=== PATIENT | female | born 1935 | race Caucasian/White ===

== ENCOUNTER 2022-09-05 03:58 | Emergency (ER) | payer MEDICARE, OTHER, SELFPAY ==
[2022-09-05] VITALS (35 sets, daily range): BP systolic 107–164; BP diastolic 49–96; PULSE 86–158; RESP 20–40; TEMP 36.9–37.4; O2SAT 91–99; BMI 35.4
--- NOTE | 2022-09-05 04:20 | ED_ITS ---
HPI - Weakness General Chief complaint: Weakness Stated complaint: WEAKNESS/FALL Time Seen by Provider: 09/05/22 04:11 Source: patient Source comment: EMS and patient Mode of arrival: ambulance Limitations: no limitations History of Present Illness HPI Narrative: patient presents from home complaining of weakness. Tonight she fell to the floor onto her buttocks getting out of bed to go to the Bathroom . Her was helping her but could not keep her up and she fell/was lowered to the floor. also does not feel she was hurt from the fall. She denies injury from the fall but not able to get up. Complains of pain with urination. Denies fever or nausea. Ill for 3 days MD Complaint: Reports generalized weakness Onset (ago): day(s) Related Data Home Medications Medication Instructions Recorded Confirmed amlodipine 5 mg tablet 5 mg PO DAILY 09/05/22 09/05/22 benzoin compound 1 applic topical DAILY 09/05/22 09/05/22 conjugated estrogens 0.9 mg tablet 0.9 mg PO DAILY 09/05/22 09/05/22 (Premarin) lisinopril 20 mg tablet 20 mg PO DAILY 09/05/22 09/05/22 metoprolol tartrate 100 mg tablet 100 mg PO Q12H 09/05/22 09/05/22 potassium chloride 10 mEq 10 meq PO DAILY 09/05/22 09/05/22 tablet,extended release rabeprazole 20 mg tablet,delayed 20 mg PO Q24H 09/05/22 09/05/22 release Allergies Allergy/AdvReac Type Severity Reaction Status Date / Time alevera Allergy Rash Uncoded 09/05/22 04:06 Review of Systems ROS Status of ROS 10 or more systems reviewed and unremarkable except as noted in history and below [facility] Social History Smoking status: Former smoker Exam Constitutional Vital Signs, click to edit/add: Last Vital Signs Temp 98.5 F 09/05/22 04:00 Pulse 104 H 09/05/22 04:00 Resp 20 09/05/22 04:00 BP 164/57 H 09/05/22 04:00 Pulse Ox 93 L 09/05/22 04:00 O2 Del Method Room Air 09/05/22 04:00 Common normals: oriented x3 and alert General appearance: ill appearing Other: appears weak Eye Common normals: PERRL, EOMs intact bilaterally and conjunctivae normal Respiratory Common normals: normal respiratory effort, no retractions, no use of accessory muscles and clear to auscultation bilaterally Cardio Rate: tachycardic Rhythm: abnormal rhythm GI Common normals: Normal to inspection, nondistended, normoactive bowel sounds present, soft to palpation and non-tender Extremity Common normals: normal to inspection and full ROM Neuro Common normals: CN's II-XII intact bilaterally, moves all extremities, no focal motor deficits and no sensory deficits noted Course Vital Signs Vital signs: Vital Signs Temperature 98.5 F 09/05/22 04:00 Pulse Rate 104 H 09/05/22 04:00 Respiratory Rate 09/05/22 04:00 Blood Pressure 164/57 H 09/05/22 04:00 Pulse Oximetry 93 L 09/05/22 04:00 Oxygen Delivery Method Room Air 09/05/22 04:00 Temperature 98.5 F 09/05/22 04:00 Pulse Rate 104 H 09/05/22 04:00 Respiratory Rate 09/05/22 04:00 Blood Pressure 164/57 H 09/05/22 04:00 Pulse Oximetry 93 L 09/05/22 04:00 Oxygen Delivery Method Room Air 09/05/22 04:00 MDM - Weakness MDM Narrative Medical decision making narrative: patient presents with complaint of gen. weakness Presents with A.fib with RVR. Also found to have acute renal insufficiency and leukocytosis. Mild elevation of Troponin. clear cxray . Patient afebrile. Started on diltiazem to control heart rate. d-dimer elevated but GRF prevents CTA chest. Patient given dose of heparin and started on heparin drip. Discussed with Hospitalist at [facility] and patient accepted for admission/transfer Lab Data Labs: Lab Results 09/05/22 Range/Units 04:15 WBC 29.1 H (4.0-11.0) 10^3/uL RBC 4.15 L (4.20-5.40) 10^6/uL Hgb 11.7 L (12.0-16.0) g/dL Hct 34.2 L (36.0-48.0) % MCV 82.4 (81.0-99.0) fL MCH 28.2 (26.7-34.0) pg MCHC 34.2 (29.9-35.2) g/dL RDW 13.5 (11.0-15.0) % Plt Count 190 (150-450) 10^3/uL MPV 12.2 (9.5-13.5) fL Seg Neuts % (Manual) 95.0 Lymphocytes % (Manual) 0.0 L (20.5-60.0) % Atypical Lymphs % (Man) 2.0 % Monocytes % (Manual) 3.0 (1.7-12.0) % Eosinophils % (Manual) 0.0 L (0.9-7.0) % Basophils % (Manual) 0.0 L (0.2-2.0) % Neutrophils # (Manual) 27.64 H (1.4-6.5) 10^3/uL Lymphocytes # (Manual) 0.00 L (1.20-3.80) 10^3/uL Monocytes # (Manual) 0.87 H (0.30-0.80) 10^3/uL Eosinophils # (Manual) 0.00 (0.00-0.70) 10^3/uL Basophils # (Manual) 0.00 (0.00-0.10) 10^3/uL D-Dimer 4.58 H* (<=0.59) mg/L FEU Sodium 125 L (136-145) mmol/L Potassium 3.7 (3.5-5.1) mmol/L Chloride 90 L (98-107) mmol/L Carbon Dioxide 20.4 L (21.0-32.0) mmol/L Anion Gap 18.3 BUN 43.0 H (7.0-18.0) mg/dL Creatinine 2.91 H (0.55-1.02) mg/dL Est GFR ( Amer) 19 L (>=60) Est GFR (Non-Af Amer) 15 L (>=60) BUN/Creatinine Ratio 14.8 Glucose 170 H (74-106) mg/dL Lactate 2.3 H* (0.4-2.0) mmol/L Calcium 8.4 L (8.5-10.1) mg/dL Troponin I High Sens 72.1 H* (4.0-51.3) pg/mL NT-Pro-B Natriuret Pep 2638.0 H* (<=1800.0) pg/mL Discharge Plan Discharge Chief Complaint: Weakness Clinical Impression: Acute renal failure, Generalized weakness, Elevated troponin, Atrial fibrillation with RVR Patient Disposition: Xfer Acute Care Hospital Discharge Location: The [facility]
--- NOTE | 2022-09-05 04:23 | ECG_ITS ---
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
--- NOTE | 2022-09-05 04:23 | XR_ITS ---
The [address] [id number] Patient Name: RA LINK MRN: [id number] date: 1935 Sex: F Assigned Patient Location: ER Current Patient Location: ED.MAIN Accession/Order Number: [id number] Exam Date: 09/05/2022 04:45 Report Date: 09/05/2022 05:02 At the request of: WISAM DUMONT Procedure: XR chest 1V EXAM: XR chest 1V HISTORY: weakness COMPARISON: None. TECHNIQUE: One view of the chest was obtained. FINDINGS: The cardiac silhouette is mildly enlarged. Aortic atherosclerotic disease is seen. The lungs are clear. There is no significant pneumothorax or pleural effusion. No acute osseous abnormality is seen. XR/XR chest 1V IMPRESSION: 1. No acute cardiopulmonary abnormality. Electronically authenticated by: Jarvis LIMA Date: 09/05/2022 05:02
[2022-09-05 04:30] LABS: Hematocrit 34.2 % (36.0-48.0); Hemoglobin 11.7 g/dL (12.0-16.0); Mean Corpuscular HGB Conc 34.2 g/dL (29.9-35.2); Mean Corpuscular Hemoglobin 28.2 pg (26.7-34.0); Mean Corpuscular Volume 82.4 fL (81.0-99.0); Mean Platelet Volume 12.2 fL (9.5-13.5); Platelet Count 190 10^3/uL (150-450); Red Blood Count 4.15 10^6/uL (4.20-5.40); Red Cell Distribution Width 13.5 % (11.0-15.0); White Blood Count 29.1 10^3/uL (4.0-11.0)
[2022-09-05] MEDS: dilTIAZem HCL 125 MG in 0.9 % SODIUM CHLORIDE 100 ML 10 MG IV (04:35)
[2022-09-05] MEDS: DILTIAZEM HCL 25 MG/5 ML VIAL 10 MG IV (04:36)
[2022-09-05] MEDS: 0.9 % SODIUM CHLORIDE 1,000 ML 999 ML IV (04:37)
[2022-09-05 04:48] LABS: Anion Gap 18.3; BUN Creatinine Ratio 14.8; Calcium 8.4 mg/dL (8.5-10.1); Carbon Dioxide 20.4 mmol/L (21.0-32.0); Chloride 90 mmol/L (98-107); Estimated GFR (African America 19 (>=60); Estimated GFR (Non-African Ame 15 (>=60); Glucose 170 mg/dL (74-106); Potassium 3.7 mmol/L (3.5-5.1); Sodium 125 mmol/L (136-145)
[2022-09-05 04:52] LABS: D Dimer 4.58 mg/L FEU (<=0.59)
[2022-09-05 04:53] LABS: Lactate/Lactic Acid 2.3 mmol/L (0.4-2.0); Troponin I High Sensitivity 72.1 pg/mL (4.0-51.3)
--- NOTE | 2022-09-05 04:54 | PC.NURSE ---
Dr aware of labs of Trop 72.1, BNP 2638, Lactate 2.3 and D-dimmer 4.58
[2022-09-05 05:04] LABS: Monocytes Absolute Manual 0.87 10^3/uL (0.30-0.80); Segmented Neut Absolute Manual 27.64 10^3/uL (1.4-6.5)
--- NOTE | 2022-09-05 07:03 | ECG_ITS ---
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
[2022-09-05] MEDS: HEPARIN SODIUM (PORCINE) 5,000 UNIT/ML VIAL 4000 UNIT IV (07:22)
[2022-09-05] MEDS: HEPARIN SODIUM,PORCINE/D5W 25,000 UNIT/500 ML IV.SOLN 16.248 UNIT IV (07:24)
[2022-09-05 08:09] LABS: Bilirubin Urine NEGATIVE (NEGATIVE); Blood Urine MODERATE (NEGATIVE); Color Urine YELLOW (YELLOW); Glucose Urine UA NEGATIVE (NEGATIVE); Ketones Urine NEGATIVE (NEGATIVE); Leukocyte Esterase Urine MODERATE (NEGATIVE); Nitrite Urine NEGATIVE (NEGATIVE); Protein Urine >=300 mg/dL (NEG/TRACE)
--- NOTE | 2022-09-05 08:19 | ECG_ITS ---
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
[2022-09-05] MEDS: ONDANSETRON PF 4 MG/2 ML VIAL IV (08:22)
[2022-09-05 08:31] LABS: Clarity Urine SLIGHTLY CLOUDY (CLEAR); Urine Microscopic Indicated YES
[2022-09-05] MEDS: PIPERACILLIN SODIUM/TAZOBACTAM 3.375 GM in 0.9 % SODIUM CHLORIDE 50 ML IV (08:32)
[2022-09-05 08:33] LABS: Bacteria Urine LARGE #/HPF (NONE SEEN); WBC Urine >100 #/HPF (NONE SEEN)
[2022-09-05 08:34] LABS: Mucus Urine NONE SEEN (NONE SEEN); Squamous Epithelial Cell Urine FEW #/LPF (NONE/RARE); Urine Culture Indicated YES
== END 2022-09-05 09:33 | disposition short-term general hospital (02) ==
PROVIDERS: Emergency Provider Internal Medicine; PCP Family Medicine
DX: I48.91 Unspecified atrial fibrillation (principal); N17.9 Acute kidney failure, unspecified; R77.8 Other specified abnormalities of plasma proteins; R53.1 Weakness; Z79.899 Other long term (current) drug therapy; Z87.891 Personal history of nicotine dependence
CPT/HCPCS: 36415; 71045; 80048; 81003; 81015; 83605; 83880; 84484; 85007; 85025; 85378; 87086; 87150; 87186; 93005; 96365; 96375; 99285

== ENCOUNTER 2022-09-22 13:59 | Outpatient (OUT) | payer MEDICARE, OTHER, SELFPAY ==
[2022-09-22 14:18] LABS: Basophils Percent Auto 0.5 % (0.2-2.0); Eosinophils Absolute Auto 0.2 10^3/uL (0.0-0.7); Eosinophils Percent Auto 3.5 % (0.9-7.0); Hematocrit 27.5 % (36.0-48.0); Hemoglobin 8.7 g/dL (12.0-16.0); Immature Granulocytes Abs Auto 0.04 10^3/uL (0.00-0.03); Immature Granulocytes Pct Auto 0.7 % (0.0-0.5); Lymphocytes Absolute Auto 1.1 10^3/uL (1.2-3.8); Lymphocytes Percent Auto 17.5 % (20.5-60.0); Mean Corpuscular HGB Conc 31.6 g/dL (29.9-35.2); Mean Corpuscular Hemoglobin 27.8 pg (26.7-34.0); Mean Corpuscular Volume 87.9 fL (81.0-99.0); Mean Platelet Volume 11.1 fL (9.5-13.5); Monocytes Percent Auto 15.9 % (1.7-12.0); Neutrophils Absolute Auto 3.8 10^3/uL (1.4-6.5); Neutrophils Percent Auto 61.9 % (43.0-75.0); Platelet Count 371 10^3/uL (150-450); Red Blood Count 3.13 10^6/uL (4.20-5.40); White Blood Count 6.1 10^3/uL (4.0-11.0)
[2022-09-22 14:59] LABS: Alanine Aminotransferase 61 U/L (14-59); Albumin Globulin Ratio 0.6; Albumin Level 3.3 g/dL (3.4-5.0); Alkaline Phosphatase 64 U/L (46-116); Anion Gap 14.9; Aspartate Amino Transferase 39 U/L (15-37); BUN Creatinine Ratio 12.7; Bilirubin Total 0.4 mg/dL (0.2-1.0); Calcium 9.4 mg/dL (8.5-10.1); Carbon Dioxide 26.3 mmol/L (21.0-32.0); Chloride 99 mmol/L (98-107); Estimated GFR (African America 43 (>=60); Estimated GFR (Non-African Ame 35 (>=60); Globulin 5.6 g/dL; Glucose 93 mg/dL (74-106); Potassium 4.2 mmol/L (3.5-5.1); Sodium 136 mmol/L (136-145); Total Protein 8.9 g/dL (6.4-8.2)
== END 2022-09-22 14:00 | disposition home or self-care (01) ==
LOC: LAB 14:02
PROVIDERS: PCP Internal Medicine; Visit Provider Nurse Practitioner
DX: I10 Essential (primary) hypertension (principal); R78.81 Bacteremia; B96.20 Unspecified Escherichia coli [E. coli] as the cause of diseases classified elsewhere
CPT/HCPCS: 36415; 80053; 85025

== ENCOUNTER 2022-09-28 23:15 | Emergency (ER) | payer MEDICARE, OTHER, SELFPAY ==
[2022-09-28 23:27] VITALS: BP 145/79; PULSE 74; RESP 16; TEMP 36.6; O2SAT 97; BMI 35.4
--- NOTE | 2022-09-29 00:22 | ED.FEMALEGU1 ---
HPI - Female Genitourinary General Chief complaint: Urogenital-Female Stated complaint: UTI Time Seen by Provider: 09/28/22 23:57 Source: patient Mode of arrival: Wheelchair Limitations: physical limitation History of Present Illness HPI Narrative: presents complaining of UTI symptoms. states burning with urination for a couple of days. Some nausea tonight. No fever or chills. Denies feeling weak MD elicited complaint: Reports dysuria Related Data Home Medications Medication Instructions Recorded Confirmed amlodipine 5 mg tablet 5 mg PO DAILY 09/05/22 09/05/22 benzoin compound 1 applic topical DAILY 09/05/22 09/05/22 conjugated estrogens 0.9 mg tablet 0.9 mg PO DAILY 09/05/22 09/05/22 (Premarin) lisinopril 20 mg tablet 20 mg PO DAILY 09/05/22 09/05/22 metoprolol tartrate 100 mg tablet 100 mg PO Q12H 09/05/22 09/05/22 potassium chloride 10 mEq 10 meq PO DAILY 09/05/22 09/05/22 tablet,extended release rabeprazole 20 mg tablet,delayed 20 mg PO Q24H 09/05/22 09/05/22 release Allergies Allergy/AdvReac Type Severity Reaction Status Date / Time aspirin Allergy Unknown Verified 09/05/22 08:47 ciprofloxacin [From Cipro] Allergy Unknown Verified 09/05/22 08:47 egg Allergy Unknown Verified 09/05/22 08:47 eucalyptus Allergy Unknown Verified 09/05/22 08:47 Penicillins Allergy Unknown Verified 09/05/22 08:47 aloe vera Allergy Rash Verified 09/05/22 06:46 Review of Systems ROS Status of ROS 10 or more systems reviewed and unremarkable except as noted in history and below [facility] Medical History (Updated 09/29/22 @ 01:21 by David Lr MD) Surgical History (Updated 09/05/22 @ 08:52 by Homer Javier) Social History Smoking status: Never smoker Exam Constitutional Vital Signs, click to edit/add: Last Vital Signs Temp 97.9 F 09/28/22 23:27 Pulse 74 09/28/22 23:27 Resp 16 09/28/22 23:27 BP 145/79 H 09/28/22 23:27 Pulse Ox 97 09/28/22 23:27 O2 Del Method Room Air 09/28/22 23:27 Common normals: no apparent distress, average body habitus, oriented x3, no limitations, healthy appearing and alert Eye Common normals: PERRL, EOMs intact bilaterally and conjunctivae normal Respiratory Common normals: normal respiratory effort, no retractions and no use of accessory muscles Cardio Common normals: regular rate, regular rhythm, S1 normal heart sound and S2 normal heart sound GI Common normals: Normal to inspection, nondistended, normoactive bowel sounds present, soft to palpation and non-tender Extremity Common normals: normal to inspection and full ROM Neuro Common normals: oriented x3, CN's II-XII intact bilaterally, moves all extremities and no focal motor deficits Psych Appearance: grossly normal Course Vital Signs Vital signs: Vital Signs Temperature 97.9 F 09/28/22 23:27 Pulse Rate 74 09/28/22 23:27 Respiratory Rate 16 09/28/22 23:27 Blood Pressure 145/79 H 09/28/22 23:27 Pulse Oximetry 97 09/28/22 23:27 Oxygen Delivery Method Room Air 09/28/22 23:27 Temperature 97.9 F 09/28/22 23:27 Pulse Rate 74 09/28/22 23:27 Respiratory Rate 16 09/28/22 23:27 Blood Pressure 145/79 H 09/28/22 23:27 Pulse Oximetry 97 09/28/22 23:27 Oxygen Delivery Method Room Air 09/28/22 23:27 MDM - Female Genitourinary MDM Narrative Medical decision making narrative: past history of UTI. Presents with 2 day history of dysuria and urgency. no fever. UA positive. WBC normal. Patient and her informed of the diagnosis and patient discharged home with a prescription of Bactrim ds Lab Data Labs: Lab Results 09/29/22 09/29/22 Range/Units 00:03 00:36 WBC 8.0 (4.0-11.0) 10^3/uL RBC 3.54 L (4.20-5.40) 10^6/uL Hgb 9.8 L (12.0-16.0) g/dL Hct 30.2 L (36.0-48.0) % MCV 85.3 (81.0-99.0) fL MCH 27.7 (26.7-34.0) pg MCHC 32.5 (29.9-35.2) g/dL RDW 13.9 (11.0-15.0) % Plt Count 261 (150-450) 10^3/uL MPV 11.6 (9.5-13.5) fL Neut % (Auto) 59.1 (43.0-75.0) % Lymph % (Auto) 19.7 L (20.5-60.0) % [place] % (Auto) 12.9 H (1.7-12.0) % Eos % (Auto) 7.5 H (0.9-7.0) % Baso % (Auto) 0.4 (0.2-2.0) % Neut # (Auto) 4.7 (1.4-6.5) 10^3/uL Lymph # (Auto) 1.6 (1.2-3.8) 10^3/uL [place] # (Auto) 1.0 H (0.3-0.8) 10^3/uL Eos # (Auto) 0.6 (0.0-0.7) 10^3/uL Baso # (Auto) 0.0 (0.0-0.1) 10^3/uL Abs Immat Gran (auto) 0.03 (0.00-0.03) 10^3/uL Imm/Tot Granulo (auto) 0.4 (0.0-0.5) % Sodium 133 L (136-145) mmol/L Potassium 4.2 (3.5-5.1) mmol/L Chloride 97 L (98-107) mmol/L Carbon Dioxide 23.5 (21.0-32.0) mmol/L Anion Gap 16.7 BUN 18.0 (7.0-18.0) mg/dL Creatinine 1.44 H (0.55-1.02) mg/dL Est GFR ( Amer) 42 L (>=60) Est GFR (Non-Af Amer) 35 L (>=60) BUN/Creatinine Ratio 12.5 Glucose 109 H (74-106) mg/dL Calcium 9.5 (8.5-10.1) mg/dL Urine Color Yellow (YELLOW) Urine Clarity Clear (CLEAR) Urine pH 7.0 (5.0-9.0) Ur Specific [place] 1.010 (1.005-1.025) Urine Protein 30 A (NEG/TRACE) mg/dL Urine Glucose (UA) Negative (NEGATIVE) mg/dL Urine Ketones Negative (NEGATIVE) mg/dL Urine Occult Blood Moderate A (NEGATIVE) Urine Nitrite Positive A (NEGATIVE) Urine Bilirubin Negative (NEGATIVE) Urine Urobilinogen 0.2 (0.2-1.0) EU/dL Ur Leukocyte Esterase Large A (NEGATIVE) Urine RBC 0-2 (0-2) #/HPF Urine WBC >100 A (NONE SEEN) #/HPF Ur Squamous Epith Cells Few A (NONE/RARE) #/LPF Urine Crystals None seen (None Seen) #/HPF Urine Bacteria Large A (NONE SEEN) #/HPF Urine Casts None seen (NONE SEEN) #/LPF Urine Mucus Moderate A (NONE SEEN) Ur Culture Indicated? Yes Discharge Plan Discharge Chief Complaint: Urogenital-Female Clinical Impression: Urinary tract infection Patient Disposition: Home, Self-Care Prescriptions / Home Meds: No Action amlodipine 5 mg tablet 5 mg PO DAILY lisinopril 20 mg tablet 20 mg PO DAILY metoprolol tartrate 100 mg tablet 100 mg PO Q12H potassium chloride 10 mEq tablet extended release 10 meq PO DAILY rabeprazole 20 mg tablet,delayed release (DR/EC) 20 mg PO Q24H Premarin 0.9 mg tablet 0.9 mg PO DAILY benzoin compound Tincture 1 applic topical DAILY Rx Instructions: To left knee Instructions: Urinary Tract Infection in Older Adults (ED) Additional Instructions: drink plenty of fluids and follow up with your doctor in 2-3 days Stand Alone Forms: Portal Instructions Referrals: Shaikh Piña MD [Primary Care Provider] - 1 week
[2022-09-29 00:30] LABS: Bilirubin Urine NEGATIVE (NEGATIVE); Blood Urine MODERATE (NEGATIVE); Clarity Urine CLEAR (CLEAR); Color Urine YELLOW (YELLOW); Glucose Urine UA NEGATIVE (NEGATIVE); Ketones Urine NEGATIVE (NEGATIVE); Leukocyte Esterase Urine LARGE (NEGATIVE); Nitrite Urine POSITIVE (NEGATIVE); Protein Urine 30 mg/dL (NEG/TRACE); Urobilinogen Urine 0.2 EU/dL (0.2-1.0)
[2022-09-29 00:31] LABS: Urine Microscopic Indicated YES
[2022-09-29 00:37] LABS: Bacteria Urine LARGE #/HPF (NONE SEEN); Cast Seen? NONE SEEN #/LPF (NONE SEEN); Crystals Seen? None Seen #/HPF (None Seen); Mucus Urine MODERATE (NONE SEEN); RBC Urine 0-2 #/HPF (0-2); Squamous Epithelial Cell Urine FEW #/LPF (NONE/RARE); Urine Culture Indicated YES; WBC Urine >100 #/HPF (NONE SEEN)
[2022-09-29] MEDS: 0.9 % SODIUM CHLORIDE 1,000 ML 999 ML IV (00:41)
[2022-09-29 00:47] LABS: Basophils Percent Auto 0.4 % (0.2-2.0); Eosinophils Absolute Auto 0.6 10^3/uL (0.0-0.7); Eosinophils Percent Auto 7.5 % (0.9-7.0); Hematocrit 30.2 % (36.0-48.0); Hemoglobin 9.8 g/dL (12.0-16.0); Immature Granulocytes Abs Auto 0.03 10^3/uL (0.00-0.03); Immature Granulocytes Pct Auto 0.4 % (0.0-0.5); Lymphocytes Absolute Auto 1.6 10^3/uL (1.2-3.8); Lymphocytes Percent Auto 19.7 % (20.5-60.0); Mean Corpuscular HGB Conc 32.5 g/dL (29.9-35.2); Mean Corpuscular Hemoglobin 27.7 pg (26.7-34.0); Mean Corpuscular Volume 85.3 fL (81.0-99.0); Mean Platelet Volume 11.6 fL (9.5-13.5); Monocytes Percent Auto 12.9 % (1.7-12.0); Neutrophils Absolute Auto 4.7 10^3/uL (1.4-6.5); Neutrophils Percent Auto 59.1 % (43.0-75.0); Platelet Count 261 10^3/uL (150-450); Red Blood Count 3.54 10^6/uL (4.20-5.40); Red Cell Distribution Width 13.9 % (11.0-15.0)
[2022-09-29 00:57] LABS: Anion Gap 16.7; BUN Creatinine Ratio 12.5; Calcium 9.5 mg/dL (8.5-10.1); Carbon Dioxide 23.5 mmol/L (21.0-32.0); Chloride 97 mmol/L (98-107); Estimated GFR (African America 42 (>=60); Estimated GFR (Non-African Ame 35 (>=60); Glucose 109 mg/dL (74-106); Potassium 4.2 mmol/L (3.5-5.1); Sodium 133 mmol/L (136-145)
[2022-09-29] MEDS: SULFAMETHOXAZOLE/TRIMETHOPRIM 800-160 MG TABLET 1 TAB PO (01:28)
== END 2022-09-29 01:43 | disposition home or self-care (01) ==
PROVIDERS: Emergency Provider Internal Medicine; PCP Internal Medicine
DX: N39.0 Urinary tract infection, site not specified (principal); Z79.899 Other long term (current) drug therapy; Z87.440 Personal history of urinary (tract) infections
CPT/HCPCS: 36415; 80048; 81001; 85025; 87086; 87150; 87186; 99284

== ENCOUNTER 2022-11-04 13:21 | Outpatient (REF) | payer MEDICARE, OTHER, SELFPAY | END 2022-11-04 13:22 | disposition home or self-care (01) | LOC: LAB 13:21 | PROVIDERS: PCP Internal Medicine; Visit Provider Internal Medicine | DX: N39.0 Urinary tract infection, site not specified (principal) | CPT/HCPCS: 87086; 87150; 87186 ==

== ENCOUNTER 2022-12-22 09:42 | Outpatient (OUT) | payer MEDICARE, OTHER, SELFPAY ==
[2022-12-22 10:03] LABS: Basophils Absolute Auto 0.1 10^3/uL (0.0-0.1); Basophils Percent Auto 0.7 % (0.2-2.0); Eosinophils Absolute Auto 0.7 10^3/uL (0.0-0.7); Hematocrit 34.5 % (36.0-48.0); Hemoglobin 10.8 g/dL (12.0-16.0); Immature Granulocytes Abs Auto 0.02 10^3/uL (0.00-0.03); Immature Granulocytes Pct Auto 0.2 % (0.0-0.5); Lymphocytes Absolute Auto 2.3 10^3/uL (1.2-3.8); Lymphocytes Percent Auto 28.2 % (20.5-60.0); Mean Corpuscular HGB Conc 31.3 g/dL (29.9-35.2); Mean Corpuscular Hemoglobin 28.6 pg (26.7-34.0); Mean Corpuscular Volume 91.5 fL (81.0-99.0); Mean Platelet Volume 11.3 fL (9.5-13.5); Monocytes Percent Auto 12.5 % (1.7-12.0); Neutrophils Absolute Auto 4.2 10^3/uL (1.4-6.5); Neutrophils Percent Auto 50.4 % (43.0-75.0); Platelet Count 268 10^3/uL (150-450); Red Blood Count 3.77 10^6/uL (4.20-5.40); Red Cell Distribution Width 14.8 % (11.0-15.0); White Blood Count 8.3 10^3/uL (4.0-11.0)
[2022-12-22 10:23] LABS: Alanine Aminotransferase 23 U/L (14-59); Albumin Globulin Ratio 0.8; Albumin Level 4.2 g/dL (3.4-5.0); Alkaline Phosphatase 67 U/L (46-116); Anion Gap 10.8; Aspartate Amino Transferase 24 U/L (15-37); BUN Creatinine Ratio 17.7; Bilirubin Total 0.4 mg/dL (0.2-1.0); Calcium 9.8 mg/dL (8.5-10.1); Carbon Dioxide 27.1 mmol/L (21.0-32.0); Chloride 102 mmol/L (98-107); Estimated GFR (African America 43 (>=60); Estimated GFR (Non-African Ame 35 (>=60); Globulin 5.2 g/dL; Glucose 91 mg/dL (74-106); Potassium 3.9 mmol/L (3.5-5.1); Sodium 136 mmol/L (136-145); Total Protein 9.4 g/dL (6.4-8.2)
== END 2022-12-22 09:43 | disposition home or self-care (01) ==
LOC: LAB 09:43
PROVIDERS: PCP Internal Medicine; Visit Provider Internal Medicine
DX: I10 Essential (primary) hypertension (principal)
CPT/HCPCS: 36415; 80053; 85025

== ENCOUNTER 2023-05-09 11:48 | Outpatient (OUT) | payer MEDICARE, OTHER, SELFPAY ==
[2023-05-09 13:09] LABS: Basophils Absolute Auto 0.1 10^3/uL (0.0-0.1); Basophils Percent Auto 0.6 % (0.2-2.0); Eosinophils Absolute Auto 0.5 10^3/uL (0.0-0.7); Eosinophils Percent Auto 6.1 % (0.9-7.0); Hemoglobin 10.6 g/dL (12.0-16.0); Immature Granulocytes Abs Auto 0.02 10^3/uL (0.00-0.03); Immature Granulocytes Pct Auto 0.2 % (0.0-0.5); Lymphocytes Absolute Auto 2.2 10^3/uL (1.2-3.8); Lymphocytes Percent Auto 25.7 % (20.5-60.0); Mean Corpuscular HGB Conc 32.1 g/dL (29.9-35.2); Mean Corpuscular Hemoglobin 28.9 pg (26.7-34.0); Mean Corpuscular Volume 89.9 fL (81.0-99.0); Mean Platelet Volume 12.3 fL (9.5-13.5); Monocytes Absolute Auto 1.4 10^3/uL (0.3-0.8); Monocytes Percent Auto 15.9 % (1.7-12.0); Neutrophils Absolute Auto 4.4 10^3/uL (1.4-6.5); Neutrophils Percent Auto 51.5 % (43.0-75.0); Platelet Count 264 10^3/uL (150-450); Red Blood Count 3.67 10^6/uL (4.20-5.40); Red Cell Distribution Width 13.8 % (11.0-15.0); White Blood Count 8.5 10^3/uL (4.0-11.0)
[2023-05-09 15:20] LABS: Anion Gap 14.7; BUN Creatinine Ratio 15.4; Calcium 9.4 mg/dL (8.5-10.1); Carbon Dioxide 27.5 mmol/L (21.0-32.0); Chloride 102 mmol/L (98-107); Estimated GFR (African America 47 (>=60); Estimated GFR (Non-African Ame 39 (>=60); Glucose 95 mg/dL (74-106); Potassium 4.2 mmol/L (3.5-5.1); Sodium 140 mmol/L (136-145)
== END 2023-05-09 11:49 | disposition home or self-care (01) ==
LOC: LAB 11:49
PROVIDERS: PCP Internal Medicine; Visit Provider Internal Medicine
DX: I10 Essential (primary) hypertension (principal)
CPT/HCPCS: 36415; 80048; 85025

== ENCOUNTER 2023-07-20 16:03 | Outpatient (OUT) | payer MEDICARE, OTHER, SELFPAY ==
[2023-07-20 16:50] LABS: Bilirubin Urine NEGATIVE (NEGATIVE); Blood Urine NEGATIVE (NEGATIVE); Clarity Urine CLEAR (CLEAR); Color Urine YELLOW (YELLOW); Glucose Urine UA NEGATIVE (NEGATIVE); Ketones Urine NEGATIVE (NEGATIVE); Leukocyte Esterase Urine LARGE (NEGATIVE); Nitrite Urine POSITIVE (NEGATIVE); Protein Urine NEGATIVE (NEG/TRACE); pH Urine 6.5 (5.0-9.0)
[2023-07-20 16:59] LABS: Bacteria Urine LARGE #/HPF (NONE SEEN); Cast Seen? NONE SEEN #/LPF (NONE SEEN); Crystals Seen? None Seen #/HPF (None Seen); Mucus Urine NONE SEEN (NONE SEEN); Squamous Epithelial Cell Urine FEW #/LPF (NONE/RARE); Urine Culture Indicated ALREADY ORDERED; WBC Urine 75-100 #/HPF (NONE SEEN)
== END 2023-07-20 16:04 | disposition home or self-care (01) ==
LOC: LAB 16:06
PROVIDERS: PCP Internal Medicine; Visit Provider Internal Medicine
DX: N30.90 Cystitis, unspecified without hematuria (principal)
CPT/HCPCS: 81001; 87086; 87150; 87186

== ENCOUNTER 2023-08-04 10:58 | Outpatient (OUT) | payer MEDICARE, OTHER, SELFPAY ==
[2023-08-04 11:30] LABS: Bilirubin Urine NEGATIVE (NEGATIVE); Blood Urine NEGATIVE (NEGATIVE); Clarity Urine CLEAR (CLEAR); Color Urine LT. YELLOW (YELLOW); Glucose Urine UA NEGATIVE (NEGATIVE); Ketones Urine NEGATIVE (NEGATIVE); Leukocyte Esterase Urine MODERATE (NEGATIVE); Nitrite Urine NEGATIVE (NEGATIVE); Protein Urine NEGATIVE (NEG/TRACE); Specific Gravity Urine <=1.005 (1.005-1.025); Urobilinogen Urine 0.2 EU/dL (0.2-1.0)
[2023-08-04 11:46] LABS: Basophils Absolute Auto 0.1 10^3/uL (0.0-0.1); Basophils Percent Auto 0.6 % (0.2-2.0); Eosinophils Absolute Auto 0.3 10^3/uL (0.0-0.7); Eosinophils Percent Auto 3.1 % (0.9-7.0); Hematocrit 34.7 % (36.0-48.0); Hemoglobin 11.2 g/dL (12.0-16.0); Immature Granulocytes Abs Auto 0.05 10^3/uL (0.00-0.03); Immature Granulocytes Pct Auto 0.5 % (0.0-0.5); Lymphocytes Absolute Auto 2.3 10^3/uL (1.2-3.8); Lymphocytes Percent Auto 22.4 % (20.5-60.0); Mean Corpuscular HGB Conc 32.3 g/dL (29.9-35.2); Mean Corpuscular Hemoglobin 27.9 pg (26.7-34.0); Mean Corpuscular Volume 86.5 fL (81.0-99.0); Mean Platelet Volume 11.3 fL (9.5-13.5); Monocytes Absolute Auto 1.3 10^3/uL (0.3-0.8); Monocytes Percent Auto 12.8 % (1.7-12.0); Neutrophils Absolute Auto 6.2 10^3/uL (1.4-6.5); Neutrophils Percent Auto 60.6 % (43.0-75.0); Platelet Count 291 10^3/uL (150-450); Red Blood Count 4.01 10^6/uL (4.20-5.40); Red Cell Distribution Width 13.5 % (11.0-15.0); White Blood Count 10.2 10^3/uL (4.0-11.0)
[2023-08-04 11:56] LABS: Creatinine Urine Random 53.43 mg/dL (20.00-300.00); Total Protein Urine Random 10.9 mg/dL (<=11.9)
[2023-08-04 12:12] LABS: Urine Microscopic Indicated NO
[2023-08-04 12:12] LABS: Alanine Aminotransferase 23 U/L (14-59); Albumin Globulin Ratio 0.9; Albumin Level 4.1 g/dL (3.4-5.0); Alkaline Phosphatase 80 U/L (46-116); Anion Gap 13.2; Aspartate Amino Transferase 21 U/L (15-37); BUN Creatinine Ratio 13.2; Bilirubin Total 0.5 mg/dL (0.2-1.0); Calcium 9.2 mg/dL (8.5-10.1); Carbon Dioxide 30.1 mmol/L (21.0-32.0); Chloride 96 mmol/L (98-107); Estimated GFR (African America 60 (>=60); Estimated GFR (Non-African Ame 49 (>=60); Globulin 4.7 g/dL; Glucose 73 mg/dL (74-106); Potassium 4.3 mmol/L (3.5-5.1); Sodium 135 mmol/L (136-145); Total Protein 8.8 g/dL (6.4-8.2)
== END 2023-08-04 10:59 | disposition home or self-care (01) ==
LOC: LAB 10:59
PROVIDERS: PCP Internal Medicine; Visit Provider Internal Medicine
DX: R30.0 Dysuria (principal); I10 Essential (primary) hypertension
CPT/HCPCS: 36415; 80053; 81003; 82570; 84156; 85025

== ENCOUNTER 2023-09-19 21:53 | Outpatient (REF) | payer MEDICARE, OTHER, SELFPAY ==
--- OUTSIDE RECORDS SUMMARY | 2023-09-19 21:58 | XMS_ITS | CCD ---
Author Organization [facility] Care Team Providers Care Family Development Extension Specialist Name Role Phone JACQUI STODDARD Unavailable Unavailable JACQUI STODDARD Unavailable Unavailable MARQUES, MCKENZIE Unavailable Unavailable MARQUES, MCKENZIE Unavailable Unavailable Tor Garg Unavailable Zaria King Attending Unavailable HOY ., DR CURTIS Admitting Unavailable HOY ., DR CURTIS Primary Care Unavailable HOY ., DR CURTIS Attending Unavailable HOY ., DR CURTIS Consulting Unavailable MISC, DR MONTERO Admitting Unavailable HOY ., DR CURTIS Consulting Unavailable HOY ., DR CURTIS Primary Care Unavailable MISC, DR MONTERO Attending Unavailable HOY ., DR CURTIS Primary Care Unavailable HOY ., DR CURTIS Admitting Unavailable HOY ., DR CURTIS Attending Unavailable HOY ., DR CURTIS Consulting Unavailable HOY ., DR CURTIS Admitting Unavailable HOY ., DR CURTIS Attending Unavailable HOY ., DR CURTIS Consulting Unavailable HOY ., DR CURTIS Primary Care Unavailable ZIEBER, DR BRANDO Rdz Consulting Unavailable HOY ., DR CURTIS Admitting Unavailable HOY ., DR CURTIS Attending Unavailable HOY ., DR CURTIS Consulting Unavailable HOY ., DR CURTIS Primary Care Unavailable HOY ., DR CURTIS Primary Care Unavailable DYERSBURG, DR PAMELLA Bowers Consulting Unavailable LULU SOTO Admitting Unavailable LULU SOTO Attending Unavailable LULU SOTO Consulting Unavailable HOY ., DR CURTIS Primary Care Unavailable LULU SOTO Attending Unavailable CHARLES, LULU Admitting Unavailable TIMWISAM Admitting Unavailable HOY ., DR CURTIS Primary Care Unavailable TIM, WISAM Attending Unavailable DENAE DUMONTYL Consulting Unavailable MARISOL SCHAEFFER Attending Unavailable WISAM DUMONT Referring Unavailable MECHELLE MCCARTNEY Attending Unavailable JHONATAN HAINES Admitting Unavailable SHERRILL, MECHELLE Referring Unavailable USHA GARZA Referring Unavailabl e KAYLA, USHA M Referring Unavailabl e KAYLA, USHA M Referring Unavailabl e KAYLA, USHA M Referring Unavailabl e KAYLA, USHA M Referring Unavailabl e MD Ever Byrd Primary Care Provider [phone] MD Mckenzie Shepherd II Attending Provider MD Trice Piña Primary Care Provider SHAIKH PIÑA Attending Unavailable JAMES NARAYANAN Attending Unavailable SHAIKH PIÑA Referring Unavailable MARISELA BUSBY Attending Unavailable SHAIKH PIÑA Attending Unavailable SHAIKH PIÑA Attending Unavailable JUHI CHAVEZ Attending Unavailable SHAIKH PIÑA Attending Unavailable Mckenzie Shepherd II Admitting UnavailMckenzie Valle II Attending Santy e Shaikh Piña Primary Care Unavailable Mckenzie Shepherd II Admitting Unavailabl e Mckenzie Shepherd II Attending UnavailEver Sanchez Primary Care Unavailable Allergies Allergy Classification Reported Allergen(s) Allergy Type Date of Onset Reaction(s) Facility (7 sources) aspirin; Translations: [aspirin] Drug Allergy 2 pain [facility] Repository (4 sources) Penicillins; Translations: [penicillins] Drug allergy (disorder) 2 [facility] Repository (1 source) chicken derived Drug allergy (disorder) 2 [facility] Repository (4 sources) Penicillin G Drug Allergy 4 [facility] (1 source) Aspir-81 Drug allergy Unknown RF Controls Other (2 sources) Ciprofloxacin; Translations: [ciprofloxacin] Drug Allergy 3 [facility] Repository (1 source) Eucalyptus extract; Translations: [eucalyptus topical] Drug Allergy [facility] Repository (1 source) Mold Extract; Translations: [Mold] Drug Allergy [facility] Repository (1 source) Milk Products; Translations: [Milk Products] Food allergy (disorder) [facility] Repository (2 sources) aloe vera; Translations: [aloe vera] Propensity to adverse reactions (disorder) 3 [facility] Repository (1 source) Chicken; Translations: [Chicken] Food allergy (disorder) [facility] Repository (4 sources) Aloe Extract Drug Allergy 5 itch [facility] Repository (1 source) Ciprofloxacin Drug Allergy 5 [facility] Repository (2 sources) egg extract; Translations: [EGG] Drug Allergy 5 [facility] Repository (2 sources) Eucalyptus extract; Translations: [EUCALYPTUS] Drug Allergy 3 [facility] Repository (1 source) Quinolones (Antibiotic); Translations: [QUINOLONES] Propensity to adverse reactions to drug (disorder) 3 [facility] Repository (1 source) Aloe Extract Drug Allergy 4 [facility] Repository (1 source) Aspirin Drug Allergy 4 [facility] Repository (1 source) Penicillin Drug Allergy 4 [facility] Repository Medications Current Medications Medication Drug Class(es) Dates Sig (Normalized) Sig (Original) amLODIPine (4 sources) Dihydropyridine Calcium Channel Fer Start: 09-14-2023 Amlodipine Active MG PO September 14, 2023 12:00am take 1 tablet by heather th every twenty-four hours amLODIPine Besylate 5 MG 1 tablet Orally Once a day Active Calcium (1 source) Phosphate Binder, Calcium Calcium Active estrogens, conjugated (care home) 0.625 mg oral tablet (1 source) Estrogen take 1 tablet by mouth every twenty-four hours Premarin 0.625 MG 1 tablet Orally Once a day Active fluconazole 150 mg oral tablet (3 sources) Azole Antifungal Start: 09-14-19 Fluconazole Active MG PO September 14, 2023 12:00am ibuprofen 800 mg oral tablet (1 source) Nonsteroidal Anti-inflammatory Drug take 1 tablet by mouth every eight hours Ibuprofen 800 MG 1 tablet Orally Three times a day PRN only Active levoFLOXacin 500 mg oral tablet (3 sources) Quinolone Antimicrobial Start: 09-14-19 Levofloxacin Active MG PO September 14, 2023 12:00am lisinopril 20 mg oral tablet (1 source) Angiotensin Converting Enzyme Inhibitor take 1 tablet by mouth every twenty-four hours Lisinopril 20 MG 1 tab(s) Orally Once a day Active metoprolol tartrate 100 mg oral tablet (4 sources) beta-Adrenergic Fer Start: 09-14-19 Metoprolol Tartrate Active MG PO September 14, 2023 12:00am take 1 tablet by heather th every twelve hours Metoprolol Tartrate 100 MG 1 tablet Oral ly Twice a day Active [facility] - (1 source) Move [facility] - as directed Orally Active Multivitamin preparation (1 source) take 1 tablet by mouth once daily Multivitamin - 1 tablet Orally Once a day Active RABEprazole sodium 20 mg delayed release oral tablet (4 sources) Proton Pump Inhibitor Start: Rabeprazole Active MG PO September 14, 2023 12:00am RABEprazole Sodi um 20MG TAKE 1 TABLET DAILY Active 0.25 mg, 0.5 mg dose 1.5 ml semaglutide 1.34 mg/ml pen injector (1 source) Start: 08-20-2021 Ozempic (0.25 or 0.5 MG/DOSE) 2 MG/1.5ML 0.25 mg for one month and then increase to 0.5 mg dose Subcutaneous weekly for 30 days Aug, Active Problems Active Problems Problem Classification Problem Date Documented Date Episodic/Chronic Acute and unspecified renal failure (2 sources) Acute kidney failure, unspecified; Translations: [Acute kidney failure, unspecified] Onset: 09-05-2022 Episodic Bacterial infection; unspecified site (4 sources) Bacteremia; Translations: [Unspecified Escherichia coli [E. coli] as the cause of diseases classified elsewhere] Onset: 09-22-2022 Episodic Cardiac dysrhythmias (2 sources) Unspecified atrial fibrillation; Translations: [Unspecified atrial fibrillation] Onset: 09-05-2022 Chronic Esophageal disorders (2 sources) Gastroesophageal reflux disease; Translations: [Gastro-esophageal reflux disease without esophagitis] Onset: 08-20-2021 Resolved: 08-20-2021 Chronic Essential hypertension (6 sources) Hypertensive disorder; Translations: [Essential (primary) hypertension] Onset: 08-20-2021 Resolved: 08-20-2021 Chronic Genitourinary symptoms and ill-defined conditions (8 sources) Other symptoms and signs involving the genitourinary system; Translations: [Unspecified symptoms and signs involving the genitourinary system] Onset: 03-06-2022 Episodic Malaise and fatigue (2 sources) Weakness; Translations: [Weakness] Onset: 09-05-2022 Episodic Osteoarthritis (6 sources) Osteoarthritis of knee; Translations: [Osteoarthritis of knee, unspecified] Onset: 08-20-2021 Resolved: 08-20-2021 Chronic Osteoporosis (4 sources) Senile osteoporosis; Translations: [Age-related osteoporosis without current pathological fracture] Onset: 09-14-2023 09-14-2023 Chronic Other aftercare (2 sources) Other group home (current) drug therapy; Translations: [OTH HALFWAY CURRENT DRUG THERAPY] Onset: 10-05-2021 Episodic Other aftercare (3 sources) Long-term current use of drug therapy; Translations: [Other long term care phlebotomist (current) drug therapy] 09-14-2023 Episodic Other non-traumatic joint disorders (4 sources) Pain in left knee; Translations: [Left knee pain] Onset: 09-14-2023 09-13-2023 Episodic Other nutritional; endocrine; and metabolic disorders (1 source) Obesity; Translations: [Obesity, unspecified] Chronic Other nutritional; endocrine; and metabolic disorders (1 source) Obesity, unspecified Onset: 08-20-2021 Resolved: 08-20-2021 Chronic Other screening for suspected conditions (not mental disorders or infectious disease) (4 sources) Encounter for screening mammogram for malignant neoplasm of breast; Translations: [ENC SCR MAMMO MALIG NEOPLASM BREAST] Onset: 04-30-2022 Episodic Residual codes; unclassified (1 source) Family history of malignant neoplasm of breast; Translations: [FAMILY HX MALIG NEOPLASM OF BREAST] Onset: 05-08-2022 Episodic Residual codes; unclassified (1 source) Family history of malignant neoplasm of trachea, bronchus and lung; Translations: [FAM HX MALIG NEOPLSM TRACH BRON LNG] Onset: 05-08-2022 Episodic Residual codes; unclassified (1 source) Family history of malignant neoplasm of digestive organs; Translations: [FAM HX MALIG NEOPLASM DIGESTIV ORGN] Onset: 05-08-2022 Episodic Residual codes; unclassified (1 source) Family history of malignant neoplasm of other organs or systems; Translations: [FAM HX MALIG NEOPLASM OTH ORGN/SYS] Onset: 05-08-2022 Episodic Urinary tract infections (10 sources) Urinary tract infection, site not specified; Translations: [Acute cystitis without hematuria] Onset: 04-13-2022 Episodic Past or Other Problems Problem Classification Problem Date Documented Da te Episodic/Chronic Diabetes mellitus without complication (1 source) Other abnormal glucose Onset: 08-20-2021 Resolved: 08-20-2021 Episodic Other aftercare (2 sources) Other orthopedic aftercare; Translations: [ORTHOPEDIC AFTERCARE NEC] Onset: 01-13-2012 Episodic Other connective tissue disease (1 source) Arthrodesis status; Translations: [ARTHRODESIS STATUS] Onset: 10-05-2021 Episodic Other nutritional; endocrine; and metabolic disorders (1 source) Abnormal weight gain Onset: 08-20-2021 Resolved: 08-20-2021 Episodic Residual codes; unclassified (1 source) Acquired absence of both cervix and uterus; Translations: [ACQUIRED ABSENCE BOTH CERVIX AND UTERUS] Onset: 10-05-2021 Episodic Screening and history of mental health and substance abuse codes (1 source) Personal history of nicotine dependence; Translations: [PERSONAL HISTORY OF NICOTINE DEPEND] Onset: 10-05-2021 Episodic Unclassified (1 source) ORTHOPEDIC AFTERCARE NEC; Translations: [ORTHOPEDIC AFTERCARE NEC] Onset: 01-13-2012 Results Test Name Value Interpretation Reference Range Facility A1C with Estimated Average G luo 09-14-2023 Glucose [Mass/Vol] 111 mg/dL Normal [facility] Comment on above: Result Comment: PERF ORMED BY: [place] [address] PATHOLOGIST MARBLE MACHINE TENDER KELLY PEREA M.D. Performed By: #### H GB, ALB, CUMRSA, [id number], A1C WTH eA #### [address] Albumin Levelon 09-14-2023 Albumin [Mass/Vol] 4.7 g/dL Normal 3.5-5.7 [facility] Comment on above: Performed By: #### H GB, ALB, CUMRSA, [id number], A1C WTH eA #### [facility] [address] [id number] [place] Albumin [Mass/volume] in Ser um or Plasma by Bromocresol green (BCG) dye binding methoOrdered By: Mckenzie Shepherd on 09-14-2023 Albumin BCG dye [Mass/Vol] 4.7 g/dL 3.5-5.7 [facility] Glucose mean value [Mass/vol ume] in Blood Estimated from glycated hemoglobinOrdered By: Mckenzie Shepherd on 09-14-2023 Average glucose Estimated from glycated hemoglobin (Bld) [Mass/Vol] 111 mg/dL [facility] Hemoglobin A1c percentageOrd ered By: Mckenzie Shepherd on 09-14-2023 HbA1c (Bld) [Mass fraction] 5.5 % Normal 4.3-5.6 [facility] Comment on above: Increased risk for d iabetes: 5.7 - 6.4diabetes: >6.4glycemic control for adults with diabetes: <7.0 Result Comment: Incr eased risk for diabetes: 5.7 - 6.4 diabetes: >6.4 glycemic control for adults with diabetes: <7.0 Performed By: #### H GB, ALB, CUMRSA, [id number], A1C WTH eA #### [place] [id number] [place] Hemoglobin [Mass/volume] in BloodOrdered By: Mckenzie Shepherd on 09-14-2023 Hemoglobin (Bld) [Mass/Vol] 11.7 g/dL Low 11.8-15.4 [facility] Comment on above: Result Comment: PERF ORMED BY: [place] [address] PATHOLOGIST MARBLE MACHINE TENDER KELLY PEREA M.D. Performed By: #### H GB, ALB, CUMRSA, [id number], A1C WTH eA #### [place] [id number] [place] MRSA Cultureon 09-14-2023 MRSA Culture MRSA Culture Results No MRSA Isolated 2 Days PERFORMED BY: [address] [place] [address] PATHOLOGIST MARBLE MACHINE TENDER KELLY PEREA M.D. Normal [facility] Comment on above: Performed By: #### H GB, ALB, CUMRSA, [id number], A1C WTH eA #### [address] [address] [place] Vitamin D 25 Hydroxy Totalon 09-14-2023 Vitamin D 25 Hydroxy Total 50.3 ng/mL Normal 30-100 [facility] Comment on above: Result Comment: YOANNA MIN D STATUS 25([place])VITAMIN D RANGE (ng/mL) Deficient <20 Insufficient 20 to <30 Sufficient 30 to 100 Reference: Ronn Cardona, Orquidea WHITE et al. Evaluation,treatment, and prevention of vitamin D deficiency; an Endocrine Society clinical practice guideline. JCEM. 2010; 96(7):191-. PERFORMED BY: [address] [address] PATHOLOGIST MARBLE MACHINE TENDER KELLY PEREA M.D. Performed By: #### H GB, ALB, CUMRSA, [id number], A1C WT eA #### [address] [address] [place] Vitamin D+Metabolites [Mass/ volume] in Serum or PlasmaOrdered By: Mckenzie Shepherd on 09-14-2023 Vitamin D+Metabolites [Mass/Vol] 50.3 ng/mL 30-100 [facility] Comment on above: VITAMIN D STATUS 25( [place])VITAMIN D RANGE (ng/mL) Deficient <20 Insufficient 20 to <30Sufficient 30 to 100Reference: Ronn Cardona, Orquidea WHITE, et al. Evaluation,treatment, and prevention of vitamin D deficiency; an Endocrine Society clinical practice guideline. JCEM. 2010; 96(7):1911-. XR knee LT 4V*on 09-14-2023 XR knee LT 4V* [facility] [address] [place] [address] XRay Report Signed Patient: Ra Garcia MR#: [id number] : 1935 Acct:[id number] Age/Sex: 87 / F ADM Date: 09/14/23 Loc: [facility] Room: Type: [facility] Attending Dr: Mckenzie Shepherd II, MD Copies to: Mckenzie Shepherd MD Ordering Provider: Mckenzie Shepherd MD Date of Service: 09/14/23 XR/XR pelvis 1-2V: M25.562 - Pain in left knee ([id number]) XR/XR knee LT 4V*: M25.562 - Pain in left knee AP PELVIS: , Left knee 4 views CLINICAL HISTORY: Left knee pain since May after fall onto knee. COMPARISON: None Pelvis: Mild degenerative changes of the hips without acute bony process. Left knee: Moderate degenerative changes with medial weightbearing joint space narrowing. Minimal joint effusion. Vascular calcifications. XR/XR pelvis 1-2V IMPRESSION: MILD DEGENERATIVE CHANGES OF THE HIPS. MODERATE DEGENERATIVE CHANGES OF THE LEFT KNEE. NO ACUTE BONY PROCESS. Impression dictated by: Ermias Darling Jr., DMathieu09/14/2023 2:53 PM Dictation Location: [place] [address] Transcribed By: [facility] 09/14/23 1453 Dictated By: Ermias Darling Jr, DO 09/14/23 1452 Signed By: 09/14/23 1453 [facility] Office Visiton 09-22-2022 Follow-up visit [id number] [place] 1935 F Date Provider Department Center 09/22/2022 MARISOL PALOMO CARD [facility] No family history on file Level of Service:59933 [place] OFFICE/OUTPATIENT ESTABLISHED MOD MDM 30-39 MIN Reason for Visit and Comments: Follow-up [571697] - Pt was in hospital [facility] 30on 09-12-2022 30 The patient is Moderately Stable - Low risk of patient condition declining or worsening The patient's goals for the shift include comfort The clinical goals for the shift include VSS Over the shift, the patient did not make progress toward the following goals. Barriers to progression include elevated bp. Recommendations to address these barriers include bp medication. Problem: Pain - Adult Goal: Verbalizes/displays adequate comfort level or baseline comfort level Outcome: Progressing Flowsheets (Taken 09/10/20222041 by Barbie Asif, TAMARA) Verbalizes/displays adequate comfort level or baseline comfort level: Encourage patient to monitor pain and request assistance Assess pain using appropriate pain scale Administer analgesics based on type and severity of pain and evaluate response Implement non-pharmacological measures as appropriate and evaluate response Problem: Safety - Adult Goal: Free from fall injury Outcome: Progressing Flowsheets (Taken 09/11/2022 1000 by Raisa Johnson RN) Free from fall injury: Consider OT/PT consult to assist with strengthening/mobilit y Modify environment to reduce risk of injury Instruct patient to call for assistance with activity based on assessment Identify cognitive and physical deficits and behaviors that affect risk of falls Assess patient frequently for physical needs Problem: Discharge Planning Goal: Discharge to home or other facility with appropriate resources Outcome: Progressing Flowsheets (Taken 09/10/20222099 by Barbie Asif RN) Discharge to home or other facility with appropriate resources: Identify barriers to discharge with patient and caregiver Arrange for needed discharge resources and transportation as appropriate Identify discharge learning needs (meds, wound care, etc) Problem: Chronic Conditions and Co-morbidities Goal: Patient's chronic conditions and co-morbidity symptoms are monitored and maintained or improved Outcome: Progressing Flowsheets (Taken 09/10/20222099 by Barbie Asif, TAMARA) Care Plan - Patient's Chronic Conditions and Co-Morbidity Symptoms are Monitored and Maintained or Improved: Monitor and assess patient's chronic conditions and comorbid symptoms for stability, deterioration, or improvement Collaborate with multidisciplinary team to address chronic and comorbid conditions and prevent exacerbation or deterioration Update acute care plan with appropriate goals if chronic or comorbid symptoms are exacerbated and prevent overall improvement and discharge Normal [facility] BASIC METABOLIC PANELon 07-3 Anion gap [Moles/Vol] 12 mmol/L Normal 7-20 [facility] Comment on above: Performed By: #### L AB15 ####[facility] ([facility])[address] [place] [address] Calcium [Mass/Vol] 8.9 mg/dL Normal 8.6-10.3 [facility] Comment on above: Performed By: #### L AB15 ####[facility] ([facility])[address] [place] [address] Chloride [Moles/Vol] 102 mmol/L Normal 98-107 [facility] Comment on above: Performed By: #### L AB15 ####[facility] ([facility])[address] [place] [address] CO2 [Moles/Vol] 24 mmol/L Normal 21-31 [facility] Comment on above: Performed By: #### L AB15 ####[facility] ([facility] [place] [address] Creatinine [Mass/Vol] 3.00 mg/dL High 0.60-1.20 [facility] Comment on above: Performed By: #### L AB15 ####[facility] ([facility])[address] [place] [address] GLOMERULAR FILTRATION RATE ML/MIN/1.73 SQ M.PREDICTED 14.9 mL/min/1.73m*2 Low >60.0 [facility] Comment on above: Result Comment: The [facility]???s estimated glomerular filtration rate (eGFR) will no longer include consideration of race in its calculation. The National Kidney Foundation???s eGFR Task Force developed new recommendations for the estimation of the glomerular filtration rate in the [place] They recommend immediate implementation of the new equation refit without the race variable in all laboratories because the calculation does not include race. In addition to not including race in the calculation and reporting, it included diversity in its development, and has acceptable performance characteristics and potential consequences that do not disproportionately affect any one group of individuals. Performed By: #### L AB15 ####[facility] ([facility] [place] [address] Glucose [Mass/Vol] 114 mg/dL High 70-100 [facility] Comment on above: Performed By: #### L AB15 ####[facility] ([facility] [place] [address] Potassium [Moles/Vol] 3.3 mmol/L Low 3.5-5.1 [facility] Comment on above: Performed By: #### L AB15 ####[facility] ([facility])[address] [place] [address] Sodium [Moles/Vol] 135 mmol/L Low 136-145 [facility] Comment on above: Performed By: #### L AB15 ####[facility] ([facility])[address] [place] [address] Urea nitrogen [Mass/Vol] 62 mg/dL High 7-25 [facility] Comment on above: Performed By: #### L AB15 ####[facility] ([facility])[address] [place] [address] UREA NITROGEN/CREATININE (MASS RATIO) IN SER/PLAS 20.7 Normal [facility] Comment on above: Performed By: #### L AB15 ####[facility] ([facility])[address] [place] [address] CBCon 09-12-2022 Erythrocyte distribution width (RBC) [Ratio] 14.6 % Normal 11.5-15.0 [facility] Comment on above: Performed By: #### L [id number] ####[facility] ([facility])[address] [place] [address] ERYTHROCYTE MEAN CORPUSCULAR HEMOGLOBIN CONCENTRATION (G/DL) BY AUTOMATED 34.5 g/dL Normal 32.0-35.0 [facility] Comment on above: Performed By: #### L [id number] ####[facility] ([facility])[address] [place] [address] Hematocrit (Bld) [Volume fraction] 26.7 % Low 36.0-48.0 [facility] Comment on above: Performed By: #### L [id number] ####[facility] ([facility])[address] [place] [address] Hemoglobin (Bld) [Mass/Vol] 9.2 g/dL Low 12.0-15.0 [facility] Comment on above: Performed By: #### L [id number] ####[facility] ([facility])[address] [place] [address] MCH (RBC) [Entitic mass] 28.3 pg Normal 27.0-33.0 [facility] Comment on above: Performed By: #### L [id number] ####[facility] ([facility] [place] [address] MCV (RBC) [Entitic vol] 82.2 fL Normal 82.0-98.0 [facility] Comment on above: Performed By: #### L [id number] ####[facility] ([facility])[address] [place] [address] PLATELETS (10*3/UL) IN BLOOD AUTOMATED COUNT 356 10*3/uL Normal 150-400 [facility] Comment on above: Performed By: #### L [id number] ####[facility] ([facility])[address] [place] [address] RBC (Bld) [#/Vol] 3.25 10*6/uL Low 3.80-5.00 [facility] Comment on above: Performed By: #### L [id number] ####[facility] ([facility])[address] [place] [address] WBC (Bld) [#/Vol] 26.13 10*3/uL High 4.00-10.60 [facility] [facility] Comment on above: Performed By: #### L [id number] ####[facility] ([facility])[address] [place] [address] 30on 09-11-2022 30 Daily Case Managemen t Update Multidisciplinary rounds have been completed. Barriers to Discharge: Pending medical optimization. DC on hold per Nephrology, watching patient overnight and rechecking Creatinine level. Possible DC home tomorrow with [facility]. Diet: Dietary Orders (From admission, onward) Start Ordered 09/11/22 1004 Special Kitchen Request Once Comments: Patient would like one cup of cranberry juice and wheat toast with butter. Thanks! 09/11/22 1004 09/08/22 0818 Special Kitchen Request Once Comments: Pt would like 2 cups of decaf coffee with 4 creamers and a blueberry muffin. Pt states she just gets an upset stomach when she eats real eggs, but is able to eat them cooked in things with no problem. Thanks 09/08/22 0818 09/07/22 0921 Special Kitchen Request Once Comments: Pt would like an egg substitute omelet with peppers, onions, and ham. Hash browns and decaf coffee with 2 creamers. Thanks 09/07/22 0922 09/05/22 1203 Regular Diet Diet effective now Question: Room Service? Answer: Yes 09/05/22 1212 Physician Expected Discharge Date: 09/11/2022 Discharge Delays: PT Six Click Score: 17 OT Six Click Score: 17 PT Recommendations: (pt still wants to go home but is not independent with all of her functional mobility .) OT Recommendations: Home OT Does patient understand post acute plan of care? Yes Is expected discharge disposition appropriate for patient?: Yes New Consults: Ancillary Consults (From admission, onward) Start Ordered 09/05/22 1204 Inpatient Consult to Social Work Once Provider: (Not yet assigned) Question Answer Comment Select all services needed for the patient [facility] (30 day convalescent stay) Please indicate your approval for this care by adding your name here: JHONATAN HAINES 09/05/22 1212 Therapy Orders (From admission, onward) Start Ordered 09/05/22 1204 PT eval and treat Until therapy completed Question: Reason for PT? Answer: falls 09/05/22 1212 09/05/22 1204 OT eval and treat Until therapy completed Question: Reason for OT? Answer: falls 09/05/22 1212 Normal [facility] 30 The patient is Moderately Stable - Low risk of patient condition declining or worsening The patient's goals for the shift include Comfort The clinical goals for the shift include VSS Normal [facility] 30 The patient is Moderately Unstable - Medium risk of patient condition declining or worsening The patient's goals for the shift include Comfort The clinical goals for the shift include VSS Normal [facility] BASIC METABOLIC PANELon 07- Anion gap [Moles/Vol] 14 mmol/L Normal 7-20 [facility] Comment on above: Performed By: #### L [id number] #### [facility] ([facility]) [address] [place] [address] Calcium [Mass/Vol] 9.0 mg/dL Normal 8.6-10.3 [facility] Comment on above: Performed By: #### L [id number] #### [facility] ([facility]) [address], [place] [address] Chloride [Moles/Vol] 102 mmol/L Normal 98-107 [facility] Comment on above: Performed By: #### L [id number] #### [facility] ([facility]) [address], [place] [address] CO2 [Moles/Vol] 22 mmol/L Normal 21-31 [facility] Comment on above: Performed By: #### L [id number] #### [facility] ([facility]) [address], [place] [address] Creatinine [Mass/Vol] 3.69 mg/dL High 0.60-1.20 [facility] Comment on above: Performed By: #### L [id number] #### [facility] ([facility]) [address] [place] [address] GLOMERULAR FILTRATION RATE ML/MIN/1.73 SQ M.PREDICTED 11.6 mL/min/1.73m*2 Low >60.0 [facility] Comment on above: Result Comment: The [facility]???s estimated glomerular filtration rate (eGFR) will no longer include consideration of race in its calculation. The National Kidney Foundation???s eGFR Task Force developed new recommendations for the estimation of the glomerular filtration rate in the [place] They recommend immediate implementation of the new equation refit without the race variable in all laboratories because the calculation does not include race. In addition to not including race in the calculation and reporting, it included diversity in its development, and has acceptable performance characteristics and potential consequences that do not disproportionately affect any one group of individuals. Performed By: #### L [id number] #### [facility] ([facility]) [address] [place] [address] Glucose [Mass/Vol] 105 mg/dL High 70-100 [facility] Comment on above: Performed By: #### L [id number] #### [facility] ([facility]) [address] [place] [address] Potassium [Moles/Vol] 3.9 mmol/L Normal 3.5-5.1 [facility] Comment on above: Performed By: #### L [id number] #### [facility] ([facility]) [address] [place] [address] Sodium [Moles/Vol] 134 mmol/L Low 136-145 [facility] Comment on above: Performed By: #### L [id number] #### [facility] ([facility] [address] [place] [address] Urea nitrogen [Mass/Vol] 73 mg/dL High 7-25 [facility] Comment on above: Performed By: #### L [id number] #### [facility] ([facility]) [address] [place] [address] UREA NITROGEN/CREATININE (MASS RATIO) IN SER/PLAS 19.8 Normal [facility] Comment on above: Performed By: #### L [id number] #### [facility] ([facility]) [address] [place] [address] 30on 09-10-2022 30 Daily Case Managemen t Update Multidisciplinary rounds have been completed. Barriers to Discharge: Trending renal function: creatinine is stable at 4.1 ID planning to change to po Augmentin on discharge. Cardiology not planning further workup as IP. Diet: Dietary Orders (From admission, onward) Start Ordered 09/08/22817 Special Kitchen Request Once Comments: Pt would like 2 cups of decaf coffee with 4 creamers and a blueberry muffin. Pt states she just gets an upset stomach when she eats real eggs, but is able to eat them cooked in things with no problem. Thanks 09/08/22 0818 09/07/22 0921 Special Kitchen Request Once Comments: Pt would like an egg substitute omelet with peppers, onions, and ham. Hash browns and decaf coffee with 2 creamers. Thanks 09/07/22 0922 09/05/22 1203 Regular Diet Diet effective now Question: Room Service? Answer: Yes 09/05/22 1212 Physician Expected Discharge Date: 09/10/2022 Discharge Delays: PT Six Click Score: 16 OT Six Click Score: 17 PT Recommendations: Home PT (pt states she is going home per her conversation with social service with home health services and P.T.) OT Recommendations: Home OT New Consults: Ancillary Consults (From admission, onward) Start Ordered 09/05/22 1204 Inpatient Consult to Social Work Once Provider: (Not yet assigned) Question Answer Comment Select all services needed for the patient [facility] (30 day convalescent stay) Please indicate your approval for this care by adding your name here: JHONATAN HAINES 09/05/22 1212 Therapy Orders (From admission, onward) Start Ordered 09/05/22 1204 PT eval and treat Until therapy completed Question: Reason for PT? Answer: falls 09/05/22 1212 09/05/22 1204 OT eval and treat Until therapy completed Question: Reason for OT? Answer: falls 09/05/22 1212 [facility] 30 Rolling walker script, face sheet and face to face faxed to [facility]. 16:45 Verified with Curt at [facility] that clinical for walker was received and that they were able to supply pt with a walker on discharge. [facility] 30 Problem: Pain - Adul t Goal: Verbalizes/displays adequate comfort level or baseline comfort level Outcome: Progressing Flowsheets (Taken 09/10/2022731) Verbalizes/displays adequate comfort level or baseline comfort level: Assess pain using appropriate pain scale Administer analgesics based on type and severity of pain and evaluate response Problem: Safety - Adult Goal: Free from fall injury Outcome: Progressing Flowsheets (Taken 09/10/2022731) Free from fall injury: Identify cognitive and physical deficits and behaviors that affect risk of falls [place] fall precautions as indicated by assessment Problem: Discharge Planning Goal: Discharge to home or other facility with appropriate resources Outcome: Progressing Flowsheets (Taken 09/10/2022731) Discharge to home or other facility with appropriate resources: Arrange for needed discharge resources and transportation as appropriate Identify discharge learning needs (meds, wound care, etc) Problem: Chronic Conditions and Co-morbidities Goal: Patient's chronic conditions and co-morbidity symptoms are monitored and maintained or improved Outcome: Progressing Flowsheets (Taken 09/10/2022 0732) Care Plan - Patient's Chronic Conditions and Co-Morbidity Symptoms are Monitored and Maintained or Improved: Collaborate with multidisciplinary team to address chronic and comorbid conditions and prevent exacerbation or deterioration Update acute care plan with appropriate goals if chronic or comorbid symptoms are exacerbated and prevent overall improvement and discharge The patient is Moderately Unstable - Medium risk of patient condition declining or worsening The patient's goals for the shift include Comfort/rest The clinical goals for the shift include VSS Normal [facility] BASIC METABOLIC PANELon 07-2 Anion gap [Moles/Vol] 15 mmol/L Normal - [facility] Comment on above: Performed By: #### L [id number] ####[facility] ([facility])[address] [place] [address] Calcium [Mass/Vol] 8.9 mg/dL Normal 8.6-10.3 [facility] Comment on above: Performed By: #### L [id number] ####[facility] ([facility])[address] [facility] [address] Chloride [Moles/Vol] 99 mmol/L Normal 98-107 [facility] Comment on above: Performed By: #### L [id number] ####[facility] ([facility])[address] [place] [address] CO2 [Moles/Vol] 21 mmol/L Normal 21-31 [facility] Comment on above: Performed By: #### L [id number] ####[facility] ([facility])[address] [facility] [address] Creatinine [Mass/Vol] 4.10 mg/dL High 0.60-1.20 [facility] Comment on above: Performed By: #### L [id number] ####[facility] ([facility])[address] [place] [address] GLOMERULAR FILTRATION RATE ML/MIN/1.73 SQ M.PREDICTED 10.2 mL/min/1.73m*2 Low >60.0 [facility] Comment on above: Result Comment: The [facility]???s estimated glomerular filtration rate (eGFR) will no longer include consideration of race in its calculation. The National Kidney Foundation???s eGFR Task Force developed new recommendations for the estimation of the glomerular filtration rate in the [place] They recommend immediate implementation of the new equation refit without the race variable in all laboratories because the calculation does not include race. In addition to not including race in the calculation and reporting, it included diversity in its development, and has acceptable performance characteristics and potential consequences that do not disproportionately affect any one group of individuals. Performed By: #### L [id number] ####[facility] ([facility])[address] [place] [address] Glucose [Mass/Vol] 145 mg/dL High 70-100 [facility] Comment on above: Performed By: #### L [id number] ####[facility] ([facility])[address] [place] [address] Potassium [Moles/Vol] 3.5 mmol/L Normal 3.5-5.1 [facility] Comment on above: Performed By: #### L [id number] ####[facility] ([facility])[address] [place] [address] Sodium [Moles/Vol] 131 mmol/L Low 136-145 [facility] Comment on above: Performed By: #### L [id number] ####[facility] ([facility])[address] [place] [address] Urea nitrogen [Mass/Vol] 72 mg/dL High 7-25 [facility] Comment on above: Performed By: #### L [id number] ####[facility] ([facility])[address] [place] [address] UREA NITROGEN/CREATININE (MASS RATIO) IN SER/PLAS 17.6 Normal [facility] Comment on above: Performed By: #### L [id number] ####[facility] ([facility])[address] [place] [address] CBCon 09-10-2022 Erythrocyte distribution width (RBC) [Ratio] 14.6 % Normal 11.5-15.0 [facility] Comment on above: Performed By: #### L [id number] ####[facility] ([facility])[address] [place] [address] ERYTHROCYTE MEAN CORPUSCULAR HEMOGLOBIN CONCENTRATION (G/DL) BY AUTOMATED 33.9 g/dL Normal 32.0-35.0 [facility] Comment on above: Performed By: #### L [id number] ####[facility] ([facility])[address] [address] Hematocrit (Bld) [Volume fraction] 28.6 % Low 36.0-48.0 [facility] Comment on above: Performed By: #### L [id number] ####[facility] ([facility])[address] [place] [address] Hemoglobin (Bld) [Mass/Vol] 9.7 g/dL Low 12.0-15.0 [facility] Comment on above: Performed By: #### L [id number] ####[facility] ([facility])[address] [place] [address] MCH (RBC) [Entitic mass] 27.7 pg Normal 27.0-33.0 [facility] Comment on above: Performed By: #### L [id number] ####[facility] ([facility])[address] [address] MCV (RBC) [Entitic vol] 81.7 fL Low 82.0-98.0 [facility] Comment on above: Performed By: #### L [id number] ####[facility] ([facility])[address] [place] [address] PLATELETS (10*3/UL) IN BLOOD AUTOMATED COUNT 312 10*3/uL Normal 150-400 [facility] Comment on above: Performed By: #### L [id number] ####[facility] ([facility])[address] [place] [address] RBC (Bld) [#/Vol] 3.50 10*6/uL Low 3.80-5.00 [facility] Comment on above: Performed By: #### L [id number] ####[facility] ([facility])[address] [place] [address] WBC (Bld) [#/Vol] 27.87 10*3/uL High 4.00-10.60 [facility] Comment on above: Performed By: #### L [id number] ####[facility] ([facility])[address] [place] [address] NURSNOTEon 09-10-2022 NURSNOTE Pt. Refusing her noo n medications and her vital signs to be taken. notified. Pharmacy stated that as long as patient was given the iv antibiotic Safety Maintained. [facility] NURSNOTE Pt. In bathroom calling for help to get back to bed. [employer] encouraged patient to wipe herself as her wishes were to go home with home health. Pt. Becomes upset and insists it is writers job to wipe her. [employer] encouraged patient to try on her own because there will not be someone at her house all the time that will be able to help. PT OT strongly recommended that the patient consider inpatient rehab. Patient is refusing to go anywhere but home. Patient is extremely upset with rewriter for encouraging her to do things on her own. Patient states please leave my room and leave me alone. [employer] attempted to place patient back on monitor and patient refuses at this time. Physician messaged. Safety Maintained. [facility] 30on 09-09-2022 30 The patient is Moderately Stable - Low risk of patient condition declining or worsening The patient's goals for the shift include Comfort/rest The clinical goals for the shift include VSS Over the shift, the patient did make progress toward the following goals. [facility] 30 Daily Case Managemen t Update Multidisciplinary rounds have been completed. Barriers to Discharge: pending improvement of hyponatremia & kidney functions. Sodium today is 132. Replacing potassium. Patient is refusing SNF placement but is agreeable to [facility]; [facility] is accepting. Therapy recommended a rolling walker; script signed and given to lead nurse. Diet: Dietary Orders (From admission, onward) Start Ordered 09/08/22 0818 Special Kitchen Request Once Comments: Pt would like 2 cups of decaf coffee with 4 creamers and a blueberry muffin. Pt states she just gets an upset stomach when she eats real eggs, but is able to eat them cooked in things with no problem. Thanks 09/08/22 0818 09/07/22 0921 Special Kitchen Request Once Comments: Pt would like an egg substitute omelet with peppers, onions, and ham. Hash browns and decaf coffee with 2 creamers. Thanks 09/07/22 0922 09/05/22 1203 Regular Diet Diet effective now Question: Room Service? Answer: Yes 09/05/22 1212 Physician Expected Discharge Date: 09/10/2022 Discharge Delays: PT Six Click Score: 16 OT Six Click Score: 19 PT Recommendations: Home PT (pt states she is going home per her conversation with social service with home health services and P.T.) OT Recommendations: Home New Consults: Ancillary Consults (From admission, onward) Start Ordered 09/05/22 1204 Inpatient Consult to Social Work Once Provider: (Not yet assigned) Question Answer Comment Select all services needed for the patient [facility] (30 day convalescent stay) Please indicate your approval for this care by adding your name here: JHONATAN HAINES 09/05/22 1212 Therapy Orders (From admission, onward) Start Ordered 09/05/22 1204 PT eval and treat Until therapy completed Question: Reason for PT? Answer: falls 09/05/22 1212 09/05/22 1204 OT eval and treat Until therapy completed Question: Reason for OT? Answer: falls 09/05/22 1212 Normal [facility] 30 The patient is Moderately Stable - Low risk of patient condition declining or worsening The patient's goals for the shift include Rest/sleep The clinical goals for the shift include VSS, comfort Over the shift, the patient did not make progress toward the following goals. Barriers to progression include . Recommendations to address these barriers include . Normal [facility] BASIC METABOLIC PANELon 08-15 Anion gap [Moles/Vol] 14 mmol/L Normal 09-02 [facility] Comment on above: Performed By: #### L [id number] ####[facility] ([facility])[address] [place] [address] Calcium [Mass/Vol] 8.5 mg/dL Low 8.6-10.3 [facility] Comment on above: Performed By: #### L [id number] ####[facility] ([facility])[address] [place] [address] Chloride [Moles/Vol] 100 mmol/L Normal 98-107 [facility] Comment on above: Performed By: #### L [id number] ####[facility] ([facility])[address] [place] [address] CO2 [Moles/Vol] 21 mmol/L Normal 21-31 [facility] Comment on above: Performed By: #### L [id number] ####[facility] ([facility])[address] [place] [address] Creatinine [Mass/Vol] 4.48 mg/dL High 0.60-1.20 [facility] Comment on above: Performed By: #### L [id number] ####[facility] ([facility])[address] [place] [address] GLOMERULAR FILTRATION RATE ML/MIN/1.73 SQ M.PREDICTED 9.2 mL/min/1.73m*2 Low >60.0 [facility] Comment on above: Result Comment: The [facility]???s estimated glomerular filtration rate (eGFR) will no longer include consideration of race in its calculation. The National Kidney Foundation???s eGFR Task Force developed new recommendations for the estimation of the glomerular filtration rate in the [place] They recommend immediate implementation of the new equation refit without the race variable in all laboratories because the calculation does not include race. In addition to not including race in the calculation and reporting, it included diversity in its development, and has acceptable performance characteristics and potential consequences that do not disproportionately affect any one group of individuals. Performed By: #### L [id number] ####[facility] ([facility])[address] [place] [address] Glucose [Mass/Vol] 110 mg/dL High 70-100 [facility] Comment on above: Performed By: #### L [id number] ####[facility] ([facility])[address] [place] [address] Potassium [Moles/Vol] 3.1 mmol/L Low 3.5-5.1 [facility] Comment on above: Performed By: #### L [id number] ####[facility] ([facility])[address] [place] [address] Sodium [Moles/Vol] 132 mmol/L Low 136-145 [facility] Comment on above: Performed By: #### L [id number] ####[facility] ([facility])[address] [place] [address] Urea nitrogen [Mass/Vol] 74 mg/dL High 7-25 [facility] Comment on above: Performed By: #### L [id number] ####[facility] ([facility])[address] [place] [address] UREA NITROGEN/CREATININE (MASS RATIO) IN SER/PLAS 16.5 Normal [facility] Comment on above: Performed By: #### L [id number] ####[facility] ([facility])[address] [place] [address] CBC WITH AUTO DIFFERENTIALon 09-09-2022 Erythrocyte distribution width (RBC) [Ratio] 14.3 % Normal 11.5-15.0 [facility] Comment on above: Performed By: #### L [id number] #### [facility] ([facility]) [address] [place] [address] ERYTHROCYTE MEAN CORPUSCULAR HEMOGLOBIN CONCENTRATION (G/DL) BY AUTOMATED 34.6 g/dL Normal 32.0-35.0 [facility] Comment on above: Performed By: #### L [id number] #### [facility] ([facility]) [address] [place] [address] Hematocrit (Bld) [Volume fraction] 28.0 % Low 36.0-48.0 [facility] Comment on above: Performed By: #### L [id number] #### [facility] ([facility]ER) [address] [place] [address] Hemoglobin (Bld) [Mass/Vol] 9.7 g/dL Low 12.0-15.0 [facility] Comment on above: Performed By: #### L [id number] #### [facility] ([facility]) [address] [place] [address] MCH (RBC) [Entitic mass] 28.0 pg Normal 27.0-33.0 [facility] Comment on above: Performed By: #### L [id number] #### [facility] ([facility]) [address] [place] [address] MCV (RBC) [Entitic vol] 80.9 fL Low 82.0-98.0 [facility] Comment on above: Performed By: #### L [id number] #### [facility] [facility] [address] [place] [address] NRBC (PER 100 WBCS) BY AUTOMATED COUNT 0.0 % Normal 0 [facility] Comment on above: Performed By: #### L [id number] #### [facility] ([facility]) [address] [place] [address] PLATELETS (10*3/UL) IN BLOOD AUTOMATED COUNT 279 10*3/uL Normal 150-400 [facility] Comment on above: Performed By: #### L [id number] #### [facility] ([facility]) [address] [place] [address] RBC (Bld) [#/Vol] 3.46 10*6/uL Low 3.80-5.00 [facility] Comment on above: Performed By: #### L [id number] #### [facility] ([facility]) [address], [place] [address] WBC (Bld) [#/Vol] 31.87 10*3/uL High 4.00-10.60 [facility] Comment on above: Performed By: #### L [id number] #### [facility] ([facility]) [address] [place] [address] HEMOGLOBIN A1Con 09-09-2022 Glucose [Mass/Vol] 117 mg/dL Normal [facility] Comment on above: Performed By: #### L [id number] #### [facility] ([facility]) [address] [place] [address] HbA1c (Bld) [Mass fraction] 5.7 % Normal 4.0-6.0 [facility] Comment on above: Performed By: #### L [id number] #### [facility] ([facility]) [address] [place] [address] MANUAL DIFFERENTIALon 2022 BASOPHILS (10*3/UL) IN BLOOD BY CALCULATION 0.00 10*3/uL Normal 0.00-0.20 [facility] Comment on above: Performed By: #### L [id number] ####[facility] ([facility])[address] [place] [address] BASOPHILS/100 LEUKOCYTES IN BLOOD BY AUTOMATED COUNT 0.0 % Normal 0.0-1.0 [facility] Comment on above: Performed By: #### L [id number] ####[facility] ([facility])[address] [place] [address] EOSINOPHILS (10*3/UL) IN BLOOD BY CALCULATION 0.32 10*3/uL Normal 0.00-0.50 [facility] Comment on above: Performed By: #### L [id number] ####[facility] ([facility])[address] [place] [address] EOSINOPHILS/100 LEUKOCYTES IN BLOOD BY AUTOMATED COUNT 1.0 % Normal 0.0-6.0 [facility] Comment on above: Performed By: #### L [id number] ####[facility] ([facility])[address] [place] [address] IMMATURE GRANULOCYTES (10*3/UL) IN BLOOD BY CALCULATION 2.20 10*3/uL High 0.00-0.20 [facility] Comment on above: Performed By: #### L [id number] ####[facility] ([facility])[address] [place] [address] LYMPHOCYTES (10*3/UL) IN BLOOD BY CALCULATION 0.64 10*3/uL Low 1.20-4.00 [facility] Comment on above: Performed By: #### L [id number] ####[facility] ([facility])[address] [place] [address] LYMPHOCYTES/100 LEUKOCYTES IN BLOOD BY AUTOMATED COUNT 2.0 % Low 20.0-45.0 [facility] Comment on above: Performed By: #### L [id number] ####[facility] ([facility])[address] [place] [address] MONOCYTES (10*3/UL) IN BLOOD BY CALCUATION 1.91 10*3/uL High 0.10-1.00 [facility] Comment on above: Performed By: #### L [id number] ####[facility] ([facility])[address] [place] [address] MONOCYTES/100 LEUKOCYTES IN BLOOD BY AUTOMATED COUNT 6.0 % Normal 5.0-12.0 [facility] Comment on above: Performed By: #### L [id number] ####[facility] ([facility])[address] [place] [address] NEUTROPHILS (10*3/UL) IN BLOOD BY CALCULATION 29.0 10*3/uL High 1.6-7.6 [facility] Comment on above: Performed By: #### L [id number] ####[facility] ([facility])[address] [place] [address] NEUTROPHILS/100 LEUKOCYTES IN BLOOD BY AUTOMATED COUNT 91.0 % High 40.0-72.0 [facility] Comment on above: Performed By: #### L [id number] ####[facility] ([facility])[address] [place] [address] PLASMA CELLS/100 LEUKOCYTES IN BLOOD 0 % Normal 0 [facility] Comment on above: Performed By: #### L [id number] ####[facility] ([facility] [place] [address] PLATELETS GIANT PRESENCE IN BLOOD BY LIGHT MICROSCOPY Present Normal [facility] Comment on above: Performed By: #### L [id number] ####[facility] ([facility])[address] [place] [address] VARIANT LYMPHOCYTES (10*3/UL) IN BLOOD BY CALCULATION 0.00 10*3/uL Normal 0.00 [facility] Comment on above: Performed By: #### L [id number] ####[facility] ([facility])[address] [place] [address] VARIANT LYMPHOCYTES/100 LEUKOCYTES IN BLOOD CELLAVISION 0.0 % Normal 0.0-0.0 [facility] Comment on above: Performed By: #### L [id number] ####[facility] ([facility])[address] [place] [address] 30on 09-08-2022 30 The patient is Moderately Stable - Low risk of patient condition declining or worsening The patient's goals for the shift include Rest/sleep The clinical goals for the shift include VSS, comfort Over the shift, the patient did make progress toward the following goals. Normal [facility] 30 Daily Case Managemen t Update Multidisciplinary rounds have been completed. Barriers to Discharge: WBC elevated at 34, ID consulted and recommends to continue ceftriaxone. Blood and urine cultures from 09/05 were positive for E. Coli, repeat blood cultures pending. Replacing potassium with re-check ordered for tomorrow morning. Treviño in place. On 2L nasal cannula. Diet: Dietary Orders (From admission, onward) Start Ordered 09/08/22817 Special Kitchen Request Once Comments: Pt would like 2 cups of decaf coffee with 4 creamers and a blueberry muffin. Pt states she just gets an upset stomach when she eats real eggs, but is able to eat them cooked in things with no problem. Thanks 09/08/22 0818 09/07/22 0921 Special Kitchen Request Once Comments: Pt would like an egg substitute omelet with peppers, onions, and ham. Hash browns and decaf coffee with 2 creamers. Thanks 09/07/22 0922 09/05/22 1203 Regular Diet Diet effective now Question: Room Service? Answer: Yes 09/05/22 1212 Physician Expected Discharge Date: 09/10/2022 Discharge Delays: PT Six Click Score: 15 OT Six Click Score: 19 PT Recommendations: Home PT, Other (Comment) (Patient is borderline Home with Home PT versus SNF. Will update as needed) OT Recommendations: Home New Consults: Ancillary Consults (From admission, onward) Start Ordered 09/05/22 1204 Inpatient Consult to Social Work Once Provider: (Not yet assigned) Question Answer Comment Select all services needed for the patient [facility] (30 day convalescent stay) Please indicate your approval for this care by adding your name here: JHONATAN HAINES 09/05/22 1212 Therapy Orders (From admission, onward) Start Ordered 09/05/22 1204 PT eval and treat Until therapy completed Question: Reason for PT? Answer: falls 09/05/22 1212 09/05/22 1204 OT eval and treat Until therapy completed Question: Reason for OT? Answer: falls 09/05/22 1212 Normal [facility] 30 The patient is Moderately Stable - Low risk of patient condition declining or worsening The patient's goals for the shift include rest comfort The clinical goals for the shift include stable vitals Problem: Safety - Adult Goal: Free from fall injury Outcome: Progressing Problem: Discharge Planning Goal: Discharge to home or other facility with appropriate resources Outcome: Progressing Problem: Chronic Conditions and Co-morbidities Goal: Patient's chronic conditions and co-morbidity symptoms are monitored and maintained or improved Outcome: Progressing Problem: Respiratory - Adult Goal: Achieves optimal ventilation and oxygenation Outcome: Progressing Problem: Cardiovascular - Adult Goal: Absence of cardiac dysrhythmias or at baseline Outcome: Progressing Problem: Genitourinary - Adult Goal: Absence of urinary retention Outcome: Progressing Problem: Metabolic/Fluid and Electrolytes - Adult Goal: Electrolytes maintained within normal limits Outcome: Progressing Normal [facility] ANAon 09-08-2022 RAMÍREZ TITER <1:40 Normal <=1:40 [facility] Comment on above: Result Comment: Test performed using BOO IFA RAMÍREZ Hep-2 Test, a pre-standardized assay designed for the qualitative and semi-quantitative detection of antinuclear antibodies. Performed By: #### L [id number] ####[facility] (BEAKER)[address] [place] [address] ANCA-ASSOCIATED VASCULITIS P ROFILEon 09-08-2022 ANCA IFA PATTERN Not detected Normal None Detected [facility] Comment on above: Result Comment: INTE RPRETIVE INFORMATION: ANCA IFA Pattern Neutrophil Cytoplasmic Antibodies (C-ANCA = granular cytoplasmic staining, P-ANCA = perinuclear staining) are found in the serum of over 90 percent of patients with certain necrotizing systemic vasculitides, and usually in less than 5 percent of patients with collagen vascular disease or arthritis. Performed By: [employer] [address] [place] [id number] Manager Publishing: Cheo Braun MD, PhD Performed By: #### L [id number] #### [facility] ([facility]) [address] [place] [id number] ANCA IFA TITER <1:20 Normal <1:20 [facility] Comment on above: Performed By: #### L [id number] #### [facility] ([facility]) [address] [place] [address] MYELOPEROXIDASE (MPO) AB, IGG 0 AU/mL Normal 0-19 [facility] Comment on above: Result Comment: INTE RPRETIVE INFORMATION: Myeloperoxidase Abs, IgG 19 AU/mL or Less ......... Negative 20-25 AU/mL .............. Equivocal 26 AU/mL or Greater ...... Positive Approximately 90% of patients with a P-ANCA pattern by IFA have antibodies specific for MPO. Performed By: #### L [id number] #### [facility] ([facility]) [address] [place] [id number] SERINE PROTEINASE 3 (PR3) AB, IGG 1 AU/mL Normal 0-19 [facility] Comment on above: Result Comment: INTE RPRETIVE INFORMATION: Serine Proteinase 3, IgG 19 AU/mL or Less ........ Negative 20-25 AU/mL ............. Equivocal 26 AU/mL or Greater ..... Positive Approximately 85% of patients with a C-ANCA pattern by IFA have antibodies specific for PR3. Performed By: #### L [id number] #### [facility] ([employer]) [address] [place] [address] BASIC METABOLIC PANELon 07-2 Anion gap [Moles/Vol] 16 mmol/L Normal 7-20 [facility] Comment on above: Performed By: #### L [id number] #### [facility] (BEAKER) [address] [place] [address] Calcium [Mass/Vol] 8.4 mg/dL Low 8.6-10.3 [facility] Comment on above: Performed By: #### L [id number] #### [facility] (BEAKER) [address] [place] [address] Chloride [Moles/Vol] 96 mmol/L Low 98-107 [facility] Comment on above: Performed By: #### L [id number] #### [facility] (BEAKER) [address] [place] [address] CO2 [Moles/Vol] 20 mmol/L Low 21-31 [facility] Comment on above: Performed By: #### L [id number] #### [facility] (BEAKER) [address] [place] [address] Creatinine [Mass/Vol] 4.55 mg/dL High 0.60-1.20 [facility] Comment on above: Performed By: #### L [id number] #### [facility] (BEAKER) [address] [place] [address] GLOMERULAR FILTRATION RATE ML/MIN/1.73 SQ M.PREDICTED 9.0 mL/min/1.73m*2 Low >60.0 [facility] Comment on above: Result Comment: The [facility]???s estimated glomerular filtration rate (eGFR) will no longer include consideration of race in its calculation. The National Kidney Foundation???s eGFR Task Force developed new recommendations for the estimation of the glomerular filtration rate in the [place] They recommend immediate implementation of the new equation refit without the race variable in all laboratories because the calculation does not include race. In addition to not including race in the calculation and reporting, it included diversity in its development, and has acceptable performance characteristics and potential consequences that do not disproportionately affect any one group of individuals. Performed By: #### L [id number] #### [facility] (BEAKER) [address] [place] [address] Glucose [Mass/Vol] 107 mg/dL High 70-100 [facility] Comment on above: Performed By: #### L [id number] #### [facility] (BEAKER) [address] [place] [address] Potassium [Moles/Vol] 3.2 mmol/L Low 3.5-5.1 [facility] Comment on above: Performed By: #### L [id number] #### [facility] ([facility]AKER) [address] [place] [address] Sodium [Moles/Vol] 129 mmol/L Low 136-145 [facility] Comment on above: Performed By: #### L [id number] #### [facility] (BEAKER) [address] [place] [address] Urea nitrogen [Mass/Vol] 70 mg/dL High 7-25 [facility] Comment on above: Performed By: #### L [id number] #### [facility] ([employer]) [address] [place] [address] UREA NITROGEN/CREATININE (MASS RATIO) IN SER/PLAS 15.4 Normal [facility] Comment on above: Performed By: #### L [id number] #### [facility] (BEAKER) [address] [place] [address] BLOOD CULTUREon 09-08-2022 Bacteria identified Cx Nom (Bld) No growth at 5 days Normal [facility] Comment on above: Order Comment: From a different site than #1. Performed By: #### L [id number] ####[facility] (BEAKER)[address] [place] [address] Performed By: #### L [id number] #### [facility] ([facility]ER) [address] [place] [address] C3 COMPLEMENTon 09-08-2022 Magnesium [Mass/Vol] 114.00 mg/dL Normal 79.00-152.00 [facility] Comment on above: Performed By: #### L [id number] #### [facility] (BEAKER) [address] [place] [address] C4 COMPLEMENTon 09-08-2022 Magnesium [Mass/Vol] 30.7 mg/dL Normal 16-38 [facility] Comment on above: Performed By: #### L [id number] #### [facility] (BE[facility]ER) [address] [place] [address] CBCon 09-08-2022 Erythrocyte distribution width (RBC) [Ratio] 14.1 % Normal 11.5-15.0 [facility] Comment on above: Performed By: #### L [id number] #### [facility] (BEAKER) [address] [place] [address] ERYTHROCYTE MEAN CORPUSCULAR HEMOGLOBIN CONCENTRATION (G/DL) BY AUTOMATED 32.6 g/dL Normal 32.0-35.0 [facility] Comment on above: Performed By: #### L [id number] #### [facility] (BEAKER) [address] [place] [address] Hematocrit (Bld) [Volume fraction] 32.8 % Low 36.0-48.0 [facility] Comment on above: Performed By: #### L [id number] #### [facility] (BEAKER) [address] [place] [address] Hemoglobin (Bld) [Mass/Vol] 10.7 g/dL Low 12.0-15.0 [facility] Comment on above: Performed By: #### L [id number] #### [facility] (BEAKER) [address] [place] [address] MCH (RBC) [Entitic mass] 27.1 pg Normal 27.0-33.0 [facility] Comment on above: Performed By: #### L [id number] #### [facility] ([facility]AKER) [address] [place] [address] MCV (RBC) [Entitic vol] 83.0 fL Normal 82.0-98.0 [facility] Comment on above: Performed By: #### L [id number] #### [facility] ([facility]AKER) [address] [place] [address] PLATELETS (10*3/UL) IN BLOOD AUTOMATED COUNT 231 10*3/uL Normal 150-400 [facility] Comment on above: Performed By: #### L [id number] #### [facility] (BEAKER) [address] [place] [address] RBC (Bld) [#/Vol] 3.95 10*6/uL Normal 3.80-5.00 [facility] Comment on above: Performed By: #### L [id number] #### [facility] (BEAKER) [address] [place] [address] WBC (Bld) [#/Vol] 34.23 10*3/uL High 4.00-10.60 [facility] Comment on above: Performed By: #### L [id number] #### [facility] (BEAKER) [address] [place] [address] CONSULTon 09-08-2022 CONSULT - Attestation signed by Chika Orellana MD at 09/08/2022 3:35 PM I personally saw and examined the patient on the same date of service as resident/fellow MD Agustín. I discussed the findings and therapeutic plan with the resident/fellow MD Agustín. I agree with the documentation, except for any edits/updates below. Teaching Physician's Revisions: AGREE with above Suspected alcoholic liver disease Suspicion for renal abscess But will not do CT W contrast Due to acute renal failure Thank you for allowing me to see the patient Please call for any questions or concerns, Chika Orellana MD [place] Infectious diseases P:[phone] Infectious Diseases - Initial Consult Note - Patient name: Ra Garcia Patient Today's Date and Time: 09/08/2022, 1:35 PM Admission Date: 09/05/2022 Impression: Pansusceptible Escherichia coli bacteremia secondary to bilateral pyelonephritis in the setting of bilateral nonobstructive renal stones; no concerns for Sepsis Micro: Blood cx 09/05: 2/2 pansusceptible Escherichia coli Urine cx 09/05: >100,000 CFU/Ml pansusceptible Escherichia coli Blood cx 09/08: In process Recommendations: Continue Ceftriaxone, 2 g, intravenous q24h T[employer] Auto WBC Plan discussed with Dr. Orellana Subjective Reason for consultation / Chief complaint: Referring Provider: Mechelle Mccartney MD History of Present Illness Ra Garcia is a 86 y.o.-year-old female who was initially admitted on 09/05/2022. The patient came from home with past medical history of hypertension presented to [facility] as a direct admission from [facility]. Patient came to ER after a fall at home secondary to generalized weakness. There was no injuries reported. Patient was going to the bathroom, felt weak and her helped her to the ground. Patient reports feeling weak for the last 3 days, intermittent fevers and chills. She also complains of lower abdominal pain, burning with urination and flank pain. She has some nausea but no vomiting. No chest pain. She has increased shortness of breath with exertion. No headaches. Just not feeling well in general. Upon work-up in ER, patient was found to have elevated troponin, BNP and D-dimer. Patient's creatinine was also elevated at 2.9. She does not have a history of CKD. Her WBCs were 29. Unfortunately, they did not run a urine on her or started her on antibiotics. Patient's sodium was at 125. Patient's EKG also showed A-fib with RVR and she was started on Cardizem. Patient's chest x-ray was normal. The only persistent symptom the patient endorses since admission is generalized tenderness in the abdomen and pelvis. She denies fever, chills, dysuria, hematuria, constipation. Her bowel movements have been soft in consistency which she says is normal for her. She has a history of being treated for multiple Urinary Tract Infections in the past. As far as she knows she does not have a past medical history of kidney disease, renal calculi. She has remained afebrile and vitals are stable. She is on 2 liters of supplemental oxygen via nasal cannula. There are no concerns for sepsis. Past Medical History: Past Medical History: Diagnosis Date A-fib (CMS/HCC) Dysuria Hypertension Past Surgical History: History reviewed. No pertinent surgical history. Medications: Scheduled: amLODIPine, 5 mg, oral, Daily cefTRIAXone, 2 g, intravenous, q24h famotidine, 20 mg, oral, Daily fluticasone, 1 spray, Each Nostril, q24h heparin (porcine), 5,000 Units, subcutaneous, BID iohexol, 100 mL, intravenous, Once in imaging metoprolol tartrate, 100 mg, oral, BID multivitamin with folic acid, 1 tablet, oral, Daily sodium bicarbonate, 650 mg, oral, BID Infusions: Oxygen Therapy, Social History: Social History Socioeconomic History Marital status: Spouse name: None Number of children: None Years of education: None Highest education level: None Occupational History None Tobacco Use Smoking status: None Smokeless tobacco: None Substance and Sexual Activity Alcohol use: None Drug use: None Sexual activity: None Other Topics Concern None Social History Narrative None Social Determinants of Health Financial Resource Strain: Low Risk (09/05/2022) Overall Financial Resource Strain (CARDIA) Difficulty of Paying Living Expenses: Not very hard Food Insecurity: Unknown (09/05/2022) Hunger Vital Sign Worried About Running Out of Food in the Last Year: Never true Ran Out of Food in the Last Year: Not on file Transportation Needs: Unknown (09/05/2022) PRAPARE - Transportation Lack of Transportation (Medical): No Lack of Transportation (Non-Medical): Not on file Physical Activity: Not on file Stress: Not on file Social Connections: Not (more content not included)... Normal [facility] CREATININE, URINE, RANDOMon 09-08-2022 Creatinine (U) [Mass/Vol] 56.0 mg/dL Normal 26-299 [facility] Comment on above: Performed By: #### L [id number] ####[facility] (BEAKER)[address] [place] [address] HEPATITIS B SURFACE ANTIGENo n 09-08-2022 HEPATITIS B VIRUS SURFACE AG PRESENCE IN SERUM Non-Reactive Normal Nonreactive [facility] Comment on above: Performed By: #### L [id number] #### [facility] ([employer]) [address] [place] [address] HEPATITIS C ANTIBODYon 09-08 HEPATITIS C VIRUS AB PRESENCE IN SERUM Non-Reactive Normal Nonreactive [facility] Comment on above: Performed By: #### L [id number] ####[facility] ([employer])[address] [place] [address] PROCALCITONIN TESTon 023 PROCALCITONIN IN BLOOD 3.32 ng/mL Critically high 0.00-0.10 [facility] Comment on above: Result Comment: Susp ected Lower Respiratory Tract Infection: 0.1-0.25 ng/mL - Low likelihood for bacterial infection;Antibiotics discouraged.* >0.25 ng/mL - Increased likelihood bacterial infection;Antibiotics encouraged. Suspected Sepsis: Strongly consider initiating antibiotics in all unstable patients. 0.1-0.5 ng/mL - Low likelihood for sepsis; Antibiotics discouraged.* >0.5 ng/mL - Increased likelihood sepsis; Antibiotics encouraged. >2.0 ng/mL - High risk of sepsis/septic shock; Antibiotics strongly encouraged. *Recommend retesting PCT within 6-12 hours if clinically indicated and initial PCT<0.5ng/mL Performed By: #### L [id number] #### [facility] ([employer]) [address] [place] [address] PROTEIN ELECTROPHORESIS, SER UMon 09-08-2022 Protein [Mass/Vol] 6.1 g/dL Normal 6.0-8.3 [facility] Comment on above: Performed By: #### L [id number] ####[facility] (BEAKER)[address] [facility] [place] [address] PROTEIN FRACTION (INTERPRETATION) IN SER/PLAS BY ELECTROPHORESIS Please see attached report. [facility] Comment on above: Performed By: #### L [id number] ####[facility] (BEAKER)[address] [facility] [address] PROTEIN ELECTROPHORESIS, URI NE, RANDOMon 09-08-2022 Protein (U) [Mass/Vol] 109.0 mg/dL Normal [facility] Comment on above: Result Comment: Ther e are no established reference values for random urine specimens. Performed By: #### P ROTEIN ELECTROPHORESIS, URINE, RANDOM ####[facility] [facility] ([facility]ER[facility] [place] [address] UPEP INTERPRETATION Please see attached report. [facility] Comment on above: Performed By: #### P ROTEIN ELECTROPHORESIS, URINE, RANDOM ####[facility] (BEAKER)[address] [place] [address] 30on 09-07-2022 30 The patient is Moderately Stable - Low risk of patient condition declining or worsening The patient's goals for the shift include rest comfort The clinical goals for the shift include stable vitals Normal [facility] 30 Daily Case Managemen t Update Multidisciplinary rounds have been completed. Barriers to Discharge: Blood and urine cultures positive. Sodium is 128 & creatinine is worse today; nephrology consulted and started patient on half NS with 75 mEq of sodium bicarb to correct hyponatremia and metabolic acidosis. Diet: Dietary Orders (From admission, onward) Start Ordered 09/07/22920 Special Kitchen Request Once Comments: Pt would like an egg substitute omelet with peppers, onions, and ham. Hash browns and decaf coffee with 2 creamers. Thanks 09/07/22 0922 09/05/22 1203 Regular Diet Diet effective now Question: Room Service? Answer: Yes 09/05/22 1212 Physician Expected Discharge Date: 09/10/2022 Discharge Delays: PT Six Click Score: 16 OT Six Click Score: 19 PT Recommendations: Home PT, Other (Comment) (Patient is borderline Home with Home PT versus SNF. Will update as needed) OT Recommendations: Home New Consults: Ancillary Consults (From admission, onward) Start Ordered 09/05/22 1204 Inpatient Consult to Social Work Once Provider: (Not yet assigned) Question Answer Comment Select all services needed for the patient [facility] (30 day convalescent stay) Please indicate your approval for this care by adding your name here: JHONATAN HAINES 09/05/22 1212 Therapy Orders (From admission, onward) Start Ordered 09/05/22 1204 PT eval and treat Until therapy completed Question: Reason for PT? Answer: falls 09/05/22 1212 09/05/22 1204 OT eval and treat Until therapy completed Question: Reason for OT? Answer: falls 09/05/22 1212 Normal [facility] 30 The patient is Moderately Stable - Low risk of patient condition declining or worsening The patient's goals for the shift include Rest and Comfort The clinical goals for the shift include Monitor vitals/Pain control Problem: Safety - Adult Goal: Free from fall injury Outcome: Progressing Problem: Discharge Planning Goal: Discharge to home or other facility with appropriate resources Outcome: Progressing Problem: Respiratory - Adult Goal: Achieves optimal ventilation and oxygenation Outcome: Progressing Problem: Genitourinary - Adult Goal: Absence of urinary retention Outcome: Progressing Problem: Metabolic/Fluid and Electrolytes - Adult Goal: Electrolytes maintained within normal limits Outcome: Progressing Normal [facility] 30 The patient is Moderately Unstable - Medium risk of patient condition declining or worsening The patient's goals for the shift include Rest and Comfort The clinical goals for the shift include Monitor vitals/Pain control Normal [facility] BASIC METABOLIC PANELon 07-2 Anion gap [Moles/Vol] 17 mmol/L Normal - [facility] Comment on above: Performed By: #### L [id number] #### [facility] (RUBEN) [address] [place] [address] Calcium [Mass/Vol] 8.0 mg/dL Low 8.6-10.3 [facility] Comment on above: Performed By: #### L [id number] #### [facility] ([facility] [address] [place] [address] Chloride [Moles/Vol] 97 mmol/L Low 98-107 [facility] Comment on above: Performed By: #### L [id number] #### [facility] ([facility] [address] [place] [address] CO2 [Moles/Vol] 18 mmol/L Low 21-31 [facility] Comment on above: Performed By: #### L [id number] #### [facility] ([facility]) [address] [place] [address] Creatinine [Mass/Vol] 4.56 mg/dL High 0.60-1.20 [facility] Comment on above: Performed By: #### L [id number] #### [facility] ([facility]) [address] [place] [address] GLOMERULAR FILTRATION RATE ML/MIN/1.73 SQ M.PREDICTED 9.0 mL/min/1.73m*2 Low >60.0 [facility] Comment on above: Result Comment: The [facility]???s estimated glomerular filtration rate (eGFR) will no longer include consideration of race in its calculation. The National Kidney Foundation???s eGFR Task Force developed new recommendations for the estimation of the glomerular filtration rate in the [place] They recommend immediate implementation of the new equation refit without the race variable in all laboratories because the calculation does not include race. In addition to not including race in the calculation and reporting, it included diversity in its development, and has acceptable performance characteristics and potential consequences that do not disproportionately affect any one group of individuals. Performed By: #### L [id number] #### [facility] ([facility]) [address] [place] [address] Glucose [Mass/Vol] 88 mg/dL Normal 70-100 [facility] Comment on above: Performed By: #### L [id number] #### [facility] ([facility]) [address] [place] [address] Potassium [Moles/Vol] 3.6 mmol/L Normal 3.5-5.1 [facility] Comment on above: Performed By: #### L [id number] #### [facility] (BEAKER) [address] [place] [address] Sodium [Moles/Vol] 128 mmol/L Low 136-145 [facility] Comment on above: Performed By: #### L [id number] #### [facility] (BEAKER) [address] [place] [address] Urea nitrogen [Mass/Vol] 65 mg/dL High - [facility] Comment on above: Performed By: #### L [id number] #### [facility] (BEAKER) [address] [place] [address] UREA NITROGEN/CREATININE (MASS RATIO) IN SER/PLAS 14.3 Normal [facility] Comment on above: Performed By: #### L [id number] #### [facility] (BEAKER) [address] [place] [address] CBCon 09-07-2022 Erythrocyte distribution width (RBC) [Ratio] 14.2 % Normal 11.5-15.0 [facility] Comment on above: Performed By: #### L [id number] #### [facility] ([employer]) [address] [place] [address] ERYTHROCYTE MEAN CORPUSCULAR HEMOGLOBIN CONCENTRATION (G/DL) BY AUTOMATED 33.4 g/dL Normal 32.0-35.0 [facility] Comment on above: Performed By: #### L [id number] #### [facility] ([employer]) [address] [place] [address] Hematocrit (Bld) [Volume fraction] 30.2 % Low 36.0-48.0 [facility] Comment on above: Performed By: #### L [id number] #### [facility] ([employer]) [address] [place] [address] Hemoglobin (Bld) [Mass/Vol] 10.1 g/dL Low 12.0-15.0 [facility] Comment on above: Performed By: #### L [id number] #### [facility] (BEAKER) [address] [place] [address] MCH (RBC) [Entitic mass] 28.2 pg Normal 27.0-33.0 [facility] Comment on above: Performed By: #### L [id number] #### [facility] (BEAKER) [address] [place] [address] MCV (RBC) [Entitic vol] 84.4 fL Normal 82.0-98.0 [facility] Comment on above: Performed By: #### L [id number] #### [facility] (BEAKER) [address] [place] [address] PLATELETS (10*3/UL) IN BLOOD AUTOMATED COUNT 173 10*3/uL Normal 150-400 [facility] Comment on above: Performed By: #### L [id number] #### [facility] ([facility]) [address] [place] [address] RBC (Bld) [#/Vol] 3.58 10*6/uL Low 3.80-5.00 [facility] Comment on above: Performed By: #### L [id number] #### [facility] (BEAKER) [address] [place] [address] WBC (Bld) [#/Vol] 28.16 10*3/uL High 4.00-10.60 [facility] Comment on above: Performed By: #### L [id number] #### [facility] (BEAKER) [address] [place] [address] CHLORIDE, URINE, RANDOMon Chloride (U) [Moles/Vol] 21.0 mmol/L Low 110-250 [facility] Comment on above: Performed By: #### L [id number] #### [facility] (BEAKER) [address] [place] [address] CONSULTon 09-07-2022 CONSULT - Attestation signed by Dillon Cutler MD at 09/07/2022 6:43 PM By using the attestations below, the signing clinician agrees that I have read and verify that the documentation has been personally reviewed by me and ensure that the documentation accurately reflects the encounter. GC: I personally saw this patient with Dr. Abraham Cherry at 0845 hours on the day of the encounter, performed the mendiola portion(s) of the service and participated in the management and confirm the resident's documentation. Please note there may be an additional personal documentation from me. This patient is transferred to [facility]. Patient has acute kidney injury as noted. It is unclear if the patient does have chronic kidney disease. Patient had been on nonsteroidal anti-inflammatory drugs in the past however currently has not been on this. She is on angiotensin receptor fer. Patient notes that she does follow with urology in her hometown. The renal ultrasound is okay. The patient may have acute kidney injury related to sepsis. The patient's sodium is on the low side and she does have probable metabolic acidosis. Agree with IV fluids of half-normal saline with bicarbonate. Would hold the ARB at this time I called [facility] they do not have previous creatinines prior to the recent hospitalization. Dillon Cutler MD, PhD Nephrology Consult Note Patient : Ra Garcia; 86 y.o. Location: 3107/3107-01 Attending: Bob Dela Cruz MD Admit Date: 09/05/2022 Hospital Day: 2 Reason for Consult: KADI associated with hyponatremia History of Present Illness: Ra Garcia is a 86 y.o. female who came from home with past medical history of hypertension presented to [facility] as a direct admission from [facility] ER. Patient came to ER after a fall at home secondary to generalized weakness. There was no injuries reported. Patient was going to the bathroom, felt weak and her helped her to the ground. Patient reports feeling weak for the last 3 days, intermittent fevers and chills. She also complains of lower abdominal pain, burning with urination and flank pain. She has some nausea but no vomiting. No chest pain. She has increased shortness of breath with exertion. No headaches. Just not feeling well in general. Upon work-up in ER, patient was found to have elevated troponin, BNP and D-dimer. Patient's creatinine was also elevated at 2.9. She does not have a history of CKD. Her WBCs were 29. Unfortunately, they did not run a urine on her or started her on antibiotics. Patient's sodium was at 125. Patient's EKG also showed A-fib with RVR and she was started on Cardizem. Patient's chest x-ray was normal. Review of Systems: Review of Systems Constitutional: Negative for activity change, appetite change, fatigue and unexpected weight change. HENT: Negative for congestion, facial swelling and trouble swallowing. Eyes: Negative for photophobia and visual disturbance. Respiratory: Negative for cough and shortness of breath. Cardiovascular: Negative for chest pain, palpitations and leg swelling. Gastrointestinal: Negative for abdominal distention, abdominal pain, constipation, diarrhea, nausea and vomiting. Endocrine: Positive for polyuria. Negative for polydipsia and polyphagia. Genitourinary: Positive for dysuria and flank pain. Negative for decreased urine volume, difficulty urinating, frequency, hematuria and urgency. Musculoskeletal: Negative for arthralgias, joint swelling and myalgias. Skin: Negative for color change, rash and wound. Allergic/Immunologic: Negative for immunocompromised state. Neurological: Negative for dizziness, tremors, speech difficulty and headaches. Hematological: Negative for adenopathy. Does not bruise/bleed easily. Psychiatric/Behaviora l: Negative for dysphoric mood and sleep disturbance. The patient is not nervous/anxious. Input/Output: I/O last 3 completed shifts: In: 3413.2 (35 mL/kg) [P.O.:1080; I.V.:2283.2 (23.4 mL/kg); IV Piggyback:50] Out: 1300 (13.3 mL/kg) [Urine:1300 (0.4 mL/kg/hr)] Weight: 97.5 kg Vital Signs: Temperature: Temp: 36.9 ???C (98.4 ???F) TMax: Temp (24hrs), Av.9 ???C (98.4 ???F), Min:36.9 ???C (98.4 ???F), Max:36.9 ???C (98.4 ???F) Respirations: Resp: (!) 30 Pulse: Heart Rate: 92 BP: BP: 151/72 BP Range: Systolic (24hrs), Av , Min:123 , Max:151 Diastolic (24hrs), Av, Min:55, Max:90 Wt Readings from Last 3 Encounters: 09/07/22 97.5 kg (214 lb 15.2 oz) Physical Examination: Physical Exam Constitutional: General: She is not in acute distress. HENT: Head: Normocephalic and atraumatic. Eyes: General: No scleral icterus. Cardiovascular: Rate and Rhythm: Normal rate and regular rhythm. Heart sounds: No gallop. (more content not included)... Normal [facility] CREATININE, URINE, RANDOMon 09-07-2022 Creatinine (U) [Mass/Vol] 71.0 mg/dL Normal 26-299 [facility] Comment on above: Performed By: #### L [id number] ####[facility] (BEAKER)[address] [place] [address] OSMOLALITY, URINEon 09-08-19 23 OSMOLALITY URINE 259 mOsm/kg Normal 50-1400 [facility] Comment on above: Performed By: #### L [id number] #### [facility] (BEAKER) [address] [place] [address] POTASSIUM, URINE, RANDOMon 0 09-07-2022 Potassium (U) [Moles/Vol] 19 mmol/L Normal [facility] Comment on above: Performed By: #### L [id number] #### [facility] (BEAKER) [address] [place] [address] PROTEIN, URINE, RANDOMon 07- 25-2023 Protein (U) [Mass/Vol] 192.6 mg/dL Normal [facility] Comment on above: Result Comment: Ther e are no established reference values for random urine specimens. Performed By: #### L [id number] ####[facility] (BEAKER)[address] [place] [address] SODIUM, URINE, RANDOMon 08-15 Sodium (U) [Moles/Vol] 30 mmol/L Normal [facility] Comment on above: Performed By: #### L [id number] #### [facility] (BEAKER) [address] [place] [address] 30on 09-06-2022 30 The patient is Moderately Stable - Low risk of patient condition declining or worsening The patient's goals for the shift include Rest and comfort The clinical goals for the shift include monitor vitals, control pain and heart rate Problem: Pain - Adult Goal: Verbalizes/displays adequate comfort level or baseline comfort level Outcome: Progressing Flowsheets (Taken 09/06/2022799) Verbalizes/displays adequate comfort level or baseline comfort level: Encourage patient to monitor pain and request assistance Assess pain using appropriate pain scale Administer analgesics based on type and severity of pain and evaluate response Problem: Safety - Adult Goal: Free from fall injury Outcome: Progressing Problem: Discharge Planning Goal: Discharge to home or other facility with appropriate resources Outcome: Progressing Flowsheets (Taken 09/06/2022799) Discharge to home or other facility with appropriate resources: Identify barriers to discharge with patient and caregiver Arrange for needed discharge resources and transportation as appropriate Identify discharge learning needs (meds, wound care, etc) Problem: Chronic Conditions and Co-morbidities Goal: Patient's chronic conditions and co-morbidity symptoms are monitored and maintained or improved Outcome: Progressing Flowsheets (Taken 09/06/2022799) Care Plan - Patient's Chronic Conditions and Co-Morbidity Symptoms are Monitored and Maintained or Improved: Monitor and assess patient's chronic conditions and comorbid symptoms for stability, deterioration, or improvement Collaborate with multidisciplinary team to address chronic and comorbid conditions and prevent exacerbation or deterioration Update acute care plan with appropriate goals if chronic or comorbid symptoms are exacerbated and prevent overall improvement and discharge Problem: Respiratory - Adult Goal: Achieves optimal ventilation and oxygenation Outcome: Progressing Flowsheets (Taken 09/06/2022799) Achieves optimal ventilation and oxygenation: Assess for changes in respiratory status Assess for changes in mentation and behavior Position to facilitate oxygenation and minimize respiratory effort Oxygen supplementation based on oxygen saturation or arterial blood gases Encourage broncho-pulmonary hygiene including cough, deep breathe, incentive spirometry Assess and instruct to report shortness of breath or any respiratory difficulty Respiratory therapy support as indicated Problem: Cardiovascular - Adult Goal: Maintains optimal cardiac output and hemodynamic stability Outcome: Progressing Flowsheets (Taken 09/06/2022799) Maintains optimal cardiac output and hemodynamic stability: Monitor blood pressure and heart rate Monitor urine output and notify Licensed Independent Practitioner for values outside of normal range Assess for signs of decreased cardiac output Goal: Absence of cardiac dysrhythmias or at baseline Outcome: Progressing Flowsheets (Taken 09/06/2022799) Absence of cardiac dysrhythmias or at baseline: Monitor cardiac rate and rhythm Assess for signs of decreased cardiac output Administer antiarrhythmia medication and electrolyte replacement as ordered Problem: Musculoskeletal - Adult Goal: Return mobility to safest level of function Outcome: Progressing Flowsheets (Taken 09/06/2022799) Return mobility to safest level of function: Assess patient stability and activity tolerance for standing, transferring and ambulating with or without assistive devices Assist with transfers and ambulation using safe patient handling equipment as needed Problem: Gastrointestinal - Adult Goal: Maintains or returns to baseline bowel function Outcome: Progressing Flowsheets (Taken 09/06/2022799) Maintains or returns to baseline bowel function: Assess bowel function Administer IV fluids as ordered to ensure adequate hydration Encourage mobilization and activity Nutrition consult to assist patient with appropriate food choices Goal: Maintains adequate nutritional intake Outcome: Progressing Flowsheets (Taken 09/06/2022799) Maintains adequate nutritional intake: Monitor percentage of each meal consumed Assist with meals as needed Monitor intake and output, weight and lab values Problem: Genitourinary - Adult Goal: Absence of urinary retention Outcome: Progressing Flowsheets (Taken 09/06/2022799) Absence of urinary retention: Assess patient???s ability to void and empty bladder Monitor intake/output and perform bladder scan as needed Place urinary catheter per Licensed Independent Practitioner order if needed Goal: Urinary catheter remains patent Outcome: Progressing Flowsheets (Taken 09/06/2022799) Urinary catheter remains patent: Assess patency of urinary catheter Problem: Metabolic/Fluid and Electrolytes - Adult Goal: Electrolytes maintained within normal limits Outcome: Progressing Flowsheets (Taken (more content not included)... Normal [facility] 30 Daily Case Managemen t Update Multidisciplinary rounds have been completed. Barriers to Discharge: Being treated for sepsis, KADI and hyponatremia (125). IV fluids ordered, Urine culture pending, Continue Rocephin, US kidneys unremarkable. Trops were elevated; Echo done, EF 55%, heparin drip discontinued. Diet: Dietary Orders (From admission, onward) Start Ordered 09/05/22 1203 Regular Diet Diet effective now Question: Room Service? Answer: Yes 09/05/22 1212 Physician Expected Discharge Date: 09/10/2022 Discharge Delays: PT Six Click Score: 16 OT Six Click Score: 19 PT Recommendations: Home PT, Other (Comment) (Patient is borderline Home with Home PT versus SNF. Will update as needed) OT Recommendations: Home New Consults: Ancillary Consults (From admission, onward) Start Ordered 09/05/22 1204 Inpatient Consult to Social Work Once Provider: (Not yet assigned) Question Answer Comment Select all services needed for the patient [facility] (30 day convalescent stay) Please indicate your approval for this care by adding your name here: JHONATAN HAINES 09/05/22 1212 Therapy Orders (From admission, onward) Start Ordered 09/05/22 1204 PT eval and treat Until therapy completed Question: Reason for PT? Answer: falls 09/05/22 1212 09/05/22 1204 OT eval and treat Until therapy completed Question: Reason for OT? Answer: falls 09/05/22 1212 Normal [facility] 30 The patient is Moderately Stable - Low risk of patient condition declining or worsening The patient's goals for the shift include Comfort/sleep The clinical goals for the shift include Monitor Vitals Over the shift, the patient did make progress toward the following goals. Normal [facility] APTTon 09-06-2022 ACTIVATED PARTIAL THROMBOPLASTIN TIME IN PPP BY COAGULATION ASSAY 70.2 Seconds High 25.0-35.0 [facility] Comment on above: Order Comment: Check aPTT every 6 hours while on heparin infusion, or per protocol. Result Comment: Clin ical significance of the APTT is questionable in the presence of heparin. Performed By: #### L [id number] ####[facility] (BEAKER)[address] [place] [address] ACTIVATED PARTIAL THROMBOPLASTIN TIME IN PPP BY COAGULATION ASSAY 59.6 Seconds High 25.0-35.0 [facility] Comment on above: Order Comment: Check aPTT every 6 hours while on heparin infusion, or per protocol. Result Comment: Clin ical significance of the APTT is questionable in the presence of heparin. Performed By: #### L [id number] #### [facility] ([facility]) [address] [place] [address] ACTIVATED PARTIAL THROMBOPLASTIN TIME IN PPP BY COAGULATION ASSAY 65.0 Seconds High 25.0-35.0 [facility] Comment on above: Order Comment: Check aPTT every 6 hours while on heparin infusion, or per protocol. Result Comment: Clin ical significance of the APTT is questionable in the presence of heparin. Performed By: #### L [id number] ####[facility] ([employer])[address] [place] [address] CBCon 09-06-2022 Erythrocyte distribution width (RBC) [Ratio] 13.9 % Normal 11.5-15.0 [facility] Comment on above: Performed By: #### L [id number] #### [facility] ([facility]) [address] [place] [address] ERYTHROCYTE MEAN CORPUSCULAR HEMOGLOBIN CONCENTRATION (G/DL) BY AUTOMATED 33.1 g/dL Normal 32.0-35.0 [facility] Comment on above: Performed By: #### L [id number] #### [facility] ([facility]) [address] [place] [address] Hematocrit (Bld) [Volume fraction] 32.0 % Low 36.0-48.0 [facility] Comment on above: Performed By: #### L [id number] #### [facility] ([facility]) [address] [place] [address] Hemoglobin (Bld) [Mass/Vol] 10.6 g/dL Low 12.0-15.0 [facility] Comment on above: Performed By: #### L [id number] #### [facility] ([facility]) [address] [address] MCH (RBC) [Entitic mass] 27.8 pg Normal 27.0-33.0 [facility] Comment on above: Performed By: #### L [id number] #### [facility] ([facility]) [address] [place] [address] MCV (RBC) [Entitic vol] 84.0 fL Normal 82.0-98.0 [facility] Comment on above: Performed By: #### L [id number] #### [facility] ([facility]) [address] [place] [address] PLATELETS (10*3/UL) IN BLOOD AUTOMATED COUNT 176 10*3/uL Normal 150-400 [facility] Comment on above: Performed By: #### L [id number] #### [facility] ([facility]) [address] [place] [address] RBC (Bld) [#/Vol] 3.81 10*6/uL Normal 3.80-5.00 [facility] Comment on above: Performed By: #### L [id number] #### [facility] ([facility]) [address] [place] [address] WBC (Bld) [#/Vol] 30.91 10*3/uL High 4.00-10.60 [facility] Comment on above: Performed By: #### L [id number] #### [facility] ([facility]) [address] [place] [address] CONSULTon 09-06-2022 CONSULT - Attestation signed by Rivera Chavarria MD at 09/06/2022 4:16 PM I personally saw and examined the patient on the same date of service as resident/fellow Dr. Grove. I discussed the findings and therapeutic plan with the resident/fellow . I agree with the documentation, except for any edits/updates below. Teaching Physician's Revisions: We have carefully reviewed the EKGs and telemetry. Patient has sinus rhythm and sinus tachycardia and frequent PACs. We did not find evidence of atrial fibrillation With regard to frequent PACs, She was taking metoprolol at home and this has been on hold. Resume patient's metoprolol when she is stable after treatment of urosepsis. Cardiology will sign off. Please contact us if there are further questions or issues. Cardiology Consult Note Reason for Consult: A fib with RVR HPI: Ra Garcia is a 86 y.o. female who presented as a transfer from [facility] due to a fall at home and generalized weakness. The patient states that she has been feeling increasingly weak over the last 3 days with intermittent fevers and chills. This is accompanied with lower abdominal pain, flank pain, and burning on urination. Blood cultures showed gram-negative bacteremia with perinephric stranding in the kidneys suggestive of urosepsis/pyelonephri tis. Cardiology was consulted for A-fib with RVR. The patient has no significant cardiac history. Cardiology ROS: GENERAL: Endorsed intermittent fever, chills, and night sweats at home CARDIOVASCULAR: Denies chest pain, exertional dyspnea, orthopnea/PND, lower extremity edema, palpitations, lightheadedness/dizzi ness, syncope. RESPIRATORY: Denies SOB, coughing, wheezing GI: Endorsed abdominal pain, nausea/vomiting. PSYCH: Denies anxiety. Past Medical History She has a past medical history of A-fib (CMS/HCC), Dysuria, and Hypertension. Surgical History She has no past surgical history on file. Social History She has no history on file for tobacco use, alcohol use, and drug use. Family History No family history on file. Allergies Aloe vera, Aspirin, Ciprofloxacin, Egg, Eucalyptus, Penicillins, and Quinolones Medications Medications Prior to Admission Medication Sig Dispense Refill Last Dose amLODIPine (Norvasc) 5 mg tablet Take 5 mg by mouth in the morning. 09/04/2022 estrogens, conjugated, (Premarin) 0.9 mg tablet Take 0.9 mg by mouth in the morning. Take daily for 21 days then do not take for 7 days. 09/04/2022 fluticasone (Flonase Allergy Relief) 50 mcg/actuation nasal spray Administer 1 spray into each nostril 1 (one) time each day at the same time. Unknown furosemide (Lasix) 20 mg tablet Take 20 mg by mouth if needed each day. Unknown ibuprofen 800 mg tablet Take 1 tablet by mouth every 8 (eight) hours. Unknown lisinopril 20 mg tablet Take 20 mg by mouth in the morning. 09/04/2022 metoprolol tartrate (Lopressor) 100 mg tablet Take 100 mg by mouth in the morning and at bedtime. 09/04/2022 multivitamin capsule Take 1 tablet by mouth 1 (one) time each day at the same time. potassium chloride ER (Micro-K) 10 mEq ER capsule Take 10 mEq by mouth in the morning. Do not crush or chew. 09/04/2022 RABEprazole (Aciphex) 20 mg EC tablet Take 20 mg by mouth in the morning. Do not crush, chew, or split. 09/04/2022 Last Recorded Vitals Patient Vitals for the past 24 hrs: BP Temp Temp src Pulse Resp SpO2 Weight 09/06/22 0800 152/66 37.2 ???C (99 ???F) Temporal (!) 111 (!) 28 91 % -- 09/06/22 0600 -- -- -- -- -- -- 96.5 kg (212 lb 11.9 oz) 09/06/22 0400 135/70 37.4 ???C (99.3 ???F) Temporal 82 22 96 % -- 09/05/22 2343 149/70 -- -- 83 18 96 % -- 09/05/222023 142/54 37.4 ???C (99.3 ???F) Temporal 102 23 98 % -- 09/05/22 1600 128/64 37.1 ???C (98.8 ???F) Temporal 85 25 97 % -- 09/05/22 1400 -- -- -- 101 (!) 27 97 % -- 09/05/22 1200 171/52 -- -- 99 (!) 28 96 % -- Physical Examination: GENERAL: Alert,, in no acute distress. HEAD: Atraumatic, normocephalic. EYES: DIANNA, EOMI. NECK: No JVD present. CARDIAC: Sinus tachycardia. No murmur, rubs, or gallops. RESPIRATORY: CTAB, no increased effort of breathing. ABDOMEN: Soft, nontender, nondistended. EXTREMITIES: No lower extremity edema, peripheral pulses are 2+ bilaterally. NEURO: No focal deficits Relevant Lab Results Encounter Date: 09/05/22 Electrocardiogram, 12-lead Result Value Ventricular Rate 102 Atrial Rate 102 ND Interval 190 QRS DURATION 82 QT Interval 326 QTC CALCULATION(BAZETT) 424 P [place] 69 R-[place] -43 T Wave [place] 70 Impression Sinus tachycardia Left axis deviation Minimal voltage criteria for LVH, may be normal variant ( R in aVL ) Anterior infarct , age undetermined Abnormal ECG No previous ECGs available Lab Results Component Value Date TROP (more content not included)... Normal [facility] TROPONIN Ion 09-06-2022 Troponin I.cardiac [Mass/Vol] 0.06 ng/mL High 0.00-0.04 [facility] Comment on above: Performed By: #### L [id number] ####[facility] (BEAKER)[address] [place] [address] Troponin I.cardiac [Mass/Vol] 0.10 ng/mL High 0.00-0.04 [facility] Comment on above: Performed By: #### L [id number] ####[facility] ([facility]ER)[address] [place] [address] APTTon 09-05-2022 ACTIVATED PARTIAL THROMBOPLASTIN TIME IN PPP BY COAGULATION ASSAY 67.3 Seconds High 25.0-35.0 [facility] Comment on above: Order Comment: Check aPTT every 6 hours while on heparin infusion, or per protocol. Result Comment: Clin ical significance of the APTT is questionable in the presence of heparin. Performed By: #### L [id number] #### [facility] ([facility]) [address] [place] [address] B-TYPE NATRIURETIC PEPTIDEon 09-05-2022 Natriuretic peptide B (Bld) [Mass/Vol] 159 pg/mL High 0-100 [facility] Comment on above: Performed By: #### L [id number] ####[facility] ([facility])[address] [place] [address] BASIC METABOLIC PANELon 08-15 Anion gap [Moles/Vol] 16 mmol/L Normal 7-20 [facility] Comment on above: Performed By: #### L [id number] #### [facility] ([employer]) [address] [place] [address] Calcium [Mass/Vol] 8.4 mg/dL Low 8.6-10.3 [facility] Comment on above: Performed By: #### L [id number] #### [facility] ([employer]) [address] [place] [address] Chloride [Moles/Vol] 94 mmol/L Low 98-107 [facility] Comment on above: Performed By: #### L [id number] #### [facility] ([facility] [address] [place] [address] CO2 [Moles/Vol] 19 mmol/L Low 21-31 [facility] Comment on above: Performed By: #### L [id number] #### [facility] ([employer]) [address] [place] [address] Creatinine [Mass/Vol] 2.98 mg/dL High 0.60-1.20 [facility] Comment on above: Performed By: #### L [id number] #### [facility] ([facility]) [address] [place] [address] GLOMERULAR FILTRATION RATE ML/MIN/1.73 SQ M.PREDICTED 15.0 mL/min/1.73m*2 Low >60.0 [facility] Comment on above: Result Comment: The [facility]???s estimated glomerular filtration rate (eGFR) will no longer include consideration of race in its calculation. The National Kidney Foundation???s eGFR Task Force developed new recommendations for the estimation of the glomerular filtration rate in the [place] They recommend immediate implementation of the new equation refit without the race variable in all laboratories because the calculation does not include race. In addition to not including race in the calculation and reporting, it included diversity in its development, and has acceptable performance characteristics and potential consequences that do not disproportionately affect any one group of individuals. Performed By: #### L [id number] #### [facility] (BEAKER) [address] [place] [address] Glucose [Mass/Vol] 124 mg/dL High 70-100 [facility] Comment on above: Performed By: #### L [id number] #### [facility] ([facility]) [address] [place] [address] Potassium [Moles/Vol] 3.7 mmol/L Normal 3.5-5.1 [facility] Comment on above: Performed By: #### L [id number] #### [facility] ([facility]) [address] [place] [address] Sodium [Moles/Vol] 125 mmol/L Low 136-145 [facility] Comment on above: Performed By: #### L [id number] #### [facility] ([facility]) [address] [place] [address] Urea nitrogen [Mass/Vol] 49 mg/dL High 7-25 [facility] Comment on above: Performed By: #### L [id number] #### [facility] ([facility]) [address] [place] [address] UREA NITROGEN/CREATININE (MASS RATIO) IN SER/PLAS 16.4 Normal [facility] Comment on above: Performed By: #### L [id number] #### [facility] ([facility]) [address] [place] [address] BLOOD CULTUREon 09-05-2022 Bacteria identified Cx Nom (Bld) ESCHERICHIA COLI Abnormal [facility] Comment on above: Order Comment: From a different site than #1. Result Comment: Esch erichia coli For Susceptibility Results Please Refer to Performed By: #### L [id number] #### [facility] ([facility]) [address] [place] [address] Result Comment: Esch erichia coli Susceptibility to Follow GRAM STAIN RESULT Negative Abnormal [facility] Comment on above: Order Comment: From a different site than #1. Performed By: #### L [id number] #### [facility] ([facility]) [address] [place] [address] CBC WITH AUTO DIFFERENTIALon 09-05-2022 Erythrocyte distribution width (RBC) [Ratio] 13.6 % Normal 11.5-15.0 [facility] Comment on above: Performed By: #### L [id number] #### [facility] ([employer]) [address] [place] [address] ERYTHROCYTE MEAN CORPUSCULAR HEMOGLOBIN CONCENTRATION (G/DL) BY AUTOMATED 33.9 g/dL Normal 32.0-35.0 [facility] Comment on above: Performed By: #### L [id number] #### [facility] ([employer]) [address] [place] [address] Hematocrit (Bld) [Volume fraction] 31.6 % Low 36.0-48.0 [facility] Comment on above: Performed By: #### L [id number] #### [facility] ([employer]) [address] [place] [address] Hemoglobin (Bld) [Mass/Vol] 10.7 g/dL Low 12.0-15.0 [facility] Comment on above: Performed By: #### L [id number] #### [facility] ([employer]) [address] [place] [address] MCH (RBC) [Entitic mass] 28.1 pg Normal 27.0-33.0 [facility] Comment on above: Performed By: #### L [id number] #### [facility] ([employer]) [address] [place] [address] MCV (RBC) [Entitic vol] 82.9 fL Normal 82.0-98.0 [facility] Comment on above: Performed By: #### L [id number] #### [facility] ([facility]ER) [address] [place] [address] NRBC (PER 100 WBCS) BY AUTOMATED COUNT 0.1 % High 0 [facility] Comment on above: Performed By: #### L [id number] #### [facility] ([facility]) [address] [place] [address] PLATELETS (10*3/UL) IN BLOOD AUTOMATED COUNT 178 10*3/uL Normal 150-400 [facility] Comment on above: Performed By: #### L [id number] #### [facility] ([facility]ER) [address] [place] [address] RBC (Bld) [#/Vol] 3.81 10*6/uL Normal 3.80-5.00 [facility] Comment on above: Performed By: #### L [id number] #### [facility] ([facility]) [address] [place] [address] WBC (Bld) [#/Vol] 29.25 10*3/uL High 4.00-10.60 [facility] Comment on above: Performed By: #### L [id number] #### [facility] ([facility]) [address] [place] [address] CT [facility] P[facility] ABDOMEN PELVIS WO IV CONTRAST CT ABDOMEN PELVIS WO IV CONTRAST 09/05/2022 1:19 PM CLINICAL INDICATIONS: Abdominal pain and distention. Fever and leukocytosis. Evaluate possibility of infection. TECHNIQUE: Multidetector CT axial slices were obtained without IV contrast. Multiplanar reformats, MIP, volume rendered 3-D images were generated on a separate workstation and reviewed to further define anatomy and possible pathology. All CT scans at this facility use dose modulation, iterative reconstruction, and/or weight based dosing when appropriate to reduce radiation dose to as low as reasonably achievable COMPARISON: None. FINDINGS: Lower Chest: Within normal limits. Calcified 1 cm granuloma in the posterior segment of the right lower lobe. Platelike atelectasis in the inferior lingula and another small 4 mm calcified granuloma in the posterior segment of the right lower lobe with vascular calcification in the descending thoracic aorta. Calcified right hilar granulomatous lymph nodes. Significant coronary artery calcifications. ABDOMEN: Liver: Within normal limits. Bile Ducts: Normal caliber. Gallbladder: Nonvisualized gallbladder likely from prior cholecystectomy. Pancreas: Within normal limits. Spleen: Few small calcified granulomas in the spleen. Adrenals: Within normal limits. Kidneys: Enlarged right kidney with perinephric stranding and small 4 mm nonobstructing stones in the mid and inferior pole. Small nonobstructive left lower pole renal stone. Minimal left perinephric stranding. Pelvis: Reproductive Organs: No pelvic masses. Absent uterus likely from prior hysterectomy. Ureters: Right periureteral stranding but no hydroureter is appreciated. Bladder: Decompressed urinary bladder with Treviño catheter seen in place Bowel: Normal caliber. Mesenteric Lymph Nodes: No enlarged mesenteric lymph nodes. Peritoneum: No ascites or free air, no fluid collection. Vessels: Atherosclerotic changes with moderate vascular calcification seen. Retroperitoneum: Bilateral perinephric fat stranding; right more than left. Abdominal Wall: Within normal limits. Calcified phlebolith in the pelvis. Bones: Lumbar spondylosis with anterolisthesis at L4-5 level secondary to facet joint disease with associated disc space narrowing. Multilevel disc space narrowing and vacuum phenomenon in the lower thoracic and lumbar spine consistent with spondylosis. No acute bony pathology. IMPRESSION: Bilateral nonobstructive renal stones. Suggestion of prior cholecystectomy and hysterectomy. Increased size of the right kidney with bilateral perinephric stranding; right more prominent than left which could be secondary to recently passed stone as there is associated right periureteral stranding as well. Treviño catheter in decompressed urinary bladder. Lower thoracic and lumbar spondylosis. Calcified granulomas in the right lung, right hilum and spleen. Electronically signed: Navneet Mcdonald. Normal [facility] HEPATIC FUNCTION PANELon Albumin [Mass/Vol] 3.5 g/dL Normal 3.5-5.7 [facility] Comment on above: Performed By: #### L [id number] ####[facility] ([facility]AKER)[address] [place] [address] ALP [Catalytic activity/Vol] 81 U/L Normal 34-104 [facility] Comment on above: Performed By: #### L [id number] ####[facility] ([facility])[address] [place] [address] ALT [Catalytic activity/Vol] 17 U/L Normal 7-52 [facility] Comment on above: Performed By: #### L [id number] ####[facility] ([facility])[address] [place] [address] AST [Catalytic activity/Vol] 36 U/L Normal 13-39 [facility] Comment on above: Performed By: #### L [id number] ####[facility] ([facility])[address] [place] [address] Bilirubin [Mass/Vol] 0.8 mg/dL Normal 0.3-1.0 [facility] Comment on above: Performed By: #### L [id number] ####[facility] ([facility])[address] [place] [address] Magnesium [Mass/Vol] 0.2 mg/dL Normal 0-0.2 [facility] Comment on above: Performed By: #### L [id number] ####[facility] ([facility])[address] [place] [address] Protein [Mass/Vol] 6.9 g/dL Normal 6.0-8.3 [facility] Comment on above: Performed By: #### L [id number] ####[facility] ([facility])[address] [place] [address] LACTIC ACID WITH 4 HOUR REFL EXon 09-05-2022 LACTATE (MMOL/L) IN SER/PLAS 0.8 mmol/L Normal 0.5-2.2 [facility] Comment on above: Performed By: #### L [id number] ####[facility] ([facility])[address] [place] [address] MAGNESIUMon 09-05-2022 Magnesium [Mass/Vol] 1.2 mg/dL Low 1.9-2.7 [facility] Comment on above: Performed By: #### L [id number] #### [facility] ([facility]) [address], [place] [address] MANUAL DIFFERENTIALon 2022 BASOPHILS (10*3/UL) IN BLOOD BY CALCULATION 0.00 10*3/uL Normal 0.00-0.20 [facility] Comment on above: Performed By: #### L [id number] #### [facility] ([facility]) [address] [place] [address] BASOPHILS/100 LEUKOCYTES IN BLOOD BY AUTOMATED COUNT 0.0 % Normal 0.0-1.0 [facility] Comment on above: Performed By: #### L [id number] #### [facility] ([facility]) [address] [address] EOSINOPHILS (10*3/UL) IN BLOOD BY CALCULATION 0.00 10*3/uL Normal 0.00-0.50 [facility] Comment on above: Performed By: #### L [id number] #### [facility] ([facility]) [address] [address] EOSINOPHILS/100 LEUKOCYTES IN BLOOD BY AUTOMATED COUNT 0.0 % Normal 0.0-6.0 [facility] Comment on above: Performed By: #### L [id number] #### [facility] ([facility]) [address] [address] IMMATURE GRANULOCYTES (10*3/UL) IN BLOOD BY CALCULATION 0.35 10*3/uL High 0.00-0.20 [facility] Comment on above: Performed By: #### L [id number] #### [facility] ([facility]) [address] [address] IMMATURE GRANULOCYTES/100 LEUKOCYTES IN BLOOD BY AUTOMATED COUNT 1.2 % High 0.0-1.0 [facility] Comment on above: Performed By: #### L [id number] #### [facility] ([facility]) [address] [place] [address] LYMPHOCYTES (10*3/UL) IN BLOOD BY CALCULATION 2.93 10*3/uL Normal 1.20-4.00 [facility] Comment on above: Performed By: #### L [id number] #### [facility] ([facility]) [address] [place] [address] LYMPHOCYTES/100 LEUKOCYTES IN BLOOD BY AUTOMATED COUNT 10.0 % Low 20.0-45.0 [facility] Comment on above: Performed By: #### L [id number] #### [facility] ([facility]) [address] [place] [address] MONOCYTES (10*3/UL) IN BLOOD BY CALCUATION 2.93 10*3/uL High 0.10-1.00 [facility] Comment on above: Performed By: #### L [id number] #### [facility] ([facility]) [address], [place] [address] MONOCYTES/100 LEUKOCYTES IN BLOOD BY AUTOMATED COUNT 10.0 % Normal 5.0-12.0 [facility] Comment on above: Performed By: #### L [id number] #### [facility] ([facility]) [address] [place] [address] NEUTROPHILS (10*3/UL) IN BLOOD BY CALCULATION 23.4 10*3/uL High 1.6-7.6 [facility] Comment on above: Performed By: #### L [id number] #### [facility] ([facility]) [address] [place], [place] [address] NEUTROPHILS/100 LEUKOCYTES IN BLOOD BY AUTOMATED COUNT 80.0 % High 40.0-72.0 [facility] Comment on above: Performed By: #### L [id number] #### [facility] ([facility]) [address] [place], [place] [address] PLASMA CELLS/100 LEUKOCYTES IN BLOOD 0 % Normal 0 [facility] Comment on above: Performed By: #### L [id number] #### [facility] ([facility]) [address] [place] [address] VARIANT LYMPHOCYTES (10*3/UL) IN BLOOD BY CALCULATION 0.00 10*3/uL Normal 0.00 [facility] Comment on above: Performed By: #### L [id number] #### [facility] ([facility]) [address] [place], [place] [address] VARIANT LYMPHOCYTES/100 LEUKOCYTES IN BLOOD CELLAVISION 0.0 % Normal 0.0-0.0 [facility] Comment on above: Performed By: #### L [id number] #### [facility] ([employer]) [address] [place] [address] PHOSPHORUSon 09-05-2022 Magnesium [Mass/Vol] 3.4 mg/dL Normal 2.5-5.0 [facility] Comment on above: Performed By: #### L [id number] #### [facility] ([facility]ER) [address] [place] [address] PROTIME-INRon 09-05-2022 INR IN PPP BY COAGULATION ASSAY 1.23 High 0.90-1.10 [facility] Comment on above: Result Comment: ACCC P RECOMMENDED INR FOR WARFARIN THERAPY CONDITION INR PROPHYLAXIS OF VENOUS THROMBOSIS 2-3 (HIGH-RISK SURGERY) TREATMENT OF VENOUS THROMBOSIS 2-3 TREATMENT OF PULMONARY EMBOLISM 2-3 PREVENTION OF SYSTEMIC EMBOLISM: 2-3 ACUTE MYOCARDIAL INFARCTION TISSUE HEART VALVES VALVULAR HEART DISEASE ATRIAL FIBRILLATION RECURRENT SYSTEMIC EMBOLISM MECHANICAL HEART VALVE 2.5-3.5 FROM: ORAL ANTICOAGULANTS. MECHANISM OF ACTION, CLINICAL EFFECTIVENESS, AND OPTIMAL THERAPEUTIC RANGE. CHEST 1995;108:231S-246S. Performed By: #### L [id number] #### [facility] [address] [place] [address] PROTHROMBIN TIME (PT) IN PPP BY COAGULATION ASSAY 15.5 Seconds High 12.3-14.8 [facility] Comment on above: Performed By: #### L [id number] #### [facility] [facility] [address] [place] [address] TROPONIN Ion 09-05-2022 Troponin I.cardiac [Mass/Vol] 0.08 ng/mL High 0.00-0.04 [facility] Comment on above: Performed By: #### L [id number] #### [facility] ([facility]) [address] [place] [address] TSH3 REFLEX TO FT4on 023 THYROTROPIN (MIU/L) IN SER/PLAS BY DETECTION LIMIT <= 0.05 MIU/L 1.92 mIU/L Normal 0.34-5.60 [facility] Comment on above: Performed By: #### L [id number] ####[facility] ([facility])[address] [place] [address] URINALYSIS MICROSCOPIC WITH REFLEX CULTUREon 09-05-2022 CASTS IN URINE Normal [facility] Comment on above: Performed By: #### L [id number] ####[facility] ([facility])[address] [place] [address] CRYSTALS IN URINE Normal [facility] Comment on above: Performed By: #### L [id number] ####[facility] ([facility])[address] [place] [address] MUCUS (#/HPF) IN URINE SEDIMENT Occasional Normal None Seen, Occasional, Few [facility] Comment on above: Performed By: #### L [id number] ####[facility] [facility] ([facility])[address] [place] [address] OTHER MICROSCOPIC ELEMENTS Normal [facility] Comment on above: Performed By: #### L [id number] ####[facility] ([facility])[address] [place] [address] RBC (#/HPF) IN URINE SEDIMENT 3-5 Abnormal None Seen [facility] Comment on above: Performed By: #### L [id number] ####[facility] ([facility])[address] [place] [address] SQUAMOUS EPITHELIAL CELLS (#/HPF) IN URINE SEDIMENT None Seen Normal None Seen, Occasional [facility] Comment on above: Performed By: #### L [id number] ####[facility] ([facility])[address] [place] [address] WBC (LEUKOCYTE) (#/HPF) IN URINE SEDIMENT >100 Abnormal None Seen [facility] Comment on above: Performed By: #### L [id number] ####[facility] ([facility])[address] [place] [address] URINALYSIS WITH REFLEX CULTU REon 09-05-2022 BILIRUBIN, TOTAL PRESENCE IN URINE Negative Normal Negative [facility] Comment on above: Performed By: #### L [id number] #### [facility] ([facility]) [address] [place], [place] [address] Clarity (U) Cloudy Abnormal Clear [facility] Comment on above: Performed By: #### L [id number] #### [facility] ([facility]) [address] [place], [place] [address] Color (U) Ashleigh Abnormal Yellow [facility] Comment on above: Performed By: #### L [id number] #### [facility] ([facility]) [address] [place] [address] Glucose (U) [Mass/Vol] Negative Normal Negative [facility] Comment on above: Performed By: #### L [id number] #### [facility] ([facility]) [address] [place] [address] HEMOGLOBIN PRESENCE IN URINE Moderate Abnormal Negative [facility] Comment on above: Performed By: #### L [id number] #### [facility] ([facility]) [address] [place] [address] Ketones Ql (U) Negative Normal Negative [facility] Comment on above: Performed By: #### L [id number] #### [facility] ([facility]) [address] [place] [address] LEUKOCYTE ESTERASE PRESENCE IN URINE BY TEST STRIP Large Abnormal Negative [facility] Comment on above: Performed By: #### L [id number] #### [facility] ([facility]) [address] [place] [address] NITRITE PRESENCE IN URINE Negative Normal Negative [facility] Comment on above: Performed By: #### L [id number] #### [facility] ([facility]) [address] [place] [address] pH (U) 5.0 [pH] Normal 5.0-8.0 [facility] Comment on above: Performed By: #### L [id number] #### [facility] ([facility]) [address] [place] [address] Protein (U) [Mass/Vol] mg/dL Abnormal Negative [facility] Comment on above: Performed By: #### L [id number] #### [facility] ([facility]) [address] [place] [address] Specific gravity (U) [Rel density] 1.012 Low 1.015-1.020 [facility] Comment on above: Performed By: #### L [id number] #### [facility] ([facility]) [address] [place] [address] URINE CULTURE, ROUTINEon Bacteria identified Cx Nom (U) ESCHERICHIA COLI Abnormal [facility] Comment on above: Result Comment: >100 ,000 CFU/Ml Escherichia coli Susceptibility to Follow Performed By: #### L [id number] #### [facility] ([facility]) [address] [place] [address] VC COMP CONSULTATIONon 07-14 VC COMP CONSULTATION Patient: RA GARCIA Exam Date: 07/14/2022 : 1935 Gender:F Ordering : LULU SOTO [facility] Admission #: [id number] Family : Order #: [id number] CLICK HERE TO VIEW EXAM RADIOLOGY REPORT PROCEDURE: VC VEIN CENTER CONSULTATION VEIN CENTER - OFFICE VISIT INITIAL COMPARISON: None. PROGRESS NOTES: [age] year old female who presents with a 10 year history of leg pain, swelling, muscle cramping, dilated veins. The patient's leg symptoms are symmetric. There has been a progression of symptoms over time. . The patient describes having this, cramping, and stiffness of her legs 1st thing in the morning which improves throughout the day. The patient denies any signs and symptoms to suggest arterial ischemia. The patient describes a family history hypertension and congestive heart failure. The patient has drinking and smoking history of : Occasional alcohol consumption; no tobacco use. Patient has a past medical history significant for obesity, cellulitis, right knee replacement. The patient denies a history of deep venous thrombus or pulmonary embolus. See separate history and physical for medication list. No prior treatment for varicose or spider veins. No use of compression stockings. After review of nurse notes, history and physical exam I discussed at length the pathophysiology of venous hypertension and possible treatments, therapies and strategies available. We discussed at length the importance of elevating the lower extremities above the level of the heart, increased physical activity and compression stocking use. Ultrasound venous reflux study performed today was discussed at length with the patient. The report demonstrates incompetent and mildly dilated right great saphenous vein. Scattered areas of mild dilation and incompetent areas without extending over multiple segments. A few small varicose veins bilaterally.. PHYSICAL EXAM: The right leg demonstrates mild varicosities, a few spider veins, no ulceration, mild edema, no skin discoloration. The left leg demonstrates mild varicosities, a few spider veins, no ulceration, mild edema, no skin discoloration. Both thighs, legs and feet were symmetrically warm to the touch. Good posterior tibial and dorsalis pedis pulses were present bilaterally. IMPRESSION: 1. Mild-moderate right lower extremity venous insufficiency 2. Bilateral mild lower extremity varicose veins 3. Mild bilateral lower extremity subcutaneous edema 4. No flow significant arterial disease 5. CEAP: C3, AP, , ND PLAN: 1. Patient's symptoms are suspected to be more related to joint disease or musculoskeletal issues rather than vein disease. 2. Elevated legs and increased physical activity symptomatic relief 3. Consider imaging studies for hips, knees, ankles to assessed degree of degenerative joint disease. Nurse notes, history and physical were reviewed and confirmed, see attached forms. The nurse was present throughout the physical exam and consultation Dictated by: Brando Lima M.D. on 07/14/2022 at 12:07 Approved by: Brando Lima M.D. on 07/14/2022 at 12:32 Normal [facility] VC VENOUS REFLUX GYPSY LMTon 0 07-14-2022 VC VENOUS REFLUX GYPSY LMT Patient: RA GARCIA Exam Date: 07/14/2022 : 1935 Gender:F Ordering : LULU SOTO [facility] Admission #: [id number] Family : DR PAMELLA RIZVI M.D. Order #: [id number] CLICK HERE TO VIEW EXAM RADIOLOGY REPORT PROCEDURE: VEIN CENTER ULTRASOUND VENOUS REFLUX BILATERAL LIMTED COMPARISON: None. INDICATIONS: Pain co-occurrent and due to varicose veins of bilateral legs I83.813 TECHNIQUE: Duplex imaging of the lower extremity to assess the deep and superficial venous system for the presence of deep or superficial venous incompetence and to document the location and severity of disease. The study includes evaluation of the great saphenous vein (GSV), anterior accessory saphenous vein (AASV) and small saphenous vein (SSV). Patient scanned in reverse Trendelenburg and standing. FINDINGS: RIGHT LOWER EXTREMITY: Saphenofemoral Junction Reflux: Yes 9.7mm 3.9 sec GSV: Diam (mm) Reflux/ Time (sec) Proximal Thigh 7.9 Yes 2.7 Mid Thigh 5.5 Yes 1.1 Distal Thigh 4.4 No Prox Calf 3.9 Yes 2.6 Mid Calf 1.6 Yes 0.2 Saphenopopliteal Junction Reflux: 4.6mm Yes 2.7 SSV: Proximal Calf 4.0 Yes 0.3 Mid Calf 2.3 Yes 3.1 AASV: Proximal Thigh 4.3 Yes 0.6 Mid Thigh 3.1 No Distal Thigh Thrombi: No acute or chronic thrombus. Compressibility: Normal. Flow: Mild deep venous reflux. Preforator: Dist medial lower leg 3.2 mm with 0.7s reflux. Tech Note: Incompetent varicose vein distal medial lower leg measures 4.0 mm with 1.2s reflux. Mid medial lower leg varicose vein measures 3.0 mm with 0.5s reflux. Proximal medial lower leg varicose vein measures 4.0 mm with 2.8s reflux. LEFT LOWER EXTREMITY: Saphenofemoral Junction Reflux: Yes 9.1 mm 0.9 sec GSV: Diam (mm) Reflux/Time (sec) Proximal Thigh 8.2 Yes 1.5 Mid Thigh 4.6 Yes 1.3 Distal Thigh 4.9 Yes 0.6 Prox Calf 4.0 No Mid Calf 2.2 Yes 0.5 Saphenopopliteal Junction Relux: 3.2 mm No SSV: Proximal Calf 3.8 Yes 0.2 Mid Calf 2.9 No AASV: Not present Proximal Thigh Mid Thigh Distal Thigh Thrombi: No acute or chronic thrombus. Compressibility: Normal. Flow: Mild deep venous reflux. Fire Management Technician: Distal medial lower leg 3.1 mm without reflux. Tech Note: Incompetent varicose vein mid medial lower leg measures 3.5 mm with 0.4s reflux. Varicose vein mid medial lower leg measures 2.6 mm with 0.6s reflux. Distal medial thigh varicose vein measures 3.8 mm with 0.3s reflux. CONCLUSION: 1. Dilated, incompetent right great saphenous vein. 2. Proximal dilation of the left great saphenous vein with reflux. 3. Additional scattered areas of mild dilation and reflux without consistent treatable segments. 4. Minimally dilated branch saphenous varicosities with mild reflux bilaterally. Dictated by: Brando Lima M.D. on 07/14/2022 at 12:01 Approved by: Brando Lima M.D. on 07/14/2022 at 12:06 Normal [facility] CULTURE URINEon 06-29-2022 CULTURE URINE Culture Observations : NO GROWTH. Normal [facility] Comment on above: Performed By: #### U RCX #### [facility] Laboratory [address] [place] [address] Dr. Rey Londono UA (CLEAN/CATCH) ENERGY EFFICIENT SITE MANAGER/MICRO I F IND.on 06-29-2022 Bilirubin Ql (U) Negative Normal NEGATIVE [facility] Comment on above: Performed By: #### U MICRO, UACSIND #### [facility] [address] [address] [address] Rey Londono Clarity (U) CLEAR Normal CLEAR [facility] Comment on above: Performed By: #### U MICRO, UACSIND #### [facility] [address] [place] [address] Dr. Rey Londono Color (U) LT. YELLOW Normal YELLOW [facility] Comment on above: Performed By: #### U MICRO, UACSIND #### [facility] [address] [address] [address] Rey Londono Glucose Ql (U) Negative Normal NEGATIVE [facility] Comment on above: Performed By: #### U MICRO, UACSIND #### [facility] [address] [address] [address] Rey Londono Hemoglobin Ql (U) Negative Normal NEGATIVE [facility] Comment on above: Performed By: #### U MICRO, UACSIND #### [facility] [address] [address] [address] Rey Londono Ketones Ql (U) Negative Normal NEGATIVE [facility] Comment on above: Performed By: #### U MICRO, UACSIND #### [facility] [address] [address] [address] Rey Londono LEUKOCYTES LARGE Abnormal NEGATIVE [facility] Comment on above: Performed By: #### U MICRO, UACSIND #### [facility] [address] [address] [address] Rey Londono Nitrite Ql (U) Negative Normal NEGATIVE [facility] Comment on above: Performed By: #### U MICRO, UACSIND #### [facility] [address] [address] [address] Rey Londono pH (U) 6.0 [pH] Normal 5-9 [facility] Comment on above: Performed By: #### U MICRO, UACSIND #### [facility] [address] [address] [address] Rey Londono SPEC GRAVITY 1.010 Normal 1.005-<=1.025 [facility] Comment on above: Performed By: #### U MICRO, UACSIND #### [facility] [address] [address] [address] Rey Londono UA PROTEIN Negative Normal NEGATIVE/ TRACE [facility] Comment on above: Performed By: #### U MICRO, UACSIND #### [facility] [address] [address] [address] Rey Londono UR MICRO IND INDICATED Normal [facility] Comment on above: Performed By: #### U MICRO, UACSIND #### [facility] [address] [address] [address] Rey Londono Urobilinogen Qn (U) 0.2 {Martita'U}/dL Normal 0.2 - 1. 0 [facility] Comment on above: Performed By: #### U MICRO, UACSIND #### [facility] [address] [place] [address] Dr. Rey Londono URINE MICROSCOPIC ONLYon BACTERIA MODERATE Abnormal NONE SEEN [facility] Comment on above: Performed By: #### U MICRO, UACSIND #### [facility] Laboratory [address] [place] [address] Dr. Rey Londono Bacteria identified Cx Nom (U) INDICATED Normal [facility] Comment on above: Performed By: #### U MICRO, UACSIND #### [facility] [address] [place] [address] Dr. Rey Londono CAST NONE SEEN Normal NONE SEEN [facility] Comment on above: Performed By: #### U MICRO, UACSIND #### [facility] [address] [place] [address] Dr. Rey Londono Crystals LM Nom (Urine sed) NONE SEEN Normal NONE SEEN [facility] Comment on above: Performed By: #### U MICRO, UACSIND #### [facility] [address] [place] [address] Dr. Rey Londono Epithelial cells LM Ql (Urine sed) MODERATE Abnormal NONE SEEN /RARE [facility] Comment on above: Performed By: #### U MICRO, UACSIND #### [facility] [address] [place] [address] Dr. Rey Londono MUCOUS NONE SEEN Normal NONE SEEN [facility] Comment on above: Performed By: #### U MICRO, UACSIND #### [facility] [address] [place] [address] Dr. Rey Londono RBC 2-5 Abnormal 0-2 [facility] Comment on above: Performed By: #### U MICRO, UACSIND #### [facility] [address] [place] [address] Dr. Rey Londono WBC 10-20 Abnormal NONE SEEN [facility] Comment on above: Performed By: #### U MICRO, UACSIND #### [facility] [address] [address] [address] Rey Londono MG MAMM SCREEN 3D GYPSY CADon 04-30-2022 MG MAMM SCREEN 3D GYPSY CAD Patient: RA GARCIA Exam Date: 04/30/2022 : 1935 Gender:F Ordering : DR EVER BYRD . Admission #: [id number] Family : Order #: [id number] CLICK HERE TO VIEW EXAM RADIOLOGY REPORT PROCEDURE: MAMMOGRAM SCREENING 3D BILATERAL CAD COMPARISON: MG MAMM SCREEN 3D GYPSY CAD, 12/23/2020. MG MAMM SCREEN GYPSY W CAD, 2019. MG MAMM SCREEN GYPSY W CAD, 09/22/2018. DIGITIZED_MAMMO, 03/17/2006. INDICATIONS: Screening mammography Calculator Name NCI Breast Cancer Risk Assessment Tool 5 Year Breast Cancer Risk 2.90% Lifetime Breast Cancer Risk 3.30% Personal Breast Cancer No Personal Ovarian Cancer No Treatments None Family Cancers Sister with breast cancer at age 45; Sister with lung cancer at age 47; Sister with lung cancer at age 48; Sister with brain cancer at age 52; Father with colon cancer at age 68. LOCATION: [facility] BREAST COMPOSITION: Scattered areas fibroglandular density. FINDINGS: DIAGNOSTIC CATEGORY 2--BENIGN FINDING: RIGHT BREAST: No significant suspicious finding. Scattered benign-appearing calcifications are present. LEFT BREAST: No significant suspicious finding. Scattered benign-appearing nodules are present. No significant change has occurred. RECOMMENDATIONS: ROUTINE MAMMOGRAM AND CLINICAL EVALUATION IN 12 MONTHS. PLEASE NOTE: A NORMAL MAMMOGRAM DOES NOT EXCLUDE THE POSSIBILITY OF BREAST CANCER. A CLINICALLY SUSPICIOUS PALPABLE LUMP SHOULD BE BIOPSIED. Dictated by: Brando Lima M.D. on 04/30/2022 at 14:06 Approved by: Brando Lima M.D. on 04/30/2022 at 14:09 Normal [facility] CULTURE URINEon 04-20-2022 CULTURE URINE Culture Observations : NO GROWTH. Normal [facility] Comment on above: Performed By: #### U RCX #### [facility] Laboratory [address] [address] [address] Rey Londono UA RANDOM W/MICROSCOPICon BACTERIA NONE SEEN Normal NONE SEEN [facility] Comment on above: Performed By: #### U AMIC #### [facility] [address] [address] [address] Rey Londono Bilirubin Ql (U) Negative Normal NEGATIVE [facility] Comment on above: Performed By: #### U AMIC #### [facility] [address] [address] [address] Rey Londono CAST NONE SEEN Normal NONE SEEN [facility] Comment on above: Performed By: #### U AMIC #### [facility] [address] [address] [address] Rey Londono Clarity (U) CLEAR Normal CLEAR [facility] Comment on above: Performed By: #### U AMIC #### [facility] [address] [place] [address] Dr. Rey Londono Color (U) LT. YELLOW Normal YELLOW [facility] Comment on above: Performed By: #### U AMIC #### [facility] [address] [place] [address] Dr. Rey Londono Crystals LM Nom (Urine sed) NONE SEEN Normal NONE SEEN [facility] Comment on above: Performed By: #### U AMIC #### [facility] [address] [address] [address] Rey Londono Epithelial cells LM Ql (Urine sed) RARE Normal NONE SEEN /RARE [facility] Comment on above: Performed By: #### U AMIC #### [facility] [address] [address] [address] Rey Londono Glucose Ql (U) Negative Normal NEGATIVE [facility] Comment on above: Performed By: #### U AMIC #### [facility] [address] [address] [address] Rey Londono Hemoglobin Ql (U) Negative Normal NEGATIVE [facility] Comment on above: Performed By: #### U AMIC #### [facility] [address] [place] [address] Dr. Rey Londono Ketones Ql (U) Negative Normal NEGATIVE [facility] Comment on above: Performed By: #### U AMIC #### [facility] [address] [address] [address] Rey Londono LEUKOCYTES Negative Normal NEGATIVE [facility] Comment on above: Performed By: #### U AMIC #### [facility] [address] [place] [address] Dr. Rey Londono MUCOUS NONE SEEN Normal NONE SEEN [facility] Comment on above: Performed By: #### U AMIC #### [facility] [address] [address] [address] Rey Londono Nitrite Ql (U) Negative Normal NEGATIVE [facility] Comment on above: Performed By: #### U AMIC #### [facility] [address] [place] [address] Dr. Rey Londono pH (U) 6.5 [pH] Normal 5-9 [facility] Comment on above: Performed By: #### U AMIC #### [facility] [address] [place] [address] Dr. Rey Londono RBC 0-2 Normal 0-2 [facility] Comment on above: Performed By: #### U AMIC #### [facility] [address] [place] [address] Dr. Rey Londono SPEC GRAVITY 1.010 Normal 1.005-<=1.025 [facility] Comment on above: Performed By: #### U AMIC #### [facility] [address] [place] [address] Dr. Rey Londono UA PROTEIN Negative Normal NEGATIVE/ TRACE [facility] Comment on above: Performed By: #### U AMIC #### [facility] [address] [place] [address] Dr. Rey Londono Urobilinogen Qn (U) 0.2 {Martita'U}/dL Normal 0.2 - 1. 0 [facility] Comment on above: Performed By: #### U AMIC #### [facility] [address] [place] [address] Dr. Rey Londono WBC NONE SEEN Normal NONE SEEN [facility] Comment on above: Performed By: #### U AMIC #### [facility] [address] [address] [address] Rey Londono CULTURE URINEon 04-13-2022 CULTURE URINE Culture Observations : LIGHT GROWTH OF MIXED GENITAL [place]. NO POTENTIAL PATHOGENS SEEN. Normal [facility] Comment on above: Performed By: #### U MICRO, ERUR #### [facility] [address] [place] [address] Dr. Rey Londono UA RANDOM W/MICROSCOPICon BACTERIA NONE SEEN Normal NONE SEEN [facility] Comment on above: Performed By: #### U AMIC #### [facility] [address] [place] [address] Dr. Rey Londono Bilirubin Ql (U) Negative Normal NEGATIVE [facility] Comment on above: Performed By: #### U AMIC #### [facility] [address] [place] [address] Dr. Rey Londono CAST NONE SEEN Normal NONE SEEN [facility] Comment on above: Performed By: #### U AMIC #### [facility] [address] [place] [address] Dr. Rey Londono Clarity (U) CLEAR Normal CLEAR [facility] Comment on above: Performed By: #### U AMIC #### [facility] [address] [address] [address] Rey Londono Color (U) LT. YELLOW Normal YELLOW [facility] Comment on above: Performed By: #### U AMIC #### [facility] [address] [place] [address] Dr. Rey Londono Crystals LM Nom (Urine sed) NONE SEEN Normal NONE SEEN [facility] Comment on above: Performed By: #### U AMIC #### [facility] [address] [place] [address] Dr. Rey Londono Epithelial cells LM Ql (Urine sed) FEW Abnormal NONE SEEN /RARE [facility] Comment on above: Performed By: #### U AMIC #### [facility] [address] [place] [address] Dr. Rey Londono Glucose Ql (U) Negative Normal NEGATIVE [facility] Comment on above: Performed By: #### U AMIC #### [facility] Laboratory [address] [address] [address] Rey Londono Hemoglobin Ql (U) Negative Normal NEGATIVE [facility] Comment on above: Performed By: #### U AMIC #### [facility] Laboratory [address] [address] [address] Rey Londono Ketones Ql (U) Negative Normal NEGATIVE [facility] Comment on above: Performed By: #### U AMIC #### [facility] Laboratory [address] [address] [address] Rey Londono LEUKOCYTES Negative Normal NEGATIVE [facility] Comment on above: Performed By: #### U AMIC #### [facility] Laboratory [address] [address] [address] Rey Londono MUCOUS NONE SEEN Normal NONE SEEN The [facility] Comment on above: Performed By: #### U AMIC #### [facility] Laboratory [address] [address] [address] Rey Londono Nitrite Ql (U) Negative Normal NEGATIVE [facility] Comment on above: Performed By: #### U AMIC #### [facility] Laboratory [address] [address] [address] Rey Londono pH (U) 5.5 [pH] Normal 5-9 [facility] Comment on above: Performed By: #### U AMIC #### [facility] Laboratory [address] [place] [address] Dr. Rey Londono RBC NONE SEEN Abnormal 0-2 The [facility] Comment on above: Performed By: #### U AMIC #### [facility] Laboratory [address] [address] [address] Rey Londono SPEC GRAVITY 1.010 Normal 1.005-<=1.[address] [facility] Comment on above: Performed By: #### U AMIC #### [facility] Laboratory [address] [place] [address] Dr. Rey Londono UA PROTEIN Negative Normal NEGATIVE/ TRACE The [facility] Comment on above: Performed By: #### U AMIC #### [facility] Laboratory [address] [address] [address] Rey Londono Urobilinogen Qn (U) 0.2 {Martita'U}/dL Normal 0.2 - 1. 0 [facility] Comment on above: Performed By: #### U AMIC #### [facility] Laboratory [address] [place] [address] Dr. Rey Londono WBC NONE SEEN Normal NONE SEEN The [facility] Comment on above: Performed By: #### U AMIC #### [facility] Laboratory [address] [address] [address] Rey Londono CULTURE URINEon 03-09-2022 CULTURE URINE Isolate 1 Enterococcus faecium >100,000 cfu/mL of ORGANISM 1 Enterococcus faecium ANTIBIOTIC M.I.C RX STATUS Beta-Lactamase Neg NEG F Benzylpenicillin <=0.12 S F Ampicillin <=2 S F Gentamicin High Level (synergy) SYN-S S F Streptomycin High Level (synergy) SYN-S S F Ciprofloxacin <=0.5 S F Levofloxacin 1 S F Quinupristin/Dalfopri stin 1 S F Linezolid 2 S F Vancomycin <=0.5 S F Tetracycline <=1 S F Nitrofurantoin 64 I F Normal The [facility] Comment on above: Performed By: #### U MICRO, ERUR #### [facility] Laboratory [address] [place] [address] Dr. Rey Londono Lab Reportson 03-09-2022 Lab Reports [id number] Normal [facility] Urology Office/Clinic Noteon 03-06-2022 Urology Office/Clinic Note Chief Complaint Possible UTI HPI Staff Ra is a 86 y/o female here for a possible UTI. Pt states that she is having dysuria, frequency, pressure in her abdomen, and she has to strain to urinate. Pt has had multiple UDs by Dr. Garcia in the past. Dysuria: _yes Incomplete bladder emptying: _yes Hematuria: _denies Frequency: _denies Urgency: _denies Nocturia: _every 2 hours Stream: _strain to void Leaking: _yes Post void dripping: _denies Wearing pads/ Depends: _yes Urge incontinence: _yes Stress incontinence: _yes Incontinence without Sensory Awareness: _denies Abdominal pain: _yes Flank pain: _denies Sexual complaints: _ History of Present Illness Pt has been seen here in the past but not since 09/08/2018. Has had multiple urethral dilations by Dr. Garcia in the past. Pt indicates UD 5-6x in the past by Dr. Garcia. Last one done in 2013 per staff. Pt here for UTI Sx. Sx started 8 days ago - burning w/ urination and heaviness in bladder area w/ feeling like she has to void but unable to void at times. Also w/ suprapubic pain. Denies fever, chills, N/V, and visible blood in urine. Pt indicates she averages 3-4 UTIs/year. PCP evaluates and Tx these per Pt. Last Tx'd for one about 6 months ago per Pt. I have none of these records to review regarding these UTIs. After UDs in the past leaking was worse but felt like she was urinating better. Strains to void. Has been taking AZO daily x 6 months. It helps w/ the dysuria so then can relax and void. Pt not sure which AZO formulation but indicates it's the one that turns urine orange. Wipes from back w/ BMs but pats in the front after urination. Denies douching and is not sexually active. Takes stool softener once daily. BM daily. Doesn't feel like she strains and BMs are soft. Denies diarrhea. + cystocele. Sling procedure 04/2014 and bladder suspension w/ HYST in 1970s. Takes oral Premarin but doesn't use topical estrogen cream. Denies Hx of clots, breast CA and uterine CA. Labs from 03/02/22 - BUN 8, SCR 0.65, eGFR >60, K+ WNL. Staff HPI reviewed and agree. See staff HPI. Review of Systems PHQ Score Initial Depression Screen Score: 0 See HPI. Physical Exam Vitals & Measurements HR: 66(Peripheral) BP: 152/88 HT: 64 in HT: 162.2 cm WT: 90.5 kg WT: 199.1 lb BMI: 34.4 General appearance: Awake, alert, NAD, well-developed, well-nourished HEENT: Head is NC/AT Chest/Lungs: no conversational dyspnea, respirations non-labored Cardiovascular: no cyanosis Abdomen: soft, non-tender, non-distended, no mass or organomegaly, obese : No flank tenderness. Musculoskeletal: All 4 extremities intact. Able to move all 4 extremities. Skin: warm and dry Neurological: Oriented to person, place, time, and situation. Thought processes logical. Interaction appropriate for setting. Seems to be in a euthymic mood. Assessment/Plan 1. UTI symptoms (R39.9: Unspecified symptoms and signs involving the genitourinary system) UA today - unable to leave urine specimen today. Bladder scan 232 mL @ 1542 today. Pt last urinated @ about 1:30 PM. Pt indicates she will probably be able to get a urine specimen after she leaves the office today. Given order for urine Cx and urine collection cup w/ towelettes and verbal instruction on mid stream clean catch urine collection. Pt will drop of specimen at H. Empiric Bactrim DS BID x 3 days given pending urine Cx results and discussed starting AFTER submitting urine for Cx. Discussed AZO formulation w/ phenazopyridine should be taken no more than 2 days for acute Sx and should not be taken chronically as it can lead impaired renal fcn. Discussed may benefit from topical estrogen cream. Discussed how vag atrophy can contribute to recurrent UTI and UTI-like Sx in the absence of UTI. Already takes oral Premarin. Can re-visit after Cysto/UD. Pt to get genital/pelvic exam to be done at time of Cysto/UD. Discussed drinking plenty of fluids to keep bladder flushed . Can discuss OTC supplements for UTI prevention at F/U. Will re-assess how Pt doing after Cysto/UD. Ordered: Urine Culture 2. Recurrent UTI (N39.0: Urinary tract infection, site not specified) Pt indicates she averages 3-4 UTIs/year. PCP evaluates and Tx these per Pt. Last Tx'd for one about 6 months ago per Pt. I have none of these records to review regarding these UTIs. Incomplete bladder emptying may be contributing to reported UTIs. See Dx #1 for plan. Will re-assess after Cysto/UD. Ordered: Measure Post Void residual urine and/or bladder capacity by US- non-imaging [id number] 3. Incomplete bladder emptying (R33.9: Retention of urine, unspecified) Bladder scan 232 mL @ 1542 today. Pt last urinated @ about 1:30 PM. Pt unable to void at today's OV. Looks like at time of last OV on 09/08/2018 had PVR >200 mL and that time and Dr. Garcia offered repeat Cysto w/ UD but Pt wanted to wait. Incomplete bladder emptying may be contributing to reported UTIs (more content not included)... Normal [facility] Comment on above: Result Comment: Elec tronically Signed By: Zaria Rojas\.br\Date and Time Signed: 03/06/22 11:04 EST Ambulatory Visit Summaryon 0 03-05-2022 Ambulatory Visit Summary RA GARCIA Anika :1935 Visit Date:03/05/2022 Ambulatory Visit Instructions Your Diagnosis UTI symptoms History of urethral stricture Your Care Team Attending Physician - Zaria Rojas Primary Care Physician - Ever Byrd MD This Is Your Medications List amlodipine conjugated estrogens (Premarin) cranberry (Azo cranberry) furosemide lisinopril metoprolol (Lopressor) metoprolol (metoprolol 25 mg ER Tab) multivitamin (Vitamin B Complex oral capsule) potassium acetate rabeprazole sulfamethoxazole-trim ethoprim (Bactrim D.S. 800 mg-160 mg Tab) Procedures Performed Sling procedure of bladder neck (04/17/2014), Urodynamics (03/21/2014), Cystourethroscopy with dilation of urethral stricture (12/21/2013). Discharge Vitals Heart Rate (Peripheral) 66 Blood Pressure 152/88 Height 162.2 cm Height 64 in Weight 90.5 kg Weight 199.1 lb BMI 34.4 Medications What How Much When Instructions New sulfamethoxazole-trim ethoprim (Bactrim D.S. 800 mg-160 mg Tab) 1 Tablets By Mouth 2 times a day Duration: 3 Days Pickup at [facility] #[id number] Unchanged amlodipine By Mouth Every day Unchanged conjugated estrogens (Premarin) By Mouth Every day Unchanged cranberry (Azo cranberry) Unchanged furosemide Unchanged lisinopril By Mouth Every day Unchanged metoprolol (Lopressor) 2 times a day Unchanged metoprolol (metoprolol 25 mg ER Tab) By Mouth Every day Unchanged multivitamin (Vitamin B Complex oral capsule) By Mouth Every day Unchanged potassium acetate Unchanged rabeprazole By Mouth Every day Pharmacy Information [id number]: [address], [place] [id number] [phone] Allergies Chicken (Unknown) Milk Products (Unknown) Mold (Unknown) aloe vera (Rash) aspirin (Unknown) ciprofloxacin (Rash) eucalyptus topical (Rash) penicillins (Swelling) Problems Ongoing - Any problem that you are currently receiving treatment for. Cystitis, chronic Cystocele, midline Dysuria Frequent urination History of urethral stricture Other post-traumatic urethral stricture, female Stress incontinence Urge incontinence UTI symptoms Normal [facility] CULTURE URINEon 10-06-2021 CULTURE URINE Isolate 1 Klebsiella pneumoniae >100,000 cfu/mL of ORGANISM 1 Klebsiella pneumoniae ANTIBIOTIC M.I.C RX STATUS Ampicillin 16 R F Ampicillin/Sulbactam 4 S F Piperacillin/Tazobact am <=4 S F Cefazolin <=4 S F Ceftazidime <=1 S F Ceftriaxone <=1 S F Ertapenem <=0.5 S F Imipenem <=0.25 S F Amikacin <=2 S F Gentamicin <=1 S F Tobramycin <=1 S F Ciprofloxacin <=0.25 S F Levofloxacin <=0.12 S F Nitrofurantoin 64 I F Trimethoprim/Sulfamet hoxazole <=20 S F Normal The [facility] Comment on above: Performed By: #### U MICRO, ERUR #### [facility] Laboratory [address] [place] [address] Dr. Rye Londono ER URINE PROFILEon 2 Bilirubin Ql (U) Negative Normal NEGATIVE [facility] Comment on above: Performed By: #### U MICRO, ERUR #### [facility] Laboratory [address] [address] [address] Rey Londono Clarity (U) CLEAR Normal CLEAR [facility] Comment on above: Performed By: #### U MICRO, ERUR #### [facility] Laboratory [address] [place] [address] Dr. Rey Londono Color (U) YELLOW Normal YELLOW [facility] Comment on above: Performed By: #### U MICRO, ERUR #### [facility] Laboratory [address] [address] [address] Rey VOGEL A micrscopic examination will be performed if indicated. Normal [facility] Comment on above: Performed By: #### U MICRO, ERUR #### [facility] Laboratory [address] [address] [address] Rey Londono Glucose Ql (U) Negative Normal NEGATIVE [facility] Comment on above: Performed By: #### U MICRO, ERUR #### [facility] Laboratory [address] [address] [address] Rey Londono Hemoglobin Ql (U) MODERATE Abnormal NEGATIVE [facility] Comment on above: Performed By: #### U MICRO, ERUR #### [facility] Laboratory [address] [address] [address] Rey Londono Ketones Ql (U) Negative Normal NEGATIVE [facility] Comment on above: Performed By: #### U MICRO, ERUR #### [facility] Laboratory [address] [address] [address] Rey Londono LEUKOCYTES LARGE Abnormal NEGATIVE [facility] Comment on above: Performed By: #### U MICRO, ERUR #### [facility] Laboratory [address] [address] [address] Rey Londono Nitrite Ql (U) Positive Abnormal NEGATIVE [facility] Comment on above: Performed By: #### U MICRO, ERUR #### [facility] Laboratory [address] [address] [address] Rey Londono pH (U) 6.0 [pH] Normal 5-9 [facility] Comment on above: Performed By: #### U MICRO, ERUR #### [facility] Laboratory [address] [address] [address] Rey Londono SPEC GRAVITY 1.010 Normal 1.005-<=1.[address] [facility] Comment on above: Performed By: #### U MICRO, ERUR #### [facility] Laboratory [address] [address] [address] Rey Londono UA PROTEIN TRACE Normal NEGATIVE/ TRACE [facility] Comment on above: Performed By: #### U MICRO, ERUR #### [facility] Laboratory [address] [place] [address] Dr. Rey Londono UR MICRO IND INDICATED Normal [facility] Comment on above: Performed By: #### U MICRO, ERUR #### [facility] Laboratory [address] [place] [address] Dr. Rey Londono Urobilinogen Qn (U) 0.2 {Martita'U}/dL Normal 0.2 - 1. 0 [facility] Comment on above: Performed By: #### U MICRO, ERUR #### [facility] Laboratory [address] [place] [address] Dr. Rey Londono URINE MICROSCOPIC ONLYon BACTERIA MODERATE Abnormal NONE SEEN [facility] Comment on above: Performed By: #### U MICRO, ERUR #### [facility] Laboratory [address] [place] [address] Dr. Rey Londono Bacteria identified Cx Nom (U) INDICATED Normal [facility] Comment on above: Performed By: #### U MICRO, ERUR #### [facility] Laboratory [address] [place] [address] Dr. Rey Londono CAST NONE SEEN Normal NONE SEEN [facility] Comment on above: Performed By: #### U MICRO, ERUR #### [facility] Laboratory [address] [place] [address] Dr. Rey Londono Crystals LM Nom (Urine sed) NONE SEEN Normal NONE SEEN [facility] Comment on above: Performed By: #### U MICRO, ERUR #### [facility] Laboratory [address] [place] [address] Dr. Rey Londono Epithelial cells LM Ql (Urine sed) RARE Normal NONE SEEN /RARE [facility] Comment on above: Performed By: #### U MICRO, ERUR #### [facility] Laboratory [address] [place] [address] Dr. Rey Londono MUCOUS NONE SEEN Normal NONE SEEN [facility] Comment on above: Performed By: #### U MICRO, ERUR #### [facility] Laboratory [address] [place] [address] Dr. Rey Londono RBC NONE SEEN Abnormal 0-2 [facility] Comment on above: Performed By: #### U MICRO, ERUR #### [facility] Laboratory [address] [place], [place] [address] Dr. Rey Londono WBC (U) [#/Vol] /uL Abnormal NONE SEEN [facility] Comment on above: Performed By: #### U MICRO, ERUR #### [facility] Laboratory [address] [place], [place] [address] Dr. Rye Londono A1C HEMOGLOBINon 08-20-2021 HbA1c (Bld) [Mass fraction] 5.2 % [facility] [employer] Other HbA1c (Bld) [Mass fraction]o n 08-20-2021 A1C HEMOGLOBIN [facility] [employer] Other Coding Summaryon 08-23-2016 Coding Summary CODING DATE: 08/23/2016 [facility] STATUS: Home PAYOR: Medicare ADMIT DX: REASON FOR VISIT DX: Z01.812 Encounter for preprocedural laboratory examination FINAL DX: PRINCIPAL: Z01.812 Encounter for preprocedural laboratory examination SECONDARY: Z01.810 Encounter for preprocedural cardiovascular examination M17.11 Unilateral primary osteoarthritis, 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 However, the narrative phrase printed from the coding software may appear abbreviated, or result in slightly different terminology. Revised Coded By: Nury Morse Revised Date Saved: 07/05/2016 04:18 pm Normal [facility] Vital Signs Date Time Vital Sign Value Performing Clinician Facility 09-14-2023 10:41-0400 Body height 160.02 cm MD Ever Byrd Work Phone: [facility] 09-14-2023 10:41-0400 Body mass index (BMI) [Ratio] 34.2 kg/m2 MD Ever Byrd Work Phone: [facility] 09-14-2023 10:41-0400 Body weight 87.54 kg MD Ever Byrd Work Phone: [facility] 08-20-2021 10:00-0400 Body height 160.02 cm Tor Cadiff Other [facility] Other 08-20-2021 10:00-0400 Body mass index (BMI) [Ratio] 36.47 kg/m2 Tor Cadiff Other [facility] Other 08-20-2021 10:00-0400 Body weight 93.4 kg Tor Cadiff Other [facility] Other 08-20-2021 10:00-0400 Diastolic blood pressure 76 mm[Hg] Tor Britany Other [facility] Other 08-20-2021 10:00-0400 Respiratory rate 18 /min Tor Cadiff Other [facility] Other 08-20-2021 10:00-0400 SaO2% (BldA) [Mass fraction] 97 % Tor Cadiff Other [facility] Other 08-20-2021 10:00-0400 Systolic blood pressure 157 mm[Hg] Tor Garg Other [employer] Other Encounters Encounter Date Encounter Type Care Provider Facility Start: 09-14-2023 End: 09-14-2023 Patient encounter procedure MD Ever Byrd Work Phone: [facility] Work Phone: Start: 09-14-2023 End: 09-14-2023 ambulatory MD Ever Byrd Work Phone: [facility] Work Phone: Start: 09-14-2023 End: 09-14-2023 ambulatory MD Ever Byrd Work Phone: [facility] Work Phone: Start: 09-14-2023 End: 09-14-2023 Patient encounter procedure MD Ever Byrd Work Phone: [facility] Work Phone: Start: 09-14-2023 End: 09-14-2023 Patient encounter procedure MD Ever Byrd Work Phone: [facility] Start: 09-14-2023 End: 09-14-2023 ambulatory MD Ever Byrd Work Phone: [facility] Work Phone: Start: 09-13-2023 End: 09-13-2023 ambulatory JUHI [facility] SCOTT Not Available Start: 08-02-2023 End: 08-02-2023 ambulatory MOREJON FAWWAD Not Available Start: 07-20-2023 End: 07-20-2023 ambulatory MOREJON FAWWAD Not Available Start: 06-01-2023 End: 06-01-2023 ambulatory MARISELA H CIERRAMIS Not Available Start: 05-25-2023 End: 05-25-2023 ambulatory JAMES NARAYANAN Not Available Start: 05-02-2023 End: 05-02-2023 ambulatory MOREJON FAWWAD Not Available Start: 01-25-2023 End: 01-25-2023 ambulatory MOREJON FAWWAD Not Available Start: 09-22-2022 End: 09-22-2022 ambulatory MARISOL SCHAEFFER [facility] Start: 09-08-2022 Evaluation and management of inpatient MECHELLE MCCARTNEY [facility] Start: 09-06-2022 Evaluation and management of inpatient USHA Aquino [facility] Start: 09-06-2022 Evaluation and management of inpatient USHA Aquino [facility] Start: 09-05-2022 Evaluation and management of inpatient USHA Aquino [facility] Start: 09-05-2022 Evaluation and management of inpatient USHA Aquino HARRISTRISTAN [facility] Start: 09-05-2022 End: 09-12-2022 Evaluation and management of inpatient WISAM Beatrice TIM [facility] Start: 07-14-[address] EVER BYRD . Facili ty:[facility] Start: 06-30-[address] EVER BYRD . Facili ty:[facility] Start: 06-29-2022 End: 06-30-[address] EVER BYRD . Facility:[facility] Start: 04-30-2022 End: 05-01-[address] EVER BYRD . Facility:[facility] Start: 04-20-2022 End: 04-21-[address] EVER BYRD . Facility:[facility] Start: 04-13-2022 End: 04-14-[address] EVER BYRD . Facility:[facility] Start: 03-06-2022 End: 03-06-[address] DOCTOR OROZCO Facility:[facility] Start: 03-05-2022 End: 03-06-2022 ambulatory Zaria King Facility:[facility] [place] Start: 10-03-2021 End: 10-04-2021 ambulatory WISAM DUMONT Facility:[facility] Start: 08-20-2021 End: 08-20-2021 ambulatory Tor Garg Other [facility] Other Start: 08-20-2021 Nutrition therapy Tor Garg [facility] Start: 01-13-2012 End: 01-14-2012 Patient encounter JACQUI Oneal STODDARD Facility:[facility] Procedures Date Procedure Procedure Detail Performing Clinician Start: 09-14-2023 Methicillin resistan t Staphylococcus aureus culture MD Ever Byrd Work Phone: Start: 09-14-2023 Pelvis X-ray MD Ever Byrd Work Phone: Start: 09-14-2023 Radiologic examinati on of knee MD Ever Byrd Work Phone: Plan of Treatment Date Care Activity Detail Author Start: 09-14-2023 MRSA Culture MRSA Culture [facility] Start: 09-14-2023 Methicillin resistan t Staphylococcus aureus [Presence] in Unspecified specimen by Organism specific culture [facility] Start: 09-14-2023 [facility] Start: 09-14-2023 Pelvis X-ray XR pelvis 1-2V [facility] Start: 09-14-2023 Radiologic examinati on of knee XR knee LT 4V* [facility] Start: 09-14-2023 XR Knee - left 4 Views [facility] Start: 09-14-2023 XR Pelvis 1 or 2 Views [facility] Cotinine [Mass/volum e] in Serum or Plasma [facility] Hemoglobin [Mass/vol ume] in Blood [facility] Nicotine [Mass/volum e] in Serum or Plasma [facility] Payers Date Payer Category Payer Self-pay [id number] 2023 [employer]) [id number] 2022 [employer]) [id number] [employer] ( and others) 1959 [employer] ( and others) [id number]. 19 1959 Medicare [id number] 2.1 [id number] 1937 Unknown [id number] 2..840.1.590993.3.579.2.727 1935 Unknown [id number] 2.16.840.1.688378.3.579.2.593 1937 Unknown [id number] 2.16.840.1.305306.3.579.2.593 1937 Unknown [id number] 2.16.840.1.656509.3.579.2.593 1937 Unknown [id number] 2.16.840.1.105664.3.579.2.593 1937 Unknown [id number] 2.16.840.1.717798.3.579.2.593 1937 Unknown [id number] 2.16.840.1.334464.3.579.2.593 1937 Unknown [id number] 2.16.840.1.576795.3.579.2.593 1937 Unknown [id number] 2.16.840.1.864545.3.579.2.593 1937 Unknown [id number] 2.16.840.1.034544.3.579.2.1259 1937 Unknown [id number] 2.16.840.1.155449.3.579.2.1259 1937 Unknown [id number] 2.16.840.1.672612.3.579.2.1259 1937 Unknown [id number] 2.16.840.1.409347.3.579.2.1259 1937 Unknown [id number] 2.16.840.1.725708.3.579.2.1259 1937 Unknown [id number] 1935 Unknown [id number] Medicare [id number] Unknown [id number] Unknown [id number] Social History Date Type Detail Facility Unknown if ever smoked [employer] Other Sex Assigned At Sex Assigned At [employer] Other Start: 1935 Sex Assigned At Female [facility] Start: 08-20-2021 Tobacco smoking status NHIS Ex-smoker (finding) [facility] NEGATED: Highlighted row [facility] Clinical Notes 03-17-2014 to 09-22-2022 Note Date & Type Note Facility 09-22-2022 Note Noted KADI while inpt Therefore pt sent for labs and d/w pt to f/U with PCP ZEE for hospital f/u- she states she is currently changing PCP from Dr Byrd to Dr Anna. [facility] 09-22-2022 Note Currently she has 1 more dose of Augmentin due and then that regime is completed. Admits intermittent nausea and 1 episode of diarrhea since dc from hospital. Script for CBC with diff, cmp provided to pt for labs today to assess WBC- HGB and renal function. [facility] 09-22-2022 Note Stable s/p recent se psis, bacteremia with KADI [facility] 09-22-[address] Chavarria who saw pt as inpt no a-fib was noted on EKG, Telemetry pt was noted to have sinus rhythm, sinus tachycardia, and PACs. Today EKG she is Sinus rhythm with sinus arrhythmia with 1st degree AV block. Therefore, non anticoagulation required and pt has resumed Metoprolol 100 mg bid and tolerating well. [facility] 09-22-2022 Note [facility]TP CARDIOLOGY PROGR ESS NOTE HPI: Ra Garcia is a 86 y.o. female here for Follow-up (Pt was in hospital [facility]) HPI Pt presents today with for f/U s/p recent hospitalization at [facility] for sepsis- ecoli bacteremia with pyelonephritis, a fib with RVR that was determined by [place] cardiology to not be a fib- but SR- ST with PACs. Currently pt is ambulatory via W/c to appt. States she has generalized fatigue, intermittent nausea and has had 1 episode of diarrhea since DC from hospital. Currently she has 1 more dose of augmentin left of antibiotic regime. Denied chest pain, shortness of breath, orthopnea, palpitations, fever or chills. States that she is currently transferring from Dr byrd to Dr Anna for her PCP. 09/05/2022 - 09/12/2022 Discharge Summary Final Discharge Diagnosis: Sepsis related to gram-negative bacteremia-resolved Ecoli bacteremia likely secondary to urosepsis/pyelonephritis Leukocytosis 2/2 above-improving Acute Kidney injury-unclear history of CKD-creatinine improving Hyponatremia-resolved Hypokalemia-replaced Non-anion gap metabolic acidosis-on oral sodium bicarbonate Elevated troponins likely type II event Essential hypertension Admission Diagnosis: Atrial fibrillation with RVR (CMS/HCC) [I48.91] Hospital course: Ra Garcia is a 86 y.o. female who came from home with past medical history of hypertension presented to [facility] as a direct admission from [facility] ER. Patient came to ER after a fall at home secondary to generalized weakness. There was no injuries reported. Patient was going to the bathroom, felt weak and her helped her to the ground. Patient reports feeling weak for the last 3 days, intermittent fevers and chills. She also complains of lower abdominal pain, burning with urination and flank pain. Upon work-up in ER, patient was found to have elevated troponin, BNP and D-dimer. Patient's creatinine was also elevated at 2.9. She does not have a history of CKD. Patient's sodium was at 125. Patient's EKG also showed A-fib with RVR and she was started on Cardizem. Patient's chest x-ray was normal. CT abdomen showed Increased size of the right kidney with bilateral perinephric stranding; right more prominent than left which could be secondary to recently passed stone as there is associated right periureteral stranding as well. She then found to have Pansusceptible Escherichia coli bacteremia secondary to bilateral pyelonephritis , and was treated with ceftriaxone and then was switched to Augmentin. Pt was also followed by nephro team,Patient urine studies demonstrate proteinuria 3.4 g/day, hepatitis panel is negative. SPEP, UPEP and renal ultrasound unremarkable. She was treated by supportive measure and was discharged with slow improvement of kidney functions( creatinine on day of Dc is 3) with follow up with nephrology outpatient. Per Dr Chavarria's progress noted inpt 09/06/22: We have carefully reviewed the EKGs and telemetry. Patient has sinus rhythm and sinus tachycardia and frequent PACs. We did not find evidence of atrial fibrillation With regard to frequent PACs, She was taking metoprolol at home and this has been on hold. Resume patient's metoprolol when she is stable after treatment of urosepsis. Review of Systems Constitutional: Negative. Respiratory: Negative. Cardiovascular: Negative. Neurological: Negative. All other systems reviewed and are negative. Visit Vitals BP 140/76 (BP Location: Right arm, Patient Position: Sitting) Pulse 74 SpO2 94% Smoking Status Never Assessed Allergies Allergen Reactions Aloe Vera Unknown Aspirin Unknown Ciprofloxacin Unknown Egg Unknown Eucalyptus Unknown Penicillins Unknown Has previously tolerated augmentin per patient 08/2022, Tolerated ceftriaxone 09/06/22 Quinolones Medications: Current Outpatient Medications on File Prior to Visit Medication Sig Dispense Refill amLODIPine (Norvasc) 5 mg tablet Take 2 tablets (10 mg) by mouth in the morning. 60 tablet 0 furosemide (Lasix) 20 mg tablet Take 20 mg by mouth if needed each day. metoprolol tartrate (Lopressor) 100 mg tablet Take 100 mg by mouth in the morning and at bedtime. multivitamin capsule Take 1 tablet by mouth 1 (one) time each day at the same time. potassium chloride ER (Micro-K) 10 mEq ER capsule Take 10 mEq by mouth in the morning. Do not crush or chew. RABEprazole (Aciphex) 20 mg EC tablet Take 20 mg by mouth in the morning. Do not crush, chew, or split. sodium bicarbonate 650 mg tablet Take 1 tablet (650 mg) by mouth in the morning and at bedtime. 60 tablet 0 spironolactone (Aldactone) 25 mg tablet Take 1 tablet (25 mg) by mouth in the morning. 30 tablet 0 [] amoxicillin-pot clavulanate (Augmentin) 500-125 mg tablet Take 1 tablet (500 mg) by mouth every 12 (twelve) hours for 19 doses. 19 tablet 0 estrogens, conjugated, (Premarin) 0.9 mg tablet Take 0.9 mg by mouth in the m (more content not included)... [facility] 09-22-2022 Note Review of Systems Gastrointestinal: Positive for nausea. All other systems reviewed and are negative. [facility] 09-12-2022 Note ------ Attestation signed by Dillon Cutler MD at 09/12/2022 1:44 PM By using the attestations below, the signing clinician agrees that I have read and verify that the documentation has been personally reviewed by me and ensure that the documentation accurately reflects the encounter. GC: I personally saw this patient with Dr. Miri Bradshaw at 0810 hours on the day of the encounter, performed the mendiola portion(s) of the service and participated in the management and confirm the resident's documentation. Please note there may be an additional personal documentation from me. patient is no acute distress. The renal function is improving slowly . The potassium is slightly low at 3.3. the blood pressure is still slightly high. We are increasing the dose of Aldactone to help with the potassium and the blood pressure. We would continue to hold the JACKIE-I/ARB on discharge patient should follow-up with her PCP and possibly with nephrology. Dillon Cutler MD, PhD ------ Nephrology Progress Note Patient : Ra Garcia; 86 y.o. Location: [id number] Attending: Mechelle Mccartney MD Admit Date: 09/05/2022 Hospital Day: 7 Reason for Consult: KADI associated with hyponatremia Subjective: History of present illness: Ra Garcia is a 86 y.o. female who came from home with past medical history of hypertension presented to [facility] as a direct admission from [facility] ER. Patient came to ER after a fall at home secondary to generalized weakness. There was no injuries reported. Patient was going to the bathroom, felt weak and her helped her to the ground. Patient reports feeling weak for the last 3 days, intermittent fevers and chills. She also complains of lower abdominal pain, burning with urination and flank pain. She has some nausea but no vomiting. No chest pain. She has increased shortness of breath with exertion. No headaches. Just not feeling well in general. Upon work-up in ER, patient was found to have elevated troponin, BNP and D-dimer. Patient's creatinine was also elevated at 2.9. She does not have a history of CKD. Her WBCs were 29. Unfortunately, they did not run a urine on her or started her on antibiotics. Patient's sodium was at 125. Patient's EKG also showed A-fib with RVR and she was started on Cardizem. Patient's chest x-ray was normal. Interval history: Patient was seen and examined at bedside. Patient has acute kidney injury that is improving. Patient is euvolemic. Noted hypertension overnight. Objective: Input/Output: Intake/Output Summary (Last 24 hours) at 09/12/2022 1007 Last data filed at 09/12/2022 0855 Gross per 24 hour Intake 1200 ml Output 2550 ml Net -1350 ml I/O last 3 completed shifts: In: 1200 (12.4 mL/kg) [P.O.:1200] Out: 6150 (63.7 mL/kg) [Urine:6150 (1.8 mL/kg/hr)] Weight: 96.6 kg Vital signs: Temperature: Temp: 36.3 ???C (97.3 ???F) TMax: Temp (24hrs), Av.3 ???C (97.4 ???F), Min:36.1 ???C (97 ???F), Max:36.7 ???C (98.1 ???F) Respirations: Resp: 21 Pulse: Heart Rate: 88 BP: BP: 158/68 BP Range: Systolic (24hrs), Av , Min:148 , Max:179 Diastolic (24hrs), Av, Min:64, Max:86 Wt Readings from Last 3 Encounters: 09/12/22 96.6 kg (212 lb 15.4 oz) Physical Exam Vitals and nursing note reviewed. Constitutional: Appearance: Normal appearance. HENT: Head: Normocephalic and atraumatic. Mouth/Throat: Pharynx: Oropharynx is clear. Cardiovascular: Rate and Rhythm: Normal rate. Heart sounds: No murmur heard. Pulmonary: Effort: Pulmonary effort is normal. No respiratory distress. Abdominal: General: There is no distension. Musculoskeletal: General: Normal range of motion. Cervical back: Neck supple. Right lower leg: No edema. Left lower leg: No edema. Skin: General: Skin is warm. Neurological: Mental Status: Mental status is at baseline. Psychiatric: Mood and Affect: Mood normal. Behavior: Behavior normal. Current Medications: Scheduled Meds: amLODIPine, 10 mg, oral, Daily amoxicillin-pot clavulanate, 1 tablet, oral, q12h famotidine, 20 mg, oral, Daily fluticasone, 1 spray, Each Nostril, q24h heparin (porcine), 5,000 Units, subcutaneous, BID iohexol, 100 mL, intravenous, Once in imaging metoprolol tartrate, 100 mg, oral, BID multivitamin with folic acid, 1 tablet, oral, Daily sodium bicarbonate, 650 mg, oral, BID spironolactone, 25 mg, oral, Daily Continuous Infusions: Oxygen Therapy, PRN Meds: PRN medications: acetaminophen, alum-mag hydroxide-simeth, bisacodyl, dyclonine, HYDROcodone-acetaminophen, melatonin, metoprolol tartrate, morphine, ondansetron ODT OR ondansetron, Oxygen Therapy, polyethylene glycol Outpatient Medications: Medication Documentation Review Audit Reviewed by Ale Neely RN (more content not included)... [facility] 09-12-2022 Note Sent final AVS and d ischarge order to [facility]. [facility] 09-12-2022 Note Hospital Medicine Discharge Summary Final Discharge Diagnosis: Sepsis related to gram-negative bacteremia-resolved Ecoli bacteremia likely secondary to urosepsis/pyelonephritis Leukocytosis 2/2 above-improving Acute Kidney injury-unclear history of CKD-creatinine improving Hyponatremia-resolved Hypokalemia-replaced Non-anion gap metabolic acidosis-on oral sodium bicarbonate Elevated troponins likely type II event Essential hypertension Admission Diagnosis: Atrial fibrillation with RVR (CMS/HCC) [I48.91] Hospital course: Ra Garcia is a 86 y.o. female who came from home with past medical history of hypertension presented to [facility] as a direct admission from [facility] ER. Patient came to ER after a fall at home secondary to generalized weakness. There was no injuries reported. Patient was going to the bathroom, felt weak and her helped her to the ground. Patient reports feeling weak for the last 3 days, intermittent fevers and chills. She also complains of lower abdominal pain, burning with urination and flank pain. Upon work-up in ER, patient was found to have elevated troponin, BNP and D-dimer. Patient's creatinine was also elevated at 2.9. She does not have a history of CKD. Patient's sodium was at 125. Patient's EKG also showed A-fib with RVR and she was started on Cardizem. Patient's chest x-ray was normal. CT abdomen showed Increased size of the right kidney with bilateral perinephric stranding; right more prominent than left which could be secondary to recently passed stone as there is associated right periureteral stranding as well. She then found to have Pansusceptible Escherichia coli bacteremia secondary to bilateral pyelonephritis , and was treated with ceftriaxone and then was switched to Augmentin. Pt was also followed by nephro team,Patient urine studies demonstrate proteinuria 3.4 g/day, hepatitis panel is negative. SPEP, UPEP and renal ultrasound unremarkable. She was treated by supportive measure and was discharged with slow improvement of kidney functions( creatinine on day of Dc is 3) with follow up with nephrology outpatient. Dear Dr. Lainey MD, Ra [facility] is advised to follow up with you within 1-2 weeks. Follow-up with:nephrology Scheduled appointments: Future Appointments Date Time Provider Department Center 09/17/2022 1:20 PM Marisol Schaeffer NP [facility] Your medication list START taking these medications Instructions Last Dose Given Next Dose Due amoxicillin-pot clavulanate 500-125 mg tablet Commonly known as: Augmentin Take 1 tablet (500 mg) by mouth every 12 (twelve) hours for 19 doses. sodium bicarbonate 650 mg tablet Take 1 tablet (650 mg) by mouth in the morning and at bedtime. spironolactone 25 mg tablet Commonly known as: Aldactone Take 1 tablet (25 mg) by mouth in the morning. CHANGE how you take these medications Instructions Last Dose Given Next Dose Due amLODIPine 5 mg tablet Commonly known as: Norvasc What changed: how much to take Take 2 tablets (10 mg) by mouth in the morning. CONTINUE taking these medications Instructions Last Dose Given Next Dose Due estrogens (conjugated) 0.9 mg tablet Commonly known as: Premarin Flonase Allergy Relief 50 mcg/actuation nasal spray Generic drug: fluticasone furosemide 20 mg tablet Commonly known as: Lasix metoprolol tartrate 100 mg tablet Commonly known as: Lopressor multivitamin capsule potassium chloride ER 10 mEq ER capsule Commonly known as: Micro-K RABEprazole 20 mg EC tablet Commonly known as: Aciphex STOP taking these medications ibuprofen 800 mg tablet lisinopril 20 mg tablet Where to Get Your Medications These medications were sent to [facility] - [place], [place] - [address] [place], [place] [address] [facility] [address] amLODIPine 5 mg tablet amoxicillin-pot clavulanate 500-125 mg tablet sodium bicarbonate 650 mg tablet spironolactone 25 mg tablet Ra Tsang is allergic to aloe vera, aspirin, ciprofloxacin, egg, eucalyptus, penicillins, and quinolones. Disposition: Home or Self Care Discharge Condition: Stable Code Status: Full Code Diagnostic Results Hematology: Results from last 7 days Lab Units 09/12/22 0516 09/10/22 0509 09/06/22 04209/05/221957 WBC AUTO 10*3/uL 26.13* 27.87* < > 29.25* HEMOGLOBIN g/dL 9.2* 9.7* < > 10.7* HEMATOCRIT % 26.7* 28.6* < > 31.6* MCV fL 82.2 81.7* < > 82.9 PLATELETS AUTO 10*3/uL 356 312 < > 178 INR -- -- -- 1.23* < > = values in this interval not displayed. Chemistry: Results from last 7 days Lab Units 09/12/22 0516 09/11/22 0545 09/10/22 1021 09/07/22 0426 09/05/221957 SODIUM mmol/L 135* 134* 131* < > 125* POTASSIUM mmol/L 3.3* 3.9 3.5 < > 3.7 CHLORIDE mmol/L 102 102 99 < > 94* CO2 mmol/L 24 22 21 < > 19* BUN mg/dL 62* 73* 72* < > 49* CREATININE mg/dL 3.00* 3.69* 4.10* < > 2.98* GL (more content not included)... [facility] 09-11-2022 Note Occupational Therapy Name: Sharan Garcia Date of : 1935 Today's Date: 09/11/22 Pt is unable to be seen for therapy at this time secondary to Refused, reporting she is leaving shortly. Will check back and complete therapy session as appropriate. Check No Charge Time attempted: 1153A [facility] 09-11-2022 Note [facility] Medicine Daily Progress Note - 09/11/2022 10:57 AM; Room: [address] [place] [address] Admission: 09/05/2022 10:46 AM; Length of stay: 6 days THE HOSPITALIST TEAM PREFERS TO USE [employer] CHAT FOR COMMUNICATION 7AM-7PM. IF I DO NOT RESPOND WITHIN 15 MINUTES, PLEASE PAGE ME/CALL THROUGH THE LABOR RELATIONS REPRESENTATIVE. FROM 7PM-7AM, PLEASE PAGE [phone](COVR) Code Status: Full Code Discharge Destination: home Discharge planning: Keeping 1 more day by nephrology recommendation, possible discharge on 09/12 Overview Patient is seen for evaluation and management of sepsis, bacteremia KADI, electrolyte abnormalities, Subjective patient is seen and examined at bedside, she is alert and awake, denies any chest pain, shortness of breath, nausea, vomiting, changes in bowel movements. Physical Exam Visit Vitals BP (!) 190/76 Pulse 91 Temp 36.1 ???C (97 ???F) (Temporal) Resp 21 Intake/Output Summary (Last 24 hours) at 09/11/2022 1057 Last data filed at 09/11/2022 0935 Gross per 24 hour Intake 240 ml Output 4850 ml Net -4610 ml Physical Exam Constitutional: Appearance: She is obese. HENT: Head: Normocephalic. Eyes: Pupils: Pupils are equal, round, and reactive to light. Cardiovascular: Rate and Rhythm: Normal rate. Pulmonary: Breath sounds: Rales present. Abdominal: Tenderness: There is abdominal tenderness. Musculoskeletal: Cervical back: Normal range of motion. Right lower leg: Edema present. Left lower leg: Edema present. Skin: General: Skin is warm and dry. Neurological: Mental Status: She is alert and oriented to person, place, and time. Mental status is at baseline. Estimated body mass index is 39.09 kg/m??? as calculated from the following: Height as of this encounter: 1.6 m (5' 3 ). Weight as of this encounter: 100 kg (220 lb 10.9 oz). Active Inpatient Problems Principal Problem: Atrial fibrillation with RVR ([facility]) Active Problems: Elevated troponin Elevated d-dimer KADI (acute kidney injury) ([facility]) Pyelonephritis Bandemia Hyponatremia Generalized weakness Fall Benign essential hypertension Assessment and Plan Assessment: Sepsis related to gram-negative bacteremia Ecoli bacteremia likely secondary to urosepsis/pyelonephritis Leukocytosis 2/2 above-improving Acute Kidney injury-unclear history of CKD Hyponatremia Hypokalemia-replaced Non-anion gap metabolic acidosis-on oral sodium bicarbonate Elevated troponins likely type II event Essential hypertension Plan: Both blood and urine cultures from 09/05 positive for E. Coli, she is on Augmentin . Nephrology team is following along, appreciate their input. Avoid nephrotoxic medications With elevated troponins, cardiology EKG team evaluated the patient, recommends no further work-up while inpatient. PT/OT and social staff worker consult. VTE Prophylaxis: Heparin subcutaneous Scheduled Meds [START ON 09/12/2022] amLODIPine, 10 mg, oral, Daily amLODIPine, 5 mg, oral, Once amoxicillin-pot clavulanate, 1 tablet, oral, q12h famotidine, 20 mg, oral, Daily fluticasone, 1 spray, Each Nostril, q24h heparin (porcine), 5,000 Units, subcutaneous, BID iohexol, 100 mL, intravenous, Once in imaging metoprolol tartrate, 100 mg, oral, BID multivitamin with folic acid, 1 tablet, oral, Daily sodium bicarbonate, 650 mg, oral, BID spironolactone, 25 mg, oral, Daily Oxygen Therapy, Pertinent Investigations Hematology: Results from last 7 days Lab Units 09/10/22 0509 09/09/22 0902 09/06/22 0421 09/05/22 1958 WBC AUTO 10*3/uL 27.87* 31.87* < > 29.25* HEMOGLOBIN g/dL 9.7* 9.7* < > 10.7* HEMATOCRIT % 28.6* 28.0* < > 31.6* MCV fL 81.7* 80.9* < > 82.9 PLATELETS AUTO 10*3/uL 312 279 < > 178 INR -- -- -- 1.23* < > = values in this interval not displayed. Chemistry: Results from last 7 days Lab Units 09/11/22 0545 09/10/22 1021 09/09/22 0902 09/07/22 0426 09/05/221957 SODIUM mmol/L 134* 131* 132* < > 125* POTASSIUM mmol/L 3.9 3.5 3.1* < > 3.7 CHLORIDE mmol/L 102 99 100 < > 94* CO2 mmol/L 22 21 21 < > 19* BUN mg/dL 73* 72* 74* < > 49* CREATININE mg/dL 3.69* 4.10* 4.48* < > 2.98* GLUCOSE mg/dL 105* 145* 110* < > 124* MAGNESIUM mg/dL -- -- -- -- 1.2* CALCIUM mg/dL 9.0 8.9 8.5* < > 8.4* PHOSPHORUS mg/dL -- -- -- -- 3.4 < > = values in this interval not displayed. Results from last 7 days Lab Units 09/05/221957 AST U/L 36 ALT U/L 17 ALK PHOS U/L 81 BILIRUBIN TOTAL mg/dL 0.8 BILIRUBIN DIRECT mg/dL 0.2 Historical Values: (Includes values prior to this admission) Lab Results Component Value Date TSH 1.92 09/05/2022 Lab Results Component Value Date C3 114.00 09/08/2022 C4 30.7 09/08/2022 Imaging XR chest 1 view Narrative: XR CHEST 1 VIEW 09/08/2022 11:37 AM CLINICAL INDICATIONS: Pneumonia and chest discomfort COMPARISON: Chest x-ray 11/17/2011 FINDINGS: Cardia mediastinal silhouette is stable. Lungs are grossly clear with few discoid l (more content not included)... [facility] 09-11-2022 Note ------ Attestation signed by Dillon Cutler MD at 09/11/2022 12:32 PM By using the attestations below, the signing clinician agrees that I have read and verify that the documentation has been personally reviewed by me and ensure that the documentation accurately reflects the encounter. GC: I personally saw this patient with Dr. Miri Bradshaw at 0845 hours on the day of the encounter, performed the mendiola portion(s) of the service and participated in the management and confirm the resident's documentation. Please note there may be an additional personal documentation from me. Patient is no acute distress. Her creatinine slightly improved today. The blood pressure is elevated. Agree with increasing amlodipine. Continue Aldactone as noted serologies are negative for autoimmune etiology of renal disease. The patient does have a Treviño catheter and will need this removed prior to discharge. The patient should follow-up with nephrology after discharge. Patient may follow-up with a local saddle maker if that is more convenient. Dillon Cutler MD, PhD ------ Nephrology Progress Note Patient : Ra Garcia; 86 y.o. Location: [id number] Attending: Mechelle Mccartney MD Admit Date: 09/05/2022 Hospital Day: 6 Reason for Consult: KADI associated with hyponatremia Subjective: History of present illness: Ra Garcia is a 86 y.o. female who came from home with past medical history of hypertension presented to [facility] as a direct admission from [facility] ER. Patient came to ER after a fall at home secondary to generalized weakness. There was no injuries reported. Patient was going to the bathroom, felt weak and her helped her to the ground. Patient reports feeling weak for the last 3 days, intermittent fevers and chills. She also complains of lower abdominal pain, burning with urination and flank pain. She has some nausea but no vomiting. No chest pain. She has increased shortness of breath with exertion. No headaches. Just not feeling well in general. Upon work-up in ER, patient was found to have elevated troponin, BNP and D-dimer. Patient's creatinine was also elevated at 2.9. She does not have a history of CKD. Her WBCs were 29. Unfortunately, they did not run a urine on her or started her on antibiotics. Patient's sodium was at 125. Patient's EKG also showed A-fib with RVR and she was started on Cardizem. Patient's chest x-ray was normal. Interval history: Patient was seen and examined at bedside. Patient has acute kidney injury that is improving. Patient is not in volume overload, she is making good urine. Noted to be hypertensive. Objective: Input/Output: Intake/Output Summary (Last 24 hours) at 09/11/2022 1053 Last data filed at 09/11/2022 0935 Gross per 24 hour Intake 240 ml Output 4850 ml Net -4610 ml I/O last 3 completed shifts: In: 240 (2.4 mL/kg) [P.O.:240] Out: 5550 (55.4 mL/kg) [Urine:5550 (1.5 mL/kg/hr)] Weight: 100.1 kg Vital signs: Temperature: Temp: 36.1 ???C (97 ???F) TMax: Temp (24hrs), Av.1 ???C (97 ???F), Min:36.1 ???C (97 ???F), Max:36.1 ???C (97 ???F) Respirations: Resp: 21 Pulse: Heart Rate: 91 BP: BP: (!) 190/76 BP Range: Systolic (24hrs), Av , Min:157 , Max:190 Diastolic (24hrs), Av, Min:65, Max:76 Wt Readings from Last 3 Encounters: 09/10/22 100 kg (220 lb 10.9 oz) Physical Exam Vitals and nursing note reviewed. Constitutional: Appearance: Normal appearance. HENT: Head: Normocephalic and atraumatic. Mouth/Throat: Pharynx: Oropharynx is clear. Cardiovascular: Rate and Rhythm: Normal rate. Heart sounds: No murmur heard. Pulmonary: Effort: Pulmonary effort is normal. No respiratory distress. Abdominal: General: There is no distension. Musculoskeletal: General: Normal range of motion. Cervical back: Neck supple. Right lower leg: No edema. Left lower leg: No edema. Skin: General: Skin is warm. Neurological: Mental Status: Mental status is at baseline. Psychiatric: Mood and Affect: Mood normal. Behavior: Behavior normal. Current Medications: Scheduled Meds: [START ON 09/12/2022] amLODIPine, 10 mg, oral, Daily amLODIPine, 5 mg, oral, Once amoxicillin-pot clavulanate, 1 tablet, oral, q12h famotidine, 20 mg, oral, Daily fluticasone, 1 spray, Each Nostril, q24h heparin (porcine), 5,000 Units, subcutaneous, BID iohexol, 100 mL, intravenous, Once in imaging metoprolol tartrate, 100 mg, oral, BID multivitamin with folic acid, 1 tablet, oral, Daily sodium bicarbonate, 650 mg, oral, BID spironolactone, 25 mg, oral, Daily Continuous Infusions: Oxygen Therapy, PRN Meds: PRN medications: acetaminophen, alum-mag hydroxide-simeth, bisacodyl, dyclonine, HYDROcodone-acetaminophen, melatonin, metoprolol tartrate, morphine, (more content not included)... [facility] 09-11-2022 Note Physical Therapy Physical Therapy Treatment [id number] Patient Name: Sharan Garcia : 1935 Today's Date: 09/11/2022 Patient Active Problem List Diagnosis Atrial fibrillation with RVR ([facility]) Elevated troponin Elevated d-dimer KADI (acute kidney injury) ([facility]) Pyelonephritis Bandemia Hyponatremia Generalized weakness Fall Benign essential hypertension 09/11/22 0856 PT Last Visit PT Received On 09/11/22 Response to Previous Treatment Patient with no complaints from previous session. General Family/Caregiver Present No Subjective pt amb back from bathroom with RN, RN reports pt to dc home today. pt declined further amb, stairs, ther ex or therapy despite increase encouragement d/t dc home today. Precautions Medical Precautions treviño catheter, bed alarm Pain Assessment -Pain Assessment 0-10 Pain Score (unable to rate but c/o stomach pain ( cramps and an upset feeling) Pain Location Abdomen Pain Interventions Rest Cognition Safety Judgment Decreased awareness of need for safety;Decreased awareness of need for assistance Awareness of Errors Assistance required to identify errors made Deficits Decreased awareness of deficits Ambulation 1 Surface 1 Level tile Device 1 Rolling walker Assistance 1 Close supervision Quality of Gait 1 pt took a few steps toward HOB. decrease step height shuffling at times, edu to increase height however pt reports she is to sore to . Stairs Stairs No (pt declined despite edu on importance d/t being d/c home tody) Bed Mobility 1 Bed Mobility From 1 Short sit Bed Mobility Type 1 To Bed Mobility to 1 Supine Level of Assistance 1 Moderate assistance Bed Mobility Comments 1 hob raised (encourged HOB flat d/t dc home however pt declined) pt requried assisst with trunk as well as Bles . unclear if will be able to assist d/t pt really not ansering questions about Transfer 1 Transfer From 1 Sit Transfer Type 1 To and from Transfer to 1 Stand Technique 1 Stand to sit;Sit to stand Transfer Device 1 rolling walker Transfer Level of Assistance 1 Close supervision PT Assessment PT Assessment/MASSAGE OPERATOR Summary pt to dc home today. encourageed mob , amb, stairs to ensure safe and able however pt declined, pt requires increase time to complete all tasks. Evaluation/Treatment Tolerance Patient limited by fatigue Medical Staff Made Aware Yes PT Education/Comments safety with home d/c. mob, amb Plan Level of assist 1 assist Treatment/Interventions Functional transfer training;LE strengthening/ROM;Endurance training;Bed mobility;Gait training;Balance training Outcome Assessments 6 Clicks (Mobility) Help from another person turning from your back to your side while in a flat bed without using bedrails: A little Help from another person moving from lying on your back to sitting on the side of a flat bed without using bedrails: A lot Help from another person moving to and from a bed to a chair (including a wheelchair): A little Help from another person standing up from a chair using your arms (e.g. wheelchair or bedside chair): A little Help from another person to walk in hospital room: A little Help from another person climbing 3-5 steps with a railing: A little Mobility 6 Clicks T-Score: 17 Assessment/Plan PT Assessment PT Assessment/MASSAGE OPERATOR Summary: pt to dc home today. encourageed mob , amb, stairs to ensure safe and able however pt declined, pt requires increase time to complete all tasks. Evaluation/Treatment Tolerance: Patient limited by fatigue Medical Staff Made Aware: Yes PT Education/Comments: safety with home d/c. mob, amb Plan Level of assist: 1 assist Treatment/Interventions: Functional transfer training, LE strengthening/ROM, Endurance training, Bed mobility, Gait training, Balance training Goals: Multi-Disciplinary Problems (from Physical Therapy) Active Problems Problem[facility] Start Date: 09/06/22 Goal Start Date Expected End Date End Date Patient to demonstrate the ability to complete all bed mobility independently with HOB flat 09/06/22 -- -- Goal Start Date Expected End Date End Date Patient to demonstrate the ability to complete all transfers independently with least restrictive assistive device as needed 09/06/22 -- -- Goal Start Date Expected End Date End Date Patient to demonstrate the ability to ambulate 75 ft independently with least restrictive assistive device 09/06/22 -- -- Goal Start Date Expected End Date End Date Patient to demo the ability to complete 3 steps with supervision without railing in order to gain access into her home 09/06/22 -- -- Goal Start Date Expected End Date End Date Patient to participate in BLE functional exercise to improve strength and limit the effects of immobility related to hospital admission 09/06/22 -- -- Goal Start Date Expected End Date End Date Patient to maintain st (more content not included)... [facility] 09-10-2022 Note Physical Therapy Physical Therapy Treatment Patient Name: Sharan Garcia : 1935 Today's Date: 09/10/2022 Patient Active Problem List Diagnosis Atrial fibrillation with RVR (CMS/HCC) Elevated troponin Elevated d-dimer KDAI (acute kidney injury) (CMS/HCC) Pyelonephritis Bandemia Hyponatremia Generalized weakness Fall Benign essential hypertension Time: 08:25-09:45am 09/10/22 1500 PT Last Visit PT Received On 09/10/22 General Subjective Pt has been cleared medically to receive therapy services, did a cotreat with O.T. pt was in bed and initially told rewriter that she was not feeling like doing it. [employer] reminded pt that she was going home per her decision so she has to work on moving because this will be her functional expectation at home. Pt agreed then to work with therapies Precautions Medical Precautions treviño catheter Cognition Safety Judgment Decreased awareness of need for safety;Decreased awareness of need for assistance Therapeutic Exercise Therapeutic Exercise Activity 1 AAROM / AROM for bilat hip and knee flexion , hip abduction adduction , SAQ 10 reps 1 set . Static Sitting Balance Static Sitting-Balance Support Feet supported Static Sitting-Level of Assistance Independent Static Standing Balance Static Standing-Balance Support Left upper extremity supported;Right upper extremity supported (on rolling walker) Static Standing-Level of Assistance Contact guard Dynamic Standing Balance Dynamic Standing-Balance Support No upper extremity supported (while pt did cleaning up with O.T. to wash her hands) Dynamic Standing-Balance (washing hands at sink side while doing AD's with O.T.) Dynamic Standing Balance-Level of Assistance Contact guard Ambulation Ambulation Yes Ambulation 1 Surface 1 Level tile Device 1 Rolling walker Assistance 1 Contact guard Quality of Gait 1 15% tactile cues for pt not to get rolling walker too far out in front of her where she does not take big enough steps to walk into rolling walker Comments/Distance (ft) 1 32 ft x 1 , 16 ft x 1 Stairs Stairs Yes Stairs Rails 1 Left;Right (pt used her rolling walker while going up a platform step that his 5 1/2 deep , to assimulate 3 steps she has to get into her home , pt required min a x 1 to ascend and descend the steps safely) Device 1 Rolling walker Assistance 1 Minimum assistance Quality of Stairs 1 5 1/2 step depth Comment/Number of Steps 1 3 steps , 25% tactile cues for dynamic balance . Bed Mobility Bed Mobility Yes Bed Mobility 1 Bed Mobility From 1 Supine Bed Mobility Type 1 To Bed Mobility to 1 Short sit (HOB flat) Level of Assistance 1 Moderate assistance;Moderate tactile cues Transfers Transfer Yes Transfer 1 Transfer From 1 Sit Transfer Type 1 To and from Transfer to 1 Stand Technique 1 Sit to stand;Stand to sit Transfer Device 1 rolling walker Transfer Level of Assistance 1 Close supervision;Contact guard Trials/Comments 1 pt inconsistently performing between these two assistance levels. Transfers 2 Transfer From 2 Stand Transfer Type 2 To Transfer to 2 Sit;Chair with arms Technique 2 Stand to sit Transfer Device 2 rolling walker Transfer Level of Assistance 2 Contact guard Plan PT Discharge Recommendations (pt still wants to go home but is not independent with all of her functional mobility .) Goals: Multi-Disciplinary Problems (from Physical Therapy) Active Problems Problem: PT Misc Start Date: 09/06/22 Goal Start Date Expected End Date End Date Patient to demonstrate the ability to complete all bed mobility independently with HOB flat 09/06/22 -- -- Goal Start Date Expected End Date End Date Patient to demonstrate the ability to complete all transfers independently with least restrictive assistive device as needed 09/06/22 -- -- Goal Start Date Expected End Date End Date Patient to demonstrate the ability to ambulate 75 ft independently with least restrictive assistive device 09/06/22 -- -- Goal Start Date Expected End Date End Date Patient to demo the ability to complete 3 steps with supervision without railing in order to gain access into her home 09/06/22 -- -- Goal Start Date Expected End Date End Date Patient to participate in BLE functional exercise to improve strength and limit the effects of immobility related to hospital admission 09/06/22 -- -- Goal Start Date Expected End Date End Date Patient to maintain static and dynamic standing balance during all functional activity to maximize safety. 09/06/22 -- -- 09/10/22 1600 6 Clicks (Mobility) Help from another person turning from your back to your side while in a flat bed without using bedrails 3 Help from another person moving from lying on your back to sitting on the side of a flat bed without using bedrails 2 Help from another person moving to and from a bed to a chair (including a w (more content not included)... [facility] 09-10-2022 Note ------ Attestation signed by Dillon Cutler MD at 09/10/2022 3:11 PM By using the attestations below, the signing clinician agrees that I have read and verify that the documentation has been personally reviewed by me and ensure that the documentation accurately reflects the encounter. GC: I personally saw this patient with Dr. Miri Bradshaw at 0950 hours on the day of the encounter, performed the mendiola portion(s) of the service and participated in the management and confirm the resident's documentation. Please note there may be an additional personal documentation from me. Patient is in no acute distress. She is sitting in a chair. Creatinine today is 4.1. This is stable from previous day. As noted her serologies thus far negative. Patient may have decreased renal function with her pyelonephritis. She is on antibiotics Dillon Cutler MD, PhD ------ Nephrology Progress Note Patient : Ra Garcia; 86 y.o. Location: [facility]/3111- Attending: Mechelle Mccartney MD Admit Date: 09/05/2022 Hospital Day: 5 Reason for Consult: KADI associated with hyponatremia Subjective: History of present illness: Ra Garcia is a 86 y.o. female who came from home with past medical history of hypertension presented to [facility] as a direct admission from [facility]. Patient came to ER after a fall at home secondary to generalized weakness. There was no injuries reported. Patient was going to the bathroom, felt weak and her helped her to the ground. Patient reports feeling weak for the last 3 days, intermittent fevers and chills. She also complains of lower abdominal pain, burning with urination and flank pain. She has some nausea but no vomiting. No chest pain. She has increased shortness of breath with exertion. No headaches. Just not feeling well in general. Upon work-up in ER, patient was found to have elevated troponin, BNP and D-dimer. Patient's creatinine was also elevated at 2.9. She does not have a history of CKD. Her WBCs were 29. Unfortunately, they did not run a urine on her or started her on antibiotics. Patient's sodium was at 125. Patient's EKG also showed A-fib with RVR and she was started on Cardizem. Patient's chest x-ray was normal. Interval history: Patient was seen and examined at bedside. Patient has chronic kidney disease, however her kidney function is stable so far. Patient is not in volume overload, she is making good urine. Creatinine is stable. Objective: Input/Output: Intake/Output Summary (Last 24 hours) at 09/10/2022 1215 Last data filed at 09/10/2022 0500 Gross per 24 hour Intake 530 ml Output 1950 ml Net -1420 ml I/O last 3 completed shifts: In: 1305 (13 mL/kg) [P.O.:1200; IV Piggyback:105] Out: 3050 (30.3 mL/kg) [Urine:3050 (0.8 mL/kg/hr)] Weight: 100.5 kg Vital signs: Temperature: Temp: 36.4 ???C (97.5 ???F) TMax: Temp (24hrs), Av.4 ???C (97.6 ???F), Min:36.4 ???C (97.5 ???F), Max:36.5 ???C (97.7 ???F) Respirations: Resp: 22 Pulse: Heart Rate: 88 BP: BP: 169/66 BP Range: Systolic (24hrs), Av , Min:166 , Max:169 Diastolic (24hrs), Av, Min:66, Max:76 Wt Readings from Last 3 Encounters: 09/10/22 100 kg (220 lb 10.9 oz) Physical Exam Vitals and nursing note reviewed. Constitutional: Appearance: Normal appearance. HENT: Head: Normocephalic and atraumatic. Mouth/Throat: Pharynx: Oropharynx is clear. Cardiovascular: Rate and Rhythm: Normal rate. Heart sounds: No murmur heard. Pulmonary: Effort: Pulmonary effort is normal. No respiratory distress. Abdominal: General: There is no distension. Musculoskeletal: General: Normal range of motion. Cervical back: Neck supple. Right lower leg: No edema. Left lower leg: No edema. Skin: General: Skin is warm. Neurological: Mental Status: Mental status is at baseline. Psychiatric: Mood and Affect: Mood normal. Behavior: Behavior normal. Current Medications: Scheduled Meds: amLODIPine, 5 mg, oral, Daily cefTRIAXone, 2 g, intravenous, q24h famotidine, 20 mg, oral, Daily fluticasone, 1 spray, Each Nostril, q24h heparin (porcine), 5,000 Units, subcutaneous, BID iohexol, 100 mL, intravenous, Once in imaging metoprolol tartrate, 100 mg, oral, BID multivitamin with folic acid, 1 tablet, oral, Daily sodium bicarbonate, 650 mg, oral, BID spironolactone, 25 mg, oral, Daily Continuous Infusions: Oxygen Therapy, PRN Meds: PRN medications: acetaminophen, alum-mag hydroxide-simeth, bisacodyl, dyclonine, HYDROcodone-acetaminophen, melatonin, metoprolol tartrate, morphine, ondansetron ODT OR ondansetron, Oxygen Therapy, polyethylene glycol Outpatient Medications: Medication Documentation Review Audit Reviewed by Ale Neely RN (Registered Nurse) on 09/05/22 at 1123 Medication (more content not included)... [facility] 09-10-2022 Note Occupational Therapy Occupational Therapy Treatment Patient Name: Sharan Garcia : 1935 Today's Date: 09/10/2022 Discharge Rec- HOME OT 09/10/22 08 OT Last Visit OT Received On 09/10/22 General Subjective increased motiviation required for pt participation, brant co tx with MASSAGE OPERATOR d/t pts reluctancy to participate Response to Previous Treatment Patient with no complaints from previous session Family/Caregiver Present No Precautions Medical Precautions treviño cath, telemetry, pulse ox Pain Assessment Pain Assessment 0-10 Pain Score 0 - No pain Cognition Following Commands Follows multistep commands with increased time Safety Judgment Decreased awareness of need for safety UE Bathing UE Bathing Level of Assistance Setup;Close supervision UE Bathing Where Assessed Sitting sinkside UE Bathing Comments increased time required, min fatigue noted LE Bathing LE Bathing Level of Assistance Minimum assistance;Setup LE Bathing Where Assessed Sitting sinkside LE Dressing LE Dressing Yes Sock Level of Assistance Maximum assistance Adult Briefs Level of Assistance Maximum assistance LE Dressing Where Assessed Sitting in chair Toileting Toileting Level of Assistance Moderate assistance Where Assessed Toilet Static Standing Balance Static Standing-Balance Support Right upper extremity supported;Left upper extremity supported Static Standing-Level of Assistance Contact guard Static Standing-Comment/Number of Minutes 2 min Dynamic Standing Balance Dynamic Standing-Balance Support Unilateral upper extremity supported;Right upper extremity supported;Left upper extremity supported;With device Dynamic Standing-Balance Reaching across midline;Forward lean Dynamic Standing Balance-Level of Assistance Contact guard Dynamic Standing-Comments to engage in grooming task in stance at sink, no lob noted Bed Mobility Bed Mobility Yes Bed Mobility 1 Bed Mobility From 1 Supine Bed Mobility Type 1 To Bed Mobility to 1 Short sit Level of Assistance 1 Moderate assistance Bed Mobility Comments 1 mod tactile and vcs provided to promote ease with tech, fair carryover Transfers Transfer Yes Transfer 1 Transfer From 1 Sit Transfer Type 1 To and from Transfer to 1 Stand Technique 1 Sit to stand;Stand to sit Transfer Device 1 rolling walker Transfer Level of Assistance 1 Contact guard;Close supervision Trials/Comments 1 min vcs required for hand placement and technique to increase overall safety awareness Transfers 2 Transfer From 2 Bed Transfer Type 2 To Transfer to 2 Chair with arms Technique 2 Sit to stand;Stand to sit Transfer Device 2 rolling walker Transfer Level of Assistance 2 Contact guard Trials/Comments 2 mod vcs for RW technique, min vcs for posture. fair carryover Toilet Transfers Toilet Transfer From Rolling walker Toilet Transfer Type To and from Toilet Transfer to Standard toilet Toilet Transfer Technique Ambulating Toilet Transfers Contact guard Toilet Transfers Comments vcs provided to increase safety awareness, pt utilized L grab bar Other Activity Other Activity 1 Rn ok pt to be seen, pt returned to recliner chair with call light and needs in reach OT Assessment OT Impairments Decreased ADL status;Decreased safe judgment during ADL;Decreased cognition;Decreased endurance;Decreased functional mobility;Decreased IADLs OT Assessment/[place] Summary pt presents with decreased strength, endurance, balance, activity tolerance and safety awareness with adls/transfers. Pt may benefit from contd skilled OT to promote ease with safe return to highest level of ind Evaluation/Treatment Tolerance Patient limited by fatigue OT Education/Comments tranfer techniques, RW safety Plan Level of assist 1 assist OT Plan Skilled OT OT Discharge Recommendations Home OT Equipment Recommended rolling walker 09/10/22 1000 AM-PAC 6 Clicks Putting on and taking off regular lower body clothing? 2 Bathing(Including washing,rinsing,drying)? 2 Toileting, which includes using the toilet,bedpan,or urinal? 2 Putting on and taking off regular upper body clothing? 3 Taking care of personal grooming such as brushing teeth? 4 Eating meals? 4 Total Score OT AMPAC 17 09/10/22 1037 Time Calculation Start Time 826 Stop Time 53 Time Calculation (min) 86 min OT Therapeutic Procedures Time Entry Self Care/Home Management (ADLs) Time Entry 43 OT Goals: Multi-Disciplinary Problems (from Occupational Therapy) Active Problems Problem: Balance Start Date: 09/06/22 Goal Start Date Expected End Date End Date LTG - Patient will maintain standing balance to allow for safe mobility 09/06/22 10/04/22 -- Problem: Bathing Start Date: 09/06/22 Goal Start Date Expected End Date End Date LTG - Patient will utilize adaptive techniques to bathe body with no assistance 09/06/22 10/04/22 -- Problem: Dressings Lower Extremit (more content not included)... [facility] 09-10-2022 Note Hospital Medicine Daily Progress Note - 09/10/2022 8:51 AM; Room: [address] [place] [address] Admission: 09/05/2022 10:46 AM; Length of stay: 5 days THE HOSPITALIST TEAM PREFERS TO USE [employer] CHAT FOR COMMUNICATION 7AM-7PM. IF I DO NOT RESPOND WITHIN 15 MINUTES, PLEASE PAGE ME/CALL THROUGH THE LABOR RELATIONS REPRESENTATIVE. FROM 7PM-7AM, PLEASE PAGE [phone](COVR) Code Status: Full Code Discharge Destination: home Discharge planning: pending improvement of kidney functions, Overview Patient is seen for evaluation and management of sepsis, bacteremia KADI, electrolyte abnormalities, Subjective No new events reported per staff. Physical Exam Visit Vitals BP 169/66 (BP Location: Left arm, Patient Position: Lying) Pulse 88 Temp 36.4 ???C (97.5 ???F) (Temporal) Resp 22 Intake/Output Summary (Last 24 hours) at 09/10/2022 0851 Last data filed at 09/10/2022 0500 Gross per 24 hour Intake 1065 ml Output 1950 ml Net -885 ml Physical Exam Constitutional: Appearance: She is obese. HENT: Head: Normocephalic. Eyes: Pupils: Pupils are equal, round, and reactive to light. Cardiovascular: Rate and Rhythm: Normal rate. Pulmonary: Breath sounds: Rales present. Abdominal: Tenderness: There is abdominal tenderness. Musculoskeletal: Cervical back: Normal range of motion. Right lower leg: Edema present. Left lower leg: Edema present. Skin: General: Skin is warm and dry. Neurological: Mental Status: She is alert and oriented to person, place, and time. Mental status is at baseline. Estimated body mass index is 39.09 kg/m??? as calculated from the following: Height as of this encounter: 1.6 m (5' 3 ). Weight as of this encounter: 100 kg (220 lb 10.9 oz). Active Inpatient Problems Principal Problem: Atrial fibrillation with RVR ([facility]) Active Problems: Elevated troponin Elevated d-dimer KADI (acute kidney injury) ([facility]) Pyelonephritis Bandemia Hyponatremia Generalized weakness Fall Benign essential hypertension Assessment and Plan Assessment: Sepsis related to gram-negative bacteremia Ecoli bacteremia likely secondary to urosepsis/pyelonephritis Leukocytosis 2/2 above-improving Acute Kidney injury-unclear history of CKD Hyponatremia Hypokalemia-replaced Non-anion gap metabolic acidosis-on oral sodium bicarbonate Elevated troponins likely type II event Essential hypertension Plan: Both blood and urine cultures from 09/05 positive for E. Coli, continued on ceftriaxone based on susceptibilities. ID team is following along, recommends to switch to Augmentin at discharge. Nephrology team is following along, appreciate their input. Avoid nephrotoxic medications With elevated troponins, cardiology EKG team evaluated the patient, recommends no further work-up while inpatient. PT/OT and social staff worker consult. VTE Prophylaxis: Heparin subcutaneous Scheduled Meds amLODIPine, 5 mg, oral, Daily cefTRIAXone, 2 g, intravenous, q24h famotidine, 20 mg, oral, Daily fluticasone, 1 spray, Each Nostril, q24h heparin (porcine), 5,000 Units, subcutaneous, BID iohexol, 100 mL, intravenous, Once in imaging metoprolol tartrate, 100 mg, oral, BID multivitamin with folic acid, 1 tablet, oral, Daily sodium bicarbonate, 650 mg, oral, BID Oxygen Therapy, Pertinent Investigations Hematology: Results from last 7 days Lab Units 09/10/22 0509 09/09/22 0902 09/06/22 0421 09/05/22 1958 WBC AUTO 10*3/uL 27.87* 31.87* < > 29.25* HEMOGLOBIN g/dL 9.7* 9.7* < > 10.7* HEMATOCRIT % 28.6* 28.0* < > 31.6* MCV fL 81.7* 80.9* < > 82.9 PLATELETS AUTO 10*3/uL 312 279 < > 178 INR -- -- -- 1.23* < > = values in this interval not displayed. Chemistry: Results from last 7 days Lab Units 09/09/22 0902 09/08/22 0549 09/07/22 0426 09/05/221957 SODIUM mmol/L 132* 129* 128* 125* POTASSIUM mmol/L 3.1* 3.2* 3.6 3.7 CHLORIDE mmol/L 100 96* 97* 94* CO2 mmol/L 21 20* 18* 19* BUN mg/dL 74* 70* 65* 49* CREATININE mg/dL 4.48* 4.55* 4.56* 2.98* GLUCOSE mg/dL 110* 107* 88 124* MAGNESIUM mg/dL -- -- -- 1.2* CALCIUM mg/dL 8.5* 8.4* 8.0* 8.4* PHOSPHORUS mg/dL -- -- -- 3.4 Results from last 7 days Lab Units 09/05/221957 AST U/L 36 ALT U/L 17 ALK PHOS U/L 81 BILIRUBIN TOTAL mg/dL 0.8 BILIRUBIN DIRECT mg/dL 0.2 Historical Values: (Includes values prior to this admission) Lab Results Component Value Date TSH 1.92 09/05/2022 Lab Results Component Value Date C3 114.00 09/08/2022 C4 30.7 09/08/2022 Imaging XR chest 1 view Narrative: XR CHEST 1 VIEW 09/08/2022 11:37 AM CLINICAL INDICATIONS: Pneumonia and chest discomfort COMPARISON: Chest x-ray 11/17/2011 FINDINGS: Cardia mediastinal silhouette is stable. Lungs are grossly clear with few discoid like atelectasis at the left lower lobe. Right lower lobe consolidation is obscured by right diaphragm. There is no gross focal consolidation, pleural effusion or pneumothorax Impression: Grossly unrema (more content not included)... [facility] 09-09-2022 Note ------ Attestation signed by Chika Orellana MD at 09/09/2022 6:21 PM I personally saw and examined the patient on the same date of service as resident/fellow MD Agustín. I discussed the findings and therapeutic plan with the resident/fellow MD Agustín. I agree with the documentation, except for any edits/updates below. Teaching Physician's Revisions: Improving slowly Leucocytosis slowly improving And acute renal failure Is slowly improving So at discharge ok to switch to Augmentin 500 mg oral q 12 hours Stop date 09/19/2022 Urology follow up is needed ID will sign off Please call for any questions or concerns Thank you for allowing me to see the patient Please call for any questions or concerns, Chika Orellana MD [place] Infectious diseases P:[phone] ------ Infectious Diseases - Inpatient daily Progress Note - Patient name: Ra Garcia Patient Today's Date and Time: 09/09/2022, 4:40 PM Admission Date: 09/05/2022 Assessment/Plan Impression: Pansusceptible Escherichia coli bacteremia secondary to bilateral pyelonephritis in the setting of bilateral nonobstructive renal stones; low suspicion for renal abscess since Auto WBC and Creatinine are trending down Micro: - Blood cx 09/05: 2/2 pansusceptible E coli - Urine cx 09/05: pansusceptible E coli - Blood cx 09/08: NGTD Recommendations: Continue Ceftriaxone, 2 g, intravenous q24h; will consider switching to Augmentin if Auto WBC continues to downtrend and renal function improves Plan discussed with Dr. Orellana Subjective Interval history: The patient did not have any acute events overnight. She has remained afebrile and vitals are stable. Objective Physical Examination: BP 168/76 (BP Location: Left arm, Patient Position: Sitting) Pulse 84 Temp 36.4 ???C (97.5 ???F) (Temporal) Resp 21 Ht 1.6 m (5' 3 ) Wt 101 kg (221 lb 9 oz) SpO2 94% BMI 39.25 kg/m??? Temperature Range: Temp: 36.4 ???C (97.5 ???F) Temp Av.5 ???C (97.7 ???F) Min: 36.4 ???C (97.5 ???F) Max: 36.6 ???C (97.9 ???F) Constitutional: Appearance: She is obese. HENT: Head: Normocephalic. Eyes: Pupils: Pupils are equal, round, and reactive to light. Cardiovascular: Rate and Rhythm: Normal rate. Pulmonary: Breath sounds: Rales present. Abdominal: Tenderness: There is abdominal tenderness. Musculoskeletal: Cervical back: Normal range of motion. Right lower leg: Edema present. Left lower leg: Edema present. Skin: General: Skin is warm and dry. Neurological: Mental Status: She is alert and oriented to person, place, and time. Mental status is at baseline. Laboratory data: I have independently reviewed the following labs: Results from last 7 days Lab Units 09/09/2290109/08/2254809/07/2242509/06/2242009/05/221957 WBC AUTO 10*3/uL 31.87* 34.23* 28.16* < > 29.25* HEMOGLOBIN g/dL 9.7* 10.7* 10.1* < > 10.7* HEMATOCRIT % 28.0* 32.8* 30.2* < > 31.6* MCV fL 80.9* 83.0 84.4 < > 82.9 PLATELETS AUTO 10*3/uL 279 231 173 < > 178 NEUTROS ABS 10*3/uL 29.0* -- -- -- 23.4* EOS ABS MAN 10*3/uL 0.32 -- -- -- 0.00 BASOS ABS MAN 10*3/uL 0.00 -- -- -- 0.00 < > = values in this interval not displayed. Results from last 7 days Lab Units 09/09/2290109/08/22 0549 09/07/22 0426 09/05/221957 POTASSIUM mmol/L 3.1* 3.2* 3.6 3.7 CHLORIDE mmol/L 100 96* 97* 94* CO2 mmol/L 21 20* 18* 19* BUN mg/dL 74* 70* 65* 49* CREATININE mg/dL 4.48* 4.55* 4.56* 2.98* GLUCOSE mg/dL 110* 107* 88 124* CALCIUM mg/dL 8.5* 8.4* 8.0* 8.4* ALK PHOS U/L -- -- -- 81 ALT U/L -- -- -- 17 AST U/L -- -- -- 36 No lab exists for component: PROCALCITON Results from last 7 days Lab Units 09/05/22 191 GLUCOSE U MG/DL mg/dL Negative BILIRUBIN U Negative WBC UR HPF /HPF >100* No lab exists for component: TOXIGENICC Imaging Studies: I have reviewed myself the following imaging studies performed in the past 3 days: XR chest 1 view Result Date: 09/08/2022 Grossly unremarkable chest x-ray Electronically signed: Elsa Whitaker. No CT results found for the past 3 days No MRI results found for the past 3 days Cultures: Results for orders placed or performed during the hospital encounter of 09/05/22 Blood culture, peripheral #2 Specimen: Blood, Venous Result Value Ref Range Blood Culture No growth at 18-24 hours Blood culture, peripheral #1 Specimen: Blood, Venous Result Value Ref Range Blood Culture No growth at 18-24 hours Blood culture, peripheral #2 Specimen: Blood, Venous Result Value Ref Range Blood Culture Escherichia coli (A) Gram Stain Result Aerobic Bottle Yields Gram negative bacilli (A) Blood culture, peripheral #1 Specimen: Blood, Venous Result Value Ref Range Blood Culture Escherichia coli (A) Gra (more content not included)... [facility] 09-09-2022 Note Physical Therapy Can cellation note for [employer] back to work with pt on standing balance skills and getting out of bed because pt had problems in earlier treatment session , upon rewriter entering the room pt was sitting in bedside chair and proceeded to tell rewriter that her back was hurting her and she could not do any more therapy today , pt was surprised that rewriter was already back to see her , rewriter explained to pt that it had been a couple of hours since she had last seen pt and pt was aware and agreed to rewriter coming back at 12:00 and rewriter did not get back till 12:30 . Attempted time : 12:30-12:35pm [facility] 09-09-2022 Note Occupational Therapy Name: Sharan Garcia Date of : 1935 Today's Date: 09/09/22 Pt is unable to be seen for therapy at this time secondary to reports 'I am exhausted and just finished PT., I dont want anymore therapy today/ nsg aware . Will check back and complete therapy session as appropriate. Check No Charge Time attempted: 1345 [facility] 09-09-2022 Note Physical Therapy Physical Therapy Treatment Patient Name: Sharan Garcia : 1935 Today's Date: 09/09/2022 Patient Active Problem List Diagnosis Atrial fibrillation with RVR (CMS/HCC) Elevated troponin Elevated d-dimer KADI (acute kidney injury) (CMS/HCC) Pyelonephritis Bandemia Hyponatremia Generalized weakness Fall Benign essential hypertension Time : 09:25-10:15am 09/09/22 1000 PT Last Visit PT Received On 09/09/22 General Subjective Pt has been cleared medically by nursing to receive therapy services ,upon rewriter entering the room pt was supine in the bed and proceeded to tell rewriter that it was so early to do therapy but she did need to get up to use the bathroom .Pt allowed rewriter to start her therapy session to assist pt with getting out of bed and going to the bathroom. Precautions Medical Precautions treviño catheter , and pt is off of supplemental 02 per pt stating it was taken off of her this morning Cognition Orientation Level Oriented X4 Awareness of Errors Decreased awareness of errors (with getting out of bed pt states she has a regular bed at home that she sleeps in , pt unable to problem solve how to get out of her hospital bed with HOB elevated to 20 degrees) Problem Solving Assistance required to generate solutions ([employer] had to tell pt how to modify getting out of bed by bending her hips and knees and rolling to her side to get up otherwise pt just lied on her back and made feeble attempts to long sit to get out of bed when should could not sit up this way.) Communication Intact (pt told social service during her treatment session . she will be going home and does not need any facility placement prior to home pt willing to allow home P.T. to come to her home) Static Sitting Balance Static Sitting-Balance Support Feet supported;Right upper extremity supported;Left upper extremity supported (on rolling walker pt attempts to push herself up from her rolling walker which is not as safe or steady) Static Sitting-Level of Assistance Independent Static Standing Balance Static Standing-Balance Support Left upper extremity supported;Right upper extremity supported (on rolling walker while walking in room and getting cleaned up from BM) Static Standing-Level of Assistance Contact guard Dynamic Standing Balance Dynamic Standing-Balance Support Left upper extremity supported;Right upper extremity supported (rolling walker) Dynamic Standing-Balance (while ambulating in the room) Dynamic Standing Balance-Level of Assistance Contact guard Dynamic Standing-Comments 15% tactile cues for dynamic balance Ambulation Ambulation Yes Ambulation 1 Surface 1 Level tile Device 1 Rolling walker Assistance 1 Contact guard Quality of Gait 1 15% tactile cues for pt not to push rolling walker too far out in front of her which pt appears more flexed forward at the trunk and pt has decreased step length bilat during swing phase of gait . Pt has a slow kevin but his steady with her short distance walks Comments/Distance (ft) 1 16 ft x 1 30 ft x 1 for second walk Bed Mobility Bed Mobility Yes Bed Mobility 1 Bed Mobility From 1 Supine Bed Mobility Type 1 To Bed Mobility to 1 Short sit;Rolling left (HOB at a 20 degree angle to start to assimulate a flat bed at home .) Level of Assistance 1 Moderate assistance;Moderate verbal cues;Moderate tactile cues Bed Mobility Comments 1 50% tactile and verbal cues for sequencing for pt to safely sit up at EOB with using her UE's and her abdominal muscles to get sitting up at EOB . Transfers Transfer Yes Transfer 1 Transfer From 1 Sit Transfer Type 1 To and from Transfer to 1 Stand;Bed;Toilet;Chair with arms Technique 1 Sit to stand;Stand to sit Transfer Device 1 rolling walker Transfer Level of Assistance 1 Contact guard;Close supervision Trials/Comments 1 pt inconsistently performing between these two assistance levels pt did need for first sit to stand 15% tactile cues to be able to stand up successfully all of the other sit to stands 3 trials pt was close supervision. Transfers 2 Transfer From 2 Stand Transfer Type 2 To Transfer to 2 Sit;Bed;Toilet Technique 2 Stand to sit Transfer Device 2 rolling walker Transfer Level of Assistance 2 Contact guard Trials/Comments 2 15% verbal cues for pt to reach back with 1 hand to control rate of descent and 15% tactile cues to make sure pt reaches back prior to sitting down on toilet or bed or chair for safety to make sure what she is attempting to sit on is behind her . Other Activity Other Activity 2 Pt disposition : at end of treatment session pt was sitting in bedside chair chair alarm train conductor light in place and breakfast in front of pt . PT Assessment PT Assessment/MASSAGE OPERATOR Summary pt had breakfast at end of treatment session and rewriter will come back around 12:00 and work with pt on standing balance (more content not included)... [facility] 09-09-2022 Note SW met with patient to discuss therapy recommendation of HHC vs. SNF. Patient declined SNF and is agreeable to HHC. Patient reports no preference as she has never had a HHC before. Referral sent, awaiting accepting. OTM will continue to follow. Addendum: [facility] accepted. AVS updated. [facility] 09-09-2022 Note Hospital Medicine Daily Progress Note - 09/09/2022 8:59 AM; Room: [address] [place] [address] Admission: 09/05/2022 10:46 AM; Length of stay: 4 days THE HOSPITALIST TEAM PREFERS TO USE [employer] CHAT FOR COMMUNICATION 7AM-7PM. IF I DO NOT RESPOND WITHIN 15 MINUTES, PLEASE PAGE ME/CALL THROUGH THE LABOR RELATIONS REPRESENTATIVE. FROM 7PM-7AM, PLEASE PAGE [phone](COVR) Code Status: Full Code Discharge Destination: home Discharge planning: pending improvement of hyponatremia, kidney functions, ID evaluation Overview Patient is seen for evaluation and management of sepsis, bacteremia KADI, electrolyte abnormalities, Subjective Patient is seen and examined at bedside, she is alert and awake, appears ill. Denies any worsening of cough, chest pain or shortness of breath. She is tolerating diet Physical Exam Visit Vitals BP 144/63 (BP Location: Left arm, Patient Position: Lying) Pulse 76 Temp 36.6 ???C (97.9 ???F) (Temporal) Resp 17 Intake/Output Summary (Last 24 hours) at 09/09/2022 0859 Last data filed at 09/09/2022 0615 Gross per 24 hour Intake 480 ml Output 1475 ml Net -995 ml Physical Exam Constitutional: Appearance: She is obese. HENT: Head: Normocephalic. Eyes: Pupils: Pupils are equal, round, and reactive to light. Cardiovascular: Rate and Rhythm: Normal rate. Pulmonary: Breath sounds: Rales present. Abdominal: Tenderness: There is abdominal tenderness. Musculoskeletal: Cervical back: Normal range of motion. Right lower leg: Edema present. Left lower leg: Edema present. Skin: General: Skin is warm and dry. Neurological: Mental Status: She is alert and oriented to person, place, and time. Mental status is at baseline. Estimated body mass index is 39.25 kg/m??? as calculated from the following: Height as of this encounter: 1.6 m (5' 3 ). Weight as of this encounter: 101 kg (221 lb 9 oz). Active Inpatient Problems Principal Problem: Atrial fibrillation with RVR ([facility]) Active Problems: Elevated troponin Elevated d-dimer KADI (acute kidney injury) ([facility]) Pyelonephritis Bandemia Hyponatremia Generalized weakness Fall Benign essential hypertension Assessment and Plan Assessment: Sepsis related to gram-negative bacteremia- Ecoli bacteremia likely secondary to urosepsis/pyelonephritis Leukocytosis 2/2 above Acute Kidney injury-unclear history of CKD Hyponatremia-improving Hypokalemia Non-anion gap metabolic acidosis-on oral sodium bicarbonate Elevated troponins likely type II event Essential hypertension Plan: Both blood and urine cultures from 09/05 positive for E. Coli, continued on ceftriaxone based on susceptibilities. ID team is following along. Nephrology team is following along, appreciate their input. Avoid nephrotoxic medications Replace potassium, recheck labs tomorrow a.m. With elevated troponins, cardiology EKG team evaluated the patient, recommends no further work-up while inpatient. PT/OT and social staff worker consult. VTE Prophylaxis: Heparin subcutaneous Scheduled Meds amLODIPine, 5 mg, oral, Daily cefTRIAXone, 2 g, intravenous, q24h famotidine, 20 mg, oral, Daily fluticasone, 1 spray, Each Nostril, q24h heparin (porcine), 5,000 Units, subcutaneous, BID iohexol, 100 mL, intravenous, Once in imaging metoprolol tartrate, 100 mg, oral, BID multivitamin with folic acid, 1 tablet, oral, Daily sodium bicarbonate, 650 mg, oral, BID Oxygen Therapy, Pertinent Investigations Hematology: Results from last 7 days Lab Units 09/08/2254809/07/2242509/06/2242009/05/221957 WBC AUTO 10*3/uL 34.23* 28.16* < > 29.25* HEMOGLOBIN g/dL 10.7* 10.1* < > 10.7* HEMATOCRIT % 32.8* 30.2* < > 31.6* MCV fL 83.0 84.4 < > 82.9 PLATELETS AUTO 10*3/uL 231 173 < > 178 INR -- -- -- 1.23* < > = values in this interval not displayed. Chemistry: Results from last 7 days Lab Units 09/08/2254809/07/2242509/05/221957 SODIUM mmol/L 129* 128* 125* POTASSIUM mmol/L 3.2* 3.6 3.7 CHLORIDE mmol/L 96* 97* 94* CO2 mmol/L 20* 18* 19* BUN mg/dL 70* 65* 49* CREATININE mg/dL 4.55* 4.56* 2.98* GLUCOSE mg/dL 107* 88 124* MAGNESIUM mg/dL -- -- 1.2* CALCIUM mg/dL 8.4* 8.0* 8.4* PHOSPHORUS mg/dL -- -- 3.4 Results from last 7 days Lab Units 09/05/221957 AST U/L 36 ALT U/L 17 ALK PHOS U/L 81 BILIRUBIN TOTAL mg/dL 0.8 BILIRUBIN DIRECT mg/dL 0.2 Historical Values: (Includes values prior to this admission) Lab Results Component Value Date TSH 1.92 09/05/2022 No results found for: [id number], IRON, TIBC, C3, C4, RAMÍREZ, CANCA, ASO, PSA, CEA, CA125, CA199, AFP, CA153 Imaging XR chest 1 view Narrative: XR CHEST 1 VIEW 09/08/2022 11:37 AM CLINICAL INDICATIONS: Pneumonia and chest discomfort COMPARISON: Chest x-ray 11/17/2011 FINDINGS: Cardia mediastinal silhouette is stable. Lungs are grossly clear with few discoid like atelectasis at the left lower lobe. Right lower lobe consolidation is obscured (more content not included)... [facility] 09-09-2022 Note ------ Attestation signed by Dillon Cutler MD at 09/09/2022 6:22 PM By using the attestations below, the signing clinician agrees that I have read and verify that the documentation has been personally reviewed by me and ensure that the documentation accurately reflects the encounter. GC: I personally saw this patient with Dr. Shashi Mckeon at 1005 hours on the day of the encounter, performed the mendiola portion(s) of the service and participated in the management and confirm the resident's documentation. Please note there may be an additional personal documentation from me. patient is in no acute distress. She is sitting in a chair. The creatinine is stable at 4.48. Her potassium is low and this is being supplemented. The acute kidney injury may be related to UTI. Hepatitis B and C are negative. The serum and urine protein electrophoresis are negative for monoclonal peak. Dillon Cutler MD, PhD ------ Nephrology Progress Note Patient : Ra Garcia; 86 y.o. Location: [id number]- Attending: Mechelle Mccartney MD Admit Date: 09/05/2022 Hospital Day: 4 Reason for Consult: KADI associated with hyponatremia Subjective: History of present illness: Ra Garcia is a 86 y.o. female who came from home with past medical history of hypertension presented to [facility] as a direct admission from [facility]. Patient came to ER after a fall at home secondary to generalized weakness. There was no injuries reported. Patient was going to the bathroom, felt weak and her helped her to the ground. Patient reports feeling weak for the last 3 days, intermittent fevers and chills. She also complains of lower abdominal pain, burning with urination and flank pain. She has some nausea but no vomiting. No chest pain. She has increased shortness of breath with exertion. No headaches. Just not feeling well in general. Upon work-up in ER, patient was found to have elevated troponin, BNP and D-dimer. Patient's creatinine was also elevated at 2.9. She does not have a history of CKD. Her WBCs were 29. Unfortunately, they did not run a urine on her or started her on antibiotics. Patient's sodium was at 125. Patient's EKG also showed A-fib with RVR and she was started on Cardizem. Patient's chest x-ray was normal. Interval history: Patient is seen and examine at bedside. Patient has chronic kidney disease, however her kidney function is stable so far. Patient is not in volume overload, she is making good urine. We will hold with IV fluids or diuretics for now. Her serum potassium is low we will replace with potassium supplements. She is on 2 g IV ceftriaxone for pyelonephritis, recommend renal adjust dose of ceftriaxone in setting of chronic kidney disease. Objective: Input/Output: Intake/Output Summary (Last 24 hours) at 09/09/2022 1311 Last data filed at 09/09/2022 1100 Gross per 24 hour Intake 295 ml Output 1475 ml Net -1180 ml I/O last 3 completed shifts: In: 1981.7 (19.7 mL/kg) [P.O.:720; I.V.:1261.7 (12.6 mL/kg)] Out: 2475 (24.6 mL/kg) [Urine:2475 (0.7 mL/kg/hr)] Weight: 100.5 kg Vital signs: Temperature: Temp: 36.5 ???C (97.7 ???F) TMax: Temp (24hrs), Av.5 ???C (97.7 ???F), Min:36.4 ???C (97.5 ???F), Max:36.6 ???C (97.9 ???F) Respirations: Resp: 17 Pulse: Heart Rate: 76 BP: BP: 144/63 BP Range: Systolic (24hrs), Av , Min:144 , Max:167 Diastolic (24hrs), Av, Min:63, Max:80 Wt Readings from Last 3 Encounters: 09/09/22 101 kg (221 lb 9 oz) Physical Exam Vitals and nursing note reviewed. Constitutional: Appearance: Normal appearance. HENT: Head: Normocephalic and atraumatic. Mouth/Throat: Pharynx: Oropharynx is clear. Cardiovascular: Rate and Rhythm: Normal rate. Heart sounds: No murmur heard. Pulmonary: Effort: Pulmonary effort is normal. No respiratory distress. Abdominal: General: There is no distension. Musculoskeletal: General: Normal range of motion. Cervical back: Neck supple. Right lower leg: No edema. Left lower leg: No edema. Skin: General: Skin is warm. Neurological: Mental Status: Mental status is at baseline. Psychiatric: Mood and Affect: Mood normal. Behavior: Behavior normal. Current Medications: Scheduled Meds: amLODIPine, 5 mg, oral, Daily cefTRIAXone, 2 g, intravenous, q24h famotidine, 20 mg, oral, Daily fluticasone, 1 spray, Each Nostril, q24h heparin (porcine), 5,000 Units, subcutaneous, BID iohexol, 100 mL, intravenous, Once in imaging metoprolol tartrate, 100 mg, oral, BID multivitamin with folic acid, 1 tablet, oral, Daily potassium chloride, 40 mEq, oral, BID potassium chloride, 60 mEq, oral, Once sodium bicarbonate, 650 mg, oral, BID Continuous Infusions: Oxygen Therapy, PRN Meds: PRN medications: acetaminophen, alum-m (more content not included)... [facility] 09-09-2022 Note Clinical Nutrition A ssessment Name: Ra Garcia Date: 1935 Date of Visit: 09/09/22 Reason for assessment: follow-up Information obtained from: patient, medical record, and nursing Medical History No chief complaint on file. Past Medical History: Diagnosis Date A-fib (CMS/HCC) Dysuria Hypertension History reviewed. No pertinent surgical history. Current Outpatient Medications Medication Instructions amLODIPine (NORVASC) 5 mg, oral, Daily estrogens (conjugated) (PREMARIN) 0.9 mg, oral, Daily, Take daily for 21 days then do not take for 7 days. fluticasone (Flonase Allergy Relief) 50 mcg/actuation nasal spray 1 spray, Each Nostril, Every 24 hours furosemide (LASIX) 20 mg, oral, Daily PRN ibuprofen 800 mg tablet 1 tablet, oral, Every 8 hours lisinopril 20 mg, oral, Daily metoprolol tartrate (LOPRESSOR) 100 mg, oral, 2 times daily multivitamin capsule 1 tablet, oral, Every 24 hours potassium chloride ER (Micro-K) 10 mEq ER capsule 10 mEq, oral, Daily, Do not crush or chew. RABEprazole (ACIPHEX) 20 mg, oral, Daily, Do not crush, chew, or split. Allergies Allergen Reactions Aloe Vera Unknown Aspirin Unknown Ciprofloxacin Unknown Egg Unknown Eucalyptus Unknown Penicillins Unknown Tolerated ceftriaxone 09/06/22 Quinolones Nutrition Problems: Abdominal Assessment: Last BM 09/09 (yellow/mucous) Appetite: poor Cognition: A&Ox4 Physical findings: obese Skin Integrity: skin intact Other factors: 2LNC Results from last 7 days Lab Units 09/08/22 0549 09/07/22 0426 09/06/22 0421 09/05/221957 GLUCOSE mg/dL 107* 88 -- 124* BUN mg/dL 70* 65* -- 49* CREATININE mg/dL 4.55* 4.56* -- 2.98* SODIUM mmol/L 129* 128* -- 125* POTASSIUM mmol/L 3.2* 3.6 -- 3.7 MAGNESIUM mg/dL -- -- -- 1.2* HEMOGLOBIN g/dL 10.7* 10.1* 10.6* 10.7* WBC AUTO 10*3/uL 34.23* 28.16* 30.91* 29.25* Chest xray- unremarkable I/O: Intake/Output Summary (Last 24 hours) at 09/09/2022 0824 Last data filed at 09/09/2022 0615 Gross per 24 hour Intake 480 ml Output 1475 ml Net -995 ml Current Medications: amLODIPine, 5 mg, oral, Daily cefTRIAXone, 2 g, intravenous, q24h famotidine, 20 mg, oral, Daily fluticasone, 1 spray, Each Nostril, q24h heparin (porcine), 5,000 Units, subcutaneous, BID iohexol, 100 mL, intravenous, Once in imaging metoprolol tartrate, 100 mg, oral, BID multivitamin with folic acid, 1 tablet, oral, Daily sodium bicarbonate, 650 mg, oral, BID Anthropometrics: Height: 160 cm (5' 3 ) Weight: 101 kg (221 lb 9 oz) Body mass index is 39.25 kg/m???. Wt history: 210.8 lbs 08/02/22. + 9.2 kg since admit, suspect wt on admit was incorrect. IBW: 52.3 Weight change: +6% Nutrition Assessment: Needs based on: ideal body weight Calorie needs: 0812-4065 kcals/day based on Equation: 25-30 kcal/kg Protein needs: 52-63 g/day based on 1-1.2 g/kg Fluid needs: 1300 ml/day based on 25 ml/kg Dietary Orders (From admission, onward) Start Ordered 09/08/22 08 Special Kitchen Request Once Comments: Pt would like 2 cups of decaf coffee with 4 creamers and a blueberry muffin. Pt states she just gets an upset stomach when she eats real eggs, but is able to eat them cooked in things with no problem. Thanks 09/08/22 0818 09/07/22 0921 Special Kitchen Request Once Comments: Pt would like an egg substitute omelet with peppers, onions, and ham. Hash browns and decaf coffee with 2 creamers. Thanks 09/07/22 0922 09/05/22 1203 Regular Diet Diet effective now Question: Room Service? Answer: Yes 09/05/22 1212 Percent Meals Eaten (%): 0 (09/08/22 1203 : Lena Shepherd RN) Meal Intakes: 16%/3 meals Nutrition Risk: High Nutrition Diagnosis: inadequate oral food/beverage intake related to poor appetite as evidenced by <25% intakes Nutrition Recommendations: Continue current diet Encouraged small, frequent meals. Discussed the importance of nutrition during hospitalization. Pt declined oral supplements at this time. Hyponatremia, IVF discontinued. Nephrology following for KADI Hypokalemia, received 60 mEq of oral potassium chloride yesterday. Continue to replace and recheck electrolytes Goals: Nutrition Goals: intake > 75% meals Kris Carter RD [facility] 09-08-2022 Note Physical Therapy Physical Therapy Treatment Patient Name: Sharan Garcia : 1935 Today's Date: 09/08/2022 Patient Active Problem List Diagnosis Atrial fibrillation with RVR (CMS/HCC) Elevated troponin Elevated d-dimer KADI (acute kidney injury) (CMS/HCC) Pyelonephritis Bandemia Hyponatremia Generalized weakness Fall Benign essential hypertension Time : 11:20-11:38am 09/08/22 1453 PT Last Visit PT Received On 09/08/22 General Subjective Pt had been cleared medically by nursing staff to receive therapy services , nursing informed rewriter that pt was desiring to go to the bathroom and she did not do so well getting up . [employer] told nursing she would be right down to assist. See detials of treatment session below: Pt sitting at EOB when rewriter entered the room and wanted to go and use the bathroom not the bedside commode Precautions Medical Precautions supplemental 02 at 1 1/2 liters per nasal canula , treviño , and IV's Pain Assessment Pain Assessment No/denies pain Cognition Orientation Level Oriented X4 Therapeutic Exercise Therapeutic Exercise Activity 1 pt was taught was deep breathing exercises to help her with attempting to get off of supplemental 02 which is new to pt pt did Pursed lip breathing and diaphragmatic breathing exercises 5 reps 1 set. Static Sitting Balance Static Sitting-Balance Support Feet supported Static Sitting-Level of Assistance Independent Static Sitting-Comment/Number of Minutes no UE 's used while pt sat at EOB Static Standing Balance Static Standing-Balance Support Left upper extremity supported;Right upper extremity supported (on rolling walker) Static Standing-Level of Assistance Minimum assistance Static Standing-Comment/Number of Minutes 25% tactile cues for pt to maintain her standing balance. Dynamic Standing Balance Dynamic Standing-Balance Support Left upper extremity supported;Right upper extremity supported (on rolling walker) Dynamic Standing-Balance (while ambulating in her room) Dynamic Standing Balance-Level of Assistance Minimum assistance Dynamic Standing-Comments 25% tactile cues for dynamic balance. Ambulation Ambulation Yes Ambulation 1 Surface 1 Level tile Device 1 Rolling walker (was too tall for pt had to be adjusted lower for pt's height .) Assistance 1 Minimum assistance;Minimal tactile cues Quality of Gait 1 pt tends to flex forward with her upper back . Comments/Distance (ft) 1 18 ft x 1 , 32 ft x 1 for second walk Bed Mobility Bed Mobility No (pt already sitting up at EOB when rewriter came in to see pt for therapy .) Transfers Transfer Yes Transfer 1 Transfer From 1 Sit Transfer Type 1 To and from Transfer to 1 Stand Technique 1 Sit to stand;Stand to sit Transfer Device 1 rolling walker Transfer Level of Assistance 1 Minimum assistance;Minimal tactile cues;x2 Transfers 2 Transfer From 2 Sit Transfer Type 2 To Transfer to 2 Stand;Toilet Technique 2 Sit to stand Transfer Device 2 grab bar/toilet Transfer Level of Assistance 2 Moderate assistance;Moderate tactile cues (x 1 person) Trials/Comments 2 50% tactile cues with rocking pt forward to get pt to stand up from the toilet which is a lower seat height than getting up from EOB. Other Activity Other Activity 2 Pt is a fall risk and has a chair alarm in her chair that is activated and pt has call light in reach . Plan Level of assist 1 assist Goals: Multi-Disciplinary Problems (from Physical Therapy) Active Problems Problem: PT Misc Start Date: 09/06/22 Goal Start Date Expected End Date End Date Patient to demonstrate the ability to complete all bed mobility independently with HOB flat 09/06/22 -- -- Goal Start Date Expected End Date End Date Patient to demonstrate the ability to complete all transfers independently with least restrictive assistive device as needed 09/06/22 -- -- Goal Start Date Expected End Date End Date Patient to demonstrate the ability to ambulate 75 ft independently with least restrictive assistive device 09/06/22 -- -- Goal Start Date Expected End Date End Date Patient to demo the ability to complete 3 steps with supervision without railing in order to gain access into her home 09/06/22 -- -- Goal Start Date Expected End Date End Date Patient to participate in BLE functional exercise to improve strength and limit the effects of immobility related to hospital admission 09/06/22 -- -- Goal Start Date Expected End Date End Date Patient to maintain static and dynamic standing balance during all functional activity to maximize safety. 09/06/22 -- -- 09/08/22 1500 6 Clicks (Mobility) Help from another person turning from your back to your side while in a flat bed without using bedrails 3 Help from another person moving from lying on your back to sitting on the side of a flat bed without using bedrails 2 Help from another person moving to (more content not included)... [facility] 09-08-2022 Note Occupational Therapy attempt: Talked with RN, RN reports patient's labs have not been improving and she has messaged , nursing notes breathing appears to be more labored then yesterday, etc. RN asked to hold therapy at this time and to try back in the afternoon when asked if could attempt to get patient to edge of bed this morning. Will cont to follow and treat as appropriate. Afia Rodriguez KELY/Anika 1009 [facility] 09-08-2022 Note ------ Attestation signed by Dillon Cutler MD at 09/08/2022 4:12 PM By using the attestations below, the signing clinician agrees that I have read and verify that the documentation has been personally reviewed by me and ensure that the documentation accurately reflects the encounter. GC: I personally saw this patient with Dr. Shashi Mckeon at 0955 hours on the day of the encounter, performed the mendiola portion(s) of the service and participated in the management and confirm the resident's documentation. Please note there may be an additional personal documentation from me. Patient is in bed in no acute distress. The creatinine is stable from previous day. the patient denies any previous blood work at another hospital except at [place] the day prior to admission at [facility]. It is unclear if the patient has CKD as well. At this time we will check serologies as noted. The potassium is slightly low would correct this. Continue to monitor renal function no need for acute renal replacement therapy. Dillon Cutler MD, PhD ------ Nephrology Progress Note Patient : Ra Garcia; 86 y.o. Location: [address]102-14 Attending: Mechelle Mccartney MD Admit Date: 09/05/2022 Hospital Day: 3 Reason for Consult: KADI associated with hyponatremia Subjective: History of present illness: Ra Garcia is a 86 y.o. female who came from home with past medical history of hypertension presented to [facility] as a direct admission from [facility] ER. Patient came to ER after a fall at home secondary to generalized weakness. There was no injuries reported. Patient was going to the bathroom, felt weak and her helped her to the ground. Patient reports feeling weak for the last 3 days, intermittent fevers and chills. She also complains of lower abdominal pain, burning with urination and flank pain. She has some nausea but no vomiting. No chest pain. She has increased shortness of breath with exertion. No headaches. Just not feeling well in general. Upon work-up in ER, patient was found to have elevated troponin, BNP and D-dimer. Patient's creatinine was also elevated at 2.9. She does not have a history of CKD. Her WBCs were 29. Unfortunately, they did not run a urine on her or started her on antibiotics. Patient's sodium was at 125. Patient's EKG also showed A-fib with RVR and she was started on Cardizem. Patient's chest x-ray was normal. Interval history: Patient is seen and examine at bedside. Patient serum creatinine, Her baseline serum creatinine is unknown. Patient looks euvolemic and she is making good urine. She has gain 14 pounds since admission, which may be inaccurate. We will continue to monitor kidney status. Her echocardiogram shows EF: 55%, we will order studies check serologies and urine studies. Objective: Input/Output: Intake/Output Summary (Last 24 hours) at 09/08/2022 1245 Last data filed at 09/08/2022 0922 Gross per 24 hour Intake 3035 ml Output 1500 ml Net 1535 ml I/O last 3 completed shifts: In: 3035 (30.9 mL/kg) [P.O.:960; I.V.:2074 (21.1 mL/kg)] Out: 2150 (21.9 mL/kg) [Urine:2150 (0.6 mL/kg/hr)] Weight: 98.2 kg Vital signs: Temperature: Temp: 36.4 ???C (97.5 ???F) TMax: Temp (24hrs), Av.7 ???C (98 ???F), Min:36 ???C (96.8 ???F), Max:37.4 ???C (99.3 ???F) Respirations: Resp: 19 Pulse: Heart Rate: 82 BP: BP: 154/69 BP Range: Systolic (24hrs), Av , Min:120 , Max:158 Diastolic (24hrs), Av, Min:63, Max:75 Wt Readings from Last 3 Encounters: 09/08/22 98.2 kg (216 lb 7.9 oz) Physical Exam Vitals and nursing note reviewed. Constitutional: Appearance: Normal appearance. HENT: Head: Normocephalic and atraumatic. Mouth/Throat: Pharynx: Oropharynx is clear. Cardiovascular: Rate and Rhythm: Normal rate. Heart sounds: No murmur heard. Pulmonary: Effort: Pulmonary effort is normal. No respiratory distress. Abdominal: General: There is no distension. Musculoskeletal: General: Normal range of motion. Cervical back: Neck supple. Right lower leg: No edema. Left lower leg: No edema. Skin: General: Skin is warm. Neurological: Mental Status: Mental status is at baseline. Psychiatric: Mood and Affect: Mood normal. Behavior: Behavior normal. Current Medications: Scheduled Meds: amLODIPine, 5 mg, oral, Daily cefTRIAXone, 2 g, intravenous, q24h famotidine, 20 mg, oral, Daily fluticasone, 1 spray, Each Nostril, q24h heparin (porcine), 5,000 Units, subcutaneous, BID iohexol, 100 mL, intravenous, Once in imaging metoprolol tartrate, 100 mg, oral, BID multivitamin with folic acid, 1 tablet, oral, Daily sodium bicarbonate, 650 mg, oral, BID Continuous Infusions: Oxygen Therapy, PRN Meds: PRN medications: acetaminophen, alum-mag h (more content not included)... [facility] 09-08-2022 Note Hospital Medicine Daily Progress Note - 09/08/2022 8:14 AM; Room: [facility]/3111-01 Admission: 09/05/2022 10:46 AM; Length of stay: 3 days THE HOSPITALIST TEAM PREFERS TO USE [employer] CHAT FOR COMMUNICATION 7AM-7PM. IF I DO NOT RESPOND WITHIN 15 MINUTES, PLEASE PAGE ME/CALL THROUGH THE LABOR RELATIONS REPRESENTATIVE. FROM 7PM-7AM, PLEASE PAGE [phone](COVR) Code Status: Full Code Discharge Destination: home Discharge planning: pending improvement of hyponatremia, kidney functions, ID evaluation Overview Patient is seen for evaluation and management of sepsis, bacteremia KADI, electrolyte abnormalities, Subjective Patient is seen and examined at bedside, she is alert and awake, appears ill. Noted to have cough this am. denies any worsening shortness of breath or chest pain. Physical Exam Visit Vitals BP 153/63 (BP Location: Left arm, Patient Position: Lying) Pulse 74 Temp 36.5 ???C (97.7 ???F) (Temporal) Resp 19 Intake/Output Summary (Last 24 hours) at 09/08/2022 0814 Last data filed at 09/08/2022 0609 Gross per 24 hour Intake 2795 ml Output 1500 ml Net 1295 ml Physical Exam Constitutional: Appearance: She is obese. HENT: Head: Normocephalic. Eyes: Pupils: Pupils are equal, round, and reactive to light. Cardiovascular: Rate and Rhythm: Normal rate. Pulmonary: Breath sounds: Rales present. Abdominal: Tenderness: There is abdominal tenderness. Musculoskeletal: Cervical back: Normal range of motion. Right lower leg: Edema present. Left lower leg: Edema present. Skin: General: Skin is warm and dry. Neurological: Mental Status: She is alert and oriented to person, place, and time. Mental status is at baseline. Estimated body mass index is 38.35 kg/m??? as calculated from the following: Height as of this encounter: 1.6 m (5' 3 ). Weight as of this encounter: 98.2 kg (216 lb 7.9 oz). Active Inpatient Problems Principal Problem: Atrial fibrillation with RVR (CMS/HCC) Active Problems: Elevated troponin Elevated d-dimer KADI (acute kidney injury) (CMS/[facility]) Pyelonephritis Bandemia Hyponatremia Generalized weakness Fall Benign essential hypertension Assessment and Plan Assessment: Sepsis related to gram-negative bacteremia Ecoli bacteremia likely secondary to urosepsis/pyelonephritis Leukocytosis-worsening Acute Kidney injury-unclear history of CKD Hyponatremia Hypokalemia Non-anion gap metabolic acidosis Elevated troponins likely type II event Essential hypertension Plan: Both blood and urine cultures from 09/05 positive for E. Coli, continued on ceftriaxone based on susceptibilities, repeat blood cultures today. With worsening of leukocytosis, ID team is consulted for their expert input. Obtain procalcitonin and chest x ray with worsening cough. Nephrology team is following along, patient is on bicarb containing fluids with 0.45 normal saline and 75 mEq of sodium bicarb at 100 ml/per hour. appreciate their input. Avoid nephrotoxic medications Replace potassium, recheck labs tomorrow a.m. With elevated troponins, cardiology EKG team evaluated the patient, recommends no further work-up while inpatient. VTE Prophylaxis: Heparin subcutaneous Scheduled Meds amLODIPine, 5 mg, oral, Daily cefTRIAXone, 2 g, intravenous, q24h famotidine, 20 mg, oral, Daily fluticasone, 1 spray, Each Nostril, q24h heparin (porcine), 5,000 Units, subcutaneous, BID iohexol, 100 mL, intravenous, Once in imaging metoprolol tartrate, 100 mg, oral, BID multivitamin with folic acid, 1 tablet, oral, Daily sodium bicarbonate, 650 mg, oral, BID Oxygen Therapy, sodium bicarbonate 75 mEq in sodium chloride 0.45 % 1,000 mL infusion, 100 mL/hr, Last Rate: 100 mL/hr (09/08/22 0609) Pertinent Investigations Hematology: Results from last 7 days Lab Units 09/08/22 0549 09/07/22 0426 09/06/22 0421 09/05/22 1958 WBC AUTO 10*3/uL 34.23* 28.16* < > 29.25* HEMOGLOBIN g/dL 10.7* 10.1* < > 10.7* HEMATOCRIT % 32.8* 30.2* < > 31.6* MCV fL 83.0 84.4 < > 82.9 PLATELETS AUTO 10*3/uL 231 173 < > 178 INR -- -- -- 1.23* < > = values in this interval not displayed. Chemistry: Results from last 7 days Lab Units 09/08/22 0549 09/07/22 0426 09/05/221957 SODIUM mmol/L 129* 128* 125* POTASSIUM mmol/L 3.2* 3.6 3.7 CHLORIDE mmol/L 96* 97* 94* CO2 mmol/L 20* 18* 19* BUN mg/dL 70* 65* 49* CREATININE mg/dL 4.55* 4.56* 2.98* GLUCOSE mg/dL 107* 88 124* MAGNESIUM mg/dL -- -- 1.2* CALCIUM mg/dL 8.4* 8.0* 8.4* PHOSPHORUS mg/dL -- -- 3.4 Results from last 7 days Lab Units 09/05/221957 AST U/L 36 ALT U/L 17 ALK PHOS U/L 81 BILIRUBIN TOTAL mg/dL 0.8 BILIRUBIN DIRECT mg/dL 0.2 Historical Values: (Includes values prior to this admission) Lab Results Component Value Date TSH 1.92 09/05/2022 No results found for: [id number], IRON, TIBC, C3, C4, RAMÍREZ, CANCA, ASO, PSA, CEA, CA125, CA199, AFP, CA153 Imaging Vasc Us Lower Extremity Venous Du (more content not included)... [facility] 09-07-2022 Note 09/07/22 1639 Activities of Daily Living Assistive Device Cane Living Arrangement (Current/Prior to Hospitalization) Private residence Discharge Planning Support Systems Spouse/significant other Type of Residence/Post Acute Needs Private residence Patient's goal for discharge Patient's goal for discharge is to return home with her . Screened via [facility]. Patient is from home with her . Patient reports that she has a cane in the home. History of SNF placement at [facility]. Anticipates return home when medically ready. [facility] 09-07-2022 Note Physical Therapy Physical Therapy Treatment Patient Name: Sharan Garcia : 1935 Today's Date: 09/07/2022 09/07/22 Time Calculation Start Time 1308 Stop Time 1341 Time Calculation (min) 33 min PT Therapeutic Procedures Time Entry Therapeutic Activity Time Entry 33 Patient Active Problem List Diagnosis Atrial fibrillation with RVR (CMS/HCC) Elevated troponin Elevated d-dimer KADI (acute kidney injury) ([facility]) Pyelonephritis Bandemia Hyponatremia Generalized weakness Fall Benign essential hypertension 09/07/22 1308 PT Last Visit PT Received On 09/07/22 Response to Previous Treatment Patient with no complaints from previous session. General Family/Caregiver Present No Subjective I've been in the chair for an hour. Pt requests to return back to bed upon rewriter entry. Reluctant to participate on third attempt to see pt today, agreeable with encouragement. Activity Tolerance Endurance Stage III Activity Tolerance Comments Mild SOB noted with minimal activity. On 3.5L O2 NC. Easily fatigues. Precautions Medical Precautions treviño, alarms, IV Pain Assessment Pain Assessment No/denies pain Cognition Overall Cognitive Status WFL Orientation Level Oriented X4 Following Commands Follows multistep commands with increased time;Follows multistep commands with repetition Awareness of Errors Assistance required to identify errors made Deficits Fully aware of deficits Attention Span Appears intact Memory Appears intact Problem Solving Assistance required to identify errors made Communication Intact Cognition Comments Cues for movement initiation, sequencing and safety awareness with improved carryover. Therapeutic Exercise Therapeutic Exercise Activity 1 Seated EOB ankle pumps, marches, LAQs x10 reps to strengthen and improve mobility Therapeutic Exercise Activity 2 Encouraged pt to cont ex's frequently throughout admission to strengthen and prevent sedentary complications. Static Sitting Balance Static Sitting-Balance Support Feet supported Static Sitting-Level of Assistance Independent Dynamic Sitting Balance Dynamic Sitting-Balance Support Feet supported;Left upper extremity supported;Right upper extremity supported Dynamic Sitting-Balance Forward lean;Lateral lean Dynamic Sitting Balance-Level of Assistance Close supervision Static Standing Balance Static Standing-Balance Support Left upper extremity supported;Right upper extremity supported;With device (RW) Static Standing-Level of Assistance Close supervision Static Standing-Comment/Number of Minutes No LOB. Fwd flexed posture. Ambulation Ambulation Yes Ambulation 1 Surface 1 Level tile Device 1 Rolling walker Assistance 1 Close supervision Quality of Gait 1 fwd flexed posture, cues for safe RW proximity, slow pace, easily fatigues with this activity Comments/Distance (ft) 1 ~20' rewriter encouraged pt to take more steps, however, pt declined secondary to fatigue. Bed Mobility Bed Mobility Yes Bed Mobility 1 Bed Mobility From 1 Short sit Bed Mobility Type 1 To Bed Mobility to 1 Supine Level of Assistance 1 Minimum assistance Bed Mobility Comments 1 Able to bring UB down with much effort, assist for proper BLE placement with return to supine. Increased time/efforts. Transfers Transfer Yes Transfer 1 Transfer From 1 Bed;Chair with arms Transfer Type 1 To and from Transfer to 1 Stand Technique 1 Sit to stand;Stand to sit Transfer Device 1 rolling walker Transfer Level of Assistance 1 Close supervision Trials/Comments 1 Close SBA for safety, increased time/effort with each transition. VC's for safe hand placement with good return demo. PT Assessment PT Assessment/MASSAGE OPERATOR Summary Pt limited by decreased activity tolerance, fatigue and weakness. Pt requires extended time to recover and much encouragement for participation this date. Will benefit from cont skilled PT to maximize safety/independence. Prognosis Good Evaluation/Treatment Tolerance Patient limited by fatigue Medical Staff Made Aware Yes PT Education/Comments safety awareness, OOB mobility Plan Level of assist 1 assist Treatment/Interventions Functional transfer training;LE strengthening/ROM;Endurance training;Patient/family training;Bed mobility;Gait training PT Plan Skilled PT PT Frequency 1 time per day until discharge & PRN PT Discharge Recommendations Home PT;Other (Comment) (Patient is borderline Home with Home PT versus SNF. Will update as needed) Equipment Recommended rolling walker (Patient will require RW for discharge to home) Outcome Assessments 6 Clicks (Mobility) Help from another person turning from your back to your side while in a flat bed without using bedrails: A little Help from another person moving from lying on your back to sitting on the side of a flat bed without using bedrails: A lot Help from another person moving to an (more content not included)... [facility] 09-07-2022 Note Hospital Medicine Daily Progress Note - 09/07/2022 12:43 PM; Room: [facility]- Admission: 09/05/2022 10:46 AM; Length of stay: 2 days THE HOSPITALIST TEAM PREFERS TO USE [email or web address] FOR COMMUNICATION 7AM-7PM. IF I DO NOT RESPOND WITHIN 15 MINUTES, PLEASE PAGE ME/CALL THROUGH THE LABOR RELATIONS REPRESENTATIVE. FROM 7PM-7AM, PLEASE PAGE [phone](COVR) Code Status: Full Code Discharge Destination: home Discharge plannin-3 days, treating sepsis Overview being treated for sepsis, KADI and hyponatremia Subjective Patient is seen for evaluation and management of today in her room, on 1-2 L nasal cannula and in no significant distress Physical Exam Constitutional: Appearance: She is ill-appearing HENT: Head: Normocephalic and atraumatic. Mouth/Throat: Mouth: Mucous membranes are dry. Eyes: Conjunctiva/sclera: Conjunctivae normal. Cardiovascular: Rate and Rhythm: Tachycardia present. Rhythm irregular. Heart sounds: No murmur heard. No friction rub. No gallop. Pulmonary: Effort: Pulmonary effort is normal. No respiratory distress. Breath sounds: Rales (at the bases) present. No wheezing or rhonchi. Abdominal: General: Abdomen is flat. There is distension. Palpations: Abdomen is soft. Tenderness: There is abdominal tenderness (suprapubic). There is no guarding or rebound. Musculoskeletal: General: No swelling or deformity. Skin: General: Skin is warm. Findings: No rash. Neurological: General: No focal deficit present. Mental Status: She is alert and oriented to person, place, and time. Psychiatric: Mood and Affect: Mood normal. Behavior: Behavior normal. Thought Content: Thought content normal. Judgment: Judgment normal. Visit Vitals BP 151/72 (BP Location: Left arm, Patient Position: Lying) Pulse 92 Temp 36.9 ???C (98.4 ???F) (Temporal) Resp (!) 30 Intake/Output Summary (Last 24 hours) at 09/07/2022 1243 Last data filed at 09/07/2022 0500 Gross per 24 hour Intake 1956.92 ml Output 1050 ml Net 906.92 ml Estimated body mass index is 38.08 kg/m??? as calculated from the following: Height as of this encounter: 1.6 m (5' 3 ). Weight as of this encounter: 97.5 kg (214 lb 15.2 oz). Active Inpatient Problems Principal Problem: Atrial fibrillation with RVR ([facility]) Active Problems: Elevated troponin Elevated d-dimer KADI (acute kidney injury) ([facility]) Pyelonephritis Bandemia Hyponatremia Generalized weakness Fall Benign essential hypertension Assessment and Plan #Sepsis secondary to gram-negative bacteremia Most likely source UTI /pyelonephritis, CT abdomen pelvis noted Urine culture grew E. Coli Continue Rocephin for now Ultrasound kidneys was unremarkable # KADI with creatinine 2.98 Creatinine worse today Continue IV fluid hydration and will discuss with nephrology # troponin leak, peak 0.10 Seen by cardiology team they felt no further ischemic work-up needed inpatient Echo showed normal EF Heparin drip discontinued and ischemic evaluation outpatient EKG showing PAC's, not A-fib # Hypertension continue home Norvasc and Lopressor 100 twice daily # Hyponatremia, most likely hypovolemic in nature Sodium improving, continue IV fluid and monitor VTE Prophylaxis: Heparin subcutaneous Scheduled Meds amLODIPine, 5 mg, oral, Daily cefTRIAXone, 2 g, intravenous, q24h famotidine, 20 mg, oral, Daily fluticasone, 1 spray, Each Nostril, q24h heparin (porcine), 5,000 Units, subcutaneous, BID iohexol, 100 mL, intravenous, Once in imaging metoprolol tartrate, 100 mg, oral, BID multivitamin with folic acid, 1 tablet, oral, Daily sodium bicarbonate, 650 mg, oral, BID lactated Ringer's, 100 mL/hr, Last Rate: 100 mL/hr (09/07/22 1235) Oxygen Therapy, Pertinent Investigations Hematology: Results from last 7 days Lab Units 09/07/2242509/06/2242009/05/221957 WBC AUTO 10*3/uL 28.16* 30.91* 29.25* HEMOGLOBIN g/dL 10.1* 10.6* 10.7* HEMATOCRIT % 30.2* 32.0* 31.6* MCV fL 84.4 84.0 82.9 PLATELETS AUTO 10*3/uL 173 176 178 INR -- -- 1.23* Chemistry: Results from last 7 days Lab Units 09/07/2242509/05/221957 SODIUM mmol/L 128* 125* POTASSIUM mmol/L 3.6 3.7 CHLORIDE mmol/L 97* 94* CO2 mmol/L 18* 19* BUN mg/dL 65* 49* CREATININE mg/dL 4.56* 2.98* GLUCOSE mg/dL 88 124* MAGNESIUM mg/dL -- 1.2* CALCIUM mg/dL 8.0* 8.4* PHOSPHORUS mg/dL -- 3.4 Results from last 7 days Lab Units 09/05/221957 AST U/L 36 ALT U/L 17 ALK PHOS U/L 81 BILIRUBIN TOTAL mg/dL 0.8 BILIRUBIN DIRECT mg/dL 0.2 Historical Values: (Includes values prior to this admission) Lab Results Component Value Date TSH 1.92 09/05/2022 No results found for: [id number], IRON, TIBC, C3, C4, RAMÍREZ, CANCA, ASO, PSA, CEA, CA125, CA199, AFP, CA153 Imaging Vasc Us Lower Extremity Venous Duplex Bilateral Narrative: Procedure: Duplex spectral Doppler and real time ultrasound imaging with compression and augmentation was perfor (more content not included)... [facility] 09-07-2022 Note 09/07/22 1022 Admission Assessment Questions Verify insurance with patient Yes Do you understand medical disease or what brought you into the hospital? Yes Who is your current PCP? Ever Byrd MD Can I schedule a follow up appointment for you at the time of discharge? Yes (Late morning if possible) Do you understand why you are taking your current medications? Yes Are you taking your medications as prescribed? Yes Did patient provide teach back? No Would you like use our pharmacy [facility] to fill your new medications at the time of Discharge? Yes Does the patient have a insurance case manager assigned to them through their insurance? No Living Arrangement (Current/Prior to Hospitalization) Private residence (3 steps to enter home) Does the patient have history of HHC or SNF? Yes (Hx of SNF placement at [facility]) Assistive Device Cane Patient's goal for discharge Discharge home with Was patient reminded that goal for discharge is 11am? Yes Does the patient have transportation at discharge? Yes Type of Residence/Post Acute Needs Private residence Is PT/OT appropriate? Yes Is PT/OT ordered? Yes Is SW consult appropriate? Yes Is SW consult ordered? Yes Do you understand the benefits of MyChart? Yes Were you able to send link and activate MyChart? No [facility] 09-07-2022 Note Physical Therapy Can rachael Note 09/07/22 1000 General Missed Time Reason Patient refused PT Assessment PT Assessment/MASSAGE OPERATOR Summary Pt requested rewriter to return for PT tx later this date secondary to fatigue. Pt states she was up with nrsg to take a shower this morning and would like to rest at the moment. Will return when more convenient. Johanna Mancia, SIXTO [facility] 09-06-2022 Note Hospital Medicine Daily Progress Note - 09/06/2022 12:27 PM; Room: [address] [place] [address] Admission: 09/05/2022 10:46 AM; Length of stay: 1 days THE HOSPITALIST TEAM PREFERS TO USE [email or web address] FOR COMMUNICATION 7AM-7PM. IF I DO NOT RESPOND WITHIN 15 MINUTES, PLEASE PAGE ME/CALL THROUGH THE LABOR RELATIONS REPRESENTATIVE. FROM 7PM-7AM, PLEASE PAGE [phone](COVR) Code Status: Full Code Discharge Destination: home Discharge plannin-3 days, treating sepsis Overview being treated for sepsis, KADI and hyponatremia Subjective Patient is seen for evaluation and management of today in her room, on 1-2 L nasal cannula and in no significant distress Physical Exam Constitutional: Appearance: She is ill-appearing HENT: Head: Normocephalic and atraumatic. Mouth/Throat: Mouth: Mucous membranes are dry. Eyes: Conjunctiva/sclera: Conjunctivae normal. Cardiovascular: Rate and Rhythm: Tachycardia present. Rhythm irregular. Heart sounds: No murmur heard. No friction rub. No gallop. Pulmonary: Effort: Pulmonary effort is normal. No respiratory distress. Breath sounds: Rales (at the bases) present. No wheezing or rhonchi. Abdominal: General: Abdomen is flat. There is distension. Palpations: Abdomen is soft. Tenderness: There is abdominal tenderness (suprapubic). There is no guarding or rebound. Musculoskeletal: General: No swelling or deformity. Skin: General: Skin is warm. Findings: No rash. Neurological: General: No focal deficit present. Mental Status: She is alert and oriented to person, place, and time. Psychiatric: Mood and Affect: Mood normal. Behavior: Behavior normal. Thought Content: Thought content normal. Judgment: Judgment normal. Visit Vitals BP 152/66 Pulse (!) 111 Temp 37.2 ???C (99 ???F) (Temporal) Resp (!) 28 Intake/Output Summary (Last 24 hours) at 09/06/2022 1227 Last data filed at 09/06/2022 0815 Gross per 24 hour Intake 1456.25 ml Output 950 ml Net 506.25 ml Estimated body mass index is 37.69 kg/m??? as calculated from the following: Height as of this encounter: 1.6 m (5' 3 ). Weight as of this encounter: 96.5 kg (212 lb 11.9 oz). Active Inpatient Problems Principal Problem: Atrial fibrillation with RVR (CMS/HCC) Active Problems: Elevated troponin Elevated d-dimer KADI (acute kidney injury) (CMS/HCC) Pyelonephritis Bandemia Hyponatremia Generalized weakness Fall Benign essential hypertension Assessment and Plan #Sepsis secondary to gram-negative bacteremia Most likely source UTI /pyelonephritis, CT abdomen pelvis noted Urine culture still pending Continue Rocephin for now Ultrasound kidneys was unremarkable # KADI with creatinine 2.98 Continue IV fluid hydration monitor # troponin leak, peak 0.10 Seen by cardiology team they felt no further ischemic work-up needed inpatient Echo showed normal EF Heparin drip discontinued and ischemic evaluation outpatient EKG showing PAC's, not A-fib # Hypertension continue home Norvasc and Lopressor 100 twice daily # Hyponatremia, most likely hypovolemic in nature continue IV fluid and monitor VTE Prophylaxis: Heparin subcutaneous Scheduled Meds amLODIPine, 5 mg, oral, Daily cefTRIAXone, 2 g, intravenous, q24h famotidine, 20 mg, oral, Daily fluticasone, 1 spray, Each Nostril, q24h iohexol, 100 mL, intravenous, Once in imaging metoprolol tartrate, 100 mg, oral, BID multivitamin with folic acid, 1 tablet, oral, Daily sodium chloride, 75 mL/hr, Last Rate: Stopped (09/06/22814) sodium chloride, 75 mL/hr, Last Rate: 75 mL/hr (09/06/22814) Pertinent Investigations Hematology: Results from last 7 days Lab Units 09/06/2242009/05/221957 WBC AUTO 10*3/uL 30.91* 29.25* HEMOGLOBIN g/dL 10.6* 10.7* HEMATOCRIT % 32.0* 31.6* MCV fL 84.0 82.9 PLATELETS AUTO 10*3/uL 176 178 INR -- 1.23* Chemistry: Results from last 7 days Lab Units 09/05/221957 SODIUM mmol/L 125* POTASSIUM mmol/L 3.7 CHLORIDE mmol/L 94* CO2 mmol/L 19* BUN mg/dL 49* CREATININE mg/dL 2.98* GLUCOSE mg/dL 124* MAGNESIUM mg/dL 1.2* CALCIUM mg/dL 8.4* PHOSPHORUS mg/dL 3.4 Results from last 7 days Lab Units 09/05/221957 AST U/L 36 ALT U/L 17 ALK PHOS U/L 81 BILIRUBIN TOTAL mg/dL 0.8 BILIRUBIN DIRECT mg/dL 0.2 Historical Values: (Includes values prior to this admission) Lab Results Component Value Date TSH 1.92 09/05/2022 No results found for: [id number], IRON, TIBC, C3, C4, RAMÍREZ, CANCA, ASO, PSA, CEA, CA125, CA199, AFP, CA153 Imaging Complete Echo (TTE) w/wo Imaging Agent, Strain, 3D, Bubble Study 1 1 [facility] Heart Station [address] [place] [address] [phone] (fax) Echocardiogram-[facility] Name: RA GARCIA Study Date: 09/06/2022 09:57 AM B/P: 152 mmHg/66 mmHg HR: Date of : 1935 Location: [facility] Height: 63 in. Age: 86 year(s) Patient Room: 3107 Weight: 212 lb. Gend (more content not included)... [facility] 09-06-2022 Note Physical Therapy Physical Therapy Evaluation Patient Name: Ra Garcia : 1935 Today's Date: 09/06/2022 Patient is a 86 y/o female who presents from OSH s/p fall at home, reports he had to lower her to the floor. No acute injuries noted. Found to be in A-fib with RVR, as well as mildly elevated troponin. Reports of fever/chills and weakness x3-4 days prior. At this time, recommendation for discharge is home with home health PT. Patient must remain mobile throughout her admission in order to not regress any further, if she does she will require SNF. Patient should be up for all meals and to and from the bathroom. General Subjective: RN approved PT evaluation and OOB activity this date. Patient ambulating back from the restroom upon arrival, agreeable to evaluation. Upon completion, patient left back in bed with call light within reach, RN aware. PT Diagnosis: Impaired activity tolerance Patient Active Problem List Diagnosis Atrial fibrillation with RVR (CMS/HCC) Elevated troponin Elevated d-dimer KADI (acute kidney injury) (CMS/HCC) Pyelonephritis Bandemia Hyponatremia Generalized weakness Fall Benign essential hypertension Past Medical History: Diagnosis Date A-fib (CMS/HCC) Dysuria Hypertension History reviewed. No pertinent surgical history. Precautions Precautions Medical Precautions: treviño, fall risk, telemetry, IV Pain Pain Assessment Pain Assessment: No/denies pain Pain Score: 0 - No pain Cognition Cognition Overall Cognitive Status: Within Functional Limits Arousal/Alertness: Appropriate responses to stimuli Orientation Level: Oriented X4 Following Commands: Follows all commands and directions without difficulty General Assessment General Assessment Hearing: Intact Hand Dominance: Right Home Living Home Living Type of Home: [place] Lives With: Spouse Home Adaptive Equipment: Cane, Rollator (Reports the rollator is her husbands) Home Layout: One level Home Access: Stairs to enter with rails Entrance Stairs-Rails: Right Entrance Stairs-Number of Steps: 3 Bathroom Shower/Tub: Walk-in shower Bathroom Equipment: Shower chair with back, Grab bars in shower Prior Level of Function Prior Function Level of Lewis: Independent with ADLs and functional transfers, Independent with homemaking with ambulation (Drives) Prior Functional Mobility: Independent with cane ADL Assistance: Independent Homemaking Assistance: Independent Vision Basic Assessment Vision - Basic Assessment Current Vision: No visual deficits Activity Tolerance Activity Tolerance Endurance: Stage III General Assessments Activity Tolerance Endurance: Stage III Sensation Light Touch: No apparent deficits Coordination Movements are Fluid and Coordinated: Yes Postural Control Postural Control: Within Functional Limits Static Sitting Balance Static Sitting-Balance Support: Feet supported Static Sitting-Level of Assistance: Independent Dynamic Sitting Balance Dynamic Sitting-Balance Support: Feet supported, Right upper extremity supported, Left upper extremity supported Dynamic Sitting Balance-Level of Assistance: Close supervision Static Standing Balance Static Standing-Balance Support: Right upper extremity supported, Left upper extremity supported, With device (RW) Static Standing-Level of Assistance: Contact guard Dynamic Standing Balance Dynamic Standing-Balance Support: Right upper extremity supported, Left upper extremity supported, With device (RW) Dynamic Standing Balance-Level of Assistance: Minimum assistance Functional Assessments Bed Mobility Bed Mobility: Yes Bed Mobility 1 Bed Mobility From 1: Short sit Bed Mobility Type 1: To Bed Mobility to 1: Supine Level of Assistance 1: Minimum assistance Bed Mobility Comments 1: Poor eccentric trunk control when laying back in bed, extending time and effort to bring BLE up on EOB though able to complete with Min (A) x1. Transfers Transfer: Yes Transfer 1 Technique 1: Sit to stand, Stand to sit (Sit to stand from toilet, stand to sit onto the chair.) Transfer Device 1: rolling walker Transfer Level of Assistance 1: Minimum assistance Ambulation Ambulation: Yes Ambulation 1 Surface 1: Level tile Device 1: Rolling walker Assistance 1: Minimum assistance Quality of Gait 1: Fwd flexed posture, slow pace, limited step length and foot clearance. Appears to fatigue quickly Comments/Distance (ft) 1: 13 ft Extremity Assessments RUE Assessment RUE Assessment: Within Functional Limits LUE Assessment LUE Assessment: Within Functional Limits RLE Assessment RLE Assessment: Exceptions to WFL (BLE hip flexion 3-/5, BLE quadriceps 4/5) LLE Assessment LLE Assessment: Exceptions to WFL (BLE hip flexion 3-/5, BLE quadriceps 4/5) Outcome Assessments 6 Clicks (Mobility) Help from another person turning from your (more content not included)... [facility] 09-06-2022 Note Occupational Therapy Occupational Therapy Evaluation Patient Name: Ra Garcia : 1935 Today's Date: 09/06/2022 Time In: 738 Time Out: 757 Ra Garcia is an 86 y.o. female who came from home with past medical history of hypertension presented to [facility] as a direct admission from [facility] ER. Patient came to ER after a fall at home secondary to generalized weakness. There was no injuries reported. Patient was going to the bathroom, felt weak and her helped her to the ground. Patient reports feeling weak for the last 3 days, intermittent fevers and chills. She also complains of lower abdominal pain, burning with urination and flank pain. She has some nausea but no vomiting. No chest pain. She has increased shortness of breath with exertion. No headaches. Just not feeling well in general. Upon work-up in ER, patient was found to have elevated troponin, BNP and D-dimer. Patient's creatinine was also elevated at 2.9. She does not have a history of CKD. Her WBCs were 29. Unfortunately, they did not run a urine on her or started her on antibiotics. Patient's sodium was at 125. Patient's EKG also showed A-fib with RVR and she was started on Cardizem. Patient's chest x-ray was normal. . A-fib with RVR: Patient's heart rate on my exam was 100. We will resume patient's home dose of metoprolol 100 mg twice a day. We will hold on Cardizem for now. We will start heparin drip. Cardiology consult. Echo. 2. Elevated troponin: EKG shows A-fib with RVR. Patient denies chest pain. Most likely type II cardiac injury. We will recheck troponin and patient will have echo done. Cardiology will follow as well. 3. Elevated D-dimer: Venous duplex of lower extremities to rule out DVT. No hypoxia. Patient will be on anticoagulation for A-fib. 4. Leukocytosis/suspected pyelonephritis: Patient has Treviño catheter and her urine looks very cloudy. We will run a urinalysis with cultures. We will also start empirically on Rocephin. Normal saline at 75 ml/hour. CT of the abdomen because patient complains of lower abdominal pain and her abdomen is distended on exam. 5. KADI: Gentle hydration considering patient's elevated BNP. We will hold lisinopril, PPI and ibuprofen that patient was taking at home. Renal ultrasound. 6. Hyponatremia: Normal saline at 75 MLS/hour. Patient will be on regular diet. We will monitor and add IV Lasix low-dose if needed. 7. Generalized weakness/falls: Fall precautions. PT/OT, social media analyst for placement if indicated upon discharge. General Subjective: friendly and cooperative, reports generalized weakness and fatigue Patient Active Problem List Diagnosis Atrial fibrillation with RVR ([facility]) Elevated troponin Elevated d-dimer KADI (acute kidney injury) ([facility]) Pyelonephritis Bandemia Hyponatremia Generalized weakness Fall Benign essential hypertension Past Medical History: Diagnosis Date A-fib ([facility]) Dysuria Hypertension History reviewed. No pertinent surgical history. Precautions Pain Pain Assessment Pain Assessment: No/denies pain Cognition Cognition Overall Cognitive Status: Within Functional Limits General Assessment General Assessment Hand Dominance: Right Home Living Home Living Type of Home: Condo Lives With: Spouse Home Adaptive Equipment: Cane (sc, gb, [facility]) Home Layout: One level Home Access: Stairs to enter with rails (3) Bathroom Shower/Tub: Walk-in shower Prior Level of Function Prior Function Level of Lewis: Independent with ADLs and functional transfers, Independent with homemaking with ambulation (drives) Prior IADLs IADL History Homemaking Responsibilities: Yes Static Sitting Balance Static Sitting Balance Static Sitting-Level of Assistance: Independent Dynamic Sitting Balance Dynamic Sitting Balance Dynamic Sitting Balance-Level of Assistance: Close supervision Static Standing Balance Static Standing Balance Static Standing-Level of Assistance: Minimum assistance ADL ADL UE Dressing Assistance: Independent LE Dressing Assistance: Moderate Transfers Transfers Transfer: (mod A supine to sit EOB, min A :: sit to stand , standing three minutes, taking a few steps to chair and sitting) Objective General Assessments Activity Tolerance Endurance: Stage II Vision - Basic Assessment Current Vision: No visual deficits Sensation Light Touch: No apparent deficits Coordination Movements are Fluid and Coordinated: Yes Extremity Assessments RUE Assessment RUE Assessment: Within Functional Limits LUE Assessment LUE Assessment: Within Functional Limits Outcome Assessments AM-PAC 6 Clicks Putting on and taking off regular lower body clothing?: A Lot (Mod/Max Assist) Bathing(Including washing,rinsing,drying)?: A Lot (Mod/Max Assist) Toileting, which includes using the toilet,bedpan,or urinal?: A Little (Min Ass (more content not included)... [facility] 09-05-2022 Note Hospital Medicine History and Physical 09/05/2022 12:28 PM THE HOSPITALIST TEAM PREFERS TO USE [employer] FOR COMMUNICATION 7AM-7PM. IF I DO NOT RESPOND WITHIN 15 MINUTES, PLEASE PAGE ME/CALL THROUGH THE LABOR RELATIONS REPRESENTATIVE. FROM 7PM-7AM, PLEASE PAGE [phone](COVR) Chief Complaint No chief complaint on file. History of Present Illness Ra Garcia is an 86 y.o. female who came from home with past medical history of hypertension presented to [facility] as a direct admission from [facility] ER. Patient came to ER after a fall at home secondary to generalized weakness. There was no injuries reported. Patient was going to the bathroom, felt weak and her helped her to the ground. Patient reports feeling weak for the last 3 days, intermittent fevers and chills. She also complains of lower abdominal pain, burning with urination and flank pain. She has some nausea but no vomiting. No chest pain. She has increased shortness of breath with exertion. No headaches. Just not feeling well in general. Upon work-up in ER, patient was found to have elevated troponin, BNP and D-dimer. Patient's creatinine was also elevated at 2.9. She does not have a history of CKD. Her WBCs were 29. Unfortunately, they did not run a urine on her or started her on antibiotics. Patient's sodium was at 125. Patient's EKG also showed A-fib with RVR and she was started on Cardizem. Patient's chest x-ray was normal. Review of System and Physical Exam Temp: [37.4 ???C (99.4 ???F)] 37.4 ???C (99.4 ???F) Heart Rate: [100] 100 Resp: [21-28] 21 BP: (157)/(58) 157/58 Physical Exam Constitutional: Appearance: She is ill-appearing and diaphoretic. HENT: Head: Normocephalic and atraumatic. Mouth/Throat: Mouth: Mucous membranes are dry. Eyes: Conjunctiva/sclera: Conjunctivae normal. Cardiovascular: Rate and Rhythm: Tachycardia present. Rhythm irregular. Heart sounds: No murmur heard. No friction rub. No gallop. Pulmonary: Effort: Pulmonary effort is normal. No respiratory distress. Breath sounds: Rales (at the bases) present. No wheezing or rhonchi. Abdominal: General: Abdomen is flat. There is distension. Palpations: Abdomen is soft. Tenderness: There is abdominal tenderness (suprapubic). There is no guarding or rebound. Musculoskeletal: General: No swelling or deformity. Skin: General: Skin is warm. Findings: No rash. Neurological: General: No focal deficit present. Mental Status: She is alert and oriented to person, place, and time. Psychiatric: Mood and Affect: Mood normal. Behavior: Behavior normal. Thought Content: Thought content normal. Judgment: Judgment normal. Review of Systems was done and was otherwise negative, except pertinent positive findings mentioned in HPI. Problem List Patient Active Problem List Diagnosis Date Noted Atrial fibrillation with RVR ([facility]) 09/05/2022 Elevated troponin 09/05/2022 Elevated d-dimer 09/05/2022 KADI (acute kidney injury) ([facility]) 09/05/2022 Pyelonephritis 09/05/2022 Bandemia 09/05/2022 Hyponatremia 09/05/2022 Generalized weakness 09/05/2022 Fall 09/05/2022 Benign essential hypertension 09/05/2022 Assessment and Plan 1. A-fib with RVR: Patient's heart rate on my exam was 100. We will resume patient's home dose of metoprolol 100 mg twice a day. We will hold on Cardizem for now. We will start heparin drip. Cardiology consult. Echo. 2. Elevated troponin: EKG shows A-fib with RVR. Patient denies chest pain. Most likely type II cardiac injury. We will recheck troponin and patient will have echo done. Cardiology will follow as well. 3. Elevated D-dimer: Venous duplex of lower extremities to rule out DVT. No hypoxia. Patient will be on anticoagulation for A-fib. 4. Leukocytosis/suspected pyelonephritis: Patient has Treviño catheter and her urine looks very cloudy. We will run a urinalysis with cultures. We will also start empirically on Rocephin. Normal saline at 75 ml/hour. CT of the abdomen because patient complains of lower abdominal pain and her abdomen is distended on exam. 5. KADI: Gentle hydration considering patient's elevated BNP. We will hold lisinopril, PPI and ibuprofen that patient was taking at home. Renal ultrasound. 6. Hyponatremia: Normal saline at 75 MLS/hour. Patient will be on regular diet. We will monitor and add IV Lasix low-dose if needed. 7. Generalized weakness/falls: Fall precautions. PT/OT, social media analyst for placement if indicated upon discharge. 8. Hypertension: We will resume home dose of amlodipine 5 mg daily and metoprolol 100 mg twice a day. We will monitor blood pressure and adjust medications if indicated. 9. Elevated BNP: No history of CHF. Patient will have echo done. Pepcid 20 mg daily for GI prophylaxis. VTE Prophylaxis: Heparin IV ----- Focus of this inpatient stay will remain on problems that need acute care setting for care. We will review available studies and wi (more content not included)... [facility] 08-20-2021 Evaluation note Encounter Date Diagnosis Assessment Notes Aug, Abnormal weight gain (ICD-10 - R63.5) Aug, Hypertension (ICD-10 - I10) Aug, GERD (gastroesophageal reflux disease) (ICD-10 - K21.9) Aug, Elevated glucose level (ICD-10 - R73.09) Aug, Knee osteoarthritis (ICD-10 - M17.9) Aug, Obesity (BMI 35.0-39.9 without comorbidity) (ICD-10 - E66.9) [facility] Other 02-01-2015 History general Narrative - Reported* Type Description Date Medical History GERD Medical History Hypertension Medical History Stress incontinence (sees Dr. Yomaira jensen) Medical History arthritis Surgical History bladder suspension 03/2014 Surgical History cholecystectomy Surgical History appendectomy Surgical History eyes Surgical History ear surgery Surgical History hysterectomy Hospitalization History see above [employer] Other Evaluation noteNo assessment information available [facility] Work Phone: Evaluation note* Diagnosis Onset Date Resolution Status Primary osteoarthritis of left knee acute [facility] Work Phone: Summary Purpose Family History No Family History Records Found Relationship Condition Age at Onset Recorded Date/T iftikhar daughter Heart disease Unknown Unknown father Unknown Malignant neoplasm of intestine Unknown Malignant neoplasm Unknown family member Unknown mother Hypertension Unknown sister Malignant neoplasm Unknown Advance Directives No Advanced Directives Records Found Advance Directive Response Recorded Date/ Time Advance Directives No August 18 11:03am Chief Complaint and Reason for Visit Chief Complaint M25.562 - Pain in le ft knee CONSULT DR. HOBBS LT KNEE PAIN, WX Chief Complaint M25.562 - Pain in le ft knee CONSULT DR. HOBBS LT KNEE PAIN, WX [id number] M81.0 Reason for Visit Primary osteoarthrit is of left knee Additional Source Comments INFORMATION SOURCE (unrecogn ized section and content) DATE CREATED AUTHOR 08/03/2017 [facility] DATE CREATED AUTHOR AUTHOR'S ORGANIZ ATION 08/30/2017 [facility] DATE CREATED AUTHOR AUTHOR'S ORGANIZ ATION 03/09/2022 [facility] DATE CREATED AUTHOR AUTHOR'S ORGANIZ ATION 07/23/2022 [facility] DATE CREATED AUTHOR AUTHOR'S ORGANIZ ATION 09/23/2022 [facility] DATE CREATED AUTHOR AUTHOR'S ORGANIZ ATION 09/15/2023 [facility] DATE CREATED AUTHOR AUTHOR'S ORGANIZ ATION 09/18/2023 [facility] REASON FOR VISIT (unrecogniz ed section and content) WMN Initial Dr Goals (unrecognized section and content) Goals may be documented in a n alternate section Care Teams (unrecognized sec tion and content) Team Status: Active Member Role Status Alaina Byrd MD Primary Care Provider Active Team Status: Active Member Role Status Dates Ever Byrd MD Primary Care Provider Active Start: September 14, 2023 Mckenzie Shepherd II, MD Attending Provider Active Start: September 14, 2023 Team Status: Inactive Member Role Status Alaina Byrd MD Primary Care Provider Active Start: September 14, 2023 End: September 14, 2023 Mckenzie Shepherd II, MD Attending Provider Active Start: September 14, 2023 End: September 14, 2023 Team Status: Active Member Role Status Alaina Piña MD Primary Care Provider Active Team Status: Inactive Member Role Status Alaina Piña MD Primary Care Provider Active Start: September 14, 2023 End: September 14, 2023 Mckenzie Shepherd II, MD Attending Provider Active Start: September 14, 2023 End: September 14, 2023 FOR RECORDS PERTAINING TO PATIENTS WHO ARE OR HAVE BEEN ENROLLED IN A CHEMICAL DEPENDENCY/SUBSTANCEABUSE PROGRAM, SOME INFORMATION MAY BE OMITTED. This clinical summary was aggregated from multiple sources. Caution should be exercised in using it in the provision of clinical care. This summary normalizes information from multiple sources, and as a consequence, information in this document may materially change the coding, format and clinical context of patient data. In addition, data may be omitted in some cases. CLINICAL DECISIONS SHOULD BE BASED ON THE PRIMARY CLINICAL RECORDS. [facility] [employer] provides no warranty or guarantee of the accuracy or completeness of information in this document.
[2023-09-20 05:43] LABS: Bilirubin Urine NEGATIVE (NEGATIVE); Blood Urine NEGATIVE (NEGATIVE); Clarity Urine CLEAR (CLEAR); Color Urine LT. YELLOW (YELLOW); Glucose Urine UA NEGATIVE (NEGATIVE); Ketones Urine NEGATIVE (NEGATIVE); Leukocyte Esterase Urine SMALL (NEGATIVE); Nitrite Urine NEGATIVE (NEGATIVE); Protein Urine NEGATIVE (NEG/TRACE); Urobilinogen Urine 0.2 EU/dL (0.2-1.0); pH Urine 6.5 (5.0-9.0)
[2023-09-20 05:45] LABS: Urine Microscopic Indicated YES
[2023-09-20 05:49] LABS: Bacteria Urine LARGE #/HPF (NONE SEEN); Mucus Urine NONE SEEN (NONE SEEN); RBC Urine 0-2 #/HPF (0-2); Squamous Epithelial Cell Urine RARE #/LPF (NONE/RARE)
[2023-09-20 05:50] LABS: Cast Seen? NONE SEEN #/LPF (NONE SEEN); Crystals Seen? None Seen #/HPF (None Seen); Transitional Epi Cells Urine MODERATE #/LPF (NONE SEEN); Urine Culture Indicated ALREADY ORDERED
== END 2023-09-19 21:54 | disposition home or self-care (01) ==
LOC: LAB 21:53
PROVIDERS: PCP Internal Medicine
DX: N30.30 Trigonitis without hematuria (principal)
CPT/HCPCS: 81001; 87086

== ENCOUNTER 2023-10-04 22:47 | Outpatient (REF) | payer MEDICARE, OTHER, SELFPAY ==
--- OUTSIDE RECORDS SUMMARY | 2023-10-04 22:53 | XMS_ITS | CCD ---
Author Organization [facility] [place] Care Team Providers Care Central Office Operator Supervisor Name Role Phone JACQUI STODDARD Unavailable Unavailable JACQUI STODDARD Unavailable Unavailable MCKENZIE MARQUES JR Unavailable Unavailable MCKENZIE MARQUES JR Unavailable Unavailable Tor Garg Unavailable Zaria King [...] HOY ., DR CURTIS Primary Care Unavailable PEMBINE, DR PAMELLA Bowers Consulting Unavailable LULU SOTO Admitting Unavailable LULU SOTO Attending Unavailable LULU SOTO Consulting Unavailable HOY ., DR CURTIS Primary Care Unavailable LULU SOTO Attending Unavailable CHARLES LULU Admitting Unavailable WISAM DUMONT Admitting Unavailable HOY ., DR CURTIS Primary Care Unavailable WISAM DUMONT Attending Unavailable WISAM DUMONT Consulting Unavailable MARISOL SCHAEFFER Attending Unavailable WISAM DUMONT Referring Unavailable MECHELLE MCCARTNEY Attending Unavailable JHONATAN HAINES Admitting Unavailable SHERRILLMECHELLE MAS Referring Unavailable ZHUKIVSKA, USHA M Referring Unavailabl e ZHUKIVSKA, USHA M Referring Unavailabl e ZHUKIVSKA, USHA M Referring Unavailabl e ZHUKIVSKA, USHA M Referring Unavailabl e HARRISKIVSKA, USHA M Referring Unavailabl e MD Ever Byrd Primary Care Provider [phone] MD Mckenzie Shepherd II Attending Provider [phone] MD Trice Piña Primary Care Provider SHAIKH PIÑA Attending Unavailable ORACIO, JAMES Duke Attending Unavailable FRANKLYNWQI, Referring Unavailable MARISELA BUSBY Attending Unavailable BALWINDER, Attending Unavailable FAJATINDER, Attending Unavailable PETJUHI MAYS Attending Unavailable ANH BENOIT Attending Unavailabl e BALWINDER, Attending Unavailable Mckenzie Shepherd II Attending Unavailabl Ever Ordoñez Primary Care Unavailable Mckenzie Shepherd II Admitting Unavailabl e Shaikh Piña Primary Care Unavailable Mckenzie Shepherd II Admitting Unavailabl e Mckenzie Shepherd II Attending Unavailabl e Allergies Allergy Classification Reported Allergen(s) Allergy Type Date of Onset Reaction(s) Facility (7 sources) aspirin; Translations: [aspirin] Drug Allergy 2 pain [facility] Repository (4 sources) Penicillins; Translations: [penicillins] Drug allergy (disorder) 2 [facility] Repository (1 source) chicken derived Drug allergy (disorder) 2 [facility] Repository (4 sources) Penicillin G Drug Allergy 4 [facility] (1 source) Aspir-81 Drug allergy Unknown [facility] Other (2 sources) Ciprofloxacin; Translations: [ciprofloxacin] Drug Allergy 3 [facility] Repository (1 source) Eucalyptus extract; Translations: [eucalyptus topical] Drug Allergy [facility] Repository (1 source) Mold Extract; Translations: [Mold] Drug Allergy [facility] Repository (1 source) Milk Products; Translations: [Milk Products] Food allergy (disorder) [facility] Repository (2 sources) aloe vera; Translations: [aloe vera] Propensity to adverse reactions (disorder) 3 [facility] Repository (1 source) Chicken; Translations: [Chicken] Food allergy (disorder) [facility] Repository (4 sources) Aloe Extract Drug Allergy 5 itch [facility] Repository (1 source) Ciprofloxacin Drug Allergy 5 [facility] Repository (2 sources) egg extract; Translations: [EGG] Drug Allergy 5 [facility] Repository (2 sources) Eucalyptus extract; Translations: [EUCALYPTUS] Drug Allergy 3 [facility] Repository (1 source) Quinolones (Antibiotic); Translations: [QUINOLONES] Propensity to adverse reactions to drug (disorder) 3 [facility] Repository (1 source) Aloe Extract Drug Allergy 4 [facility] Repository (1 source) Aspirin Drug Allergy 4 [facility] Repository (1 source) Penicillin Drug Allergy 4 [facility] Repository Medications Current Medications Medication Drug Class(es) Dates Sig (Normalized) Sig (Original) amLODIPine (4 sources) Dihydropyridine Calcium Channel Fer Start: 09-14-2023 Amlodipine Active MG PO September 14, 2023 12:00am take 1 tablet by heather th every twenty-four hours amLODIPine Besylate 5 MG 1 tablet Orally Once a day Active Calcium (1 source) Phosphate Binder, Calcium Calcium Active estrogens, conjugated (snf) 0.625 mg oral tablet (1 source) Estrogen [...] tablet (3 sources) Quinolone Antimicrobial Start: 09-14-19 24 Levofloxacin Active MG PO September 14, 2023 12:00am lisinopril 20 mg oral tablet (1 source) Angiotensin Converting Enzyme Inhibitor take 1 tablet by mouth every twenty-four hours Lisinopril 20 MG 1 tab(s) Orally Once a day Active metoprolol tartrate 100 mg oral tablet (4 sources) beta-Adrenergic Fer Start: 09-14-19 24 Metoprolol Tartrate Active MG PO September 14, 2023 12:00am take 1 tablet by heather th every twelve hours Metoprolol Tartrate 100 MG 1 tablet Oral ly Twice a day Active Move [facility] - (1 source) Move [facility] Advance - as directed Orally Active [...] reflux disease without esophagitis] Onset: 08-20-2021 Resolved: 07-07-2022 Chronic Essential hypertension (6 sources) Hypertensive disorder; [...] 09-14-2023 Chronic Other aftercare (2 sources) Other moth exterminator (current) drug therapy; Translations: [OTH METAL MODEL MAKER CURRENT DRUG THERAPY] Onset: 10-05-2021 Episodic Other aftercare (3 sources) Long-term current use of drug therapy; Translations: [Other moth exterminator (current) drug therapy] 09-14-2023 Episodic Other non-traumatic [...] Range Facility A1C with Estimated Average G [facility] 09-14-2023 Glucose [Mass/Vol] 111 mg/dL Normal [facility] Comment on above: Result Comment: PERF ORMED BY: [place] [address] PATHOLOGIST CARPET SEWER KELLY PEREA M.D. Performed By: #### H GB, ALB, CUMRSA, [id number], A1C WTH eA #### [place] [address] [place] #### NICOTINE #### [facility] , Albumin Levelon 09-14-2023 Albumin [Mass/Vol] 4.7 g/dL Normal 3.5-5.7 [facility] Comment on above: Performed By: #### H GB, ALB, CUMRSA, [id number], A1C WTH eA #### [address] #### NICOTINE #### [facility] , Albumin [Mass/volume] in Ser um or Plasma by Bromocresol green (BCG) dye binding methoOrdered By: Mckenzie Shepherd on 09-14-2023 Albumin BCG dye [Mass/Vol] 4.7 g/dL 3.5-5.7 [facility] Glucose mean value [Mass/vol ume] in Blood Estimated from glycated hemoglobinOrdered By: Mckenzie Shepherd on 09-14-2023 Average glucose Estimated from glycated hemoglobin (Bld) [Mass/Vol] 111 mg/dL [facility] Hemoglobin A1c percentageOrd ered By: Mckenzie Shepherd on 09-14-2023 HbA1c (Bld) [Mass fraction] 5.5 % Normal 4.3-5.6 [facility] Comment on above: Increased risk for d iabetes: 5.7 - 6.4diabetes: >6.4glycemic control for adults with diabetes: <7.0 Result Comment: Incr eased risk for diabetes: 5.7 - 6.4 diabetes: >6.4 glycemic control for adults with diabetes: <7.0 Performed By: #### H GB, ALB, CUMRSA, [id number], A1C WTH eA #### [place] [address] [place] #### NICOTINE #### [facility] , Hemoglobin [Mass/volume] in BloodOrdered By: Mckenzie Shepherd on 09-14-2023 Hemoglobin (Bld) [Mass/Vol] 11.7 g/dL Low 11.8-15.4 [facility] Comment on above: Result Comment: PERF ORMED BY: [place] [address] PATHOLOGIST CARPET SEWER KELLY PEREA M.D. Performed By: #### H GB, ALB, CUMRSA, [id number], A1C WTH eA #### [address] #### NICOTINE #### [facility] , MRSA Cultureon 09-14-2023 MRSA Culture MRSA Culture Results No MRSA Isolated 2 Days PERFORMED BY: [place] [address] PATHOLOGIST CARPET SEWER KELLY PEREA M.D. Normal [facility] Comment on above: Performed By: #### H GB, ALB, CUMRSA, [id number], A1C WTH eA #### [place] [address] [place] #### NICOTINE #### [facility] , Nicotine/Cotinine Bloodon Cotinine, Blood <1.0 Normal . [facility] Comment on above: Result Comment: This test was developed and its performance characteristics determined by [facility]. It has not been cleared or approved by the Food and Drug Administration. Cotinine levels greater than 20.0 are consistent with the use of tobacco or tobacco cessation products. Performed at: [address] [id number] [employer] Sales Representative: Carole Herrera MD, Phone: [phone] PERFORMED BY: [place] [address] PATHOLOGIST CARPET SEWER KELLY PEREA M.D. Performed By: #### H GB, ALB, CUMRSA, [id number], A1C WTH eA #### [place] [address] [place] #### NICOTINE #### [facility] , Nicotine, Blood <1.0 Normal . [facility] Comment on above: Result Comment: This test was developed and its performance characteristics determined by [facility]. It has not been cleared or approved by the Food and Drug Administration. Nicotine levels greater than 2.0 are consistent with the use of tobacco or tobacco cessation products. Performed By: #### H GB, ALB, CUMRSA, [id number], A1C WTH eA #### [facility] [address] [place] [id number] [place] #### NICOTINE #### [facility] , Vitamin D 25 Hydroxy Totalon 09-14-2023 Vitamin D 25 Hydroxy Total 50.3 ng/mL Normal 30-100 [facility] Comment on above: Result Comment: YOANNA MIN D STATUS 25(OH)VITAMIN D RANGE (ng/mL) Deficient <20 Insufficient 20 to <30 Sufficient 30 to 100 Reference: Ronn Cardona, Orquidea WHITE, et al. Evaluation,treatment, and prevention of vitamin D deficiency; an Endocrine Society clinical practice guideline. JCEM. 2010; 96(7):191-. PERFORMED BY: [place] [address] PATHOLOGIST CARPET SEWER KELLY PEREA M.D. Performed By: #### H GB, ALB, CUMRSA, [id number], A1C WTH eA #### [facility] [address] [place] [id number] [facility] #### NICOTINE #### [facility] , Vitamin D+Metabolites [Mass/ volume] in Serum or PlasmaOrdered By: Mckenzie Shepherd on 09-14-2023 Vitamin D+Metabolites [Mass/Vol] 50.3 ng/mL 30-100 [facility] Comment on above: VITAMIN D STATUS 25( OH)VITAMIN D RANGE (ng/mL) Deficient <20 Insufficient 20 to <30Sufficient 30 to 100Reference: Ronn Cardona, Orquidea WHITE, et al. Evaluation,treatment, and prevention of vitamin D deficiency; an Endocrine Society clinical practice guideline. JCEM. 2010; 96(7):191-. XR knee LT 4V*on 09-14-2023 XR knee LT 4V* [facility] [address] [place] [id number] XRay Report Signed Patient: Ra Garcia MR#: [id number] : 1935 Acct:[id number] Age/Sex: 87 / F ADM Date: 09/14/23 Loc: [facility] Room: Type: [facility] Attending Dr: Mckenzie Shepherd II, MD Copies to: Mckenzie Shepherd MD Ordering Provider: Mckenzie Shepherd MD Date of Service: 09/14/23 XR/XR pelvis 1-2V: M25.562 - Pain in left knee ([id number]) XR/XR knee LT 4V*: M25.562 - Pain [...] PROCESS. Impression dictated by: Ermias Darling Jr., DChingOChing09/14/2023 2:53 PM Dictation Location: [place] [address] Transcribed By: [facility] 09/14/23 145 Dictated By: Ermias Darling Jr, DO 09/14/23 1452 Signed By: 09/14/23 1453 [facility] Office Visiton 09-22-2022 Follow-up visit [id number] Ra Garcia 1935 F Date Provider Department Center 09/22/2022 120-MARISOL SCHAEFFER CARD [facility] No family history on file Level of Service:56285 [place] OFFICE/OUTPATIENT ESTABLISHED MOD MDM 30-39 MIN Reason for Visit and Comments: Follow-up [153421] - Pt was in hospital [facility] 30on 09-12-2022 30 The patient is Moderately [...] baseline comfort level Outcome: Progressing Flowsheets (Taken 09/10/2022 2042 by Barbie Asif RN) Verbalizes/displays adequate comfort level or baseline comfort [...] Flowsheets (Taken 09/10/20222099 by Barbie Asif RN) Care Plan - Patient's Chronic Conditions and [...] and prevent overall improvement and discharge Normal [facility] BASIC METABOLIC PANELon 07-3 Anion gap [Moles/Vol] 12 mmol/L Normal 7-20 [facility] Comment on above: Performed By: #### L AB15 ####[facility] (BEAKER)[address] [place] [address] Calcium [Mass/Vol] 8.9 mg/dL Normal 8.6-10.3 [facility] Comment on above: Performed By: #### L AB15 ####[facility] (BEAKER)[address] [place] [address] Chloride [Moles/Vol] 102 mmol/L Normal 98-107 [facility] Comment on above: Performed By: #### L AB15 ####[facility] [place] [address] CO2 [Moles/Vol] 24 mmol/L Normal 21-31 [facility] Comment on above: Performed By: #### L AB15 ####[facility] [place] [address] Creatinine [Mass/Vol] 3.00 mg/dL High 0.60-1.20 [facility] Comment on above: Performed By: #### L AB15 ####[facility] ([facility])[address] [place] [address] GLOMERULAR FILTRATION RATE ML/MIN/1.73 SQ M.PREDICTED 14.9 mL/min/1.73m*2 Low >60.0 [facility] Comment on above: Result Comment: The [facility]???s estimated glomerular filtration rate (eGFR) will no [...] of individuals. Performed By: #### L AB15 ####[facility] [place] [address] Glucose [Mass/Vol] 114 mg/dL High 70-100 [facility] Comment on above: Performed By: #### L AB15 ####[facility] (BEAKER)[address] [place] [address] Potassium [Moles/Vol] 3.3 mmol/L Low 3.5-5.1 [facility] Comment on above: Performed By: #### L AB15 ####[facility] ([facility])[address] [place] [address] Sodium [Moles/Vol] 135 mmol/L Low 136-145 [facility] Comment on above: Performed By: #### L AB15 ####[facility] (BEAKER)[address] [place] [address] Urea nitrogen [Mass/Vol] 62 mg/dL High 7-25 [facility] Comment on above: Performed By: #### L AB15 ####[facility] (BEAKER)[address] [place] [address] UREA NITROGEN/CREATININE (MASS RATIO) IN SER/PLAS 20.7 Normal [facility] Comment on above: Performed By: #### L AB15 ####[facility] [place] [address] CBCon 09-12-2022 Erythrocyte distribution width (RBC) [Ratio] 14.6 % Normal 11.5-15.0 [facility] Comment on above: Performed By: #### L [id number] ####[facility] (BEAKER)[address] [place] [address] ERYTHROCYTE MEAN CORPUSCULAR HEMOGLOBIN CONCENTRATION (G/DL) BY AUTOMATED 34.5 g/dL Normal 32.0-35.0 [facility] Comment on above: Performed By: #### L [id number] ####[facility] (BEAKER)[address] [place] [address] Hematocrit (Bld) [Volume fraction] 26.7 % Low 36.0-48.0 [facility] Comment on above: Performed By: #### L [id number] ####[facility] (BEAKER)[address] [place], [place] [address] Hemoglobin (Bld) [Mass/Vol] 9.2 g/dL Low 12.0-15.0 [facility] Comment on above: Performed By: #### L [id number] ####[facility] (BEAKER)[address] [place] [address] MCH (RBC) [Entitic mass] 28.3 pg Normal 27.0-33.0 [facility] Comment on above: Performed By: #### L [id number] ####[facility] [place] [address] MCV (RBC) [Entitic vol] 82.2 fL Normal 82.0-98.0 [facility] Comment on above: Performed By: #### L [id number] ####[facility] ([facility])[address] [place] [address] PLATELETS (10*3/UL) IN BLOOD AUTOMATED COUNT 356 10*3/uL Normal 150-400 [facility] Comment on above: Performed By: #### L [id number] ####[facility] ([facility])[address] [place] [address] RBC (Bld) [#/Vol] 3.25 10*6/uL Low 3.80-5.00 [facility] Comment on above: Performed By: #### L [id number] ####[facility] ([facility])[address] [place] [address] WBC (Bld) [#/Vol] 26.13 10*3/uL High 4.00-10.60 [facility] Comment on above: Performed By: #### L [id number] ####[facility] ([facility])[address] [place] [address] 30on 09-11-2022 30 Daily Case Managemen t Update Multidisciplinary rounds have been completed. Barriers to Discharge: Pending medical optimization. DC on hold per Nephrology, watching patient overnight and rechecking Creatinine level. Possible DC home tomorrow with [facility]. Diet: Dietary Orders (From admission, onward) [...] Select all services needed for the patient Long Term Facility (30 day convalescent stay) Please indicate your approval for this care by adding your name here: JHONATAN HAINES 09/05/22 1212 Therapy Orders (From admission, onward) Start Ordered 09/05/22 1204 PT eval and treat Until therapy completed Question: Reason for PT? Answer: falls 09/05/22 1212 09/05/22 1204 OT eval and treat Until therapy completed Question: Reason for OT? Answer: falls 09/05/22 1212 Normal [facility] 30 The patient is Moderately Stable - Low risk of patient condition declining or worsening The patient's goals for the shift include Comfort The clinical goals for the shift include VSS Normal [facility] 30 The patient is Moderately Unstable - Medium risk of patient condition declining or worsening The patient's goals for the shift include Comfort The clinical goals for the shift include VSS Normal [facility] BASIC METABOLIC PANELon 07- Anion gap [Moles/Vol] 14 mmol/L Normal 7-20 [facility] Comment on above: Performed By: #### L AB15 #### [facility] ([facility]) [address] [place] [address] Calcium [Mass/Vol] 9.0 mg/dL Normal 8.6-10.3 [facility] Comment on above: Performed By: #### L AB15 #### [facility] [address] [place] [address] Chloride [Moles/Vol] 102 mmol/L Normal 98-107 [facility] Comment on above: Performed By: #### L AB15 #### [facility] ([facility]) [address] [place] [address] CO2 [Moles/Vol] 22 mmol/L Normal 21-31 [facility] Comment on above: Performed By: #### L AB15 #### [facility] ([facility]) [address] [place] [address] Creatinine [Mass/Vol] 3.69 mg/dL High 0.60-1.20 [facility] Comment on above: Performed By: #### L AB15 #### [facility] ([facility]) [address] [place] [address] GLOMERULAR FILTRATION RATE ML/MIN/1.73 SQ M.PREDICTED 11.6 mL/min/1.73m*2 Low >60.0 [facility] Comment on above: Result Comment: The [facility]???s estimated glomerular filtration rate (eGFR) will no [...] individuals. Performed By: #### L AB15 #### [facility] [address] [place] [address] Glucose [Mass/Vol] 105 mg/dL High 70-100 [facility] Comment on above: Performed By: #### L AB15 #### [facility] ([facility]AKER) [address] [place] [address] Potassium [Moles/Vol] 3.9 mmol/L Normal 3.5-5.1 [facility] Comment on above: Performed By: #### L AB15 #### [facility] (BEAKER) [address] [place] [address] Sodium [Moles/Vol] 134 mmol/L Low 136-145 [facility] Comment on above: Performed By: #### L AB15 #### [facility] (BEAKER) [address] [place] [address] Urea nitrogen [Mass/Vol] 73 mg/dL High 7-25 [facility] Comment on above: Performed By: #### L AB15 #### [facility] (BE[facility]ER) [address] [place] [address] UREA NITROGEN/CREATININE (MASS RATIO) IN SER/PLAS 19.8 Normal [facility] Comment on above: Performed By: #### L AB15 #### [facility] (BEAKER) [address] [place] [address] 30on 09-10-2022 30 Daily Case Managemen t [...] Select all services needed for the patient Long Term Facility (30 day convalescent stay) Please indicate your approval for this care by adding your name here: JHONATNA HAINES 09/05/22 1212 Therapy Orders (From admission, onward) Start Ordered 09/05/22 1204 PT eval and treat Until therapy completed Question: Reason for PT? Answer: falls 09/05/22 1212 09/05/22 1204 OT eval and treat Until therapy completed Question: Reason for OT? Answer: falls 09/05/22 1212 [facility] 30 Rolling walker script, face sheet and face to face faxed to [facility]. 16:45 Verified with Curt at [facility] that clinical for walker was received and that they were able to supply pt with a walker on discharge. [facility] 30 Problem: Pain - Adul t Goal: Verbalizes/displays adequate comfort level or baseline comfort level Outcome: Progressing Flowsheets (Taken 09/10/2022731) Verbalizes/displays adequate comfort level or baseline comfort level: Assess pain using appropriate pain scale Administer analgesics based on type and severity of pain and evaluate response Problem: Safety - Adult Goal: Free from fall injury Outcome: Progressing Flowsheets (Taken 09/10/2022 07) Free from fall injury: Identify cognitive and physical deficits and behaviors that affect risk of falls [place] fall precautions as indicated by assessment Problem: [...] goals for the shift include VSS Normal [facility] BASIC METABOLIC PANELon - Anion gap [Moles/Vol] 15 mmol/L Normal - [facility] Comment on above: Performed By: #### L AB15 ####[facility] ([facility])[address] [place] [address] Calcium [Mass/Vol] 8.9 mg/dL Normal 8.6-10.3 [facility] Comment on above: Performed By: #### L AB15 ####[facility] ([facility])[address] [place] [address] Chloride [Moles/Vol] 99 mmol/L Normal 98-107 [facility] Comment on above: Performed By: #### L AB15 ####[facility] ([facility])[address] [place] [address] CO2 [Moles/Vol] 21 mmol/L Normal 21-31 [facility] Comment on above: Performed By: #### L AB15 ####[facility] ([facility])[address] [place] [address] Creatinine [Mass/Vol] 4.10 mg/dL High 0.60-1.20 [facility] Comment on above: Performed By: #### L AB15 ####[facility] ([facility])[address] [place] [address] GLOMERULAR FILTRATION RATE ML/MIN/1.73 SQ M.PREDICTED 10.2 mL/min/1.73m*2 Low >60.0 [facility] Comment on above: Result Comment: The [facility]???s estimated glomerular filtration rate (eGFR) will no [...] of individuals. Performed By: #### L AB15 ####[facility] ([facility] [facility])[address] [place] [address] Glucose [Mass/Vol] 145 mg/dL High 70-100 [facility] Comment on above: Performed By: #### L [id number] ####[facility] ([facility])[address] [place] [address] Potassium [Moles/Vol] 3.5 mmol/L Normal 3.5-5.1 [facility] Comment on above: Performed By: #### L [id number] ####[facility] ([facility])[address] [place] [address] Sodium [Moles/Vol] 131 mmol/L Low 136-145 [facility] Comment on above: Performed By: #### L [id number] ####[facility] ([facility])[address] [place] [address] Urea nitrogen [Mass/Vol] 72 mg/dL High 7-25 [facility] Comment on above: Performed By: #### L [id number] ####[facility] ([facility])[address] [place] [address] UREA NITROGEN/CREATININE (MASS RATIO) IN SER/PLAS 17.6 Normal [facility] Comment on above: Performed By: #### L [id number] ####[facility] ([facility])[address] [place] [address] CBCon 09-10-2022 Erythrocyte distribution width (RBC) [Ratio] 14.6 % Normal 11.5-15.0 [facility] Comment on above: Performed By: #### L [id number] ####[facility] (BEAKER)[address] [address] ERYTHROCYTE MEAN CORPUSCULAR HEMOGLOBIN CONCENTRATION (G/DL) BY AUTOMATED 33.9 g/dL Normal 32.0-35.0 [facility] Comment on above: Performed By: #### L [id number] ####[facility] (BEAKER)[address] [address] Hematocrit (Bld) [Volume fraction] 28.6 % Low 36.0-48.0 [facility] Comment on above: Performed By: #### L [id number] ####[facility] (BEAKER)[address] [address] Hemoglobin (Bld) [Mass/Vol] 9.7 g/dL Low 12.0-15.0 [facility] Comment on above: Performed By: #### L [id number] ####[facility] ([facility] [place] [address] MCH (RBC) [Entitic mass] 27.7 pg Normal 27.0-33.0 [facility] Comment on above: Performed By: #### L [id number] ####[facility] (BEAKER)[address] [place], [place] [address] MCV (RBC) [Entitic vol] 81.7 fL Low 82.0-98.0 [facility] Comment on above: Performed By: #### L [id number] ####[facility] [place] [address] PLATELETS (10*3/UL) IN BLOOD AUTOMATED COUNT 312 10*3/uL Normal 150-400 [facility] Comment on above: Performed By: #### L [id number] ####[facility] (BE[facility]ER)[address] [place] [address] RBC (Bld) [#/Vol] 3.50 10*6/uL Low 3.80-5.00 [facility] Comment on above: Performed By: #### L [id number] ####[facility] (BEAKER)[address] [place] [address] WBC (Bld) [#/Vol] 27.87 10*3/uL High 4.00-10.60 [facility] Comment on above: Performed By: #### L [id number] ####[facility] (BEAKER)[address] [address] NURSNOTEon 09-10-2022 NURSNOTE Pt. Refusing her noo n medications and her vital signs to be taken. notified. Pharmacy stated that as long as patient was given the iv antibiotic Safety Maintained. [facility] NURSNOTE Pt. In bathroom calling for help to get back to bed. Improvement Intern encouraged patient to wipe herself as her wishes were to go home with home health. Pt. Becomes upset and insists it is writers job to wipe her. Improvement Intern encouraged patient to try on her own because there will not be someone at her house all the time that will be able to help. PT OT strongly recommended that the patient consider inpatient rehab. Patient is refusing to go anywhere but home. Patient is extremely upset with law writer for encouraging her to do things on her own. Patient states please leave my room and leave me alone. Improvement Intern attempted to place patient back on monitor and patient refuses at this time. Physician messaged. Safety Maintained. [facility] 30on 09-09-2022 30 The patient is Moderately Stable - Low risk of patient condition declining or worsening The patient's goals for the shift include Comfort/rest The clinical goals for the shift include VSS Over the shift, the patient did make progress toward the following goals. [facility] 30 Daily Case Managemen t Update Multidisciplinary rounds have been completed. Barriers to Discharge: pending improvement of hyponatremia & kidney functions. Sodium today is 132. Replacing potassium. Patient is refusing SNF placement but is agreeable to [facility]; Natalee corey is accepting. Therapy recommended [...] now Question: Room Service? Answer: Yes 09/05/22 121 Physician Expected Discharge Date: 09/10/2022 Discharge Delays: [...] Select all services needed for the patient Long Term Facility (30 day convalescent stay) Please indicate your approval for this care by adding your name here: JHONATAN HAINES 09/05/22 1212 Therapy Orders (From admission, onward) Start Ordered 09/05/22 1204 PT eval and treat Until therapy completed Question: Reason for PT? Answer: falls 09/05/22 1212 09/05/22 1204 OT eval and treat Until therapy completed Question: Reason for OT? Answer: falls 09/05/22 1212 Normal [facility] 30 The patient is Moderately Stable - Low risk of patient condition declining or worsening The patient's goals for the shift include Rest/sleep The clinical goals for the shift include VSS, comfort Over the shift, the patient did not make progress toward the following goals. Barriers to progression include . Recommendations to address these barriers include . Normal [facility] BASIC METABOLIC PANELon - Anion gap [Moles/Vol] 14 mmol/L Normal 09-02 [facility] Comment on above: Performed By: #### L [id number] ####[facility] ([facility]ER)[address] [place] [address] Calcium [Mass/Vol] 8.5 mg/dL Low 8.6-10.3 [facility] Comment on above: Performed By: #### L [id number] ####[facility] ([facility])[address] [place] [address] Chloride [Moles/Vol] 100 mmol/L Normal 98-107 [facility] Comment on above: Performed By: #### L [id number] ####[facility] ([facility])[address] [place] [address] CO2 [Moles/Vol] 21 mmol/L Normal 21-31 [facility] Comment on above: Performed By: #### L [id number] ####[facility] ([facility])[address] [place] [address] Creatinine [Mass/Vol] 4.48 mg/dL High 0.60-1.20 [facility] Comment on above: Performed By: #### L [id number] ####[facility] ([facility])[address] [place] [address] GLOMERULAR FILTRATION RATE ML/MIN/1.73 SQ M.PREDICTED 9.2 mL/min/1.73m*2 Low >60.0 [facility] Comment on above: Result Comment: The [facility]???s estimated glomerular filtration rate (eGFR) will no [...] of individuals. Performed By: #### L [id number] ####[facility] ([facility])[address] [place] [address] Glucose [Mass/Vol] 110 mg/dL High 70-100 [facility] Comment on above: Performed By: #### L [id number] ####[facility] ([facility])[address] [place] [address] Potassium [Moles/Vol] 3.1 mmol/L Low 3.5-5.1 [facility] Comment on above: Performed By: #### L [id number] ####[facility] [place] [address] Sodium [Moles/Vol] 132 mmol/L Low 136-145 [facility] Comment on above: Performed By: #### L [id number] ####[facility] ([facility])[address] [place] [address] Urea nitrogen [Mass/Vol] 74 mg/dL High 7-25 [facility] Comment on above: Performed By: #### L [id number] ####[facility] ([facility])[address] [place] [address] UREA NITROGEN/CREATININE (MASS RATIO) IN SER/PLAS 16.5 Normal [facility] Comment on above: Performed By: #### L [id number] ####[facility] ([facility])[address] [place] [address] CBC WITH AUTO DIFFERENTIALon 09-09-2022 Erythrocyte distribution width (RBC) [Ratio] 14.3 % Normal 11.5-15.0 [facility] Comment on above: Performed By: #### L [id number] #### [facility] [address] [place] [address] ERYTHROCYTE MEAN CORPUSCULAR HEMOGLOBIN CONCENTRATION (G/DL) BY AUTOMATED 34.6 g/dL Normal 32.0-35.0 [facility] Comment on above: Performed By: #### L [id number] #### [facility] ([facility]) [address] [place] [address] Hematocrit (Bld) [Volume fraction] 28.0 % Low 36.0-48.0 [facility] Comment on above: Performed By: #### L [id number] #### [facility] [address] [place] [address] Hemoglobin (Bld) [Mass/Vol] 9.7 g/dL Low 12.0-15.0 [facility] Comment on above: Performed By: #### L [id number] #### [facility] ([facility]) [address] [place] [address] MCH (RBC) [Entitic mass] 28.0 pg Normal 27.0-33.0 [facility] Comment on above: Performed By: #### L [id number] #### [facility] ([facility]) [address] [place] [address] MCV (RBC) [Entitic vol] 80.9 fL Low 82.0-98.0 [facility] Comment on above: Performed By: #### L [id number] #### [facility] ([facility]) [address] [place] [address] NRBC (PER 100 WBCS) BY AUTOMATED COUNT 0.0 % Normal 0 [facility] Comment on above: Performed By: #### L [id number] #### [facility] ([facility]) [address] [place] [address] PLATELETS (10*3/UL) IN BLOOD AUTOMATED COUNT 279 10*3/uL Normal 150-400 [facility] Comment on above: Performed By: #### L [id number] #### [facility] ([facility]) [address] [place] [address] RBC (Bld) [#/Vol] 3.46 10*6/uL Low 3.80-5.00 [facility] Comment on above: Performed By: #### L [id number] #### [facility] ([facility]) [address] [address] WBC (Bld) [#/Vol] 31.87 10*3/uL High 4.00-10.60 [facility] Comment on above: Performed By: #### L [id number] #### [facility] ([facility]) [address] [address] HEMOGLOBIN A1Con 09-09-2022 Glucose [Mass/Vol] 117 mg/dL Normal [facility] Comment on above: Performed By: #### L [id number] #### [facility] ([facility]) [address], [place] [address] HbA1c (Bld) [Mass fraction] 5.7 % Normal 4.0-6.0 [facility] Comment on above: Performed By: #### L [id number] #### [facility] ([facility]) [address], [place] [address] MANUAL DIFFERENTIALon 2022 BASOPHILS (10*3/UL) IN BLOOD BY CALCULATION 0.00 10*3/uL Normal 0.00-0.20 [facility] Comment on above: Performed By: #### L [id number] ####[facility] ([facility])[address] [place] [address] BASOPHILS/100 LEUKOCYTES IN BLOOD BY AUTOMATED COUNT 0.0 % Normal 0.0-1.0 [facility] Comment on above: Performed By: #### L [id number] ####[facility] ([facility])[address] [place] [address] EOSINOPHILS (10*3/UL) IN BLOOD BY CALCULATION 0.32 10*3/uL Normal 0.00-0.50 [facility] Comment on above: Performed By: #### L [id number] ####[facility] ([facility])[address] [place] [address] EOSINOPHILS/100 LEUKOCYTES IN BLOOD BY AUTOMATED COUNT 1.0 % Normal 0.0-6.0 [facility] Comment on above: Performed By: #### L [id number] ####[facility] ([facility])[address] [place] [address] IMMATURE GRANULOCYTES (10*3/UL) IN BLOOD BY CALCULATION 2.20 10*3/uL High 0.00-0.20 [facility] Comment on above: Performed By: #### L [id number] ####[facility] ([facility])[address] [place] [address] LYMPHOCYTES (10*3/UL) IN BLOOD BY CALCULATION 0.64 10*3/uL Low 1.20-4.00 [facility] Comment on above: Performed By: #### L [id number] ####[facility] ([facility])[address] [place] [address] LYMPHOCYTES/100 LEUKOCYTES IN BLOOD BY AUTOMATED COUNT 2.0 % Low 20.0-45.0 [facility] Comment on above: Performed By: #### L [id number] ####[facility] ([facility])[address] [place] [address] MONOCYTES (10*3/UL) IN BLOOD BY CALCUATION 1.91 10*3/uL High 0.10-1.00 [facility] Comment on above: Performed By: #### L [id number] ####[facility] ([facility])[address] [place] [address] MONOCYTES/100 LEUKOCYTES IN BLOOD BY AUTOMATED COUNT 6.0 % Normal 5.0-12.0 [facility] Comment on above: Performed By: #### L [id number] ####[facility] ([facility])[address] [place] [address] NEUTROPHILS (10*3/UL) IN BLOOD BY CALCULATION 29.0 10*3/uL High 1.6-7.6 [facility] Comment on above: Performed By: #### L [id number] ####[facility] ([facility])[address] [place] [address] NEUTROPHILS/100 LEUKOCYTES IN BLOOD BY AUTOMATED COUNT 91.0 % High 40.0-72.0 [facility] Comment on above: Performed By: #### L [id number] ####[facility] [place] [address] PLASMA CELLS/100 LEUKOCYTES IN BLOOD 0 % Normal 0 [facility] Comment on above: Performed By: #### L [id number] ####[facility] [place] [address] PLATELETS GIANT PRESENCE IN BLOOD BY LIGHT MICROSCOPY Present Normal [facility] Comment on above: Performed By: #### L [id number] ####[facility] [place] [address] VARIANT LYMPHOCYTES (10*3/UL) IN BLOOD BY CALCULATION 0.00 10*3/uL Normal 0.00 [facility] Comment on above: Performed By: #### L [id number] ####[facility] (BEAKER)[address] [place] [address] VARIANT LYMPHOCYTES/100 LEUKOCYTES IN BLOOD CELLAVISION 0.0 % Normal 0.0-0.0 [facility] Comment on above: Performed By: #### L [id number] ####[facility] (BEAKER)[address] [place] [address] 30on 09-08-2022 30 The patient is Moderately Stable - Low risk of patient condition declining or worsening The patient's goals for the shift include Rest/sleep The clinical goals for the shift include VSS, comfort Over the shift, the patient did make progress toward the following goals. Normal [facility] 30 Daily Case Managemen t Update Multidisciplinary [...] Select all services needed for the patient Long Term Facility (30 day convalescent stay) Please indicate your approval for this care by adding your name here: JHONATAN HAINES 09/05/22 1212 Therapy Orders (From admission, onward) Start Ordered 09/05/22 1204 PT eval and treat Until therapy completed Question: Reason for PT? Answer: falls 09/05/22 1212 09/05/22 1204 OT eval and treat Until therapy completed Question: Reason for OT? Answer: falls 09/05/22 1212 Normal [facility] 30 The patient is Moderately Stable - [...] maintained within normal limits Outcome: Progressing Normal [facility] ANAon 09-08-2022 RAMÍREZ TITER <1:40 Normal <=1:40 [facility] Comment on above: Result Comment: Test performed using BOO IFA RAMÍREZ Hep-2 Test, a pre-standardized assay designed for the qualitative and semi-quantitative detection of antinuclear antibodies. Performed By: #### L [id number] ####[facility] (BEAKER)[address] [place] [address] ANCA-ASSOCIATED VASCULITIS P ROFILEon 09-08-2022 ANCA IFA PATTERN Not detected Normal None Detected [facility] Comment on above: Result Comment: INTE RPRETIVE INFORMATION: ANCA IFA Pattern Neutrophil Cytoplasmic Antibodies (C-ANCA = granular cytoplasmic staining, P-ANCA = perinuclear staining) are found in the serum of over 90 percent of patients with certain necrotizing systemic vasculitides, and usually in less than 5 percent of patients with collagen vascular disease or arthritis. Performed By: [facility] [employer] [address] [place] [id number] Can Feeder: Cheo Braun MD, PhD Performed By: #### L [id number] #### [facility] ([facility]) [address] [place] [address] ANCA IFA TITER <1:20 Normal <1:20 [facility] Comment on above: Performed By: #### L [id number] #### [facility] ([facility]) [address] [place] [address] MYELOPEROXIDASE (MPO) AB, IGG 0 AU/mL Normal 0-19 [facility] Comment on above: Result Comment: INTE RPRETIVE INFORMATION: Myeloperoxidase Abs, IgG 19 AU/mL or Less ......... Negative 20-25 AU/mL .............. Equivocal 26 AU/mL or Greater ...... Positive Approximately 90% of patients with a P-ANCA pattern by IFA have antibodies specific for MPO. Performed By: #### L [id number] #### [facility] ([facility]) [address] [place] [address] SERINE PROTEINASE 3 (PR3) AB, IGG 1 AU/mL Normal 0-19 [facility] Comment on above: Result Comment: INTE RPRETIVE INFORMATION: Serine Proteinase 3, IgG 19 AU/mL or Less ........ Negative 20-25 AU/mL ............. Equivocal 26 AU/mL or Greater ..... Positive Approximately 85% of patients with a C-ANCA pattern by IFA have antibodies specific for PR3. Performed By: #### L [id number] #### [facility] ([facility]) [address] [place] [address] BASIC METABOLIC PANELon 07-2 Anion gap [Moles/Vol] 16 mmol/L Normal 7-20 [facility] Comment on above: Performed By: #### L [id number] #### [facility] (BEAKER) [address] [place] [address] Calcium [Mass/Vol] 8.4 mg/dL Low 8.6-10.3 [facility] Comment on above: Performed By: #### L [id number] #### [facility] (BEAKER) [address] [place] [address] Chloride [Moles/Vol] 96 mmol/L Low 98-107 [facility] Comment on above: Performed By: #### L [id number] #### [facility] (BEAKER) [address] [place] [address] CO2 [Moles/Vol] 20 mmol/L Low 21-31 [facility] Comment on above: Performed By: #### L [id number] #### [facility] ([facility] [address] [place] [address] Creatinine [Mass/Vol] 4.55 mg/dL High 0.60-1.20 [facility] Comment on above: Performed By: #### L [id number] #### [facility] ([facility] [address] [place] [address] GLOMERULAR FILTRATION RATE ML/MIN/1.73 SQ M.PREDICTED 9.0 mL/min/1.73m*2 Low >60.0 [facility] Comment on above: Result Comment: The [facility]???s estimated glomerular filtration rate (eGFR) will no [...] group of individuals. Performed By: #### L [id number] #### [facility] (BEAKER) [address] [place] [address] Glucose [Mass/Vol] 107 mg/dL High 70-100 [facility] Comment on above: Performed By: #### L [id number] #### [facility] (BEAKER) [address] [place] [address] Potassium [Moles/Vol] 3.2 mmol/L Low 3.5-5.1 [facility] Comment on above: Performed By: #### L [id number] #### [facility] (BEAKER) [address] [place] [address] Sodium [Moles/Vol] 129 mmol/L Low 136-145 [facility] Comment on above: Performed By: #### L [id number] #### [facility] (BEAKER) [address] [place] [address] Urea nitrogen [Mass/Vol] 70 mg/dL High 7-25 [facility] Comment on above: Performed By: #### L [id number] #### [facility] (BEAKER) [address] [place] [address] UREA NITROGEN/CREATININE (MASS RATIO) IN SER/PLAS 15.4 Normal [facility] Comment on above: Performed By: #### L [id number] #### [facility] (BEAKER) [address] [place] [address] BLOOD CULTUREon 09-08-2022 Bacteria identified Cx Nom (Bld) No growth at 5 days Normal [facility] Comment on above: Order Comment: From a different site than #1. Performed By: #### L [id number] ####[facility] (BEAKER)[address] [place] [address] Performed By: #### L [id number] #### [facility] (BEAKER) [address] [place] [address] C3 COMPLEMENTon 09-08-2022 Magnesium [Mass/Vol] 114.00 mg/dL Normal 79.00-152.00 [facility] Comment on above: Performed By: #### L [id number] #### [facility] (BEAKER) [address] [place] [address] C4 COMPLEMENTon 09-08-2022 Magnesium [Mass/Vol] 30.7 mg/dL Normal 16-38 [facility] Comment on above: Performed By: #### L [id number] #### [facility] (BEAKER) [address] [place] [address] CBCon 09-08-2022 Erythrocyte distribution width (RBC) [Ratio] 14.1 % Normal 11.5-15.0 [facility] Comment on above: Performed By: #### L [id number] #### [facility] (BEAKER) [address] [place] [address] ERYTHROCYTE MEAN CORPUSCULAR HEMOGLOBIN CONCENTRATION (G/DL) BY AUTOMATED 32.6 g/dL Normal 32.0-35.0 [facility] Comment on above: Performed By: #### L [id number] #### [facility] (BEAKER) [address] [place] [address] Hematocrit (Bld) [Volume fraction] 32.8 % Low 36.0-48.0 [facility] Comment on above: Performed By: #### L [id number] #### [facility] (BEAKER) [address] [place] [address] Hemoglobin (Bld) [Mass/Vol] 10.7 g/dL Low 12.0-15.0 [facility] Comment on above: Performed By: #### L [id number] #### [facility] (BEAKER) [address] [place] [address] MCH (RBC) [Entitic mass] 27.1 pg Normal 27.0-33.0 [facility] Comment on above: Performed By: #### L [id number] #### [facility] (BEAKER) [address] [place] [address] MCV (RBC) [Entitic vol] 83.0 fL Normal 82.0-98.0 [facility] Comment on above: Performed By: #### L [id number] #### [facility] (BEAKER) [address] [place] [address] PLATELETS (10*3/UL) IN BLOOD AUTOMATED COUNT 231 10*3/uL Normal 150-400 [facility] Comment on above: Performed By: #### L [id number] #### [facility] (BEAKER) [address] [place] [address] RBC (Bld) [#/Vol] 3.95 10*6/uL Normal 3.80-5.00 [facility] Comment on above: Performed By: #### L [id number] #### [facility] (BEAKER) [address] [place] [address] WBC (Bld) [#/Vol] 34.23 10*3/uL High 4.00-10.60 [facility] Comment on above: Performed By: #### L [id number] #### [facility] (BEAKER) [address] [place] [address] CONSULTon 09-08-2022 CONSULT - Attestation signed by [...] any questions or concerns, Chika Orellana MD [place] Infectious diseases P:[phone] Infectious Diseases - Initial Consult Note - [...] past medical history of hypertension presented to [facility] as a direct admission from [facility] ER. Patient came to ER after a [...] Connections: Not (more content not included)... Normal [facility] CREATININE, URINE, RANDOMon 09-08-2022 Creatinine (U) [Mass/Vol] 56.0 mg/dL Normal 26-299 [facility] Comment on above: Performed By: #### L [id number] ####[facility] (BEAKER)[address] [place] [address] HEPATITIS B SURFACE ANTIGENo n 09-08-2022 HEPATITIS B VIRUS SURFACE AG PRESENCE IN SERUM Non-Reactive Normal Nonreactive [facility] Comment on above: Performed By: #### L [id number] #### [facility] (BEAKER) [address] [place] [address] HEPATITIS C ANTIBODYon 09-08 HEPATITIS C VIRUS AB PRESENCE IN SERUM Non-Reactive Normal Nonreactive [facility] Comment on above: Performed By: #### L [id number] ####[facility] (BEAKER)[address] [place] [address] PROCALCITONIN TESTon 023 PROCALCITONIN IN BLOOD 3.32 ng/mL Critically high 0.00-0.10 [facility] Comment on above: Result Comment: Susp ected [...] and initial PCT<0.5ng/mL Performed By: #### L [id number] #### [facility] (BEInventalator) [address] [place] [address] PROTEIN ELECTROPHORESIS, SER UMon 09-08-2022 Protein [Mass/Vol] 6.1 g/dL Normal 6.0-8.3 [facility] Comment on above: Performed By: #### L [id number] ####[facility] ([facility])[address] [facility] [place] [address] PROTEIN FRACTION (INTERPRETATION) IN SER/PLAS BY ELECTROPHORESIS Please see attached report. [facility] Comment on above: Performed By: #### L [id number] ####[facility] ([facility])[address] [place] [address] PROTEIN ELECTROPHORESIS, URI NE, RANDOMon 09-08-2022 Protein (U) [Mass/Vol] 109.0 mg/dL [facility] Comment on above: Result Comment: Ther e are no established reference values for random urine specimens. Performed By: #### P ROTEIN ELECTROPHORESIS, URINE, RANDOM ####[facility] ([facility])[address] [facility] [place] [address] UPEP INTERPRETATION Please see attached report. [facility] Comment on above: Performed By: #### P ROTEIN ELECTROPHORESIS, URINE, RANDOM ####[facility] ([facility])[address] [place] [address] 30on 09-07-2022 30 The patient is Moderately Stable - Low risk of patient condition declining or worsening The patient's goals for the shift include rest comfort The clinical goals for the shift include stable vitals [facility] 30 Daily Case Managemen t Update Multidisciplinary [...] Select all services needed for the patient Long Term Facility (30 day convalescent stay) Please indicate your approval for this care by adding your name here: JHONATAN HAINES 09/05/22 1212 Therapy Orders (From admission, onward) Start Ordered 09/05/22 1204 PT eval and treat Until therapy completed Question: Reason for PT? Answer: falls 09/05/22 1212 09/05/22 1204 OT eval and treat Until therapy completed Question: Reason for OT? Answer: falls 09/05/22 1212 Normal [facility] 30 The patient is Moderately Stable - [...] maintained within normal limits Outcome: Progressing Normal [facility] 30 The patient is Moderately Unstable - Medium risk of patient condition declining or worsening The patient's goals for the shift include Rest and Comfort The clinical goals for the shift include Monitor vitals/Pain control Normal [facility] BASIC METABOLIC PANELon 07-2 Anion gap [Moles/Vol] 17 mmol/L Normal - [facility] Comment on above: Performed By: #### L [id number] #### [facility] ([facility]) [address] [place] [address] Calcium [Mass/Vol] 8.0 mg/dL Low 8.6-10.3 [facility] Comment on above: Performed By: #### L [id number] #### [facility] ([facility]) [address] [place] [address] Chloride [Moles/Vol] 97 mmol/L Low 98-107 [facility] Comment on above: Performed By: #### L [id number] #### [facility] ([facility]) [address] [place] [address] CO2 [Moles/Vol] 18 mmol/L Low 21-31 [facility] Comment on above: Performed By: #### L [id number] #### [facility] ([facility]) [address] [place] [address] Creatinine [Mass/Vol] 4.56 mg/dL High 0.60-1.20 [facility] Comment on above: Performed By: #### L [id number] #### [facility] ([facility]) [address] [place] [address] GLOMERULAR FILTRATION RATE ML/MIN/1.73 SQ M.PREDICTED 9.0 mL/min/1.73m*2 Low >60.0 [facility] Comment on above: Result Comment: The [facility]???s estimated glomerular filtration rate (eGFR) will no [...] group of individuals. Performed By: #### L [id number] #### [facility] ([facility]) [address] [place] [address] Glucose [Mass/Vol] 88 mg/dL Normal 70-100 [facility] Comment on above: Performed By: #### L [id number] #### [facility] ([facility] [address] [place], [place] [address] Potassium [Moles/Vol] 3.6 mmol/L Normal 3.5-5.1 [facility] Comment on above: Performed By: #### L [id number] #### [facility] (BEAKER) [address] [place] [address] Sodium [Moles/Vol] 128 mmol/L Low 136-145 [facility] Comment on above: Performed By: #### L [id number] #### [facility] (BEAKER) [address] [place] [address] Urea nitrogen [Mass/Vol] 65 mg/dL High 7-25 [facility] Comment on above: Performed By: #### L [id number] #### [facility] (BEAKER) [address] [place] [address] UREA NITROGEN/CREATININE (MASS RATIO) IN SER/PLAS 14.3 Normal [facility] Comment on above: Performed By: #### L [id number] #### [facility] (BEAKER) [address] [place] [address] CBCon 09-07-2022 Erythrocyte distribution width (RBC) [Ratio] 14.2 % Normal 11.5-15.0 [facility] Comment on above: Performed By: #### L [id number] #### [facility] ([facility] [address] [place] [address] ERYTHROCYTE MEAN CORPUSCULAR HEMOGLOBIN CONCENTRATION (G/DL) BY AUTOMATED 33.4 g/dL Normal 32.0-35.0 [facility] Comment on above: Performed By: #### L [id number] #### [facility] (BEAKER) [address] [place] [address] Hematocrit (Bld) [Volume fraction] 30.2 % Low 36.0-48.0 [facility] Comment on above: Performed By: #### L [id number] #### [facility] [address] [place] [address] Hemoglobin (Bld) [Mass/Vol] 10.1 g/dL Low 12.0-15.0 [facility] Comment on above: Performed By: #### L [id number] #### [facility] (BEAKER) [address] [place] [address] MCH (RBC) [Entitic mass] 28.2 pg Normal 27.0-33.0 [facility] Comment on above: Performed By: #### L [id number] #### [facility] [address] [place] [address] MCV (RBC) [Entitic vol] 84.4 fL Normal 82.0-98.0 [facility] Comment on above: Performed By: #### L [id number] #### [facility] ([facility] [address] [place] [address] PLATELETS (10*3/UL) IN BLOOD AUTOMATED COUNT 173 10*3/uL Normal 150-400 [facility] Comment on above: Performed By: #### L [id number] #### [facility] ([facility] [address] [place] [address] RBC (Bld) [#/Vol] 3.58 10*6/uL Low 3.80-5.00 [facility] Comment on above: Performed By: #### L [id number] #### [facility] [address] [place] [address] WBC (Bld) [#/Vol] 28.16 10*3/uL High 4.00-10.60 [facility] Comment on above: Performed By: #### L [id number] #### [facility] ([facility] [address] [place] [address] CHLORIDE, URINE, RANDOMon Chloride (U) [Moles/Vol] 21.0 mmol/L Low 110-250 [facility] Comment on above: Performed By: #### L [id number] #### [facility] (BEAKER) [address] [place] [address] CONSULTon 09-07-2022 CONSULT - Attestation signed by [...] from me. This patient is transferred to [facility]. Patient has acute kidney injury as noted. [...] the ARB at this time I called [facility] they do not have previous creatinines prior [...] past medical history of hypertension presented to [facility] as a direct admission from [facility] ER. Patient came to ER after a [...] No gallop. (more content not included)... Normal [facility] CREATININE, URINE, RANDOMon 09-07-2022 Creatinine (U) [Mass/Vol] 71.0 mg/dL Normal 26-299 [facility] Comment on above: Performed By: #### L [id number] ####[facility] (BEAKER)[address] [place] [address] OSMOLALITY, URINEon 09-08-19 OSMOLALITY URINE 259 mOsm/kg Normal 50-1400 [facility] Comment on above: Performed By: #### L [id number] #### [facility] (BEAKER) [address] [place] [address] POTASSIUM, URINE, RANDOMon 0 09-07-2022 Potassium (U) [Moles/Vol] 19 mmol/L Normal [facility] Comment on above: Performed By: #### L [id number] #### [facility] (BEAKER) [address] [place] [address] PROTEIN, URINE, RANDOMon Protein (U) [Mass/Vol] 192.6 mg/dL Normal [facility] Comment on above: Result Comment: Ther e are no established reference values for random urine specimens. Performed By: #### L [id number] ####[facility] (BEAKER)[address] [place] [address] SODIUM, URINE, RANDOMon 08-15 Sodium (U) [Moles/Vol] 30 mmol/L Normal [facility] Comment on above: Performed By: #### L [id number] #### [facility] (BEAKER) [address] [place] [address] 30on 09-06-2022 30 The patient is Moderately [...] Flowsheets (Taken (more content not included)... Normal [facility] 30 Daily Case Managemen t Update Multidisciplinary [...] Select all services needed for the patient Long Term Facility (30 day convalescent stay) Please indicate your approval for this care by adding your name here: JHONATAN HAINES 09/05/22 1212 Therapy Orders (From admission, onward) Start Ordered 09/05/22 1204 PT eval and treat Until therapy completed Question: Reason for PT? Answer: falls 09/05/22 1212 09/05/22 1204 OT eval and treat Until therapy completed Question: Reason for OT? Answer: falls 09/05/22 1212 Normal [facility] 30 The patient is Moderately Stable - Low risk of patient condition declining or worsening The patient's goals for the shift include Comfort/sleep The clinical goals for the shift include Monitor Vitals Over the shift, the patient did make progress toward the following goals. Normal [facility] APTTon 09-06-2022 ACTIVATED PARTIAL THROMBOPLASTIN TIME IN PPP BY COAGULATION ASSAY 70.2 Seconds High 25.0-35.0 [facility] Comment on above: Order Comment: Check aPTT every 6 hours while on heparin infusion, or per protocol. Result Comment: Clin ical significance of the APTT is questionable in the presence of heparin. Performed By: #### L [id number] ####[facility] (BEAKER)[address] [place] [address] ACTIVATED PARTIAL THROMBOPLASTIN TIME IN PPP BY COAGULATION ASSAY 59.6 Seconds High 25.0-35.0 [facility] Comment on above: Order Comment: Check aPTT every 6 hours while on heparin infusion, or per protocol. Result Comment: Clin ical significance of the APTT is questionable in the presence of heparin. Performed By: #### L [id number] #### [facility] ([facility]) [address] [place] [address] ACTIVATED PARTIAL THROMBOPLASTIN TIME IN PPP BY COAGULATION ASSAY 65.0 Seconds High 25.0-35.0 [facility] Comment on above: Order Comment: Check aPTT every 6 hours while on heparin infusion, or per protocol. Result Comment: Clin ical significance of the APTT is questionable in the presence of heparin. Performed By: #### L [id number] ####[facility] ([facility])[address] [place] [address] CBCon 09-06-2022 Erythrocyte distribution width (RBC) [Ratio] 13.9 % Normal 11.5-15.0 [facility] Comment on above: Performed By: #### L [id number] #### [facility] ([facility]) [address] [place] [address] ERYTHROCYTE MEAN CORPUSCULAR HEMOGLOBIN CONCENTRATION (G/DL) BY AUTOMATED 33.1 g/dL Normal 32.0-35.0 [facility] Comment on above: Performed By: #### L [id number] #### [facility] ([facility]) [address] [place] [address] Hematocrit (Bld) [Volume fraction] 32.0 % Low 36.0-48.0 [facility] Comment on above: Performed By: #### L [id number] #### [facility] ([facility]) [address] [place] [address] Hemoglobin (Bld) [Mass/Vol] 10.6 g/dL Low 12.0-15.0 [facility] Comment on above: Performed By: #### L [id number] #### [facility] ([facility]) [address] [place] [address] MCH (RBC) [Entitic mass] 27.8 pg Normal 27.0-33.0 [facility] Comment on above: Performed By: #### L [id number] #### [facility] ([facility]) [address] [place] [address] MCV (RBC) [Entitic vol] 84.0 fL Normal 82.0-98.0 [facility] Comment on above: Performed By: #### L [id number] #### [facility] ([facility]) [address] [place] [address] PLATELETS (10*3/UL) IN BLOOD AUTOMATED COUNT 176 10*3/uL Normal 150-400 [facility] Comment on above: Performed By: #### L [id number] #### [facility] ([facility]) [address] [place] [address] RBC (Bld) [#/Vol] 3.81 10*6/uL Normal 3.80-5.00 [facility] Comment on above: Performed By: #### L [id number] #### [facility] ([facility]) [address] [place] [address] WBC (Bld) [#/Vol] 30.91 10*3/uL High 4.00-10.60 [facility] Comment on above: Performed By: #### L [id number] #### [facility] ([facility]) [address] [place] [address] CONSULTon 09-06-2022 CONSULT - Attestation signed by [...] female who presented as a transfer from [facility] due to a fall at home and [...] has a past medical history of A-fib ([facility]), Dysuria, and Hypertension. Surgical History She has [...] Value Ventricular Rate 102 Atrial Rate 102 WV Interval 190 QRS DURATION 82 QT Interval 326 QTC CALCULATION(BAZETT) 424 P Chilton 69 R-Chilton -43 T Wave Chilton 70 Impression Sinus tachycardia Left axis deviation Minimal voltage criteria for LVH, may be normal variant ( R in aVL ) Anterior infarct , age undetermined Abnormal ECG No previous ECGs available Lab Results Component Value Date TROP (more content not included)... Normal [facility] TROPONIN Ion 09-06-2022 Troponin I.cardiac [Mass/Vol] 0.06 ng/mL High 0.00-0.04 [facility] Comment on above: Performed By: #### L [id number] ####[facility] (BEAKER)[address] [place] [address] Troponin I.cardiac [Mass/Vol] 0.10 ng/mL High 0.00-0.04 [facility] Comment on above: Performed By: #### L [id number] ####[facility] (BEAKER)[address] [place] [address] APTTon 09-05-2022 ACTIVATED PARTIAL THROMBOPLASTIN TIME IN PPP BY COAGULATION ASSAY 67.3 Seconds High 25.0-35.0 [facility] Comment on above: Order Comment: Check aPTT every 6 hours while on heparin infusion, or per protocol. Result Comment: Clin ical significance of the APTT is questionable in the presence of heparin. Performed By: #### L [id number] #### [facility] (BEAKER) [address] [place] [address] B-TYPE NATRIURETIC PEPTIDEon 09-05-2022 Natriuretic peptide B (Bld) [Mass/Vol] 159 pg/mL High 0-100 [facility] Comment on above: Performed By: #### L [id number] ####[facility] (BEAKER)[address] [place] [address] BASIC METABOLIC PANELon 08-15 Anion gap [Moles/Vol] 16 mmol/L Normal 7-20 [facility] Comment on above: Performed By: #### L [id number] #### [facility] (BEAKER) [address] [place] [address] Calcium [Mass/Vol] 8.4 mg/dL Low 8.6-10.3 [facility] Comment on above: Performed By: #### L [id number] #### [facility] (BEAKER) [address] [place] [address] Chloride [Moles/Vol] 94 mmol/L Low 98-107 [facility] Comment on above: Performed By: #### L [id number] #### [facility] (BEAKER) [address] [place] [address] CO2 [Moles/Vol] 19 mmol/L Low 21-31 [facility] Comment on above: Performed By: #### L [id number] #### [facility] (BEAKER) [address] [place] [address] Creatinine [Mass/Vol] 2.98 mg/dL High 0.60-1.20 [facility] Comment on above: Performed By: #### L [id number] #### [facility] ([facility] [address] [place] [address] GLOMERULAR FILTRATION RATE ML/MIN/1.73 SQ M.PREDICTED 15.0 mL/min/1.73m*2 Low >60.0 [facility] Comment on above: Result Comment: The [facility]???s estimated glomerular filtration rate (eGFR) will no [...] group of individuals. Performed By: #### L [id number] #### [facility] ([facility] [address] [place] [address] Glucose [Mass/Vol] 124 mg/dL High 70-100 [facility] Comment on above: Performed By: #### L [id number] #### [facility] ([facility] [address] [place] [address] Potassium [Moles/Vol] 3.7 mmol/L Normal 3.5-5.1 [facility] Comment on above: Performed By: #### L [id number] #### [facility] ([facility] [address] [place] [address] Sodium [Moles/Vol] 125 mmol/L Low 136-145 [facility] Comment on above: Performed By: #### L [id number] #### [facility] ([facility] [address] [place] [address] Urea nitrogen [Mass/Vol] 49 mg/dL High 7-25 [facility] Comment on above: Performed By: #### L [id number] #### [facility] ([facility]) [address] [place] [address] UREA NITROGEN/CREATININE (MASS RATIO) IN SER/PLAS 16.4 Normal [facility] Comment on above: Performed By: #### L [id number] #### [facility] [address] [place] [address] BLOOD CULTUREon 09-05-2022 Bacteria identified Cx Nom (Bld) ESCHERICHIA COLI Abnormal [facility] Comment on above: Order Comment: From a different site than #1. Result Comment: Esch erichia coli For Susceptibility Results Please Refer to Performed By: #### L [id number] #### [facility] (BEAKER) [address] [place] [address] Result Comment: Esch erichia coli Susceptibility to Follow GRAM STAIN RESULT Negative Abnormal [facility] Comment on above: Order Comment: From a different site than #1. Performed By: #### L [id number] #### [facility] (BEAKER) [address] [place] [address] CBC WITH AUTO DIFFERENTIALon 09-05-2022 Erythrocyte distribution width (RBC) [Ratio] 13.6 % Normal 11.5-15.0 [facility] Comment on above: Performed By: #### L [id number] #### [facility] ([employer]) [address] [place] [address] ERYTHROCYTE MEAN CORPUSCULAR HEMOGLOBIN CONCENTRATION (G/DL) BY AUTOMATED 33.9 g/dL Normal 32.0-35.0 [facility] Comment on above: Performed By: #### L [id number] #### [facility] ([employer]) [address] [place] [address] Hematocrit (Bld) [Volume fraction] 31.6 % Low 36.0-48.0 [facility] Comment on above: Performed By: #### L [id number] #### [facility] ([employer]) [address] [place] [address] Hemoglobin (Bld) [Mass/Vol] 10.7 g/dL Low 12.0-15.0 [facility] Comment on above: Performed By: #### L [id number] #### [facility] ([employer]) [address] [place] [address] MCH (RBC) [Entitic mass] 28.1 pg Normal 27.0-33.0 [facility] Comment on above: Performed By: #### L [id number] #### [facility] ([employer]) [address] [place] [address] MCV (RBC) [Entitic vol] 82.9 fL Normal 82.0-98.0 [facility] Comment on above: Performed By: #### L [id number] #### [facility] (BEAKER) [address] [place] [address] NRBC (PER 100 WBCS) BY AUTOMATED COUNT 0.1 % High 0 [facility] Comment on above: Performed By: #### L [id number] #### [facility] (BEAKER) [address] [place] [address] PLATELETS (10*3/UL) IN BLOOD AUTOMATED COUNT 178 10*3/uL Normal 150-400 [facility] Comment on above: Performed By: #### L [id number] #### [facility] [address] [place] [address] RBC (Bld) [#/Vol] 3.81 10*6/uL Normal 3.80-5.00 [facility] Comment on above: Performed By: #### L [id number] #### [facility] (BEAKER) [address] [place] [id number] WBC (Bld) [#/Vol] 29.25 10*3/uL High 4.00-10.60 [facility] Comment on above: Performed By: #### L [id number] #### [facility] [address] [place] [address] CT ABDOMEN PELVIS WO [facility] CT ABDOMEN PELVIS WO IV CONTRAST [...] and spleen. Electronically signed: Navneet Mcdonald. Normal [facility] HEPATIC FUNCTION PANELon Albumin [Mass/Vol] 3.5 g/dL Normal 3.5-5.7 [facility] Comment on above: Performed By: #### L [id number] ####[facility] (BEAKER)[address] [place] [address] ALP [Catalytic activity/Vol] 81 U/L Normal 34-104 [facility] Comment on above: Performed By: #### L [id number] ####[facility] (BEAKER)[address] [place] [address] ALT [Catalytic activity/Vol] 17 U/L Normal 7-52 [facility] Comment on above: Performed By: #### L [id number] ####[facility] ([facility])[address] [place] [address] AST [Catalytic activity/Vol] 36 U/L Normal 13-39 [facility] Comment on above: Performed By: #### L [id number] ####[facility] ([facility])[address] [place] [address] Bilirubin [Mass/Vol] 0.8 mg/dL Normal 0.3-1.0 [facility] Comment on above: Performed By: #### L [id number] ####[facility] ([facility])[address] [place] [address] Magnesium [Mass/Vol] 0.2 mg/dL Normal 0-0.2 [facility] Comment on above: Performed By: #### L [id number] ####[facility] ([facility])[address] [place] [address] Protein [Mass/Vol] 6.9 g/dL Normal 6.0-8.3 [facility] Comment on above: Performed By: #### L [id number] ####[facility] ([facility])[address] [place] [address] LACTIC ACID WITH 4 HOUR REFL EXon 09-05-2022 LACTATE (MMOL/L) IN SER/PLAS 0.8 mmol/L Normal 0.5-2.2 [facility] Comment on above: Performed By: #### L [id number] ####[facility] ([facility])[address] [place] [address] MAGNESIUMon 09-05-2022 Magnesium [Mass/Vol] 1.2 mg/dL Low 1.9-2.7 [facility] Comment on above: Performed By: #### L [id number] #### [facility] ([facility]) [address] [place], [place] [address] MANUAL DIFFERENTIALon 2022 BASOPHILS (10*3/UL) IN BLOOD BY CALCULATION 0.00 10*3/uL Normal 0.00-0.20 [facility] Comment on above: Performed By: #### L [id number] #### [facility] ([facility]) [address] [place] [address] BASOPHILS/100 LEUKOCYTES IN BLOOD BY AUTOMATED COUNT 0.0 % Normal 0.0-1.0 [facility] Comment on above: Performed By: #### L [id number] #### [facility] ([facility]) [address] [place] [address] EOSINOPHILS (10*3/UL) IN BLOOD BY CALCULATION 0.00 10*3/uL Normal 0.00-0.50 [facility] Comment on above: Performed By: #### L [id number] #### [facility] ([facility]) [address] [place] [address] EOSINOPHILS/100 LEUKOCYTES IN BLOOD BY AUTOMATED COUNT 0.0 % Normal 0.0-6.0 [facility] Comment on above: Performed By: #### L [id number] #### [facility] ([facility]) [address] [place] [address] IMMATURE GRANULOCYTES (10*3/UL) IN BLOOD BY CALCULATION 0.35 10*3/uL High 0.00-0.20 [facility] Comment on above: Performed By: #### L [id number] #### [facility] ([facility]) [address] [place] [address] IMMATURE GRANULOCYTES/100 LEUKOCYTES IN BLOOD BY AUTOMATED COUNT 1.2 % High 0.0-1.0 [facility] Comment on above: Performed By: #### L [id number] #### [facility] ([facility]) [address] [place] [address] LYMPHOCYTES (10*3/UL) IN BLOOD BY CALCULATION 2.93 10*3/uL Normal 1.20-4.00 [facility] Comment on above: Performed By: #### L [id number] #### [facility] ([facility]) [address] [place] [address] LYMPHOCYTES/100 LEUKOCYTES IN BLOOD BY AUTOMATED COUNT 10.0 % Low 20.0-45.0 [facility] Comment on above: Performed By: #### L [id number] #### [facility] ([facility]) [address] [place] [address] MONOCYTES (10*3/UL) IN BLOOD BY CALCUATION 2.93 10*3/uL High 0.10-1.00 [facility] Comment on above: Performed By: #### L [id number] #### [facility] ([facility]) [address] [place] [address] MONOCYTES/100 LEUKOCYTES IN BLOOD BY AUTOMATED COUNT 10.0 % Normal 5.0-12.0 [facility] Comment on above: Performed By: #### L [id number] #### [facility] ([facility]) [address] [place] [address] NEUTROPHILS (10*3/UL) IN BLOOD BY CALCULATION 23.4 10*3/uL High 1.6-7.6 [facility] Comment on above: Performed By: #### L [id number] #### [facility] ([facility]) [address] [place] [address] NEUTROPHILS/100 LEUKOCYTES IN BLOOD BY AUTOMATED COUNT 80.0 % High 40.0-72.0 [facility] Comment on above: Performed By: #### L [id number] #### [facility] ([facility]) [address] [place] [address] PLASMA CELLS/100 LEUKOCYTES IN BLOOD 0 % Normal 0 [facility] Comment on above: Performed By: #### L [id number] #### [facility] ([facility]) [address] [place], [place] [address] VARIANT LYMPHOCYTES (10*3/UL) IN BLOOD BY CALCULATION 0.00 10*3/uL Normal 0.00 [facility] Comment on above: Performed By: #### L [id number] #### [facility] ([facility]) [address] [place] [address] VARIANT LYMPHOCYTES/100 LEUKOCYTES IN BLOOD CELLAVISION 0.0 % Normal 0.0-0.0 [facility] Comment on above: Performed By: #### L [id number] #### [facility] ([facility]) [address] [place] [address] PHOSPHORUSon 09-05-2022 Magnesium [Mass/Vol] 3.4 mg/dL Normal 2.5-5.0 [facility] Comment on above: Performed By: #### L [id number] #### [facility] ([facility]AKER) [address] [place] [address] PROTIME-INRon 09-05-2022 INR IN PPP BY COAGULATION ASSAY 1.23 High 0.90-1.10 [facility] Comment on above: Result Comment: ACCC P [...] RANGE. CHEST 1995;[id number]. Performed By: #### L [id number] #### [facility]) [address] [place] [address] PROTHROMBIN TIME (PT) IN PPP BY COAGULATION ASSAY 15.5 Seconds High 12.3-14.8 [facility] Comment on above: Performed By: #### L [id number] #### [facility]) [address] [place] [address] TROPONIN Ion 09-05-2022 Troponin I.cardiac [Mass/Vol] 0.08 ng/mL High 0.00-0.04 [facility] Comment on above: Performed By: #### L [id number] #### [facility] ([facility]) [address] [place] [address] TSH3 REFLEX TO FT4on 023 THYROTROPIN (MIU/L) IN SER/PLAS BY DETECTION LIMIT <= 0.05 MIU/L 1.92 mIU/L Normal 0.34-5.60 [facility] Comment on above: Performed By: #### L [id number] ####[facility] ([facility])[address] [place] [address] URINALYSIS MICROSCOPIC WITH REFLEX CULTUREon 09-05-2022 CASTS IN URINE Normal [facility] Comment on above: Performed By: #### L [id number] ####[facility] ([facility])[address] [place] [address] CRYSTALS IN URINE Normal [facility] Comment on above: Performed By: #### L [id number] ####[facility] ([facility] [place] [address] MUCUS (#/HPF) IN URINE SEDIMENT Occasional Normal None Seen, Occasional, Few [facility] Comment on above: Performed By: #### L [id number] ####[facility] ([facility] [place] [address] OTHER MICROSCOPIC ELEMENTS Normal [facility] Comment on above: Performed By: #### L [id number] ####[facility] (BEAKER)[address] [place] [address] RBC (#/HPF) IN URINE SEDIMENT 3-5 Abnormal None Seen [facility] Comment on above: Performed By: #### L [id number] ####[facility] (BEAKER)[address] [place] [address] SQUAMOUS EPITHELIAL CELLS (#/HPF) IN URINE SEDIMENT None Seen Normal None Seen, Occasional [facility] Comment on above: Performed By: #### L [id number] ####[facility] ([facility])[address] [place] [address] WBC (LEUKOCYTE) (#/HPF) IN URINE SEDIMENT >100 Abnormal None Seen [facility] Comment on above: Performed By: #### L [id number] ####[facility] ([facility])[address] [place] [address] URINALYSIS WITH REFLEX CULTU REon 09-05-2022 BILIRUBIN, TOTAL PRESENCE IN URINE Negative Normal Negative [facility] Comment on above: Performed By: #### L [id number] #### [facility] ([facility]) [address] [place] [address] Clarity (U) Cloudy Abnormal Clear [facility] Comment on above: Performed By: #### L [id number] #### [facility] ([facility]) [address] [place] [address] Color (U) Ashleigh Abnormal Yellow [facility] Comment on above: Performed By: #### L [id number] #### [facility] ([facility]) [address] [place] [address] Glucose (U) [Mass/Vol] Negative Normal Negative [facility] Comment on above: Performed By: #### L [id number] #### [facility] ([facility]) [address] [place] [address] HEMOGLOBIN PRESENCE IN URINE Moderate Abnormal Negative [facility] Comment on above: Performed By: #### L [id number] #### [facility] [address] [place] [address] Ketones Ql (U) Negative Normal Negative [facility] Comment on above: Performed By: #### L [id number] #### [facility] ([facility]) [address] [place] [address] LEUKOCYTE ESTERASE PRESENCE IN URINE BY TEST STRIP Large Abnormal Negative [facility] Comment on above: Performed By: #### L [id number] #### [facility] [address] [place] [address] NITRITE PRESENCE IN URINE Negative Normal Negative [facility] Comment on above: Performed By: #### L [id number] #### [facility] ([facility]) [address] [place] [address] pH (U) 5.0 [pH] Normal 5.0-8.0 [facility] Comment on above: Performed By: #### L [id number] #### [facility] ([facility]) [address] [place] [address] Protein (U) [Mass/Vol] mg/dL Abnormal Negative [facility] Comment on above: Performed By: #### L [id number] #### [facility] ([facility]) [address] [place] [address] Specific gravity (U) [Rel density] 1.012 Low 1.015-1.020 [facility] Comment on above: Performed By: #### L [id number] #### [facility] ([facility]) [address] [place] [address] URINE CULTURE, ROUTINEon Bacteria identified Cx Nom (U) ESCHERICHIA COLI Abnormal [facility] Comment on above: Result Comment: >100 ,000 CFU/Ml Escherichia coli Susceptibility to Follow Performed By: #### L [id number] #### [facility] ([facility]) [address] [place] [address] VC COMP CONSULTATIONon 07-14 VC COMP CONSULTATION Patient: RA GARCIA Exam Date: 07/14/2022 : 1935 Gender:F Ordering : [facility] Admission #: [id number] Family : Order #: [id number] CLICK HERE TO VIEW EXAM RADIOLOGY REPORT [...] arterial disease 5. CEAP: C3, AP, , W[place] PLAN: 1. Patient's symptoms are suspected to [...] M.D. on 07/14/2022 at 12:32 Normal [facility] VC VENOUS REFLUX GYPSY LMTon 0 5-31-2023 VC VENOUS REFLUX GYPSY LMT Patient: RA GARCIA Exam Date: 07/14/2022 : 1935 Gender:F Ordering : [facility] Admission #: [id number] Family : DR PAMELLA RIZVI M.D. Order #: [id number] CLICK HERE TO VIEW EXAM RADIOLOGY REPORT [...] Compressibility: Normal. Flow: Mild deep venous reflux. Java Lead Developer: Distal medial lower leg 3.1 mm without [...] Lima M.D. on 07/14/2022 at 12:06 Normal [facility] CULTURE URINEon 06-29-2022 CULTURE URINE Culture Observations : NO GROWTH. Normal [facility] Comment on above: Performed By: #### U RCX #### [facility] [address] [place] [address] Dr. Rey Londono UA (CLEAN/CATCH) BLANCHING MACHINE OPERATOR/MICRO I F IND.on 06-29-2022 Bilirubin Ql (U) Negative Normal NEGATIVE [facility] Comment on above: Performed By: #### U MICRO, UACSIND #### [facility] [address] [place] [address] Dr. Rey Londono Clarity (U) CLEAR Normal CLEAR [facility] Comment on above: Performed By: #### U MICRO, UACSIND #### [facility] [address] [place] [address] Dr. Rey Londono Color (U) LT. YELLOW Normal YELLOW [facility] Comment on above: Performed By: #### U MICRO, UACSIND #### [facility] [address] [place] [address] Dr. Rey Londono Glucose Ql (U) Negative Normal NEGATIVE [facility] Comment on above: Performed By: #### U MICRO, UACSIND #### [facility] [address] [place] [address] [address] Rey Londono Hemoglobin Ql (U) Negative Normal NEGATIVE [facility] Comment on above: Performed By: #### U MICRO, UACSIND #### [facility] [address] [address] [address] Rey Londono Ketones Ql (U) Negative Normal NEGATIVE [facility] Comment on above: Performed By: #### U MICRO, UACSIND #### [facility] [address] [address] [address] Rey Londono LEUKOCYTES LARGE Abnormal NEGATIVE [facility] Comment on above: Performed By: #### U MICRO, UACSIND #### [facility] [address] [place] [address] Dr. Rey Londono Nitrite Ql (U) Negative Normal NEGATIVE [facility] Comment on above: Performed By: #### U MICRO, UACSIND #### [facility] [address] [address] [address] Rey Londono pH (U) 6.0 [pH] Normal 5-9 [facility] Comment on above: Performed By: #### U MICRO, UACSIND #### [facility] [address] [address] [address] Rey Londono SPEC GRAVITY 1.010 Normal 1.005-<=1.025 [facility] Comment on above: Performed By: #### U MICRO, UACSIND #### [facility] [address] [address] [address] Rey Londono UA PROTEIN Negative Normal NEGATIVE/ TRACE [facility] Comment on above: Performed By: #### U MICRO, UACSIND #### [facility] [address] [address] [address] Rey Londono UR MICRO IND INDICATED Normal [facility] Comment on above: Performed By: #### U MICRO, UACSIND #### [facility] [address] [address] [address] Rey Londono Urobilinogen Qn (U) 0.2 {Martita'U}/dL Normal 0.2 - 1. 0 [facility] Comment on above: Performed By: #### U MICRO, UACSIND #### [facility] [address] [place] [address] Dr. Rey Londono URINE MICROSCOPIC ONLYon BACTERIA MODERATE Abnormal NONE SEEN [facility] Comment on above: Performed By: #### U MICRO, UACSIND #### [facility] [address] [place] [address] Dr. Rey Londono Bacteria identified Cx Nom (U) INDICATED Normal [facility] Comment on above: Performed By: #### U MICRO, UACSIND #### [facility] [address] [place] [address] Dr. Rey Londono CAST NONE SEEN Normal NONE SEEN [facility] Comment on above: Performed By: #### U MICRO, UACSIND #### [facility] [address] [place] [address] Dr. Rey Londono Crystals LM Nom (Urine sed) NONE SEEN Normal NONE SEEN [facility] Comment on above: Performed By: #### U MICRO, UACSIND #### [facility] [address] [place] [address] Dr. Rey Londono Epithelial cells LM Ql (Urine sed) MODERATE Abnormal NONE SEEN /RARE [facility] Comment on above: Performed By: #### U MICRO, UACSIND #### [facility] [address] [place] [address] Dr. Rey Londono MUCOUS NONE SEEN Normal NONE SEEN [facility] Comment on above: Performed By: #### U MICRO, UACSIND #### [facility] [address] [place] [address] Dr. Rey Londono RBC 2-5 Abnormal 0-2 [facility] Comment on above: Performed By: #### U MICRO, UACSIND #### [facility] [address] [place] [address] Dr. Rey Londono WBC 10-20 Abnormal NONE SEEN [facility] Comment on above: Performed By: #### U MICRO, UACSIND #### [facility] [address] [address] [address] Rey Londono MG MAMM SCREEN 3D GYPSY CADon 04-30-2022 MG MAMM SCREEN 3D GYPSY CAD Patient: RA GARCIA Exam Date: 04/30/2022 : 1935 Gender:F Ordering : DR EVER BYRD . Admission #: [id number] Family : Order #: [id number] CLICK HERE TO VIEW EXAM RADIOLOGY REPORT [...] colon cancer at age 70. LOCATION: [facility] BREAST COMPOSITION: Scattered areas fibroglandular density. FINDINGS: [...] M.D. on 04/30/2022 at 14:09 Normal [facility] CULTURE URINEon 04-20-2022 CULTURE URINE Culture Observations : NO GROWTH. Normal [facility] Comment on above: Performed By: #### U RCX #### [facility] [address] [address] [address] Rey Londono UA RANDOM W/MICROSCOPICon BACTERIA NONE SEEN Normal NONE SEEN [facility] Comment on above: Performed By: #### U AMIC #### [facility] [address] [address] [address] Rey Londono Bilirubin Ql (U) Negative Normal NEGATIVE [facility] Comment on above: Performed By: #### U AMIC #### [facility] [address] [address] [address] Rey Londono CAST NONE SEEN Normal NONE SEEN [facility] Comment on above: Performed By: #### U AMIC #### [facility] [address] [address] [address] Rey Londono Clarity (U) CLEAR Normal CLEAR [facility] Comment on above: Performed By: #### U AMIC #### [facility] [address] [place] [address] Dr. Rey Londono Color (U) LT. YELLOW Normal YELLOW [facility] Comment on above: Performed By: #### U AMIC #### [facility] [address] [address] [address] Rey Londono Crystals LM Nom (Urine sed) NONE SEEN Normal NONE SEEN [facility] Comment on above: Performed By: #### U AMIC #### [facility] [address] [place] [address] Dr. Rey Londono Epithelial cells LM Ql (Urine sed) RARE Normal NONE SEEN /RARE [facility] Comment on above: Performed By: #### U AMIC #### [facility] [address] [place] [address] Dr. Rey Londono Glucose Ql (U) Negative Normal NEGATIVE [facility] Comment on above: Performed By: #### U AMIC #### [facility] [address] [address] [address] Rey Londono Hemoglobin Ql (U) Negative Normal NEGATIVE [facility] Comment on above: Performed By: #### U AMIC #### [facility] [address] [place] [address] Dr. Rey Londono Ketones Ql (U) Negative Normal NEGATIVE [facility] Comment on above: Performed By: #### U AMIC #### [facility] [address] [address] [address] Rey Londono LEUKOCYTES Negative Normal NEGATIVE [facility] [place] Comment on above: Performed By: #### U AMIC #### [facility] [address] [address] [address] Rey Londono MUCOUS NONE SEEN Normal NONE SEEN [facility] [place] Comment on above: Performed By: #### U AMIC #### [facility] [address] [address] [address] Rey Londono Nitrite Ql (U) Negative Normal NEGATIVE [facility] Comment on above: Performed By: #### U AMIC #### [facility] [address] [address] [address] Rey Londono pH (U) 6.5 [pH] Normal 5-9 [facility] [place] Comment on above: Performed By: #### U AMIC #### [facility] [facility] [address] [address] [address] Rey Londono RBC 0-2 Normal 0-2 [facility] Comment on above: Performed By: #### U AMIC #### [facility] [address] [address] [address] Rey Londono SPEC GRAVITY 1.010 Normal 1.005-<=1.025 [facility] Comment on above: Performed By: #### U AMIC #### [facility] [address] [address] [address] Rey Londono UA PROTEIN Negative Normal NEGATIVE/ TRACE The [facility] Comment on above: Performed By: #### U AMIC #### [facility] [address] [address] [address] Rey Londono Urobilinogen Qn (U) 0.2 {Martita'U}/dL Normal 0.2 - 1. 0 [facility] Comment on above: Performed By: #### U AMIC #### [facility] [address] [address] [address] Rey Londono WBC NONE SEEN Normal NONE SEEN The [facility] Comment on above: Performed By: #### U AMIC #### [facility] [address] [address] [address] Rey Londono CULTURE URINEon 04-13-2022 CULTURE URINE Culture Observations : LIGHT GROWTH OF MIXED GENITAL SAGRARIO. NO POTENTIAL PATHOGENS SEEN. Normal The [facility] Comment on above: Performed By: #### U MICRO, ERUR #### [facility] [address] [address] [address] Rey Londono UA RANDOM W/MICROSCOPICon BACTERIA NONE SEEN Normal NONE SEEN [facility] Comment on above: Performed By: #### U AMIC #### [facility] [address] [address] [address] Rey Londono Bilirubin Ql (U) Negative Normal NEGATIVE The [facility] Comment on above: Performed By: #### U AMIC #### [facility] [address] [place] [address] Dr. Rey Londono CAST NONE SEEN Normal NONE SEEN [facility] Comment on above: Performed By: #### U AMIC #### [facility] [address] [place] [address] Dr. Rye Londono Clarity (U) CLEAR Normal CLEAR The [facility] Comment on above: Performed By: #### U AMIC #### [facility] [address] [address] [address] Rey Londono Color (U) LT. YELLOW Normal YELLOW The [facility] Comment on above: Performed By: #### U AMIC #### [facility] [address] [place] [address] Dr. Rey Londono Crystals LM Nom (Urine sed) NONE SEEN Normal NONE SEEN The [facility] Comment on above: Performed By: #### U AMIC #### [facility] [address] [address] [address] Rey Londono Epithelial cells LM Ql (Urine sed) FEW Abnormal NONE SEEN /RARE The [facility] Comment on above: Performed By: #### U AMIC #### [facility] [address] [place] [address] Dr. Rey Londono Glucose Ql (U) Negative Normal NEGATIVE The [facility] Comment on above: Performed By: #### U AMIC #### [facility] [address] [address] [address] Rey Londono Hemoglobin Ql (U) Negative Normal NEGATIVE The [facility] Comment on above: Performed By: #### U AMIC #### [facility] [address] [address] [address] Rey Londono Ketones Ql (U) Negative Normal NEGATIVE The [facility] Comment on above: Performed By: #### U AMIC #### [facility] [address] [address] [address] Rey Londono LEUKOCYTES Negative Normal NEGATIVE The [facility] Comment on above: Performed By: #### U AMIC #### [facility] [address] [place] [address] Dr. Rey Londono MUCOUS NONE SEEN Normal NONE SEEN [facility] Comment on above: Performed By: #### U AMIC #### [facility] [address] [place] [address] Dr. eRy Londono Nitrite Ql (U) Negative Normal NEGATIVE The [facility] Comment on above: Performed By: #### U AMIC #### [facility] [address] [place] [address] Dr. Rey Londono pH (U) 5.5 [pH] Normal 5-9 [facility] Comment on above: Performed By: #### U AMIC #### [facility] [address] [place] [address] Dr. Rey Londono RBC NONE SEEN Abnormal 0-2 The [facility] Comment on above: Performed By: #### U AMIC #### [facility] [address] [place] [address] Dr. Rey Londono SPEC GRAVITY 1.010 Normal 1.005-<=1.025 [facility] Comment on above: Performed By: #### U AMIC #### [facility] [address] [place] [address] Dr. Rey Londono UA PROTEIN Negative Normal NEGATIVE/ TRACE The [facility] Comment on above: Performed By: #### U AMIC #### [facility] [address] [place] [address] Dr. Rey Londono Urobilinogen Qn (U) 0.2 {Martita'U}/dL Normal 0.2 - 1. 0 [facility] Comment on above: Performed By: #### U AMIC #### [facility] [address] [place] [address] Dr. Rey Londono WBC NONE SEEN Normal NONE SEEN The [facility] Comment on above: Performed By: #### U AMIC #### [facility] [address] [place] [address] Dr. Rey Londono CULTURE URINEon 03-09-2022 CULTURE [...] F Nitrofurantoin 64 I F Normal The [facility] Comment on above: Performed By: #### U MICRO, ERUR #### [facility] [address] [place] [address] Dr. Rey Londono Lab Reportson 03-09-2022 Lab Reports [id number]:[id number] Normal [facility] Urology Office/Clinic Noteon 03-06-2022 Urology Office/Clinic Note [...] collection. Pt will drop of specimen at [facility]. Empiric Bactrim DS BID x 3 days [...] urine and/or bladder capacity by US- non-imaging [id number] 3. Incomplete bladder emptying (R33.9: Retention of [...] reported UTIs (more content not included)... Normal [facility] Comment on above: Result Comment: Elec tronically [...] a day Duration: 3 Days Pickup at [id number] Unchanged amlodipine By Mouth Every day Unchanged [...] Mouth Every day Pharmacy Information [id number]: [address], [place] [id number] [phone] Allergies Chicken (Unknown) Milk Products (Unknown) Mold (Unknown) aloe vera (Rash) aspirin (Unknown) ciprofloxacin (Rash) eucalyptus topical (Rash) penicillins (Swelling) Problems Ongoing - Any problem that you are currently receiving treatment for. Cystitis, chronic Cystocele, midline Dysuria Frequent urination History of urethral stricture Other post-traumatic urethral stricture, female Stress incontinence Urge incontinence UTI symptoms Normal [facility] CULTURE URINEon 10-06-2021 CULTURE URINE Isolate 1 [...] Trimethoprim/Sulfamet hoxazole <=20 S F Normal The [facility] Comment on above: Performed By: #### U MICRO, ERUR #### [facility] [address] [place] [address] Dr. Rey Londono ER URINE PROFILEon 2 Bilirubin Ql (U) Negative Normal NEGATIVE The [facility] Comment on above: Performed By: #### U MICRO, ERUR #### [facility] [address] [place] [address] Dr. Rey Londono Clarity (U) CLEAR Normal CLEAR The [facility] Comment on above: Performed By: #### U MICRO, ERUR #### [facility] [address] [place] [address] Dr. Rey Londono Color (U) YELLOW Normal YELLOW The [facility] Comment on above: Performed By: #### U MICRO, ERUR #### [facility] [address] [place] [address] Dr. Rey VOGEL A micrscopic examination will be performed if indicated. Normal The [facility] Comment on above: Performed By: #### U MICRO, ERUR #### [facility] [address] [address] [address] Rey Londono Glucose Ql (U) Negative Normal NEGATIVE The [facility] Comment on above: Performed By: #### U MICRO, ERUR #### [facility] [address] [address] [address] Rey Londono Hemoglobin Ql (U) MODERATE Abnormal NEGATIVE The [facility] Comment on above: Performed By: #### U MICRO, ERUR #### [facility] [address] [address] [address] Rey Londono Ketones Ql (U) Negative Normal NEGATIVE The [facility] Comment on above: Performed By: #### U MICRO, ERUR #### [facility] [address] [place] [address] Dr. Rey Londono LEUKOCYTES LARGE Abnormal NEGATIVE The [facility] Comment on above: Performed By: #### U MICRO, ERUR #### [facility] [address] [address] [address] Rey Londono Nitrite Ql (U) Positive Abnormal NEGATIVE The [facility] Comment on above: Performed By: #### U MICRO, ERUR #### [facility] [address] [place] [address] Dr. Rey Londono pH (U) 6.0 [pH] Normal 5-9 The [facility] Comment on above: Performed By: #### U MICRO, ERUR #### [facility] [address] [address] [address] Rey Londono SPEC GRAVITY 1.010 Normal 1.005-<=1.025 [facility] Comment on above: Performed By: #### U MICRO, ERUR #### [facility] [address] [place] [address] Dr. Rey Londono UA PROTEIN TRACE Normal NEGATIVE/ TRACE The [facility] Comment on above: Performed By: #### U MICRO, ERUR #### [facility] [address] [place] [address] Dr. Rey Londono UR MICRO IND INDICATED Normal The [facility] Comment on above: Performed By: #### U MICRO, ERUR #### [facility] [address] [place] [address] Dr. Rey Londono Urobilinogen Qn (U) 0.2 {Martita'U}/dL Normal 0.2 - 1. 0 The [facility] Comment on above: Performed By: #### U MICRO, ERUR #### [facility] [address] [place] [address] Dr. Rey Londono URINE MICROSCOPIC ONLYon BACTERIA MODERATE Abnormal NONE SEEN The [facility] Comment on above: Performed By: #### U MICRO, ERUR #### [facility] [address] [place] [address] Dr. Rey Londono Bacteria identified Cx Nom (U) INDICATED Normal The [facility] Comment on above: Performed By: #### U MICRO, ERUR #### [facility] [address] [place] [address] Dr. Rey Londono CAST NONE SEEN Normal NONE SEEN The [facility] Comment on above: Performed By: #### U MICRO, ERUR #### [facility] [address] [place] [address] Dr. Rey Londono Crystals LM Nom (Urine sed) NONE SEEN Normal NONE SEEN The [facility] Comment on above: Performed By: #### U MICRO, ERUR #### [facility] [address] [place] [address] Dr. Rey Londono Epithelial cells LM Ql (Urine sed) RARE Normal NONE SEEN /RARE The [facility] Comment on above: Performed By: #### U MICRO, ERUR #### [facility] [address] [place] [address] Dr. Rey Londono MUCOUS NONE SEEN Normal NONE SEEN The [facility] Comment on above: Performed By: #### U MICRO, ERUR #### [facility] [address] [place] [address] Dr. Rey Londono RBC NONE SEEN Abnormal 0-2 The [facility] Comment on above: Performed By: #### U MICRO, ERUR #### [facility] [address], [place] [address] Dr. Rey Londono WBC (U) [#/Vol] /uL Abnormal NONE SEEN [facility] Comment on above: Performed By: #### U MICRO, ERUR #### [facility] [address], [place] [address] Dr. Rey Londono A1C HEMOGLOBINon 08-20-2021 HbA1c (Bld) [Mass fraction] 5.2 % [employer] Other HbA1c (Bld) [Mass fraction]o n 08-20-2021 A1C HEMOGLOBIN [employer] [facility] Other Coding Summaryon 08-23-2016 Coding Summary CODING DATE: 08/23/2016 [facility] STATUS: Home PAYOR: Medicare ADMIT DX: REASON FOR VISIT DX: Z01.812 Encounter for preprocedural laboratory examination FINAL DX: PRINCIPAL: Z01.812 Encounter for preprocedural laboratory examination SECONDARY: Z01.810 Encounter for preprocedural cardiovascular examination M17.11 Unilateral primary osteoarthritis, 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 However, the narrative phrase printed from the coding software may appear abbreviated, or result in slightly different terminology. Revised Coded By: Nury Morse Revised Date Saved: 07/05/2016 04:18 pm Normal [facility] Vital Signs Date Time Vital Sign Value Performing Clinician Facility 09-14-2023 10:41-0400 Body height 160.02 cm MD Ever Byrd Work Phone: [facility] 09-14-2023 10:41-0400 Body mass index (BMI) [Ratio] 34.2 kg/m2 MD Ever Byrd Work Phone: [facility] 09-14-2023 10:41-0400 Body weight 87.54 kg MD Ever Byrd Work Phone: [facility] 08-20-2021 10:00-0400 Body height 160.02 cm Tor Cadiff Other [facility] [employer] Other 08-20-2021 10:00-0400 Body mass index (BMI) [Ratio] 36.47 kg/m2 Tor Garg Other [employer] Other 08-20-2021 10:00-0400 Body weight 93.4 kg Tor Cadiff Other [employer] [facility] [employer] Other 08-20-2021 10:00-0400 Diastolic blood pressure 76 mm[Hg] Tor Cadiff Other [employer] Other 08-20-2021 10:00-0400 Respiratory rate 18 /min Tor Cadiff Other [employer] Other 08-20-2021 10:00-0400 SaO2% (BldA) [Mass fraction] 97 % Tor Cadiff Other [employer] Other 08-20-2021 10:00-0400 Systolic blood pressure 157 mm[Hg] Tor Cadiff Other [employer] Other Encounters Encounter Date Encounter Type Care Provider Facility Start: 09-19-2023 End: 09-19-2023 ambulatory ANH BENOIT Not Available Start: 09-14-2023 End: 09-14-2023 Patient encounter procedure MD Ever Byrd Work Phone: [facility] [place] Work Phone: Start: 09-14-2023 End: 09-14-2023 ambulatory MD Ever Byrd Work Phone: [facility] Work Phone: Start: 09-14-2023 End: 09-14-2023 ambulatory MD Ever Byrd Work Phone: [facility] Work Phone: Start: 09-14-2023 End: 09-14-2023 Patient encounter procedure MD Ever Byrd Work Phone: [facility] Work Phone: Start: 09-14-2023 End: 09-14-2023 Patient encounter procedure MD Ever Byrd Work Phone: [facility] Start: 09-14-2023 End: 09-14-2023 ambulatory MD Ever Byrd Work Phone: [facility] Work Phone: Start: 09-13-2023 End: 09-13-2023 ambulatory JUHI A PETNAZARIOI Not Available Start: 08-02-2023 End: 08-02-2023 ambulatory MOREJON FAWWAD Not Available Start: 07-20-2023 End: 07-20-2023 ambulatory MOREJON FAWWAD Not Available Start: 06-01-2023 End: 06-01-2023 ambulatory MARISELA MCCOYS Not Available Start: 05-25-2023 End: 05-25-2023 ambulatory JAMESArmando NARAYANAN Not Available Start: 05-02-2023 End: 05-02-2023 ambulatory MOREJON FAWWAD Not Available Start: 01-25-2023 End: 01-25-2023 ambulatory MOREJON FAWWAD Not Available Start: 09-22-2022 End: 09-22-2022 ambulatory MARISOL SCHAEFFER [facility] Start: 09-08-2022 Evaluation and management of inpatient MECHELLE MCCARTNEY [facility] Start: 09-06-2022 Evaluation and management of inpatient USHA Aquino [facility] Start: 09-06-2022 Evaluation and management of [facility] Start: 09-05-2022 Evaluation and management of inpatient USHA Aquino KAYLA [facility] Start: 09-05-2022 Evaluation and management of inpatient USHA Aquino KAYLA [facility] Start: 09-05-2022 End: 09-12-2022 Evaluation and management of inpatient WISAMPK DUMONT [facility] Start: 07-14-[address] EVER BYRD . [...] Start: 03-05-2022 End: 03-06-2022 ambulatory Zaria King Facility[facility] Start: 10-03-2021 End: 10-04-2021 ambulatory WISAM DUMONT Facility:[facility] Start: 08-20-2021 End: 08-20-2021 ambulatory Tor Garg Other [employer] Other Start: 08-20-2021 Nutrition therapy Tor Garg [facility] Start: 01-13-2012 End: 01-14-2012 Patient encounter JACQUI Oneal STODDARD Facility:[facility] Procedures Date Procedure Procedure Detail Performing Clinician Start: 09-14-2023 Methicillin resistan t Staphylococcus aureus culture MD Ever Byrd Work Phone: Start: 09-14-2023 Pelvis X-ray MD Ever Byrd Work Phone: Start: 09-14-2023 Radiologic examinati on of knee MD Ever Byrd Work Phone: Plan of Treatment Date Care Activity Detail Author Start: 09-14-2023 MRSA Culture MRSA Culture [facility] Start: 09-14-2023 Methicillin resistan t Staphylococcus aureus [Presence] in Unspecified specimen by Organism specific culture [facility] Start: 09-14-2023 [facility] Start: 09-14-2023 Pelvis X-ray XR pelvis 1-2V [facility] Start: 09-14-2023 Radiologic examinati on of knee XR knee LT 4V* [facility] Start: 09-14-2023 XR Knee - left 4 Views [facility] Start: 09-14-2023 XR Pelvis 1 or 2 Views [facility] Cotinine [Mass/volum e] in Serum or Plasma [facility] Hemoglobin [Mass/vol ume] in Blood [facility] Nicotine [Mass/volum e] in Serum or Plasma [facility] Payers Date Payer Category Payer Self-pay [id number] 2023 [employer] others) [id number] 2022 [employer] ( [employer] others) [id number] 2018 [employer] ( and others) 1959 [employer] ( and others) [id number] 2..840.1.882389. 19 1959 Medicare [id number] 2.1 [id number] 1937 Unknown [id number] 2..840.1.691054.3.579.2.727 1937 Unknown [id number] 2..840.1.475725.3.579.2.593 1937 Unknown [id number] 2.16.840.1.381540.3.579.2.593 1937 Unknown [id number] 2..840.1.289495.3.579.2.593 1937 Unknown [id number] 2.16.840.1.555863.3.579.2.593 1937 Unknown [id number] 2.16.840.1.049151.3.579.2.593 1937 Unknown [id number] 2.16.840.1.455556.3.579.2.593 1937 Unknown [id number] 2.16.840.1.319237.3.579.2.593 1937 Unknown [id number] 2..840.1.328984.3.579.2.593 1937 Unknown [id number] 2..840.1.470746.3.579.2.1259 1937 Unknown [id number] 2..840.1.086856.3.579.2.1259 1937 Unknown [id number] 2.840.1.281636.3.579.2.1259 1937 Unknown [id number] 2..840.1.445460.3.579.2.1259 1937 Unknown [id number] 2.16.840.1.227589.3.579.2.1259 1937 Unknown [id number] 2.840.1.640194.3.579.2.1259 1937 Unknown [id number] 2.16.840.1.677617.3.579.2.1259 1937 Unknown [id number] 2.16.840.1.737941.3.579.2.1259 Medicare [id number] Unknown [id number] 2.16.840.1.004333.3.579.2.531 Unknown [id number] 2.16.840.1.845518.3.579.2.531 Social History Date Type Detail Facility Unknown if ever smoked [employer] Other Sex Assigned At Sex Assigned At [facility] [employer] Other Start: 1935 Sex Assigned At Female [facility] Start: 08-20-2021 Tobacco smoking status NHIS Ex-smoker (finding) [facility] NEGATED: Highlighted row [facility] Clinical Notes 03-17-2014 to 09-22-2022 Note Date & Type Note Facility 09-22-2022 Note Noted KADI while inpt Therefore pt sent for labs and d/w pt to f/U with PCP ZEE for hospital f/u- she states she is currently changing PCP from Dr Byrd to Dr Anna. [facility] 09-22-2022 Note Currently she has 1 more dose of Augmentin due and then that regime is completed. Admits intermittent nausea and 1 episode of diarrhea since dc from hospital. Script for CBC with diff, cmp provided to pt for labs today to assess WBC- HGB and renal function. [facility] 09-22-2022 Note Stable s/p recent se psis, bacteremia with KADI [facility] 09-22-[address] Chavarria who saw pt as inpt no a-fib was noted on EKG, Telemetry pt was noted to have sinus rhythm, sinus tachycardia, and PACs. Today EKG she is Sinus rhythm with sinus arrhythmia with 1st degree AV block. Therefore, non anticoagulation required and pt has resumed Metoprolol 100 mg bid and tolerating well. [facility] 09-22-2022 Note [facility] CARDIOLOGY PROGR ESS NOTE HPI: Ra Garcia is a 86 y.o. female here for Follow-up (Pt was in hospital [facility]) HPI Pt presents today with for f/U s/p recent hospitalization at [facility] for sepsis- ecoli bacteremia with pyelonephritis, a fib with RVR that was determined by [place] cardiology to not be a fib- but [...] hypertension Admission Diagnosis: Atrial fibrillation with RVR ([facility]) [I48.91] Hospital course: Ra Garcia is a 86 y.o. female who came from home with past medical history of hypertension presented to [facility] as a direct admission from [facility] ER. Patient came to ER after a [...] in the m (more content not included)... [facility] 09-22-2022 Note Review of Systems Gastrointestinal: Positive for nausea. All other systems reviewed and are negative. [facility] 09-12-2022 Note ------ Attestation signed by Dillon [...] past medical history of hypertension presented to [facility] as a direct admission from [facility] ER. Patient came to ER after a [...] Ale Neely RN (more content not included)... [facility] 09-12-2022 Note Sent final AVS and d ischarge order to [facility]. [facility] 09-12-2022 Note Hospital Medicine Discharge Summary Final [...] past medical history of hypertension presented to [facility] as a direct admission from [facility] ER. Patient came to ER after a [...] nephrology outpatient. Dear Dr. Lainey MD, Ra Sharan is advised to follow up with you within 1-2 weeks. Follow-up with:nephrology Scheduled appointments: Future Appointments Date Time Provider Department Center 09/17/2022 1:20 PM Marisol Schaeffer NP [facility] Your medication list START taking these medications [...] Your Medications These medications were sent to [facility] - [address] [address] amLODIPine 5 mg tablet amoxicillin-pot clavulanate 500-125 mg tablet sodium bicarbonate 650 mg tablet spironolactone 25 mg tablet Ra Tsang is allergic to aloe vera, aspirin, ciprofloxacin, egg, eucalyptus, penicillins, and quinolones. Disposition: Home or Self Care Discharge Condition: Stable Code Status: Full Code Diagnostic Results Hematology: Results from last 7 days Lab Units 09/12/22 0516 09/10/22 0509 09/06/22 0421 09/05/221957 WBC AUTO 10*3/uL 26.13* 27.87* < > [...] > 2.98* GL (more content not included)... [facility] 09-11-2022 Note Occupational Therapy Name: Sharan Garcia Date of : 1935 Today's Date: 09/11/22 Pt is unable to be seen for therapy at this time secondary to Refused, reporting she is leaving shortly. Will check back and complete therapy session as appropriate. Check No Charge Time attempted: 1153A [facility] 09-11-2022 Note Hospital Medicine Daily Progress Note - 09/11/2022 10:57 AM; Room: [address] [place] [address] Admission: 09/05/2022 10:46 AM; Length of stay: 6 days THE HOSPITALIST TEAM PREFERS TO USE shoply CHAT FOR COMMUNICATION 7AM-7PM. IF I DO NOT RESPOND WITHIN 15 MINUTES, PLEASE PAGE ME/CALL THROUGH THE VENEER JOINER. FROM 7PM-7AM, PLEASE PAGE [phone](COVR) Code Status: Full Code Discharge Destination: home [...] Problems Principal Problem: Atrial fibrillation with RVR ([facility]) Active Problems: Elevated troponin Elevated d-dimer KADI (acute kidney injury) ([facility]) Pyelonephritis Bandemia Hyponatremia Generalized weakness Fall [...] no further work-up while inpatient. PT/OT and manager social work consult. VTE Prophylaxis: Heparin subcutaneous Scheduled Meds [...] few discoid l (more content not included)... [facility] 09-11-2022 Note ------ Attestation signed by Dillon [...] discharge. Patient may follow-up with a local technical analyst if that is more convenient. Dillon Cutler MD, PhD ------ Nephrology Progress Note Patient : Ra Garcia; 86 y.o. Location: 311/311- Attending: Mechelle Mccartney MD Admit Date: 09/05/2022 Hospital Day: 6 Reason for Consult: KADI associated with hyponatremia Subjective: History of present illness: Ra Garcia is a 86 y.o. female who came from home with past medical history of hypertension presented to [facility] as a direct admission from [facility] ER. Patient came to ER after a [...] metoprolol tartrate, morphine, (more content not included)... 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 [...] Clicks T-Score: 17 Assessment/Plan PT Assessment PT Assessment/HEAT SEAL OPERATOR Summary: pt to dc home today. [...] to maintain st (more content not included)... [facility] 09-10-2022 Note Physical Therapy Physical Therapy Treatment [...] been cleared medically to receive therapy services, law writer did a cotreat with O.T. pt was in bed and initially told law writer that she was not feeling like doing it. Improvement Intern reminded pt that she was going home [...] (from Physical Therapy) Active Problems Problem: PT [facility] Start Date: 09/06/22 Goal Start Date Expected [...] (including a w (more content not included)... [facility] 09-10-2022 Note ------ Attestation signed by Dillon [...] past medical history of hypertension presented to [facility] as a direct admission from [facility] ER. Patient came to ER after a [...] at 1123 Medication (more content not included)... [facility] 09-10-2022 Note Occupational Therapy Occupational Therapy Treatment Patient Name: Sharan Garcia : 1935 Today's Date: 09/10/2022 Discharge Rec- HOME OT 09/10/22 0827 OT Last Visit OT Received On 09/10/22 General Subjective increased motiviation required for pt participation, parital co tx with HEAT SEAL OPERATOR d/t pts reluctancy to participate Response [...] 4 Eating meals? 4 Total Score OT [facility] 17 09/10/22 1037 Time Calculation Start Time 08 Stop Time 0953 Time Calculation (min) 86 min OT Therapeutic [...] Dressings Lower Extremit (more content not included)... [facility] 09-10-2022 Note Hospital Medicine Daily Progress Note - 09/10/2022 8:51 AM; Room: [address] [place] [address] Admission: 09/05/2022 10:46 AM; Length of stay: 5 days THE HOSPITALIST TEAM PREFERS TO USE shoply CHAT FOR COMMUNICATION 7AM-7PM. IF I DO NOT RESPOND WITHIN 15 MINUTES, PLEASE PAGE ME/CALL THROUGH THE VENEER JOINER. FROM 7PM-7AM, PLEASE PAGE [phone](COVR) Code Status: Full Code Discharge Destination: home [...] Problems Principal Problem: Atrial fibrillation with RVR ([facility]) Active Problems: Elevated troponin Elevated d-dimer KADI (acute kidney injury) ([facility]) Pyelonephritis Bandemia Hyponatremia Generalized weakness Fall [...] no further work-up while inpatient. PT/OT and manager social work consult. VTE Prophylaxis: Heparin subcutaneous Scheduled Meds [...] Units 09/10/22 0509 09/09/22 0902 09/06/22 0421 09/05/221957 WBC AUTO 10*3/uL 27.87* 31.87* < > [...] Impression: Grossly unrema (more content not included)... [facility] 09-09-2022 Note ------ Attestation signed by Chika [...] any questions or concerns, Chika Orellana MD [place] Infectious diseases P:[phone] ------ Infectious Diseases - Inpatient daily Progress [...] Units 09/09/22 0902 09/08/22 0549 09/07/22 0426 09/06/22 0421 09/05/221957 WBC AUTO 10*3/uL 31.87* 34.23* 28.16* < [...] Units 09/09/22 0902 09/08/22 0549 09/07/22 0426 09/05/228 POTASSIUM mmol/L 3.1* 3.2* 3.6 3.7 CHLORIDE [...] from last 7 days Lab Units 09/05/22 1919 GLUCOSE U MG/DL mg/dL Negative BILIRUBIN U [...] coli (A) Gra (more content not included)... [facility] 09-09-2022 Note Physical Therapy Can cellation note for August Improvement Intern back to work with pt on standing balance skills and getting out of bed because pt had problems in earlier treatment session , upon law writer entering the room pt was sitting in bedside chair and proceeded to tell law writer that her back was hurting her and she could not do any more therapy today , pt was surprised that law writer was already back to see her , law writer explained to pt that it had been a couple of hours since she had last seen pt and pt was aware and agreed to law writer coming back at 12:00 and law writer did not get back till 12:30 . Attempted time : 12:30-12:35pm [facility] 09-09-2022 Note Occupational Therapy Name: Sharan Garcia Date of : 1935 Today's Date: 09/09/22 Pt is unable to be seen for therapy at this time secondary to reports 'I am exhausted and just finished PT., I dont want anymore therapy today/ nsg aware . Will check back and complete therapy session as appropriate. Check No Charge Time attempted: 1345 [facility] 09-09-2022 Note Physical Therapy Physical Therapy Treatment [...] by nursing to receive therapy services ,upon law writer entering the room pt was supine in the bed and proceeded to tell law writer that it was so early to do therapy but she did need to get up to use the bathroom .Pt allowed law writer to start her therapy session to assist [...] Problem Solving Assistance required to generate solutions (Improvement Intern had to tell pt how to modify [...] was sitting in bedside chair chair alarm pharmacy innovation assistant light in place and breakfast in front of pt . PT Assessment PT Assessment/HEAT SEAL OPERATOR Summary pt had breakfast at end of treatment session and law writer will come back around 12:00 and work with pt on standing balance (more content not included)... [facility] 09-09-2022 Note SW met with patient to discuss therapy recommendation of HHC vs. SNF. Patient declined SNF and is agreeable to HHC. Patient reports no preference as she has never had a HHC before. Referral sent, awaiting accepting. OTM will continue to follow. Addendum: [facility] accepted. AVS updated. [facility] 09-09-2022 Note Hospital Medicine Daily Progress Note - 09/09/2022 8:59 AM; Room: [address] [place] [address] Admission: 09/05/2022 10:46 AM; Length of stay: 4 days THE HOSPITALIST TEAM PREFERS TO USE shoply CHAT FOR COMMUNICATION 7AM-7PM. IF I DO NOT RESPOND WITHIN 15 MINUTES, PLEASE PAGE ME/CALL THROUGH THE VENEER JOINER. FROM 7PM-7AM, PLEASE PAGE [phone](COVR) Code Status: Full Code Discharge Destination: home [...] Problems Principal Problem: Atrial fibrillation with RVR ([facility]) Active Problems: Elevated troponin Elevated d-dimer KADI (acute kidney injury) ([facility]) Pyelonephritis Bandemia Hyponatremia Generalized weakness Fall [...] no further work-up while inpatient. PT/OT and manager social work consult. VTE Prophylaxis: Heparin subcutaneous Scheduled Meds [...] last 7 days Lab Units 09/08/22 0549 09/07/2242509/06/2242009/05/221957 WBC AUTO 10*3/uL 34.23* 28.16* < > [...] TSH 1.92 09/05/2022 No results found for: [id number], IRON, TIBC, C3, C4, RAMÍREZ, CANCA, ASO, [...] consolidation is obscured (more content not included)... [facility] 09-09-2022 Note ------ Attestation signed by Dillon [...] past medical history of hypertension presented to [facility] as a direct admission from [facility] ER. Patient came to ER after a [...] medications: acetaminophen, alum-m (more content not included)... [facility] 09-09-2022 Note Clinical Nutrition A ssessment Name: Ra Garcia Date: 1935 Date of Visit: 09/09/22 Reason for assessment: follow-up Information obtained from: patient, medical record, and nursing Medical History No chief complaint on file. Past Medical History: Diagnosis Date A-fib ([facility]) Dysuria Hypertension History reviewed. No pertinent [...] Units 09/08/22 0549 09/07/22 0426 09/06/22 0421 09/05/228 GLUCOSE mg/dL 107* 88 -- 124* BUN [...] based on: ideal body weight Calorie needs: 3816-5040 kcals/day based on Equation: 25-30 kcal/kg Protein [...] intake > 75% meals Kris Carter RD [facility] 09-08-2022 Note Physical Therapy Physical Therapy Treatment Patient Name: Sharan Garcia : 1935 Today's Date: 09/08/2022 Patient Active Problem List Diagnosis Atrial fibrillation with RVR (CMS/HCC) Elevated troponin Elevated d-dimer KADI (acute kidney injury) ([facility]) Pyelonephritis Bandemia Hyponatremia Generalized weakness Fall Benign essential hypertension Time : 11:20-11:38am 09/08/22 1453 PT Last Visit PT Received On 09/08/22 General Subjective Pt had been cleared medically by nursing staff to receive therapy services , nursing informed law writer that pt was desiring to go to the bathroom and she did not do so well getting up . Improvement Intern told nursing she would be right down to assist. See detials of treatment session below: Pt sitting at EOB when law writer entered the room and wanted to go [...] (pt already sitting up at EOB when law writer came in to see pt for therapy [...] person moving to (more content not included)... [facility] 09-08-2022 Note Occupational Therapy attempt: Talked with [...] to follow and treat as appropriate. Afia Gonzalezalayna EDGE/Anika 1009 [facility] 09-08-2022 Note ------ Attestation signed by Dillon [...] blood work at another hospital except at [place] the day prior to admission at [facility]. It is unclear if the patient has [...] past medical history of hypertension presented to [facility] as a direct admission from [facility] ER. Patient came to ER after a [...] completed shifts: In: 3035 (30.9 mL/kg) [P.O.:960; I.V.:2075 (21.1 mL/kg)] Out: 2150 (21.9 mL/kg) [Urine:2150 [...] acetaminophen, alum-mag h (more content not included)... [facility] 09-08-2022 Note Hospital Medicine Daily Progress Note - 09/08/2022 8:14 AM; Room: [address] [place] [address] Admission: 09/05/2022 10:46 AM; Length of stay: 3 days THE HOSPITALIST TEAM PREFERS TO USE shoply CHAT FOR COMMUNICATION 7AM-7PM. IF I DO NOT RESPOND WITHIN 15 MINUTES, PLEASE PAGE ME/CALL THROUGH THE VENEER JOINER. FROM 7PM-7AM, PLEASE PAGE [phone](COVR) Code Status: Full Code Discharge Destination: home [...] Problems Principal Problem: Atrial fibrillation with RVR ([facility]) Active Problems: Elevated troponin Elevated d-dimer KADI (acute kidney injury) ([facility]) Pyelonephritis Bandemia Hyponatremia Generalized weakness Fall [...] Lab Units 09/08/22 0549 09/07/22 0426 09/06/22 04209/05/22 1958 WBC AUTO 10*3/uL 34.23* 28.16* < [...] TSH 1.92 09/05/2022 No results found for: [id number], IRON, TIBC, C3, C4, RAMÍREZ, CANCA, ASO, PSA, CEA, CA125, CA199, AFP, CA153 Imaging Vasc Us Lower Extremity Venous Du (more content not included)... [facility] 09-07-2022 Note 09/07/22 1639 Activities of Daily [...] home. History of SNF placement at [facility]. Anticipates return home when medically ready. [facility] 09-07-2022 Note Physical Therapy Physical Therapy Treatment [...] requests to return back to bed upon law writer entry. Reluctant to participate on third attempt [...] with this activity Comments/Distance (ft) 1 ~20' law writer encouraged pt to take more steps, however, [...] with good return demo. PT Assessment PT Assessment/HEAT SEAL OPERATOR Summary Pt limited by decreased activity [...] moving to an (more content not included)... [facility] 09-07-2022 Note Hospital Medicine Daily Progress Note - 09/07/2022 12:43 PM; Room: [facility]- Admission: 09/05/2022 10:46 AM; Length of stay: 2 days THE HOSPITALIST TEAM PREFERS TO USE shoply CHAT FOR COMMUNICATION 7AM-7PM. IF I DO NOT RESPOND WITHIN 15 MINUTES, PLEASE PAGE ME/CALL THROUGH THE VENEER JOINER. FROM 7PM-7AM, PLEASE PAGE [phone](COVR) Code Status: Full Code Discharge Destination: home [...] Problems Principal Problem: Atrial fibrillation with RVR ([facility]) Active Problems: Elevated troponin Elevated d-dimer KADI (acute kidney injury) ([facility]) Pyelonephritis Bandemia Hyponatremia Generalized weakness Fall Benign essential hypertension Assessment and Plan #Sepsis secondary to gram-negative bacteremia Most likely source UTI /pyelonephritis, CT abdomen pelvis noted Urine culture grew E. Coli Continue Rocephin for now Ultrasound kidneys was unremarkable # KDAI with creatinine 2.98 Creatinine worse today Continue [...] Results from last 7 days Lab Units 09/07/22 04209/05/221957 SODIUM mmol/L 128* 125* POTASSIUM mmol/L 3.6 [...] TSH 1.92 09/05/2022 No results found for: [id number], IRON, TIBC, C3, C4, RAMÍREZ, CANCA, ASO, PSA, CEA, CA125, CA199, AFP, CA153 Imaging Vasc Us Lower Extremity Venous Duplex Bilateral Narrative: Procedure: Duplex spectral Doppler and real time ultrasound imaging with compression and augmentation was perfor (more content not included)... [facility] 09-07-2022 Note 09/07/22 1022 Admission Assessment Questions [...] Discharge? Yes Does the patient have a pillowcase turner assigned to them through their insurance? No Living Arrangement (Current/Prior to Hospitalization) Private residence (3 steps to enter home) Does the patient have history of HHC or SNF? Yes (Hx of SNF placement at [facility]) Assistive Device Cane Patient's goal for discharge [...] to send link and activate MyChart? No [facility] 09-07-2022 Note Physical Therapy Can rachael Note 09/07/22 1000 General Missed Time Reason Patient refused PT Assessment PT Assessment/HEAT SEAL OPERATOR Summary Pt requested law writer to return for PT tx later this date secondary to fatigue. Pt states she was up with nrsg to take a shower this morning and would like to rest at the moment. Will return when more convenient. Johanna Mancia, HEAT SEAL OPERATOR [facility] 09-06-2022 Note Hospital Medicine Daily Progress Note - 09/06/2022 12:27 PM; Room: [address] [place] [address] Admission: 09/05/2022 10:46 AM; Length of stay: 1 days THE HOSPITALIST TEAM PREFERS TO USE shoply CHAT FOR COMMUNICATION 7AM-7PM. IF I DO NOT RESPOND WITHIN 15 MINUTES, PLEASE PAGE ME/CALL THROUGH THE VENEER JOINER. FROM 7PM-7AM, PLEASE PAGE [phone](COVR) Code Status: Full Code Discharge Destination: home [...] Problems Principal Problem: Atrial fibrillation with RVR ([facility]) Active Problems: Elevated troponin Elevated d-dimer KADI (acute kidney injury) ([facility]) Pyelonephritis Bandemia Hyponatremia Generalized weakness Fall [...] Results from last 7 days Lab Units 09/06/22 0421 09/05/221957 WBC AUTO 10*3/uL 30.91* 29.25* HEMOGLOBIN g/dL [...] TSH 1.92 09/05/2022 No results found for: [id number], IRON, TIBC, C3, C4, RAMÍREZ, CANCA, ASO, PSA, CEA, CA125, CA199, AFP, CA153 Imaging Complete Echo (TTE) w/wo Imaging Agent, Strain, 3D, Bubble Study 1 1 [facility] [address] [place] [address] [phone] (fax) Echocardiogram-[facility] Name: RA GARCIA Study Date: 09/06/2022 09:57 AM B/P: 152 mmHg/66 mmHg HR: Date of : 1935 Location: [facility] Height: 63 in. Age: 86 year(s) Patient Room: 3107 Weight: 212 lb. Gend (more content not included)... [facility] 09-06-2022 Note Physical Therapy Physical Therapy Evaluation [...] Home Living Home Living Type of Home: [place] Lives With: Spouse Home Adaptive Equipment: Cane, Rollator (Reports the rollator is her husbands) Home Layout: One level Home Access: Stairs to enter with rails Entrance Stairs-Rails: Right Entrance Stairs-Number of Steps: 3 Bathroom Shower/Tub: Walk-in shower Bathroom Equipment: Shower chair with back, Grab bars in shower Prior Level of Function Prior Function Level of [place]: Independent with ADLs and functional transfers, Independent [...] turning from your (more content not included)... [facility] 09-06-2022 Note Occupational Therapy Occupational Therapy Evaluation Patient Name: Ra Garcia : 1935 Today's Date: 09/06/2022 Time In: 738 Time Out: 757 Ra Garcia is an 86 y.o. female who came from home with past medical history of hypertension presented to [facility] as a direct admission from [facility] ER. Patient came to ER after a [...] 7. Generalized weakness/falls: Fall precautions. PT/OT, social sciences lecturer for placement if indicated upon discharge. General Subjective: friendly and cooperative, reports generalized weakness and fatigue Patient Active Problem List Diagnosis Atrial fibrillation with RVR ([facility]) Elevated troponin Elevated d-dimer KADI (acute kidney injury) ([facility]) Pyelonephritis Bandemia Hyponatremia Generalized weakness Fall Benign essential hypertension Past Medical History: Diagnosis Date A-fib ([facility]) Dysuria Hypertension History reviewed. No pertinent surgical history. Precautions Pain Pain Assessment Pain Assessment: No/denies pain Cognition Cognition Overall Cognitive Status: Within Functional Limits General Assessment General Assessment Hand Dominance: Right Home Living Home Living Type of Home: Condo Lives With: Spouse Home Adaptive Equipment: Cane (sc, gb, [facility]) Home Layout: One level Home Access: Stairs to enter with rails (3) Bathroom Shower/Tub: Walk-in shower Prior Level of Function Prior Function Level of [place]: Independent with ADLs and functional transfers, Independent [...] Little (Min Ass (more content not included)... [facility] 09-05-2022 Note Hospital Medicine History and Physical 09/05/2022 12:28 PM THE HOSPITALIST TEAM PREFERS TO USE shoply CHAT FOR COMMUNICATION 7AM-7PM. IF I DO NOT RESPOND WITHIN 15 MINUTES, PLEASE PAGE ME/CALL THROUGH THE VENEER JOINER. FROM 7PM-7AM, PLEASE PAGE [phone](COVR) Chief Complaint No chief complaint on file. History of Present Illness Ra Garcia is an 86 y.o. female who came from home with past medical history of hypertension presented to [facility] as a direct admission from [facility] ER. Patient came to ER after a [...] Diagnosis Date Noted Atrial fibrillation with RVR ([facility]) 09/05/2022 Elevated troponin 09/05/2022 Elevated d-dimer 09/05/2022 KADI (acute kidney injury) ([facility]) 09/05/2022 Pyelonephritis 09/05/2022 Bandemia 09/05/2022 Hyponatremia [...] 7. Generalized weakness/falls: Fall precautions. PT/OT, social sciences lecturer for placement if indicated upon discharge. 8. [...] studies and wi (more content not included)... [facility] 08-20-2021 Evaluation note Encounter Date Diagnosis Assessment Notes Aug, Abnormal weight gain (ICD-10 - R63.5) Aug, Hypertension (ICD-10 - I10) Aug, GERD (gastroesophageal reflux disease) (ICD-10 - K21.9) Aug, Elevated glucose level (ICD-10 - R73.09) Aug, Knee osteoarthritis (ICD-10 - M17.9) Aug, Obesity (BMI 35.0-39.9 without comorbidity) (ICD-10 - E66.9) [employer] Other 02-01-2015 History general Narrative - Reported* Type Description Date Medical History GERD Medical History Hypertension Medical History Stress incontinence (sees Dr. Yomaira jensen) Medical History arthritis Surgical History bladder suspension 03/2014 Surgical History cholecystectomy Surgical History appendectomy Surgical History eyes Surgical History ear surgery Surgical History hysterectomy Hospitalization History see above [employer] Other Evaluation noteNo assessment information available [facility] [employer] Work Phone: Evaluation note* Diagnosis Onset Date Resolution Status Primary osteoarthritis of left knee acute [facility] Work Phone: Summary Purpose Family History [...] section and content) DATE CREATED AUTHOR 08/03/2017 [facility] DATE CREATED AUTHOR AUTHOR'S ORGANIZ ATION 08/30/2017 [facility] DATE CREATED AUTHOR AUTHOR'S ORGANIZ ATION 03/09/2022 [facility] DATE CREATED AUTHOR AUTHOR'S ORGANIZ ATION 07/23/2022 [facility] DATE CREATED AUTHOR AUTHOR'S ORGANIZ ATION 09/23/2022 [facility] DATE CREATED AUTHOR AUTHOR'S ORGANIZ ATION 09/20/2023 [facility] DATE CREATED AUTHOR AUTHOR'S ORGANIZ ATION 09/23/2023 [facility] REASON FOR VISIT (unrecogniz ed section and content) WMN Initial Dr Goals (unrecognized section and content) Goals may be documented in a n alternate section Care Teams (unrecognized sec tion and content) Team Status: Active Member Role Status Dates Ever Byrd MD Primary Care Provider Active Team [...] BE BASED ON THE PRIMARY CLINICAL RECORDS. [employer] provides no warranty or guarantee of the accuracy or completeness of information in this document.
[2023-10-04 22:57] LABS: Bilirubin Urine NEGATIVE (NEGATIVE); Blood Urine NEGATIVE (NEGATIVE); Clarity Urine CLEAR (CLEAR); Color Urine LT. YELLOW (YELLOW); Glucose Urine UA NEGATIVE (NEGATIVE); Ketones Urine NEGATIVE (NEGATIVE); Leukocyte Esterase Urine TRACE (NEGATIVE); Nitrite Urine NEGATIVE (NEGATIVE); Protein Urine NEGATIVE (NEG/TRACE); Specific Gravity Urine 1.015 (1.005-1.025); Urine Microscopic Indicated YES; Urobilinogen Urine 0.2 EU/dL (0.2-1.0)
[2023-10-04 23:09] LABS: Bacteria Urine NONE SEEN #/HPF (NONE SEEN); Cast Seen? NONE SEEN #/LPF (NONE SEEN); Crystals Seen? None Seen #/HPF (None Seen); Mucus Urine NONE SEEN (NONE SEEN); RBC Urine 0-2 #/HPF (0-2); Squamous Epithelial Cell Urine FEW #/LPF (NONE/RARE); Urine Culture Indicated NO; WBC Urine 0-2 #/HPF (NONE SEEN)
== END 2023-10-04 22:48 | disposition home or self-care (01) ==
LOC: LAB 22:47
PROVIDERS: PCP Internal Medicine
DX: R30.0 Dysuria (principal)
CPT/HCPCS: 81001

== ENCOUNTER 2024-06-26 09:21 | Outpatient (OUT) | payer MEDICARE, OTHER, SELFPAY ==
[2024-06-26 10:00] LABS: Basophils Percent Auto 0.5 % (0.2-2.0); Eosinophils Absolute Auto 0.6 10^3/uL (0.0-0.7); Hematocrit 36.5 % (36.0-48.0); Hemoglobin 12.2 g/dL (12.0-16.0); Immature Granulocytes Abs Auto 0.02 10^3/uL (0.00-0.03); Immature Granulocytes Pct Auto 0.3 % (0.0-0.5); Lymphocytes Absolute Auto 2.4 10^3/uL (1.2-3.8); Lymphocytes Percent Auto 30.2 % (20.5-60.0); Mean Corpuscular HGB Conc 33.4 g/dL (29.9-35.2); Mean Corpuscular Hemoglobin 29.5 pg (26.7-34.0); Mean Corpuscular Volume 88.4 fL (81.0-99.0); Mean Platelet Volume 11.7 fL (9.5-13.5); Monocytes Percent Auto 12.3 % (1.7-12.0); Neutrophils Absolute Auto 3.9 10^3/uL (1.4-6.5); Neutrophils Percent Auto 49.7 % (43.0-75.0); Platelet Count 295 10^3/uL (150-450); Red Blood Count 4.13 10^6/uL (4.20-5.40); Red Cell Distribution Width 12.8 % (11.0-15.0); White Blood Count 7.9 10^3/uL (4.0-11.0)
[2024-06-26 10:27] LABS: Creatinine Urine Random 82.28 mg/dL (20.00-300.00); Microalbum Creatinine Ratio Ur 61.9 mg/g (0.0-29.9); Microalbumin Urine Random 5.1 mg/dL (<=30.0)
[2024-06-26 10:36] LABS: Alanine Aminotransferase 28 U/L (14-59); Albumin Level 4.3 g/dL (3.4-5.0); Alkaline Phosphatase 71 U/L (46-116); Anion Gap 13.3; Aspartate Amino Transferase 25 U/L (15-37); BUN Creatinine Ratio 10.4; Bilirubin Total 0.6 mg/dL (0.2-1.0); Calcium 9.7 mg/dL (8.5-10.1); Carbon Dioxide 27.8 mmol/L (21.0-32.0); Chloride 100 mmol/L (98-107); Estimated GFR (African America 49 (>=60 mL/min/1.73m^2); Estimated GFR (Non-African Ame 41 (>=60 mL/min/1.73m^2); Globulin 4.2 g/dL; Glucose 94 mg/dL (74-106); Percent Iron Saturation 40.4 %; Potassium 4.1 mmol/L (3.5-5.1); Sodium 137 mmol/L (136-145); Total Protein 8.5 g/dL (6.4-8.2)
[2024-06-26 11:26] LABS: Bilirubin Urine NEGATIVE (NEGATIVE); Blood Urine NEGATIVE (NEGATIVE); Clarity Urine CLEAR (CLEAR); Color Urine LT. YELLOW (YELLOW); Glucose Urine UA NEGATIVE (NEGATIVE); Ketones Urine NEGATIVE (NEGATIVE); Leukocyte Esterase Urine SMALL (NEGATIVE); Nitrite Urine NEGATIVE (NEGATIVE); Protein Urine NEGATIVE (NEG/TRACE); Urobilinogen Urine 0.2 EU/dL (0.2-1.0); pH Urine 6.5 (5.0-9.0)
[2024-06-26 11:43] LABS: Urine Microscopic Indicated YES
[2024-06-26 12:41] LABS: Bacteria Urine TRACE #/HPF (NONE SEEN); Cast Seen? NONE SEEN #/LPF (NONE SEEN); Crystals Seen? None Seen #/HPF (None Seen); Mucus Urine NONE SEEN (NONE SEEN); RBC Urine 0-2 #/HPF (0-2); Squamous Epithelial Cell Urine FEW #/LPF (NONE/RARE)
[2024-06-26 12:42] LABS: Urine Culture Indicated YES-FRMC
[2024-06-27 05:07] LABS: Transferrin 232 mg/dL (149-313)
== END 2024-06-26 09:22 | disposition home or self-care (01) ==
PROVIDERS: PCP Nurse Practitioner; Visit Provider Nurse Practitioner
DX: K21.9 Gastro-esophageal reflux disease without esophagitis (principal); D63.8 Anemia in other chronic diseases classified elsewhere; I10 Essential (primary) hypertension; N28.9 Disorder of kidney and ureter, unspecified; M81.0 Age-related osteoporosis without current pathological fracture
CPT/HCPCS: 36415; 80053; 81001; 82043; 82306; 82570; 82728; 83540; 83550; 84466; 85025; 87086

== ENCOUNTER 2024-08-29 09:24 | Outpatient (OUT) | payer MEDICARE, OTHER, SELFPAY ==
--- OUTSIDE RECORDS SUMMARY | 2024-08-29 09:27 | XMS_ITS | Continuity of Care Document ---
Author Name [facility] Organization [facility] Care Team Providers Care Bluing Oven Tender Name Role Phone [facility] Unavailable Unavailable Medications Combined list of outpatient medications from Department of Defense and Veterans Affairs facilities.Medications provided include 1) outpatient medications from the last 15 months, and 2) patient-reported medications. Medication Details Route Status Patient Instructions Prescription Expires Prescription Number Last Dispense Date Ordering Provider Order Date Order Qty Source AMLODIPINE BESYLATE (amlodipine besylate), 10 MG, TABLET, ORAL, [employer] [facility], 500 ea. BOTTLE Active [id number] 4 2023 90 Pharmac y Data Transac tion Service Facilit y FLUCONAZOLE (FLUCONAZOL E), 150 MG, TABLET, ORAL, pic5ON PHARMA L, 12 ea. BLIST PACK Active [id number] 4 2023 2 Pharmac y Data Transac tion Service Facilit y FLUOCINOLON E ACETONIDE OIL (fluocinolo ne acetonide oil), 0.01 %, DROPS, OTIC (EAR), [facility], 20 ml DROP BTL Active [id number] 06/01/19 2 4 2023 20 Pharmac y Data Transac tion Service Facilit y LEVOFLOXACI N (levofloxac in), 500 MG, TABLET, ORAL, [employer] [facility], 50 ea. BOTTLE Active [id number] 4 2023 5 Pharmac y Data Transac tion Service Facilit y METOPROLOL TARTRATE (metoprolol tartrate), 100 MG, TABLET, ORAL, [employer] 1000 ea. BOTTLE Active [id number] 4 2023 180 Pharmac y Data Transac tion Service Facilit y NITROFURANT OIN MONO-MACRO (NITROFURAN TOIN MONOHYD/M-C RYST), 100 MG, CAPSULE, ORAL, [employer], 100 ea. BOTTLE Active [id number] 4 2023 14 Pharmac y Data Transac tion Service Facilit y RABEPRAZOLE SODIUM (RABEPRAZOL E SODIUM), 20 MG, TABLET DR, ORAL, [employer], 30 ea. BOTTLE Cancele d [id number] : 2023 0 Pharmac y Data Transac tion Service Facilit y RABEPRAZOLE SODIUM (RABEPRAZOL E SODIUM), 20 MG, TABLET DR, ORAL, [employer], 30 ea. BOTTLE Cancele d [id number] : 2023 0 Pharmac y Data Transac tion Service Facilit y RABEPRAZOLE SODIUM (RABEPRAZOL E SODIUM), 20 MG, TABLET DR, ORAL, [employer], 30 ea. BOTTLE Cancele d [id number] : 2023 0 Pharmac y Data Transac tion Service Facilit y RABEPRAZOLE SODIUM (RABEPRAZOL E SODIUM), 20 MG, TABLET DR, ORAL, [employer]SCAR MAYA, 30 ea. BOTTLE Active [id number] 4 2023 90 Pharmac y Data Transac tion Service Facilit y Immunizations Combined list of available immunizations from the Department of Defense and Veterans Affairs facilities. Immunization Series Date Given Administered By Site Reaction Lot Number CVX Code Drug Banking Pin Adjuster Status Comments Source zoster recombinant 2021 ETHEL BEDOLLA () Not Given zoster recombina nt DoD zoster recombinant 2021 ETHEL BEDOLLA () Not Given zoster recombina nt DoD COVID-19, mRNA, LNP-S, PF, 100 mcg or 50 mcg dose 2020 ETHEL BEDOLLA () Not Given COVID-19, mRNA, LNP-S, PF, 100 mcg or 50 mcg dose DoD zoster recombinant 2018 CHIOMA, () Not Given zoster recombina nt DoD Social History Combined list of available smoking, tobacco, and other social history from Department of Defense and Veterans Affairs facilities. Social History Type Response Date Comment Sour e This section is an empty social history section. [facility]
--- OUTSIDE RECORDS SUMMARY | 2024-08-29 09:28 | XMS_ITS | Encounter Summary ---
Author Organization [facility] Address [address] [place] [place] [address] Care Team Providers Care Protection Engineer Name Role Phone Shaikh ROSITA Piña Primary Care Provider [phone] Nelson Woods MD Primary Care Provider [phone] Arlene Shah ROTARY DRILL OPERATOR Unavailable [phone] Nelson Woods MD Primary Care Provider [phone] Encounter Details Date Type Department Care Team (Late st Contact Info) Description 08/04/2023 Orders Only [facility] [address] [place] [address] Shaikh Piña MD [address] [place] [phone] Social History Tobacco Use Types Packs/Day Years Used Date Smoking Tobacco: Former Cigarettes Q uit: 1982 Passive Smoke Exposure: Past Smokeless Tobacco: Never Alcohol Use Standard Drinks/Week Comments Never 0 (1 standard drink = 0.6 oz pur e alcohol) AUDIT-C Answer Date Recorded Q1: How often do you have a drink containing alc ohol? Monthly or less 01/14/2023 Q2: How many drinks containi ng alcohol do you have on a typical day when you are drinking? 1 or 2 01/14/2023 Q3: How often do you have si x or more drinks on one occasion? Never 01/14/2023 PHQ-2 Answer Date Recorded Patient Health Questionnaire-2 Score 0 08/02/2023 Comments Unknown Sex and Gender Information Value Date Recorded Sex Assigned at Not on file Legal Sex Female 7:31 PM EDT Gender Identity Not on file Sexual Orientation Not on file documented as of this encounter Plan of Treatment Upcoming Encounters Date Type Department Care Team (Late st Contact Info) Description 09/03/2024 1:00 PM EDT Office Visit [facility] [address] [place] [address] Tanvi Perez NP [address] [place] [address] 06/10/2025 4:30 PM EDT Office Visit [facility] [address] [place] [address] Tanvi Perez NP [address] [place] [phone] documented as of this encounter Visit Diagnoses Not on filedocumented in this encounter Additional Health Concerns Assessment Noted Time PHQ-9 Depression Total Score: 0 05/02/19 1:40 PM EDT documented as of this encounter Care Teams Protection Engineer Relationship Specialty Start Date End Date Shaikh Piña MD [address] [place] [phone] PCP - General Internal Medicine 05/02/23 09/13/23 Nelson Woods MD [address] [place] [address] PCP - General Family Medicine 09/14/23 12/04/23 Nelson Woods MD [address] [place] [phone] PCP - General Family Medicine 06/04/24 Arlene Shah NP [address] [place] [address] Nurse Practitioner Family Medicine 09/14/23 documented as of this encounter
--- OUTSIDE RECORDS SUMMARY | 2024-08-29 09:28 | XMS_ITS | Patient Health Record ---
Author Organization [facility] Address [address] [place] [address] Care Team Providers Care Special Event Assistant Name Role Phone Salvador Retana Primary Care Provider Allergies Allergen (clinical drug ingredient) Drug/Non Drug Allergy documented on EMR Reaction Allergy Type Onset Date Status Poultry Poultry (uncoded) Unknown Allergy Ac tive Aloe Unknown Drug Allergy Active Eucalyptus Unknown Drug Allergy Active chicken allergenic extract Chicken Meat (Diagnostic) Unknown Drug Allergy Active aspirin Aspirin Unknown Drug Allergy Active Reason For Referral No Information Medications Medication SIG (Take, Route, Frequency, Duration) Notes Start Date End Date Status amLODIPine Besylate 5 mg TAKE 1 TABLET DAILY Active Multivitamin - 1 tablet Orally Once a day Active Metoprolol Tartrate 100 mg TAKE 1 TABLET TWICE A DAY Active Potassium Chloride ER 10 MEQ TAKE 1 TABLET DAILY Active Ondansetron 4 MG 1 tablet on the tong ue and allow to dissolve Orally BID prn for 7 days 10/05/2022 Active Flonase Allergy Relief 50 MCG/ACT 1 spray in each nostril Nasally Once a day Active Calcium Carbonate 600 MG 1 tablet with f ood Orally Twice a day Active Premarin 0.9 MG 1 tablet off 7 days then repeat Orally Once a day Active RABEprazole Sodium 20 MG 1 tablet Orally Once a day Active Ibuprofen 800 MG 1 tablet with food o r milk as needed Orally every 8 hrs Active Lisinopril 20 MG 1 tablet Orally Once a day Active Furosemide 20 MG 1 tablet Orally Once a day NEEDED Active Macrodantin 100 MG 1 capsule Orally bid for 10 days 08/02/2022 Active Handicapped Tag 5 Years Active Social History Tobacco Use: Social History Observation Description Date Details (start date - stop date) Former Smoker 02/14/1967 - 02/14/1981 Tobacco Use/Smoking Question Answer Notes Patient is a former smoker When did you start smoking? 02/14/1967 When did you stop smoking? 02/14/1981 How long has it been since you last smoked? > 10 years Alcohol Screen (Audit-C) Question Answer Notes Did you have a drink contain ing alcohol in the past year? Yes How often did you have 6 or more drinks on one occasion in the past year? Never (0 point) How many drinks did you have on a typical day when you were drinking in the past year? 1 or 2 drinks (0 point) How often did you have a dri nk containing alcohol in the past year? 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 confirmed Problem 13090194046777918 Acute kidney failure, unspecified (N17.9) Active confirmed Problem Acute cystitis (18120163) Acute cystitis without hematuria (N30.00) Active confirmed Problem 359373678 Other abnormalities of gait and mobility (R26.89) Active confirmed Problem Dysuria (19450186) Dysuria (R30.0) Active confi rmed Problem Hypertension (67684613) Hypertension (I10) Active confirmed Problem Atrial fibrillation (disorder) (95711628) Afib (I48.91) Active confirmed Problem Obesity (402040549) Obesity (E66.9) Active conf irmed Problem Urinary frequency (505936922) Urinary frequency (R35.0) Active confirmed Problem Insomnia (286653742) Insomnia (G47.00) Active c onfirmed Problem Hyponatremia (71159292) Hyponatremia (E87.1) Active confirmed Problem Hematuria (31119531) Hematuria (R31.9) Active c onfirmed Problem Pain of knee region (finding) (4134787136) Pain in knee (M25.569) Active confirmed Problem Dermatitis (273678290) Dermatitis (L30.9) Active confirmed Problem Acute sinusitis (25981297) Acute sinusitis (J01.90) Active confirmed Problem Chronic sinusitis (05088144) Chronic sinusitis (J32.9) Active confirmed Problem Eustachian tube dysfunction (13386612) Eustachian tube dysfunction (H69.80) Active confirmed Problem Bilateral arthritis of knees (7595815382568937) Osteoarthritis of both knees (M17.0) Active confirmed Problem Flatulence, eructation and gas pain (375456272) Abdominal distension (R14.0) Active confirmed Problem Urinary tract infection (44883172) Urinary tract infection (N39.0) Active confirmed Problem Otitis media of left ear (3679211188416570) Left otitis media (H66.92) Active confirmed Problem Cellulitis of left lower limb (81980015645991091) Cellulitis of left lower limb (L03.116) Active confirmed Problem Edema (356123449) Edema of both legs (R60.0) Active confirmed Problem Cervical disc disorder (641553228) DDD (degenerative disc disease), cervical (M50.30) Active confirmed Problem Acute maxillary sinusitis (58501831) Acute maxillary sinusitis (J01.00) Active confirmed Problem Ganglion cyst (09755335) Ganglion cyst (M67.40) Active confirmed Problem Nevus (4134312336) Nevus (D22.9) Active confirm ed Problem Breathing painful (29327289) Rib pain on left side (R07.81) Active confirmed Problem Internal derangement of knee (68829235) Internal derangement of knee (M23.90) Active confirmed Problem Annual wellness visit (400335121920002) Wellness examination (Z00.00) Active confirmed Problem Menopausal flushing (484195393) Hot flashes, menopausal (N95.1) Active confirmed Problem Cut of hand (738862228) Cut of hand (S61.409A) Active confirmed Problem Chronic low back pain (finding) (136651772) Chronic midline low back pain without sciatica (M54.50) Active confirmed Plan Of Treatment Pending Test Test Name Order Date UA (URINALYSIS, COMPLETE) 09/01/2022 UA (REFLEX URINALYSIS TO CULTURE) 2022 US Renals and Bladder 08/02/2022 Urine Culture 09/01/2022 URINE MICROSCOPIC ONLY 09/01/2022 Insurance Providers Payer Name Payer Address Payer Phone Subscriber Number Group Number Insured Name Patient Relationship to Insured Coverage Start Date Coverage End Date [place] [address] [place] [address] [id number] Joan Garcia Self - patient is the insured 3 [employer] [address] [place] [address] [id number] Joan Garcia Self - patient is the insured Medical (General) History Medical History History ICD Code Acute cystitis without hematuria N30.00 Overweight E66.3 Internal derangement of knee M23.90 Acute sinusitis J01.90 Cut of hand S61.409A Cellulitis of left lower limb L03.116 Chronic midline low back pain without sc iatica M54.50 Ganglion cyst M67.40 Nevus D22.9 Left otitis media H66.92 Dermatitis L30.9 Nicotine dependence, cigarettes, in geovanna ssion F17.211 Urinary frequency R35.0 Acute maxillary sinusitis J01.00 Wellness examination Z00.00 Hot flashes, menopausal N95.1 Rib pain on left side R07.81 Hematuria R31.9 Dysuria R30.0 Osteoarthritis of both knees M17.0 Chronic sinusitis J32.9 Obesity E66.9 Abdominal distension R14.0 Pain in knee M25.569 Eustachian tube dysfunction H69.80 Edema of both legs R60.0 Insomnia G47.00 Urinary tract infection N39.0 DDD (degenerative disc disease), cervica l M50.30 Hyponatremia E87.1 Hypertension I10 Surgical History Surgery Date(Month/Year) Urinary Incontinence Surgery Appendectomy Back Surgery Cholecystectomy
--- OUTSIDE RECORDS SUMMARY | 2024-08-29 09:28 | XMS_ITS | Clinical Summary ---
Author Organization [facility] Address [address] [place] [address] Care Team Providers Care Taxation Inspector Name Role Phone Arlene Shah WET END SUPERVISOR Unavailable [phone] Nelson Woods MD Primary Care Provider [phone] Allergies Active Allergy Reactions Criticality Noted Date Comments Aspirin Unknown 01/21/2023 Chicken Flavoring Agent (Non-Screening) Unknown 01/21/2023 Penicillin V Unknown 01/21/2023 Penicillins 01/21/2023 Poultry Meal Unknown 01/21/2023 Medications fluticasone (Flonase Allergy Relief) 50 MCG/ACT nasal sprayIndications :Seasonal allergies Administer 2 sprays into each nostril Daily 48 g 1 5 025 Active amLODIPine (Norvasc) 10 MG tabletIndication s:Primary hypertension Take 1 tablet (10 mg) by mouth in the morning. 90 tablet 5 025 Active metoprolol tartrate (Lopressor) 100 MG tabletIndication s:Primary hypertension Take 1 tablet (100 mg) by mouth in the morning and 1 tablet (100 mg) before bedtime. 180 tablet 5 025 Active RABEprazole (Aciphex) 20 MG EC tabletIndication s:Gastroesophage al reflux disease without esophagitis Take 1 tablet (20 mg) by mouth Daily Do not crush, chew, or split. 90 tablet 5 025 Active amLODIPine (Norvasc) 10 MG tabletIndication s:Primary hypertension Take 1 tablet (10 mg) by mouth in the morning. 90 tablet 1 5 025 Discontin ued(Reord er) RABEprazole (Aciphex) 20 MG EC tabletIndication s:Gastroesophage al reflux disease without esophagitis Take 1 tablet (20 mg) by mouth Daily Do not crush, chew, or split. 90 tablet 1 5 025 Discontin ued(Reord er) metoprolol tartrate (Lopressor) 100 MG tabletIndication s:Primary hypertension Take 1 tablet (100 mg) by mouth in the morning and 1 tablet (100 mg) before bedtime. 180 tablet 1 5 025 Discontin ued(Reord er) Active Problems Problem Noted Date Diagnosed Date Elevated total protein 06/28/2024 Other specified anemias 06/04/2024 Renal insufficiency 06/04/2024 Other alf (current) drug therapy Age related osteoporosis 10/04/2023 Assessment & Plan (06/04/2024 6:56 AM EDT): No current meds Last DEXA: Seasonal allergies 09/20/2023 Gastroesophageal reflux disease without esophagi tis 08/02/2023 Assessment & Plan (06/04/2024 6:57 AM EDT): Recommendations: freq small meals, nothing to eat or drink at least 2 hours prior to bed, limit caffeine, alcohol, as well as spicy foods Meds to limit or avoid if possible: NSAIDS Elevate HOB if possible Meds: aciphex Assessment & Plan (12/05/2023 4:33 PM EDT): Taking Rabeprazole 20mg daily. Feels symptoms are well controlled. Assessment & Plan (10/04/2023 2:26 PM EDT): Symptoms well managed. Continue Rabeprazole as directed. Assessment & Plan (08/02/2023 1:44 PM EDT): Well controlled. C/w rabeprazole. Dysuria 08/02/2023 Assessment & Plan (12/05/2023 4:33 PM EDT): Following with Dr. Zuniga. Assessment & Plan (10/04/2023 2:49 PM EDT): Recently finished course of Bactrim. Referral sent to Urology, Dr. Zuniga; Urine rechecked today- Urine Dip Negative. Will send out for confirmation. Assessment & Plan (08/02/2023 1:43 PM EDT): Recently treated for UTI. Finished her abx course. Still experiencing mild dysuria/Suprapubic discomfort. Symptoms improved sig. Recheck UA. Elevated serum creatinine 08/02/2023 Assessment & Plan (08/02/2023 1:45 PM EDT): Likely underlying CKD. Most recent creatinine 1.3, check creatinine/protein in urine. 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 Reports her has had two heart attacks recently and does not feel comfortable having surgery until he is fully recovered. Assessment & Plan (05/02/2023 1:57 PM EDT): Left Knee pain, chronic, intermittent, has been progressively getting worse. She has not had any recent XR. She is using topical med with some pain relief. No recent fall. Denies knee joint instability. Crepitus noted on exam. No tenderness. Normal passive and active rang of motion. Patient asked to use tylenol as needed for pain. She follows Rheum for ostearthritis and was suggested to get intra articular joint injection. She will reach out to her rheum and follow up with him. Medicare annual wellness visit, subsequent 05/01 Assessment & Plan (06/04/2024 2:01 PM EDT): Reviewed Ht/Wt/BMI Recommend eye exam yearly Recommend dental exams twice a year Balance work/leisure activities Exercises is recommended most days of the week (appropriate as chronic conditions allow) Follow up yearly and prn Assessment & Plan (05/02/2023 1:59 PM EDT): Patient here for Medicare Wellness. Reviewed medical, surgical and social history. Reviewed medication list. Patient screened for depression, fall risk, cognitive impairment. Patient provided appropriate education on chronic medical conditions, prescription medications. Patient's health related questions and concerns addressed and answered. Given her age, no need for cancer screening. Primary hypertension 01/25/2023 Assessment & Plan (06/04/2024 6:55 AM EDT): Please check blood pressure daily and record DASH diet Limit caffeine Take medication as directed Contact office if chest pain, pressure, dizziness, shortness of breath, swelling legs Recommend slow position changes Current meds: amlodipine and metoprolol Assessment & Plan (12/05/2023 4:33 PM EDT): Currently taking Metoprolol 100mg BID Does not check BP at home; Denies orthostatic changes, dizziness, cough, shortness of breath, swelling in extremities. Continue current regimen. Given BP log, advised pt to record BP and bring log back with them to next visit. Assessment & Plan (10/04/2023 2:24 PM EDT): BP well controlled in office today. Checks BP at home states average is 132-145 Did not bring log in with her today. Denies orthostatic changes Continue amlodipine and metoprolol as directed. Assessment & Plan (09/19/2023 11:41 AM EDT): Continue amlodipine and metoprolol as directed. Assessment & Plan (08/02/2023 1:45 PM EDT): BP well above goal in office. On Lopressor/norvasc. Does not check BP at home. Patient encouraged to continue with home BP monitoring and call office. Previously she was on Lisinopril, Aldactone and Lasix too but all of them were discontinued after recent hospital admission for UTI resulting in KADI - serum creatnione improved to 1.3. 05/07. Check urine protein/creatinine. 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 C.w amlodipine, lopressor. Check labs, will decide on adding another antihypertensive based on her labs and renal function. Assessment & Plan (05/02/2023 1:53 PM EDT): BP well controlled. On average less than 130/90. Tolerating Anti hypertensive w/o adverse effects. Denies lightheadedness, dizziness, syncope, presyncope. Patient encouraged to continue with home BP monitoring and call office if he experiences orthostatic symptoms or persistently elevated BP. Previously she was on Lisinopril, Aldactone and Lasix too but all of them were discontinued after recent hospital admission for UTI resulting in KADI Recent labs 01/06 - reviewed, Cr mildly elevated. BP at goal. C.w amlodipine, lopressor. Assessment & Plan (01/25/2023 1:32 PM EST): Home BP log reviewed. BP well controlled. On average less than 130/90. Tolerating Anti hypertensive w/o adverse effects. Denies lightheadedness, dizziness, syncope, presyncope. Patient encouraged to continue with home BP monitoring and call office if he experiences orthostatic symptoms or persistently elevated BP. Previously she was on Lisinopril, Aldactone and Lasix too but all of them were discontinued after recent hospital admission for UTI resulting in KADI Recent labs 01/06 - reviewed, Cr mildly elevated. BP at goal. C.w amlodipine, lopressor. Osteoarthritis of right knee 01/21/2023 Presence of right artificial knee joint 01/22/20 23 Resolved Problems Problem Noted Date Diagnosed Date Resolved Date Encounter for subsequent [facility] wellness visit (AWV) in Medicare patient 06/04/2024 06/05/19 25 Antibiotic-induced yeast infection 08/02/2023 06/04/2024 Assessment & Plan (08/02/2023 1:44 PM EDT): Mild dysuria, itching with urination. Empirically treat with fluconazole. Hx of abx induced yeast infection. Recently finished oral levaquin for UTI. Will recheck UA. 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 Refer to ENT. Aftercare following joint replacement surgery 01/22/2006/04/2024 Encounters Date Type Department Care Team Description 08/08/2024 Refill [facility] [address] [place] [address] Tanvi Perez NP Primary hypertension ; Gastroesophageal reflux disease without esophagitis 08/08/2024 Telephone [facility] [address] [place] [address] Tanvi Perez NP 07/04/2024 Refill [facility] [address] [place] [address] Tanvi Perez NP Primary hypertension 07/04/2024 Telephone [facility] [address] [place] [address] Tanvi Perez NP 06/28/2024 Orders Only [facility] [address] [place] [address] Tanvi Perez NP Renal insufficiency (Primary Dx); Elevated total protein 06/26/2024 Clinisync Result Encounter [facility] Unsolicited Tanvi Perez NP 06/04/2024 1:20 PM EDT Office Visit [facility] [address] [place] [address] Tanvi Perez NP Medicare annual wellness visit, subsequent (Primary Dx); Primary hypertension ; Gastroesophageal reflux disease without esophagitis; Age related osteoporosis, unspecified pathological fracture presence ; Anemia in other chronic diseases classified elsewhere; Renal insufficiency; Seasonal allergies 06/04/2024 Bamboo flowsheet [facility] [address] [place] [address] Tanvi Perez NP from Last 3 Months Immunizations Immunization Administration Dates Next Due DTP 05/26/2021 Zoster, Recombinant 10/22/2021,06/18/2021 Family History Medical History Relation Name Comments Cancer Father Stroke Father Heart disease Mother Heart failure Mother Hypertension Mother Hypertension Other Cancer Sister Relation Name Status Comments Father Mother Other Sister Social History Tobacco Use Types Packs/Day Years Used Date Smoking Tobacco: Former Cigarettes Q uit: 1982 Passive Smoke Exposure: Past Smokeless Tobacco: Never Tobacco Cessation:Counseling Given: Not Answered Alcohol Use Standard Drinks/Week Comments Never 0 [...] Answer Date Recorded Patient Health Questionnaire-2 Score 1 06/04/2024 Comments Unknown Sex and Gender Information Value Date Recorded Sex Assigned at Not on file Legal Sex Female 7:31 PM EDT Gender Identity Not on file Sexual Orientation Not on file Last Filed Vital Signs Vital Sign Reading Time Taken Comments Blood Pressure 132/72 06/04/2024 1:23 PM EDT Pulse 65 06/04/2024 1:23 PM EDT Temperature 37.1 C (98.7 F) 06/04/2024 1:23 PM EDT Respiratory Rate 19 06/04/2024 1:23 PM EDT Oxygen Saturation 96% 06/04/2024 1:23 PM EDT Inhaled Oxygen Concentration - - Weight 91.3 kg (201 lb 3.2 oz) 06/04/2024 1:23 P M EDT Height 160 cm (5' 3 ) 09/19/2023 8:37 AM EDT Body Mass Index 35.64 09/19/2023 8:37 AM EDT Plan of Treatment Upcoming Encounters Date Type Department Care Team (Late st Contact Info) Description 09/03/2024 1:00 PM EDT Office Visit [facility] [address] [place] [address] Tanvi Perez, WET END SUPERVISOR [address] [place] [phone] 06/10/2025 4:30 PM EDT Office Visit [facility] [address] [place] [address] Tanvi Perez, WET END SUPERVISOR [address] [place] [phone] Health Maintenance Due Date Last Done Comments Pneumococcal Vaccine: 65+ Ye ars (1 of 1 - PCV) 11/27/1987 Influenza Vaccine (#1) 2024 Medicare Annual Wellness (AWV) 06/04/2025 0 06/04/2024, 05/02/2023, 05/02/2023 Procedures Procedure Name Priority Date/Time Associated Diagnosis Comments TRANSFERRIN Routine 06/26/2024 9:47 AM EDT TB[facility] VITAMIN D 25 [place] Routine 06/26/2024 9 :47 AM EDT [facility] FERRITIN Routine 06/26/2024 9:47 AM EDT METRO IRON AND TIBC Routine 06/26/2024 9 :47 AM EDT [facility] CMP (CMP) (FOR REMOTE [facility] USE) Routine 06/26/2024 9:47 AM EDT ALL CBC WITH AUTO DIFF Routine 06/26/2024 9:47 AM EDT URINE CULTURE, ROUTINE Routine 06/26/2024 9:33 AM EDT TBH URINE MICROSCOPIC ONLY Routine 06/26/2024 9:33 AM EDT TBH UA (CLEAN/CATCH) MILITARY ADMINISTRATIVE TECHNICIAN/MICRO IF IND. Routine 06/26/2024 9:33 AM EDT TB MICROALB CREAT RATIO RANDOM Routine 06/26/2024 9:33 AM EDT from Last 3 Months Results * TRANSFERRIN (06/26/2024 9:47 AM EDT) TRANSFERRIN 232 149 - 313 mg/dL [facility] Comment: Performed at: [facility] Lab[address] [id number] Calibration Laboratory Technician: Pool Reilly PhD, Phone: [phone] 06/26/2024 9:47 AM EDT 06/26/2024 9:56 AM EDT Narrative CLINISYNC - 06/27/2024 5:07 AM EDT us Tanvi Perez NP LAB BLOOD ORDERABLES Final Resu lt Performing Organization Address City/[facility]/ZIP Co de Phone Number [facility] * TB VITAMIN D 25 [place] (06/26/2024 9:47 AM EDT) Pathologist [facility] VITAMIN D 62.3 ng/mL [facility] Comment: <20 ng/mL Vit D deficient 20-<30 ng/mL Vit D insufficient 30-100 ng/mL Vit D sufficient >100 ng/mL Potential Toxicity 06/26/2024 9:47 AM EDT 06/26/2024 9:56 AM EDT Narrative CLINISYNC - 06/26/2024 11:11 AM EDT us Tanvi Perez WET END SUPERVISOR CLINISYNC Final Result Performing Organization Address City/[facility]/ZIP Co de Phone Number [facility] * METRO IRON AND TIBC (06/26/2024 9:47 AM EDT) TBH IRON 115.0 50.0 - 170.0 ug/dL TBH TBH TOTAL IRON BINDING CAPACITY 285.0 250.0 - 450.0 ug/dL TBH TBH PERCENT IRON SATURATION 40.4 % TBH 06/26/2024 9:47 AM EDT 06/26/2024 9:56 AM EDT Narrative CLINISYNC - 06/26/2024 10:37 AM EDT Tanvi Perez WET END SUPERVISOR CLINISYNC Final Result [facility]INISYNC [facility] * [facility] FERRITIN (06/26/2024 9:47 AM EDT) FERRITIN 94.0 8.0 - 252.0 ng/mL TBH 06/26/2024 9:47 AM EDT 06/26/2024 9:56 AM EDT Narrative CLINISYNC - 06/26/2024 11:11 AM EDT Tanvi Perez NP CLINISYNC Final Result CLINISYNC [facility] * (ABNORMAL) [facility] CMP (CMP) (FOR REMOTE [facility] USE) (06/26/2024 9:47 AM EDT) SODIUM 137 136 - 145 mmol/L TBH POTASSIUM 4.1 3.5 - 5.1 mmol/L TBH CHLORIDE 100 98 - 107 mmol/L TBH CARBON DIOXIDE 27.8 21.0 - 32.0 mmol/L TBH ANION GAP 13.3 TBH GLUCOSE 94 74 - 106 mg/dL TBH BLOOD UREA NITROGEN 13.0 7.0 - 18.0 mg/dL TBH CREATININE 1.25(H) 0.55 - 1.02 mg/dL TBH TBH EGFR-AF [place] 49(L) >=60 mL/min/1. 73m 2 TBH TBH EGFR-NON AF [place] 41(L) >=60 mL/min/1. 73m 2 TBH BUN CREATININE RATIO 10.4 TBH CALCIUM 9.7 8.5 - 10.1 mg/dL TBH BILIRUBIN TOTAL 0.6 0.2 - 1.0 mg/dL TBH ASPARTATE AMINO TRANSFERASE 25 15 - 37 U/L TBH ALANINE AMINOTRANSFERASE 28 14 - 59 U/L TBH ALKALINE PHOSPHATASE 71 46 - 116 U/L TBH TOTAL PROTEIN 8.5(H) 6.4 - 8.2 g/dL TBH ALBUMIN LEVEL 4.3 3.4 - 5.0 g/dL TBH GLOBULIN 4.2 g/dL TBH ALBUMIN GLOBULIN RATIO 1.0 TBH 06/26/2024 9:47 AM EDT 06/26/2024 9:56 AM EDT Narrative CLINISYNC - 06/26/2024 10:37 AM EDT us Tanvi Perez NP [facility] ([facility]) ALL CBC WITH AUTO DIFF (06/26/2024 9:47 AM EDT) TBH WBC 7.9 4.0 - 11.0 10 3/uL TBH TBH RBC 4.13(L) 4.20 - 5.40 10 6/uL TBH TBH HGB 12.2 12.0 - 16.0 g/dL TBH TBH HCT 36.5 36.0 - 48.0 % TBH TBH MCV 88.4 81.0 - 99.0 fL TBH TBH MCH 29.5 26.7 - 34.0 pg TBH TBH MCHC 33.4 29.9 - 35.2 g/dL TBH TBH RDW 12.8 11.0 - 15.0 % TBH TBH PLT 295 150 - 450 10 3/uL TBH TBH MPV 11.7 9.5 - 13.5 fL TBH NEUTROPHILS PERCENT AUTO 49.7 43.0 - 75.0 % TBH LYMPHOCYTES PERCENT AUTO 30.2 20.5 - 60.0 % TBH MONOCYTES PERCENT AUTO 12.3(H) 1.7 - 12.0 % TBH TBH EO % 7.0 0.9 - 7.0 % TBH BASOPHILS PERCENT AUTO 0.5 0.2 - 2.0 % TBH IMMATURE GRANULOCYTES PCT AUTO 0.3 0.0 - 0.5 % TBH NEUTROPHILS ABSOLUTE AUTO 3.9 1.4 - 6.5 10 3/uL TBH LYMPHOCYTES ABSOLUTE AUTO 2.4 1.2 - 3.8 10 3/uL TBH MONOCYTES ABSOLUTE AUTO 1.0(H) 0.3 - 0.8 10 3/uL TBH TBH EO # 0.6 0.0 - 0.7 10 3/uL TBH BASOPHILS ABSOLUTE AUTO 0.0 0.0 - 0.1 10 3/uL TBH IMMATURE GRANULOCYTES ABS AUTO 0.02 0.00 - 0.03 10 3/uL TBH 06/26/2024 9:47 AM EDT 06/26/2024 9:56 AM EDT Narrative CLINISYNC - 06/26/2024 10:07 AM EDT us Tanvi Perez NP CLINISYNC Final Result Performing Organization Address City/[facility]/ZIP Co de Phone Number [facility] * URINE CULTURE, ROUTINE (06/26/2024 9:33 AM EDT) URINE CULTURE, ROUTINE Urine Culture, Routine TB URINE CULTURE, ROUTINE No growth TB URINE CULTURE, ROUTINE Performed at: - [facility] URINE CULTURE, ROUTINE [address] [place] [id number] [facility] URINE CULTURE, ROUTINE Calibration Laboratory Technician: Pool Reilly PhD, Phone: [phone] [facility] 06/26/2024 9:33 AM EDT 06/26/2024 2:28 PM EDT Narrative CLINISYNC - 06/27/2024 9:07 PM EDT us Tavni Perez WET END SUPERVISOR LAB BLOOD ORDERABLES Final Resu lt [facility] * (ABNORMAL) TB URINE MICROSCOPIC ONLY (06/26/2024 9:33 AM EDT) TB WBC 2-5(A) NONE SEEN #/HPF TBH TBH RBC 0-2 0 - 2 #/HPF TBH BACTERIA URINE TRACE(A) NONE SEEN #/HPF TBH MUCUS URINE NONE SEEN NONE SEEN TBH SQUAMOUS EPITHELIAL CELL URINE FEW(A) NONE/RARE #/LPF TBH CRYSTALS SEEN? None Seen None Seen #/HPF TBH CAST SEEN? NONE SEEN NONE SEEN #/LPF TBH URINE CULTURE INDICATED YES[place] 06/26/2024 9:33 AM EDT 06/26/2024 9:56 AM EDT Narrative CLINISYNC - 06/26/2024 12:42 PM EDT us Tanvi Perez NP CLINISYNC Final Result Performing Organization Address City/[facility]/ZIP Co de Phone Number [facility] * (ABNORMAL) TBH UA (CLEAN/CATCH) MILITARY ADMINISTRATIVE TECHNICIAN/MICRO IF IND. (06/26/2024 9:33 AM EDT) COLOR URINE LT. YELLOW YELLOW TBH CLARITY URINE CLEAR CLEAR TBH SPECIFIC GRAVITY URINE 1.010 1.005 - 1.025 TBH PH URINE 6.5 5.0 - 9.0 TBH PROTEIN URINE NEGATIVE NEG/TRACE mg/dL TBH GLUCOSE URINE UA NEGATIVE NEGATIVE mg/dL TBH BILIRUBIN URINE NEGATIVE NEGATIVE TBH KETONES URINE NEGATIVE NEGATIVE mg/dL TBH BLOOD URINE NEGATIVE NEGATIVE TBH NITRITE URINE NEGATIVE NEGATIVE TBH UROBILINOGEN URINE 0.2 0.2 - 1.0 EU/dL TBH LEUKOCYTE ESTERASE URINE SMALL(A) NEGATIVE TBH URINE MICROSCOPIC INDICATED YES TBH 06/26/2024 9:33 AM EDT 06/26/2024 9:56 AM EDT Narrative CLINISYNC - 06/26/2024 12:42 PM EDT Tnavi Perez NP CLINISYNC Final Result [facility] * (ABNORMAL) TBH MICROALB CREAT RATIO RANDOM (06/26/2024 9:33 AM EDT) MICROALBUMIN URINE RANDOM 5.1 <=30.0 mg/dL TBH CREATININE URINE RANDOM 82.28 20.00 - 300.00 mg/dL TBH MICROALBUM CREATININE RATIO UR 61.9(H) 0.0 - 29.9 mg/g TBH Comment: NO MICROALBUMINURIA 0-29 MG/G CLINICAL MICROALBUMINURIA 30-300 MG/G MACROALBUMINURIA >300 MG/G 06/26/2024 9:33 AM EDT 06/26/2024 9:56 AM EDT Narrative CLINISYNC - 06/26/2024 10:28 AM EDT us Tanvi Perez WET END SUPERVISOR CLINISYNC Final Result [facility]IS[facility] from Last 3 Months Insurance MEDICARE [facility] Care Teams Taxation Inspector Relationship Specialty Start Date End Date Nelson Woods MD [address] [place] [phone] PCP - General Family Medicine 06/04/24 Arlene Shah NP Nurse Practitioner Family Medicine 09/14/23
--- OUTSIDE RECORDS SUMMARY | 2024-08-29 09:28 | XMS_ITS | Encounter Summary ---
Author Organization [facility] Address [address] [place] [address] Care Team Providers Care Newborn Photographer Name Role Phone Nelson Woods MD Primary Care Provider [phone] Arlene Shah BUTTON ATTACHING MACHINE OPERATOR Unavailable [phone] Nelson Woosd MD Primary Care Provider [phone] Encounter Details Date Type Department Care Team ([facility] Contact Info) Description 11/07/2023 Orders Only [facility] [address] [place] [address] Tonya Cabrera NP [address] [place] [address] Social History Tobacco Use Types Packs/Day Years [...] Date Recorded Patient Health Questionnaire-2 Score 0 09/19/2023 Comments Unknown Sex and Gender Information Value [...] [facility] [address] [place] [address] Tanvi Perez NP [address] [place] [phone] 06/10/2025 4:30 PM EDT Office Visit [facility] [address] [place] [phone] Tanvi Perez NP [address] [place] [address] documented as of this encounter Procedures Procedure Name Priority Date/Time Associated Diagnosis Comments SCANNED LABS Routine 11/07/2023 2:48 PM EDT documented in this encounter Results * SCANNED LABS (11/07/2023 2:48 PM EDT) Tonya Cabrera NP LAB CHG PERFORMABLES Final Resu lt documented in this encounter Visit Diagnoses Not on filedocumented in this encounter Additional Health Concerns Assessment Noted Time PHQ-9 Depression Total Score: 0 05/02/19 24 1:40 PM EDT documented as of this encounter Care Teams Newborn Photographer Relationship Specialty Start Date End Date Nelson Woods MD [address] [place] [phone] PCP - General Family Medicine 09/14/23 12/04/23 Nelson Woods MD [address] [place] [phone] PCP - General Family Medicine 06/04/24 Arlene Shah NP [address] [place] [address] Nurse Practitioner Family Medicine 09/14/23 documented as of this encounter
--- OUTSIDE RECORDS SUMMARY | 2024-08-29 09:28 | XMS_ITS | Encounter Summary ---
Author Organization [facility] Address [address] [place] [address] Care Team Providers Care Label Maker Name Role Phone Arlene Shah TRACTOR MECHANIC Unavailable [phone] Nelson Woods MD Primary Care Provider [phone] Encounter Details Date Type Department Care Team ([facility] Contact Info) Description 02/01/2024 Orders Only [facility] [address] [facility] [phone] Tonya Cabrera NP [address] [place] [address] Social History Tobacco Use Types [...] [facility] [address] [place] [phone] Tanvi Perez NP [address] [place] [phone] 06/10/2025 4:30 PM EDT Office Visit [facility] [address] [place] [phone] Tanvi Perez NP [address] [place] [address] documented as of this encounter Procedures Procedure Name Priority Date/Time Associated Diagnosis Comments SCANNED LABS Routine 02/01/2024 2:23 PM EST documented in this encounter Results * SCANNED LABS (02/01/2024 2:23 PM EST) Tonya Cabrera TRACTOR MECHANIC LAB CHG PERFORMABLES Final Resu lt documented in this encounter Visit Diagnoses Not on filedocumented in this encounter Additional Health Concerns Assessment Noted Time PHQ-9 Depression Total Score: 0 05/02/19 24 1:40 PM EDT documented as of this encounter Care Teams Label Maker Relationship Specialty Start Date End Date Nelson Woods MD [address] [place] [address] PCP - General Family Medicine 06/04/24 Arlene Shah NP Nurse Practitioner Family Medicine 09/14/23 documented as of this encounter
--- OUTSIDE RECORDS SUMMARY | 2024-08-29 09:28 | XMS_ITS | Encounter Summary ---
Author Organization [facility] Address [address] [place] [place] [address] Care Team Providers Care Predatory Hunter Name Role Phone Arlene Shah MANAGER COMMUNICATION Unavailable [phone] Nelson Woods MD Primary Care Provider [phone] Encounter Details Date Type Department Care Team ([facility] Contact Info) Description 01/31/2024 Orders Only [facility] [address] [place] [phone] Arlene Shah NP Social History Tobacco Use Types Packs/Day Years [...] Upcoming Encounters Date Type Department Care Team ([facility] Contact Info) Description 09/03/2024 1:00 PM EDT Office Visit [facility] [address] [place] [address] Tanvi Perez, REJI [address] [place] [phone] 06/10/2025 4:30 PM EDT Office Visit [facility] [address] [place] [address] Tanvi Perez, REJI [address] [place] [phone] documented as of this encounter Procedures Procedure Name Priority Date/Time Associated Diagnosis Comments SCANNED LABS Routine 01/31/2024 1:55 PM EST documented in this encounter Results * SCANNED LABS (01/31/2024 1:55 PM EST) Arlene Shah MANAGER COMMUNICATION LAB CHG PERFORMABLES Fin al Result documented in this encounter Visit Diagnoses Not on filedocumented in this encounter Additional Health Concerns Assessment Noted Time PHQ-9 Depression Total Score: 0 05/02/19 24 1:40 PM EDT documented as of this encounter Care Teams Predatory Hunter Relationship Specialty Start Date End Date Nelson Woods MD [address] [place] [phone] PCP - General Family Medicine 06/04/24 Arlene Shah NP Nurse Practitioner Family Medicine 09/14/23 documented as of this encounter
--- OUTSIDE RECORDS SUMMARY | 2024-08-29 09:28 | XMS_ITS | Encounter Summary ---
Author Organization [facility] Address [address] [facility] [place] [address] Care Team Providers Care Escrow Processor Name Role Phone Arlene Shah IN FLIGHT REFUELING MANAGER Unavailable [phone] Nelson Woods MD Primary Care Provider [phone] Encounter Details Date Type Department Care Team ([facility] Contact Info) Description 03/15/2024 Orders Only [facility] [address] [place] [phone] Arlene Shah NP Social History Tobacco Use [...] Upcoming Encounters Date Type Department Care Team ([facility] Contact Info) Description 09/03/2024 1:00 PM EDT Office Visit [facility] [address] [place] [address] Tanvi Perez, REJI [address] [place] [phone] 06/10/2025 4:30 PM EDT Office Visit [facility] [address] [place] [address] Tanvi Perez, REJI [address] [place] [phone] documented as of this encounter Procedures Procedure Name Priority Date/Time Associated Diagnosis Comments SCANNED LABS Routine 03/15/2024 2:19 PM EST documented in this encounter Results * SCANNED LABS (03/15/2024 2:19 PM EST) Arlene Shah IN FLIGHT REFUELING MANAGER LAB CHG PERFORMABLES Fin al Result documented in this encounter Visit Diagnoses Not on filedocumented in this encounter Additional Health Concerns Assessment Noted Time PHQ-9 Depression Total Score: 0 05/02/19 24 1:40 PM EDT documented as of this encounter Care Teams Escrow Processor Relationship Specialty Start Date End Date Nelson Woods MD [address] [place] [phone] PCP - General Family Medicine 06/04/24 Arlene Shah NP Nurse Practitioner Family Medicine 09/14/23 documented as of this encounter
--- OUTSIDE RECORDS SUMMARY | 2024-08-29 09:28 | XMS_ITS | Clinical Summary ---
Author Organization [facility] Address [address] [place] [address] Care Team Providers Care Title 1 Tutor Name Role Phone Shaikh ROSITA Piña Primary Care Provider [phone] Allergies Active Allergy Reactions Criticality Noted Date Comments Aloe Vera Unknown 09/05/2022 Aspirin Unknown 09/05/2022 Ciprofloxacin Unknown 09/05/2022 Egg Unknown 09/05/2022 Eucalyptus Unknown 09/05/2022 Penicillins Unknown 09/05/2022 Has previously tolerated augmentin per patient 08/2022, Tolerated ceftriaxone 09/06/22 Quinolones 09/05/2022 Medications estrogens, conjugated, (Premarin) 0.9 mg tablet Take 0.9 mg by mouth in the morning. Take daily for 21 days then do not take for 7 days. Active metoprolol tartrate (Lopressor) 100 mg tablet Take 100 mg by mouth in the morning and at bedtime. Active potassium chloride ER (Micro-K) 10 mEq ER capsule Take 10 mEq by mouth in the morning. Do not crush or chew. Active RABEprazole (Aciphex) 20 mg EC tablet Take 20 mg by mouth in the morning. Do not crush, chew, or split. Active furosemide (Lasix) 20 mg tablet Take 20 mg by mouth if needed each day. Active fluticasone (Flonase Allergy Relief) 50 mcg/actuation nasal spray Administer 1 spray into each nostril 1 (one) time each day at the same time. Active multivitamin capsule Take 1 tablet by mouth 1 (one) time each day at the same time. Active spironolactone (Aldactone) 25 mg tabletIndications :Benign essential hypertension Take 1 tablet (25 mg) by mouth in the morning. 30 tablet 3 Active amLODIPine (Norvasc) 5 mg tabletIndications :Benign essential hypertension Take 2 tablets (10 mg) by mouth in the morning. 60 tablet 3 Active Active Problems Problem Noted Date Diagnosed Date Sinus tachycardia by electrocardiogram 3 Assessment & Plan (09/22/2022 2:05 PM EDT): Per Dr Chavarria who saw pt as inpt no a-fib was noted on EKG, Telemetry pt was noted to have sinus rhythm, sinus tachycardia, and PACs. Today EKG she is Sinus rhythm with sinus arrhythmia with 1st degree AV block. Therefore, non anticoagulation required and pt has resumed Metoprolol 100 mg bid and tolerating well. Bacteremia due to Escherichia coli 09/22/2022 Assessment & Plan (09/22/2022 2:09 PM EDT): Currently she has 1 more dose of Augmentin due and then that regime is completed. Admits intermittent nausea and 1 episode of diarrhea since dc from hospital. Script for CBC with diff, cmp provided to pt for labs today to assess WBC- HGB and renal function. Elevated troponin 09/05/2022 Elevated d-dimer 09/05/2022 KADI (acute kidney injury) 09/05/2022 Assessment & Plan (09/22/2022 2:18 PM EDT): Noted KADI while inpt Therefore pt sent for labs and d/w pt to f/U with PCP ZEE for hospital f/u- she states she is currently changing PCP from Dr Retana to Dr Anna. Pyelonephritis 09/05/2022 Bandemia 09/05/2022 Hyponatremia 09/05/2022 Generalized weakness 09/05/2022 Assessment & Plan (09/22/2022 2:07 PM EDT): Stable s/p recent sepsis, bacteremia with KADI Fall 09/05/2022 Benign essential hypertension 09/05/2022 Resolved Problems Problem Noted Date Diagnosed Date Resolved Date Atrial fibrillation with RVR 09/05/2022 09/22/2022 Social History Tobacco Use Types Packs/Day Years Used Date Smoking Tobacco: Never Smokeless Tobacco: Never Tobacco Cessation:Counseling Given: Not Answered Alcohol Use Standard Drinks/Week Comments Not Currently 0 (1 standard drink = 0.6 oz pur e alcohol) Humiliation, Afraid, Rape, and Kick questionnair e Answer Date Recorded Within the last year, have y ou been afraid of your partner or ex-partner? No 09/05/2022 Emotionally Abused Not on file 09/05/2022 Physically Abused Not on file 09/05/2022 Sexually Abused Not on file 09/05/2022 Overall Financial Resource Strain (CARDIA) Answe r Date Recorded How hard is it for you to pa y for the very basics like food, housing, medical care, and heating? Not very hard 09/05/2022 [place] Safety & Environment Answer Date Rec orded Within the last year, have y ou been afraid of your partner or ex-partner? No 09/05/2022 Emotionally Abused Not on file 09/05/2022 Physically Abused Not on file 09/05/2022 Sexually Abused Not on file 09/05/2022 In the past year have you be en physically or sexually abused? Unrecognized value 09/05/2022 Transportation Answer Date Recorded In the past 12 months, has l ack of transportation kept you from medical appointments or from getting medications? No 09/05/2022 Lack of Transportation (Non-Medical) Not on file 09/05/2022 Housing Stability Vital Sign Answer Ryan e Recorded Unable to Pay for Housing in the Last Year Not o n file 09/05/2022 Number of Places Lived in the Last Year Not on f ile 09/05/2022 In the last 12 months, was t here a time when you did not have a steady place to sleep or slept in a mcc (including now)? No 09/05/2022 Hunger Vital Sign Answer Date Recorded Within the past 12 months, y ou worried that your food would run out before you got the money to buy more. Never true 09/06/19 Ran Out of Food in the Last Year Not on file 09/05/2022 Comments Unknown Sex and Gender Information Value Date Recorded Sex Assigned at Female 09/06/2022 12:03 PM EDT Legal Sex Female 9:37 PM EDT Gender Identity Female 09/06/2022 12:03 PM EDT Sexual Orientation Heterosexual or Straight 08/15 12:03 PM EDT Last Filed Vital Signs Vital Sign Reading Time Taken Comments Blood Pressure 140/76 09/22/2022 1:20 PM EDT Pulse 74 09/22/2022 1:20 PM EDT Temperature 36.3 C (97.3 F) 09/12/2022 8:55 AM EDT Respiratory Rate 21 09/12/2022 8:55 AM EDT Oxygen Saturation 94% 09/22/2022 1:20 PM EDT Inhaled Oxygen Concentration - - Weight 96.6 kg (212 lb 15.4 oz) 09/12/2022 4:10 AM EDT Height 160 cm (5' 3 ) 09/05/2022 10:48 AM EDT Body Mass Index 37.72 09/05/2022 10:48 AM EDT Plan of Treatment Health Maintenance Due Date Last Done Comments Medicare Annual Wellness (AWV) 1935 Depression Screening 1947 Adult Tetanus 11/27/1959 Pneumococcal Vaccine: 50+ Years (1 of 1 - PCV) 11/27/1987 Fall Risk Screening 2002 COVID-19 Vaccine (2023-2 5 season) 2023 Influenza Vaccine (#1) 2024 Zoster Vaccines Completed 10/22/2021, 06/18/2021 HIB Vaccines Aged Out No longer eligi ble based on patient's age to complete this topic HPV Vaccines Aged Out No longer eligi ble based on patient's age to complete this topic IPV Vaccines Aged Out No longer eligi ble based on patient's age to complete this topic Meningococcal B Vaccine Aged Out No l onger eligible based on patient's age to complete this topic Meningococcal Vaccine Aged Out No rachael moi eligible based on patient's age to complete this topic Rotavirus Vaccines Aged Out No longer eligible based on patient's age to complete this topic Insurance [facility] [place] [id number] MEDICARE [place] [id number] Advance Directives * Full Code (Latest Code Status on File) Date Activated Date Inactivated Comments 09/05/2022 12:12 PM 09/12/2022 7:39 PM Care Teams Title 1 Tutor Relationship Specialty Start Date End Date Shaikh Piña MD PCP - General Family Medicine 09/22/22
--- OUTSIDE RECORDS SUMMARY | 2024-08-29 09:28 | XMS_ITS | Encounter Summary ---
Author Organization [facility] Address [address] [place] [address] Care Team Providers Care Etl Data Architect Name Role Phone Shaikh ROSITA Piña Primary Care Provider [phone] Nelson Woods MD Primary Care Provider [phone] Arlene Shah INVENTORY CONTROL ASSISTANT Unavailable [phone] Nelson Woods MD Primary Care Provider [phone] Encounter Details Date Type Department Care Team (Late st Contact Info) Description 07/04/2023 Orders Only [facility] [address] [place] [address] Nena Kincaid MA Social History Tobacco Use Types Packs/Day Years [...] Date Recorded Patient Health Questionnaire-2 Score 0 05/02/2023 Comments Unknown Sex and Gender Information Value [...] [facility] [address] [place] [phone] Tanvi Perez NP [address] [place] [phone] 06/10/2025 4:30 PM EDT Office Visit [facility] [address] [place] [phone] Tanvi Perez NP [address] [place] [phone] documented as of this encounter Visit Diagnoses Not on filedocumented in this encounter Additional Health Concerns Assessment Noted Time PHQ-9 Depression Total Score: 0 05/02/19 1:40 PM EDT documented as of this encounter Care Teams Etl Data Architect Relationship Specialty Start Date End Date Shaikh Piña MD [address] [place] [phone] PCP - General Internal Medicine 05/02/23 09/13/23 Nelson Woods MD [address] [place] [phone] PCP - General Family Medicine 09/14/23 12/04/23 Nelson Woods MD [address] [place] [phone] PCP - General Family Medicine 06/04/24 Arlene Shah NP [address] [place] [phone] Nurse Practitioner Family Medicine 09/14/23 documented as of this encounter
[2024-08-29 10:06] LABS: Alanine Aminotransferase 29 U/L (14-59); Albumin Globulin Ratio 1.0; Albumin Level 4.0 g/dL (3.4-5.0); Alkaline Phosphatase 67 U/L (46-116); Anion Gap 15.7; Aspartate Amino Transferase 26 U/L (15-37); Blood Urea Nitrogen 12.0 mg/dL (7.0-18.0); Calcium 9.4 mg/dL (8.5-10.1); Carbon Dioxide 26.4 mmol/L (21.0-32.0); Chloride 101 mmol/L (98-107); Estimated GFR (African America >60 (>=60 mL/min/1.73m^2); Estimated GFR (Non-African Ame 52 (>=60 mL/min/1.73m^2); Globulin 4.1 g/dL; Glucose 125 mg/dL (74-106); Potassium 4.1 mmol/L (3.5-5.1); Sodium 139 mmol/L (136-145); Total Protein 8.1 g/dL (6.4-8.2)
== END 2024-08-29 09:25 | disposition home or self-care (01) ==
LOC: LAB 09:26
PROVIDERS: PCP Nurse Practitioner; Visit Provider Nurse Practitioner
DX: N28.9 Disorder of kidney and ureter, unspecified (principal); R77.8 Other specified abnormalities of plasma proteins
CPT/HCPCS: 36415; 80053